=== PATIENT | female | born 1945 | race Caucasian/White ===

== ENCOUNTER 2017-03-25 08:23 | Inpatient (IN) | payer MEDICARE, MEDICAID ==
[2017-03-25] MEDS ORDERED: Sodium Chloride 0.9% 1,000 ML IV ONE (08:58)
[2017-03-25] MEDS ORDERED: Acetaminophen 500 MG Tab PO ONE (09:00)
[2017-03-25] MEDS ORDERED: Temazepam 7.5 MG Cap PO PRN (09:53)
[2017-03-25] MEDS ORDERED: Ondansetron 4 MG Tab.DIS PO PRN (09:53)
[2017-03-25] MEDS ORDERED: Docusate Sodium 100 MG Cap PO PRN (09:53)
[2017-03-25] MEDS ORDERED: Ondansetron 4 MG/2 ML SDV IV PRN (09:53)
[2017-03-25] MEDS ORDERED: Acetaminophen 325 MG Tab PO PRN (09:53)
[2017-03-25] MEDS ORDERED: Bisacodyl 5 MG Tab PO PRN (09:53)
[2017-03-25] MEDS ORDERED: Piperacillin/Tazobactam 3.375 GM in Sodium Chloride 0.9% 50 ML IV SCH (10:00)
[2017-03-25] MEDS ORDERED: Metolazone 2.5 MG Tab PO SCH (10:15)
[2017-03-25] MEDS ORDERED: cefTRIAXone 1,000 MG in Sodium Chloride 0.9% 50 ML IV SCH (10:45)
[2017-03-25] MEDS ORDERED: Azithromycin 500 MG in Sodium Chloride 0.9% 250 ML IV SCH (11:00)
[2017-03-25] MEDS: cefTRIAXone 1,000 MG VIAL IV SCH (12:14)
[2017-03-25] MEDS ORDERED: Metolazone 2.5 MG Tab ONE (13:27)
[2017-03-25] MEDS ORDERED: Gabapentin 300 MG Cap ONE ×2 (13:27→20:44)
[2017-03-25] MEDS: Albuterol/Ipratropium 3.0-0.5 MG/3 ML Neb Soln NEB SCH ×3 (13:37→21:28)
[2017-03-25] MEDS: Enoxaparin 40 MG/0.4 ML Syringe SUBCUT SCH (13:38)
[2017-03-25] MEDS ORDERED: LORazepam 2 MG/ML MDV IVPUSH PRN (15:00)
[2017-03-25] MEDS: Sodium Chloride 0.9% 1,000 ML IV SCH (15:05)
--- NOTE | 2017-03-25 15:08 | PCM.HP ---
H&P History of Present Illness - General Date of Service: 03/25/17 Admit Problem/Dx: Admission Diagnosis/Problem Admission Diagnosis/Problem Pneumonia Source of Information: Patient, Old Records History Limitations: Reports: Altered Mental Status Generalized Pain Score (Numeric/FACES): 8 Lower Back Pain Score (Numeric/FACES): 7 - Related Data Allergies/Adverse Reactions: Allergies Allergy/AdvReac Type Severity Reaction Status Date / Time erythromycin base Allergy Itching Verified 03/25/17 15:01 strawberry Allergy Hives Verified 03/25/17 15:01 Home Medications: Home Meds ALPRAZolam [Alprazolam] 0.5 mg PO BEDTIME PRN 02/07/16 [History] Acetaminophen with Codeine [Tylenol with Codeine #3 Tablet] 2 each PO Q4HR PRN 02/07/16 [History] DULoxetine [Cymbalta] 60 mg PO DAILY 02/07/16 [History] Ergocalciferol (Vitamin D2) [Vitamin D2] 2,000 unit PO BID 02/07/16 [History] Furosemide [Lasix] 80 mg PO DAILY 02/07/16 [History] Gabapentin [Neurontin] 600 mg PO QID 02/07/16 [History] Mirtazapine 45 mg PO BEDTIME 02/07/16 [History] Montelukast [Singulair] 10 mg PO BEDTIME 02/07/16 [History] PARoxetine [Paxil] 60 mg PO BEDTIME 02/07/16 [History] Potassium Chloride [Klor-Con M20] 20 meq PO BEDTIME 02/07/16 [History] rOPINIRole [Requip] 1 mg PO BEDTIME 02/07/16 [History] Past Medical History HEENT History: Reports: Impaired Vision Cardiovascular History: Reports: Heart Failure, Hypertension, SOB on Exertion Respiratory History: Reports: COPD, Pneumonia, Recurrent, Other (See Below) Other Respiratory History: Wears O2 @ hs. MATERIALS COORDINATOR History: Reports: , Other (See Below) Other OB/BYN History: 3 Musculoskeletal History: Reports: RA, Other (See Below) Other Musculoskeletal History: restless legs Neurological History: Reports: Parkinson's, Other (See Below) Other Neuro History: unable to obtain medication hx for Parkinson's, restlesslegs Psychiatric History: Reports: Anxiety, Depression Endocrine/Metabolic History: Reports: Obesity/BMI 30+ - Past Surgical History GI Surgical History: Reports: Hernia Repair/Other Other GI Surgeries/Procedures: Abdominal surgery Social & Family History - Family History Family Medical History: Noncontributory - Tobacco Use Smoking Status *Q: Current Every Day Smoker Years of Tobacco use: 59 Packs/Tins Daily: 1 Used Tobacco, but Quit: No Second Hand Smoke Exposure: No - Caffeine Use Caffeine Use: Reports: Coffee - Alcohol Use Days Per Week of Alcohol Use: 1 Number of Drinks Per Day: 1 Total Drinks Per Week: 1 - Recreational Drug Use Recreational Drug Use: No - Living Situation & Occupation Living situation: Reports: , Alone (Moved to town to be closer to sister. ) H&P Review of Systems - Review of Systems: Review Of Systems: ROS reveals no pertinent complaints other than HPI. Exam - Exam Exam: See Below - Vital Signs Vital Signs: Vital Signs Temp Pulse Resp BP Pulse Ox 03/25/17 11:00 99.9 F 22 H 141/65 H 93 L 03/25/17 10:42 99.8 F 20 141/65 H 94 L 03/25/17 09:35 101.5 F H 20 152/64 H 98 03/25/17 08:23 102.8 F H 116 H 22 H 146/96 H 98 Weight: 98.974 kg - Patient Data Lab Results Last 24 hrs: Laboratory Results - last 24 hr 03/25/17 Range/Units 12:10 Lactic Acid 0.7 (0.4-2.2) mmol/L Result Diagrams: 03/25/17 08:30 03/25/17 08:30 *Q Meaningful Use (ADM) - VTE *Q VTE Criteria *Q: - Stroke *Q Stroke Criteria *Q: - AMI *Q AMI Criteria *Q: - Problem List (1) CAP (community acquired pneumonia) SNOMED Code(s): 385185192 ICD Code: J18.9 - PNEUMONIA, UNSPECIFIED ORGANISM Status: Acute Current Visit: Yes Qualifiers: Laterality: right (2) Bronchospasm with bronchitis, acute SNOMED Code(s): 50542875 ICD Code: J20.9 - ACUTE BRONCHITIS, UNSPECIFIED Status: Acute Priority: High Current Visit: Yes (3) Fever due to infection SNOMED Code(s): 869422383 ICD Code: R50.81 - FEVER PRESENTING WITH CONDITIONS CLASSIFIED ELSEWHERE; B99.9 - UNSPECIFIED INFECTIOUS DISEASE Status: Acute Priority: High Current Visit: Yes (4) Lethargy SNOMED Code(s): 703477337 ICD Code: R53.83 - OTHER FATIGUE Status: Acute Current Visit: Yes (5) Medication reaction SNOMED Code(s): 05062438 ICD Code: T88.7XXA - UNSP ADVERSE EFFECT OF DRUG OR MEDICAMENT, INIT ENCNTR Status: Acute Priority: Medium Current Visit: Yes Qualifiers: Encounter type: initial encounter Qualified Code(s): T88.7XXA - Unspecified adverse effect of drug or medicament, initial encounter (6) Mental status change SNOMED Code(s): 411078967 ICD Code: R41.82 - ALTERED MENTAL STATUS, UNSPECIFIED Status: Acute Current Visit: Yes Qualifiers: Altered mental status type: transient alteration of awareness Qualified Code(s): R40.4 - Transient alteration of awareness (7) Palliative care status SNOMED Code(s): 072558569 ICD Code: Z51.5 - ENCOUNTER FOR PALLIATIVE CARE Status: Acute Current Visit: Yes (8) CHF NYHA class II (symptoms with moderately strenuous activities) SNOMED Code(s): 627621353 ICD Code: I50.9 - HEART FAILURE, UNSPECIFIED Status: Chronic Current Visit: Yes Qualifiers: Congestive heart failure type: systolic (9) Chronic back pain SNOMED Code(s): 255469086 ICD Code: M54.9 - DORSALGIA, UNSPECIFIED; G89.29 - OTHER CHRONIC PAIN Status: Chronic Current Visit: Yes Qualifiers: Back pain location: low back pain Back pain laterality: midline Sciatica presence: without sciatica Qualified Code(s): M54.5 - Low back pain; G89.29 - Other chronic pain; G89.29 - Other chronic pain (10) Depression SNOMED Code(s): 35317485 ICD Code: F32.9 - MAJOR DEPRESSIVE DISORDER, SINGLE EPISODE, UNSPECIFIED Status: Chronic Priority: High Current Visit: Yes Qualifiers: Depression Type: major depressive disorder Active/Remission status: currently active Major depression episode severity: mild (11) Insomnia disorder SNOMED Code(s): 689439615 ICD Code: G47.00 - INSOMNIA, UNSPECIFIED Status: Chronic Current Visit: Yes Qualifiers: Insomnia type: unspecified Qualified Code(s): G47.00 - Insomnia, unspecified (12) Morbid obesity with BMI of 40.0-44.9, adult SNOMED Code(s): 259096984 ICD Code: E66.01 - MORBID (SEVERE) OBESITY DUE TO EXCESS CALORIES; Z68.41 - BODY MASS INDEX (BMI) 40.0-44.9, ADULT Status: Chronic Current Visit: Yes (13) Polypharmacy SNOMED Code(s): 433014370 ICD Code: Z79.899 - OTHER FDC (CURRENT) DRUG THERAPY Status: Chronic Priority: High Current Visit: Yes (14) Restless legs syndrome (RLS) SNOMED Code(s): 90379227 ICD Code: G25.81 - RESTLESS LEGS SYNDROME Status: Chronic Current Visit: Yes (15) Seasonal allergies SNOMED Code(s): 978550489 ICD Code: J30.2 - OTHER SEASONAL ALLERGIC RHINITIS Status: Chronic Current Visit: Yes Qualifiers: Allergic rhinitis trigger: pollen Qualified Code(s): J30.1 - Allergic rhinitis due to pollen (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 SNOMED Code(s): 635393285 ICD Code: K05.6 - PERIODONTAL DISEASE, UNSPECIFIED; K06.9 - DISORDER OF GINGIVA AND EDENTULOUS ALVEOLAR RIDGE, UNSP Status: Acute Current Visit: Yes Problem List Initiated/Reviewed/Updated: Yes Orders Last 24hrs: Active Orders 24 hr Category Date Time Status Cooling Measures [Cooling Warming Measures] [RC] Care 03/25/17 15:00 Ordered ASDIRECTED Pneumonia Education [RC] DAILY Care 03/25/17 14:45 Ordered RT Incentive Spirometry [RC] Q2HWA Care 03/25/17 14:45 Ordered Consult to Fnps [CONS] Routine Cons 03/25/17 14:45 Ordered OT Evaluation and Treatment [CONS] Routine Cons 03/25/17 14:45 Ordered Respiratory Care Assess and Treatment [CONS] Routine Cons 03/25/17 14:45 Ordered 2 Gram Sodium Diet [DIET] Diet 03/25/17 Dinner Ordered CBC WITH AUTO DIFF [HEME] AM Lab 03/26/17 05:11 Ordered CULTURE SPUTUM + SMEAR [RM] Routine Lab 03/25/17 09:50 Received UA W/MICROSCOPIC [URIN] Routine Lab 03/25/17 14:45 Ordered Acetaminophen [Tylenol Extra Strength] Med 03/25/17 16:00 Ordered 1,000 mg PO Q6H DULoxetine [Cymbalta] Med 03/26/17 09:00 Active 60 mg PO DAILY Ergocalciferol (Vitamin D2) [Vitamin D2] Med 03/25/17 21:00 Active 2,000 unit PO BID Furosemide [Lasix] Med 03/26/17 09:00 Active 80 mg PO DAILY Gabapentin [Neurontin] Med 03/25/17 14:00 Active 600 mg PO TID LORazepam [Ativan] Med 03/25/17 15:00 Ordered 1 mg IVPUSH Q8H PRN Levofloxacin/Dextrose 5%-Water [Levaquin in D5W 750 MG/ Med 03/25/17 14:45 Ordered 150 ML] 750 mg Premix Bag 1 bag IV Q24H Metolazone [Zaroxolyn] Med 03/25/17 10:15 Active 5 mg PO Q2D Mirtazapine [Mirtazapine] Med 03/25/17 21:00 Active 45 mg PO BEDTIME Montelukast [Singulair] Med 03/25/17 21:00 Active 10 mg PO BEDTIME PARoxetine [Paxil] Med 03/26/17 09:00 Active 60 mg PO DAILY Potassium Chloride [Klor-Con M20] Med 03/26/17 09:00 Active 20 meq PO DAILY cefTRIAXone [Rocephin] Med 03/25/17 12:00 Active 1,000 mg IV Q24H rOPINIRole [Requip] Med 03/25/17 21:00 Active 1 mg PO BEDTIME Give supplemental Oxygen PRN [COMM] Routine Oth 03/25/17 14:46 Ordered Medication Orders Acetaminophen (Tylenol Extra Strength) 1,000 mg PO Q6H [facility] Stop: 03/27/17 16:01 Albuterol/Ipratropium (Duoneb 3.0-0.5 Mg/3 Ml) 3 ml NEB QIDRT [facility] Last Admin: 03/25/17 13:37 Dose: 3 ml Ceftriaxone Sodium (Rocephin) 1,000 mg IV Q24H [facility] Last Admin: 03/25/17 12:14 Dose: 1,000 mg Docusate Sodium (Colace) 100 mg PO BID PRN PRN Reason: Constipation Duloxetine HCl (Cymbalta) 60 mg PO DAILY [facility] Enoxaparin Sodium (Lovenox) 40 mg SUBCUT Q24H [facility] Last Admin: 03/25/17 13:38 Dose: 40 mg Furosemide (Lasix) 80 mg PO DAILY [facility] Gabapentin (Neurontin) 600 mg PO TID [facility] Levofloxacin/Dextrose 750 mg/ (Premix) 150 mls @ 100 mls/hr IV Q24H [facility] Ibuprofen (Motrin) 600 mg PO Q6H PRN PRN Reason: Pain (mild 1-3) Lorazepam (Ativan) 1 mg IVPUSH Q8H PRN PRN Reason: anxiety;agitation;restlessness Montelukast Sodium (Singulair) 10 mg PO BEDTIME [facility] Non-Formulary Medication (Ergocalciferol (Vitamin D2) [Vitamin D2]) 2,000 unit PO BID [facility] Non-Formulary Medication (Mirtazapine [Mirtazapine]) 45 mg PO BEDTIME [facility] Paroxetine HCl (Paxil) 60 mg PO BEDTIME [facility] Potassium Chloride (Klor-Con M20) 20 meq PO DAILY [facility] Ropinirole HCl (Requip) 1 mg PO BEDTIME [facility]
[2017-03-25] MEDS ORDERED: Nicotine 21 MG/24 Hr Patch TRDERM PRN (15:37)
--- NOTE | 2017-03-25 15:45 | PCM.HP ---
H&P History of Present Illness - General Date of Service: 03/25/17 Admit Problem/Dx: Admission Diagnosis/Problem Admission Diagnosis/Problem Pneumonia - History of Present Illness Initial Comments - Free Text/Narative: Presents to the ER having increasing cough and shortness of breath. Increased sputum production. Long-standing active COPD with bronchospastic component. Ongoing symptoms the last couple of days. Not improving. Noting high fevers sweats chills. Unaware of any ill contacts. Sees a physician in outlying facility. Otherwise she denies near syncope, falls, hemoptysis, chest pain or pressure, neck or jaw pain, shoulder arm pain. She does get anterior chest wall pain with coughing. Bringing up mucopurulent sputum. She does smoke about a pack a day. She is on O2 at night. Not on CPAP. She has chronic low and mid back pain for which she is on numerous medications for anti-inflammatory, analgesic and neurogenic palliation. Also concomitant depression anxiety with RLS and insomnia. Allergy list includes erythromycin base but she is unsure exactly when or where this happened. Thinks it causes itching, but denies any respiratory distress, swelling of the lips and tongue associated. She has a component of asthma as well. She has not traveled outside the [place] in the last 90 days. She is having her records sent to establish care with Dr. Shelley MD over at [facility] in [place], [place]. She has not seen him as of yet. Generalized Pain Score (Numeric/FACES): 8 Lower Back Pain Score (Numeric/FACES): 7 Left Neck Pain Score (Numeric/FACES): 5 - Related Data Allergies/Adverse Reactions: Allergies Allergy/AdvReac Type Severity Reaction Status Date / Time erythromycin base Allergy Itching Verified 03/25/17 15:01 strawberry Allergy Hives Verified 03/25/17 15:01 Home Medications: Home Meds ALPRAZolam [Alprazolam] 0.5 mg PO BEDTIME PRN 02/07/16 [History] Acetaminophen with Codeine [Tylenol with Codeine #3 Tablet] 2 each PO Q4HR PRN 02/07/16 [History] DULoxetine [Cymbalta] 60 mg PO DAILY 02/07/16 [History] Ergocalciferol (Vitamin D2) [Vitamin D2] 2,000 unit PO BID 02/07/16 [History] Furosemide [Lasix] 80 mg PO DAILY 02/07/16 [History] Gabapentin [Neurontin] 600 mg PO TID 02/07/16 [History] Mirtazapine 45 mg PO BEDTIME 02/07/16 [History] Montelukast [Singulair] 10 mg PO BEDTIME 02/07/16 [History] PARoxetine [Paxil] 60 mg PO BEDTIME 02/07/16 [History] Potassium Chloride [Klor-Con M20] 20 meq PO BEDTIME 02/07/16 [History] rOPINIRole [Requip] 2 mg PO BEDTIME 02/07/16 [History] Past Medical History HEENT History: Reports: Impaired Vision Cardiovascular History: Reports: Heart Failure, Hypertension, SOB on Exertion Respiratory History: Reports: COPD, Pneumonia, Recurrent, Other (See Below) Other Respiratory History: Wears O2 @ hs. [employer] History: Reports: , Other (See Below) Other OB/BYN History: 3 Musculoskeletal History: Reports: RA, Other (See Below) Other Musculoskeletal History: restless legs Neurological History: Reports: Parkinson's, Other (See Below) Other Neuro History: unable to obtain medication hx for Parkinson's, restlesslegs Psychiatric History: Reports: Anxiety, Depression Endocrine/Metabolic History: Reports: Obesity/BMI 30+ - Past Surgical History GI Surgical History: Reports: Hernia Repair/Other Other GI Surgeries/Procedures: Abdominal surgery Neurological Surgical History: Reports: C-Spine Musculoskeletal Surgical History: Reports: Knee Replacement Social & Family History - Family History Family Medical History: Noncontributory - Tobacco Use Smoking Status *Q: Current Every Day Smoker Years of Tobacco use: 59 Packs/Tins Daily: 1 Used Tobacco, but Quit: No Second Hand Smoke Exposure: No - Caffeine Use Caffeine Use: Reports: Coffee - Alcohol Use Days Per Week of Alcohol Use: 1 Number of Drinks Per Day: 1 Total Drinks Per Week: 1 - Recreational Drug Use Recreational Drug Use: No - Living Situation & Occupation Living situation: Reports: Occupation: Unemployed H&P Review of Systems - Review of Systems: Review Of Systems: ROS reveals no pertinent complaints other than HPI. Exam - Exam Exam: See Below - Vital Signs Vital Signs: Last Vital Signs Temp 99.9 F 03/25/17 11:00 Pulse 116 H 03/25/17 08:23 Resp 22 H 03/25/17 11:00 BP 141/65 H 03/25/17 11:00 Pulse Ox 93 L 03/25/17 11:00 Weight: 98.974 kg - Exam Quality Assessment: Supplemental Oxygen General: Alert, Oriented, Cooperative, Mild Distress HEENT: No: Mucosa Moist & [place] Neck: Trachea Midline. No: Lymphadenopathy Lungs: Decreased Breath Sounds, Crackles (Coarse crackles noted mid lung bailey left greater than right with diminished aeration on the left at the lower lobes. ), Wheezing (Anterior chest wall bilateral upper lobes) Cardiovascular: Regular Rate, Regular Rhythm GI/Abdominal Exam: Normal Bowel Sounds, Other (Patient has numerous surgical scars from prior hernia repair. She has firm distention however states this is normal for her. I cannot palpate any active abdominal herniation. She is nontender to palpation has normal bowel sounds throughout.) (Female) Exam: Normal External Exam Back Exam: Other (Severe kyphoscoliosis which is contributing to likely restrictive/obstructive COPD) Extremities: No: Pedal Edema, Vandana's Sign, Leg Pain Neurological: Strength Equal Bilateral Psychiatric: Alert, Anxious, Agitated. No: Hallucinations, Withdrawal Symptoms - Patient Data Lab Results Last 24 hrs: Laboratory Tests 03/25/17 03/25/17 03/25/17 Range/Units 08:30 08:30 08:30 WBC 17.2 H (4.5-12.0) X10-3/uL RBC 4.41 (3.23-5.20) x10(6)uL Hgb 13.5 (11.5-15.5) g/dL Hct 40.6 (30.0-51.3) % MCV 91.9 (80-96) fL MCH 30.6 (27.7-33.6) pg MCHC 33.2 (32.2-35.4) g/dL RDW 14.6 (11.5-15.5) % Plt Count 305 (125-369) X10(3)uL MPV 8.2 (7.4-10.4) fL Neut % (Auto) (46-82) % Lymph % (Auto) (13-37) % [place] % (Auto) (4-12) % Eos % (Auto) (1.0-5.0) % Baso % (Auto) (0-2) % Neut # (Auto) (1.6-8.3) # Lymph # (Auto) (0.6-5.0) # [place] # (Auto) (0.0-1.3) # Eos # (Auto) (0.0-0.8) # Baso # (Auto) (0.0-0.2) # Add Manual Diff Yes Neutrophils % (Manual) 77 (46-82) % Band Neutrophils % 4 (0-6) % Lymphocytes % (Manual) 12 L (13-37) % Monocytes % (Manual) 4 (4-12) % Eosinophils % (Manual) 3 (0-5) % Sodium 141 (135-145) mmol/L Potassium 4.5 (3.5-5.3) mmol/L Chloride 100 (100-110) mmol/L Carbon Dioxide 31 (21-32) mmol/L BUN 16 (7-18) mg/dL Creatinine 1.1 H (0.55-1.02) mg/dL Est Cr Clr Drug Dosing 35.40 mL/min Estimated GFR (MDRD) 49 L (>60) BUN/Creatinine Ratio 14.5 (9-20) Glucose 96 (80-116) mg/dL Lactic Acid (0.4-2.2) mmol/L Calcium 9.4 (8.6-10.2) mg/dL Total Bilirubin 0.4 (0.1-1.3) mg/dL AST 26 H (5-25) IU/L ALT 31 (12-36) U/L Alkaline Phosphatase 204 H (56-112) IU/L Total Protein 7.1 (6.0-8.0) g/dL Albumin 3.5 (3.2-4.6) g/dL Globulin 3.6 g/dL Albumin/Globulin Ratio 1.0 TSH, Ultra Sensitive 0.43 (0.36-3.74) IU/mL Urine Color (YELLOW) Urine Appearance (CLEAR) Urine pH (5.0-6.5) Ur Specific [place] (1.010-1.025) Urine Protein (NEGATIVE) mg/dL Urine Glucose (UA) (NEGATIVE) mg/dL Urine Ketones (NEGATIVE) mg/dL Urine Occult Blood (NEGATIVE) Urine Nitrite (NEGATIVE) Urine Bilirubin (NEGATIVE) Urine Urobilinogen (NEGATIVE) mg/dL Ur Leukocyte Esterase (NEGATIVE) Urine RBC (0) Urine WBC (0) Ur Squamous Epith Cells (NS,R,O) Urine Bacteria (NS) Urine Opiates Screen (NEGATIVE) Ur Oxycodone Screen (NEGATIVE) Ur Propoxyphene Screen (NEGATIVE) Ur Barbituates Screen (NEGATIVE) Ur Tricyclics Screen (NEGATIVE) Ur Phencyclidine Scrn (NEGATIVE) Ur Amphetamine Screen (NEGATIVE) Urine MDMA Screen (NEGATIVE) U Benzodiazepines Scrn (NEGATIVE) U Cocaine Metab Screen (NEGATIVE) U Marijuana (THC) Screen (NEGATIVE) 03/25/17 03/25/17 03/25/17 Range/Units 08:30 09:35 09:35 WBC (4.5-12.0) X10-3/uL RBC (3.23-5.20) x10(6)uL Hgb (11.5-15.5) g/dL Hct (30.0-51.3) % MCV (80-96) fL MCH (27.7-33.6) pg MCHC (32.2-35.4) g/dL RDW (11.5-15.5) % Plt Count (125-369) X10(3)uL MPV (7.4-10.4) fL Neut % (Auto) (46-82) % Lymph % (Auto) (13-37) % [place] % (Auto) (4-12) % Eos % (Auto) (1.0-5.0) % Baso % (Auto) (0-2) % Neut # (Auto) (1.6-8.3) # Lymph # (Auto) (0.6-5.0) # [place] # (Auto) (0.0-1.3) # Eos # (Auto) (0.0-0.8) # Baso # (Auto) (0.0-0.2) # Add Manual Diff Neutrophils % (Manual) (46-82) % Band Neutrophils % (0-6) % Lymphocytes % (Manual) (13-37) % Monocytes % (Manual) (4-12) % Eosinophils % (Manual) (0-5) % Sodium (135-145) mmol/L Potassium (3.5-5.3) mmol/L Chloride (100-110) mmol/L Carbon Dioxide (21-32) mmol/L BUN (7-18) mg/dL Creatinine (0.55-1.02) mg/dL Est Cr Clr Drug Dosing mL/min Estimated GFR (MDRD) (>60) BUN/Creatinine Ratio (9-20) Glucose (80-116) mg/dL Lactic Acid 1.7 (0.4-2.2) mmol/L Calcium (8.6-10.2) mg/dL Total Bilirubin (0.1-1.3) mg/dL AST (5-25) IU/L ALT (12-36) U/L Alkaline Phosphatase (56-112) IU/L Total Protein (6.0-8.0) g/dL Albumin (3.2-4.6) g/dL Globulin g/dL Albumin/Globulin Ratio TSH, Ultra Sensitive (0.36-3.74) IU/mL Urine Color Yellow (YELLOW) Urine Appearance Slightly cloudy (CLEAR) Urine pH 5.0 (5.0-6.5) Ur Specific [place] 1.020 (1.010-1.025) Urine Protein Negative (NEGATIVE) mg/dL Urine Glucose (UA) Normal (NEGATIVE) mg/dL Urine Ketones Negative (NEGATIVE) mg/dL Urine Occult Blood Negative (NEGATIVE) Urine Nitrite Negative (NEGATIVE) Urine Bilirubin Negative (NEGATIVE) Urine Urobilinogen Normal (NEGATIVE) mg/dL Ur Leukocyte Esterase Negative (NEGATIVE) Urine RBC 0-5 (0) Urine WBC 0-5 (0) Ur Squamous Epith Cells Many H (NS,R,O) Urine Bacteria Few H (NS) Urine Opiates Screen Positive H (NEGATIVE) Ur Oxycodone Screen Negative (NEGATIVE) Ur Propoxyphene Screen Negative (NEGATIVE) Ur Barbituates Screen Negative (NEGATIVE) Ur Tricyclics Screen Positive H (NEGATIVE) Ur Phencyclidine Scrn Negative (NEGATIVE) Ur Amphetamine Screen Negative (NEGATIVE) Urine MDMA Screen Negative (NEGATIVE) U Benzodiazepines Scrn Positive H (NEGATIVE) U Cocaine Metab Screen Negative (NEGATIVE) U Marijuana (THC) Screen Negative (NEGATIVE) 03/25/17 Range/Units 12:10 WBC (4.5-12.0) X10-3/uL RBC (3.23-5.20) x10(6)uL Hgb (11.5-15.5) g/dL Hct (30.0-51.3) % MCV (80-96) fL MCH (27.7-33.6) pg MCHC (32.2-35.4) g/dL RDW (11.5-15.5) % Plt Count (125-369) X10(3)uL MPV (7.4-10.4) fL Neut % (Auto) (46-82) % Lymph % (Auto) (13-37) % [place] % (Auto) (4-12) % Eos % (Auto) (1.0-5.0) % Baso % (Auto) (0-2) % Neut # (Auto) (1.6-8.3) # Lymph # (Auto) (0.6-5.0) # [place] # (Auto) (0.0-1.3) # Eos # (Auto) (0.0-0.8) # Baso # (Auto) (0.0-0.2) # Add Manual Diff Neutrophils % (Manual) (46-82) % Band Neutrophils % (0-6) % Lymphocytes % (Manual) (13-37) % Monocytes % (Manual) (4-12) % Eosinophils % (Manual) (0-5) % Sodium (135-145) mmol/L Potassium (3.5-5.3) mmol/L Chloride (100-110) mmol/L Carbon Dioxide (21-32) mmol/L BUN (7-18) mg/dL Creatinine (0.55-1.02) mg/dL Est Cr Clr Drug Dosing mL/min Estimated GFR (MDRD) (>60) BUN/Creatinine Ratio (9-20) Glucose (80-116) mg/dL Lactic Acid 0.7 (0.4-2.2) mmol/L Calcium (8.6-10.2) mg/dL Total Bilirubin (0.1-1.3) mg/dL AST (5-25) IU/L ALT (12-36) U/L Alkaline Phosphatase (56-112) IU/L Total Protein (6.0-8.0) g/dL Albumin (3.2-4.6) g/dL Globulin g/dL Albumin/Globulin Ratio TSH, Ultra Sensitive (0.36-3.74) IU/mL Urine Color (YELLOW) Urine Appearance (CLEAR) Urine pH (5.0-6.5) Ur Specific [place] (1.010-1.025) Urine Protein (NEGATIVE) mg/dL Urine Glucose (UA) (NEGATIVE) mg/dL Urine Ketones (NEGATIVE) mg/dL Urine Occult Blood (NEGATIVE) Urine Nitrite (NEGATIVE) Urine Bilirubin (NEGATIVE) Urine Urobilinogen (NEGATIVE) mg/dL Ur Leukocyte Esterase (NEGATIVE) Urine RBC (0) Urine WBC (0) Ur Squamous Epith Cells (NS,R,O) Urine Bacteria (NS) Urine Opiates Screen (NEGATIVE) Ur Oxycodone Screen (NEGATIVE) Ur Propoxyphene Screen (NEGATIVE) Ur Barbituates Screen (NEGATIVE) Ur Tricyclics Screen (NEGATIVE) Ur Phencyclidine Scrn (NEGATIVE) Ur Amphetamine Screen (NEGATIVE) Urine MDMA Screen (NEGATIVE) U Benzodiazepines Scrn (NEGATIVE) U Cocaine Metab Screen (NEGATIVE) U Marijuana (THC) Screen (NEGATIVE) Result Diagrams: 03/26/17 06:05 03/26/17 12:25 Zachary Results Last 24 hrs: Urine and sputum cultures have been obtained awaiting results Imaging Impressions Last 24 hrs: Chest x-ray PA view poor quality with poor penetration and rotation. However looks to have possible right middle and left lower lobe pneumonia. No definite cardiomegaly. Will repeat in the morning. Radiology review pending as well. *Q Meaningful Use (ADM) - VTE *Q VTE Criteria *Q: - Stroke *Q Stroke Criteria *Q: - AMI *Q AMI Criteria *Q: - Problem List (1) CAP (community acquired pneumonia) SNOMED Code(s): 580884579 ICD Code: J18.9 - PNEUMONIA, UNSPECIFIED ORGANISM Status: Acute Current Visit: Yes Qualifiers: Laterality: right (2) Bronchospasm with bronchitis, acute SNOMED Code(s): 90611428 ICD Code: J20.9 - ACUTE BRONCHITIS, UNSPECIFIED Status: Acute Priority: High Current Visit: Yes (3) Fever due to infection SNOMED Code(s): 971630447 ICD Code: R50.81 - FEVER PRESENTING WITH CONDITIONS CLASSIFIED ELSEWHERE; B99.9 - UNSPECIFIED INFECTIOUS DISEASE Status: Acute Priority: High Current Visit: Yes (4) Lethargy SNOMED Code(s): 204799523 ICD Code: R53.83 - OTHER FATIGUE Status: Acute Current Visit: Yes (5) Medication reaction SNOMED Code(s): 57941984 ICD Code: T88.7XXA - UNSP ADVERSE EFFECT OF DRUG OR MEDICAMENT, INIT ENCNTR Status: Acute Priority: Medium Current Visit: Yes Qualifiers: Encounter type: initial encounter Qualified Code(s): T88.7XXA - Unspecified adverse effect of drug or medicament, initial encounter (6) Mental status change SNOMED Code(s): 466571348 ICD Code: R41.82 - ALTERED MENTAL STATUS, UNSPECIFIED Status: Acute Current Visit: Yes Qualifiers: Altered mental status type: transient alteration of awareness Qualified Code(s): R40.4 - Transient alteration of awareness (7) Palliative care status SNOMED Code(s): 419299884 ICD Code: Z51.5 - ENCOUNTER FOR PALLIATIVE CARE Status: Acute Current Visit: Yes (8) CHF NYHA class II (symptoms with moderately strenuous activities) SNOMED Code(s): 436736095 ICD Code: I50.9 - HEART FAILURE, UNSPECIFIED Status: Chronic Current Visit: Yes Qualifiers: Congestive heart failure type: systolic (9) Nocturnal oxygen desaturation SNOMED Code(s): 880483027 ICD Code: G47.34 - IDIO SLEEP RELATED NONOBSTRUCTIVE ALVEOLAR HYPOVENTILATION Status: Chronic Current Visit: Yes (10) Chronic back pain SNOMED Code(s): 897371874 ICD Code: M54.9 - DORSALGIA, UNSPECIFIED; G89.29 - OTHER CHRONIC PAIN Status: Chronic Current Visit: Yes Qualifiers: Back pain location: low back pain Back pain laterality: midline Sciatica presence: without sciatica Qualified Code(s): M54.5 - Low back pain; G89.29 - Other chronic pain; G89.29 - Other chronic pain (11) Depression SNOMED Code(s): 25592732 ICD Code: F32.9 - MAJOR DEPRESSIVE DISORDER, SINGLE EPISODE, UNSPECIFIED Status: Chronic Priority: High Current Visit: Yes Qualifiers: Depression Type: major depressive disorder Active/Remission status: currently active Major depression episode severity: mild (12) Insomnia disorder SNOMED Code(s): 980092284 ICD Code: G47.00 - INSOMNIA, UNSPECIFIED Status: Chronic Current Visit: Yes Qualifiers: Insomnia type: unspecified Qualified Code(s): G47.00 - Insomnia, unspecified (13) Morbid obesity with BMI of 40.0-44.9, adult SNOMED Code(s): 828063926 ICD Code: E66.01 - MORBID (SEVERE) OBESITY DUE TO EXCESS CALORIES; Z68.41 - BODY MASS INDEX (BMI) 40.0-44.9, ADULT Status: Chronic Current Visit: Yes (14) Polypharmacy SNOMED Code(s): 681377137 ICD Code: Z79.899 - OTHER [employer] LEADPERSON (CURRENT) DRUG THERAPY Status: Chronic Priority: High Current Visit: Yes (15) Restless legs syndrome (RLS) SNOMED Code(s): 04283847 ICD Code: G25.81 - RESTLESS LEGS SYNDROME Status: Chronic Current Visit: Yes (16) Seasonal allergies SNOMED Code(s): 980867309 ICD Code: J30.2 - OTHER SEASONAL ALLERGIC RHINITIS Status: Chronic Current Visit: Yes Qualifiers: Allergic rhinitis trigger: pollen Qualified Code(s): J30.1 - Allergic rhinitis due to pollen (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 SNOMED Code(s): 538982521 ICD Code: K05.6 - PERIODONTAL DISEASE, UNSPECIFIED; K06.9 - DISORDER OF GINGIVA AND EDENTULOUS ALVEOLAR RIDGE, UNSP Status: Chronic Current Visit: Yes (18) Kyphoscoliosis deformity of spine SNOMED Code(s): 159820743 ICD Code: M41.9 - SCOLIOSIS, UNSPECIFIED Status: Chronic Current Visit: Yes (19) Tobacco dependence due to cigarettes SNOMED Code(s): 74635379753040195 ICD Code: F17.210 - NICOTINE DEPENDENCE, CIGARETTES, UNCOMPLICATED Status: Chronic Current Visit: Yes Problem List Initiated/Reviewed/Updated: Yes Orders Last 24hrs: Active Orders 24 hr Category Date Time Status Cooling Measures [Cooling Warming Measures] [RC] Care 03/25/17 15:00 Active ASDIRECTED Pneumonia Education [RC] DAILY Care 03/25/17 14:45 Active RT Incentive Spirometry [RC] Q2HWA Care 03/25/17 14:45 Active Consult to Shipping And Receiving Coordinator [CONS] Routine Cons 03/25/17 14:45 Active OT Evaluation and Treatment [CONS] Routine Cons 03/25/17 14:45 Active Respiratory Care Assess and Treatment [CONS] Routine Cons 03/25/17 14:45 Active 2 Gram Sodium Diet [DIET] Diet 03/25/17 Dinner Active CXR [Chest 2V] [CR] AM Exams 03/26/17 05:11 Ordered CBC WITH AUTO DIFF [HEME] AM Lab 03/26/17 05:11 Ordered CULTURE SPUTUM + SMEAR [RM] Routine Lab 03/25/17 09:50 Received UA W/MICROSCOPIC [URIN] Routine Lab 03/25/17 14:45 Ordered Acetaminophen [Tylenol Extra Strength] Med 03/25/17 16:00 Active 1,000 mg PO Q6H DULoxetine [Cymbalta] Med 03/26/17 09:00 Active 60 mg PO DAILY Ergocalciferol (Vitamin D2) [Vitamin D2] Med 03/25/17 21:00 Active 2,000 unit PO BID Furosemide [Lasix] Med 03/26/17 09:00 Active 80 mg PO DAILY Gabapentin [Neurontin] Med 03/25/17 14:00 Active 600 mg PO TID LORazepam [Ativan] Med 03/25/17 15:00 Active 1 mg IVPUSH Q8H PRN Levofloxacin/Dextrose 5%-Water [Levaquin in D5W 750 MG/ Med 03/25/17 15:00 Active 150 ML] 750 mg Premix Bag 1 bag IV Q24H Metolazone [Zaroxolyn] Med 03/25/17 10:15 Active 5 mg PO Q2D Mirtazapine [Mirtazapine] Med 03/25/17 21:00 Hold 45 mg PO BEDTIME Montelukast [Singulair] Med 03/25/17 21:00 Active 10 mg PO BEDTIME Nicotine [Habitrol] Med 03/25/17 15:37 Ordered 21 mg TRDERM DAILY PRN PARoxetine [Paxil] Med 03/26/17 09:00 Active 60 mg PO DAILY Potassium Chloride [Klor-Con M20] Med 03/26/17 09:00 Active 20 meq PO DAILY cefTRIAXone [Rocephin] Med 03/25/17 12:00 Active 1,000 mg IV Q24H rOPINIRole [Requip] Med 03/25/17 21:00 Active 1 mg PO BEDTIME Give supplemental Oxygen PRN [COMM] Routine Oth 03/25/17 14:46 Ordered Medication Orders Acetaminophen (Tylenol Extra Strength) 1,000 mg PO Q6H [facility] Stop: 03/27/17 16:01 Albuterol/Ipratropium (Duoneb 3.0-0.5 Mg/3 Ml) 3 ml NEB QIDRT [facility] Last Admin: 03/25/17 13:37 Dose: 3 ml Ceftriaxone Sodium (Rocephin) 1,000 mg IV Q24H [facility] Last Admin: 03/25/17 12:14 Dose: 1,000 mg Docusate Sodium (Colace) 100 mg PO BID PRN PRN Reason: Constipation Duloxetine HCl (Cymbalta) 60 mg PO DAILY [facility] Enoxaparin Sodium (Lovenox) 40 mg SUBCUT Q24H [facility] Last Admin: 03/25/17 13:38 Dose: 40 mg Furosemide (Lasix) 80 mg PO DAILY [facility] Gabapentin (Neurontin) 600 mg PO TID [facility] Levofloxacin/Dextrose 750 mg/ (Premix) 150 mls @ 100 mls/hr IV Q24H [facility] Ibuprofen (Motrin) 600 mg PO Q6H PRN PRN Reason: Pain (mild 1-3) Lorazepam (Ativan) 1 mg IVPUSH Q8H PRN PRN Reason: anxiety;agitation;restlessness Last Admin: 03/25/17 15:23 Dose: 1 mg Metolazone (Zaroxolyn) 5 mg PO Q2D [facility] Montelukast Sodium (Singulair) 10 mg PO BEDTIME [facility] Nicotine (Habitrol) 21 mg TRDERM DAILY PRN PRN Reason: NICOTINE WITHDRAWL Non-Formulary Medication (Ergocalciferol (Vitamin D2) [Vitamin D2]) 2,000 unit PO BID [facility] Non-Formulary Medication (Mirtazapine [Mirtazapine]) 45 mg PO BEDTIME [facility] Paroxetine HCl (Paxil) 60 mg PO DAILY [facility] Potassium Chloride (Klor-Con M20) 20 meq PO DAILY [facility] Ropinirole HCl (Requip) 1 mg PO BEDTIME [facility] Assessment/Plan Comment:: We did attempt to treat with azithromycin IV however she did develop some pain with infusion also some redness along the area so he discontinued that she had received the full dose. We opted for Rocephin with respiratory quinolone coverage. Pulmonary support with SVNs, oxygen via nasal cannula to keep sats greater than 92% and respiratory rate less than 22, Tylenol scheduled for the next 24 hours for fever as well as cooling measures. IV hydration however watch for fluid overload. I'll medications to be reviewed and resumed as necessary. For her acute agitation and restlessness I will go ahead and have milligram of Ativan IV given so that she may rest. This will also be a when necessary basis every 8 hours as needed. As she is a smoker or had and offer nicotine patch 21 g should she develop any withdrawal symptoms. All questions answered and discussed the patient and she agrees the above plan of care. I anticipate a minimum of 48-72 hour inpatient stay with discharge to home should she progress and do well with the above interventions.
[2017-03-25] MEDS: Levofloxacin/Dextrose 5%-Water 750 MG in Premix Bag 1 BAG IV SCH (16:33)
[2017-03-25] MEDS: Acetaminophen 500 MG Tab PO SCH ×2 (17:44→21:01)
[2017-03-25] MEDS: Gabapentin 600 MG Tab PO SCH ×2 (17:50→20:57)
[2017-03-25] MEDS ORDERED: Diclofenac Sodium 75 MG Tab.EC PO SCH (18:00)
[2017-03-25] MEDS ORDERED: Albuterol/Ipratropium 3.0-0.5 MG/3 ML Neb Soln ONE (20:49)
[2017-03-25] MEDS: Montelukast 10 MG Tab PO SCH (20:58)
[2017-03-25] MEDS ORDERED: tiZANidine 4 MG Tab PO SCH (21:00)
[2017-03-25] MEDS ORDERED: rOPINIRole 1 MG Tab PO SCH (21:00)
[2017-03-25] MEDS ORDERED: Non-Formulary Medication 1 Each (Mirtazapine [Mirtazapine] 45 MG) PO SCH (21:00)
[2017-03-25] MEDS ORDERED: Non-Formulary Medication 1 Each (Ergocalciferol (Vitamin D2) [Vitamin D2] 2,000 UNIT) PO SCH (21:00)
[2017-03-25] MEDS ORDERED: SUVOREXANT 10 MG PO SCH (21:00)
[2017-03-25] MEDS ORDERED: Cholecalciferol (Vitamin D3) 1,000 Unit Tab ONE (22:51)
[2017-03-25] MEDS: Cholecalciferol (Vitamin D3) 1,000 Unit Tab PO SCH (22:53)
[2017-03-26] MEDS: Sodium Chloride 0.9% 1,000 ML IV SCH (01:00)
[2017-03-26] MEDS: Acetaminophen 500 MG Tab PO SCH ×4 (04:07→21:50)
[2017-03-26] MEDS: Ibuprofen 600 MG Tab PO PRN ×2 (05:37→10:03)
[2017-03-26] MEDS: Albuterol/Ipratropium 3.0-0.5 MG/3 ML Neb Soln NEB SCH ×4 (07:08→20:19)
[2017-03-26] MEDS ORDERED: Mirtazapine 15 MG Tab PO SCH (07:44)
--- NOTE | 2017-03-26 07:49 | PCM.PN ---
- General Info Date of Service: 03/26/17 Subjective Update: Patient states she's feeling better today. She is using her incentive spirometry , also her SVNs, IV antibiotics on board which she is tolerating well. She is tolerating her diet and no increased lower extremity edema. She continues to get IV fluids. Fevers have resolved however she is getting scheduled Tylenol which could be masking. Dose of Ativan yesterday made her quite groggy and sleep for several hours therefore this will be cut in half on a when necessary basis. Coughing continues but improving. Minimal wheezing noted. She has been up into the bathroom. She denies any lightheadedness or dizziness upon standing. She denies any headache vision change focal neurologic changes pain on deep inspiration, orthopnea, worsening dyspnea with exertion, chest palpitations, abdominal pain, constipation, change in back pain, change in skin , and denies any peripheral edema. Notes her IV site on the right from the azithromycin burning has resolved. - Review of Systems Systems Review Comment:: Pertinent positives and negatives relevant to today's visit please see subjective above - Patient Data Vitals - Most Recent: Last Vital Signs Temp 98.1 F 03/26/17 04:00 Pulse 87 03/26/17 04:00 Resp 20 03/26/17 04:00 BP 141/75 H 03/26/17 04:00 Pulse Ox 99 03/26/17 04:30 Vital Signs Temp Pulse Resp BP Pulse Ox Pulse Ox 03/26/17 04:30 99 03/26/17 04:00 98.1 F 87 20 141/75 H 93 L 03/26/17 00:00 20 138/60 92 L 03/25/17 23:00 94 L 03/25/17 21:40 95 03/25/17 20:00 98.8 F 89 20 144/66 H 95 Weight - Most Recent: 99.155 kg I&O - Last 24 Hours: Intake & Output 03/25/17 03/26/17 22:59 06:59 Intake Total 2331 933 Output Total 700 1100 Balance 1631 -167 Lab Results Last 24 Hours: Laboratory Results - last 24 hr 03/25/17 03/26/17 Range/Units 12:10 06:05 WBC 14.3 H (4.5-12.0) X10-3/uL RBC 3.69 (3.23-5.20) x10(6)uL Hgb 11.4 L (11.5-15.5) g/dL Hct 34.2 (30.0-51.3) % MCV 92.7 (80-96) fL MCH 31.0 (27.7-33.6) pg MCHC 33.4 (32.2-35.4) g/dL RDW 14.8 (11.5-15.5) % Plt Count 285 (125-369) X10(3)uL MPV 8.2 (7.4-10.4) fL Neut % (Auto) 80.1 (46-82) % Lymph % (Auto) 14.7 (13-37) % [place] % (Auto) 4.9 (4-12) % Eos % (Auto) 0 L (1.0-5.0) % Baso % (Auto) 0 (0-2) % Neut # (Auto) 11.5 H (1.6-8.3) # Lymph # (Auto) 2.1 (0.6-5.0) # [place] # (Auto) 0.7 (0.0-1.3) # Eos # (Auto) 0.0 (0.0-0.8) # Baso # (Auto) 0.0 (0.0-0.2) # Lactic Acid 0.7 (0.4-2.2) mmol/L Zachary Results Last 24 Hours: Microbiology 03/25/17 08:50 Nasal Aspirate, Unspecified Influenza Type A Antigen Screen - Final NEGATIVE INFLUENZA A VIRUS AG 03/25/17 08:50 Nasal Aspirate, Unspecified Influenza Type B Antigen Screen - Final NEGATIVE INFLUENZA B VIRUS AG 03/25/17 08:50 Throat Group A Streptococcus Rapid Screen - Final NEGATIVE STREP A SCREEN sputum pending Med Orders - Current: Current Medications Acetaminophen (Tylenol Extra Strength) 1,000 mg PO Q6H [facility] Stop: 03/27/17 16:01 Last Admin: 03/26/17 04:07 Dose: 1,000 mg Albuterol/Ipratropium (Duoneb 3.0-0.5 Mg/3 Ml) 3 ml NEB QIDRT [facility] Last Admin: 03/26/17 07:08 Dose: 3 ml Ceftriaxone Sodium (Rocephin) 1,000 mg IV Q24H [facility] Last Admin: 03/25/17 12:14 Dose: 1,000 mg Cholecalciferol (Vitamin D3) 2,000 units PO BID [facility] Last Admin: 03/25/17 22:53 Dose: 2,000 units Docusate Sodium (Colace) 100 mg PO BID PRN PRN Reason: Constipation Duloxetine HCl (Cymbalta) 60 mg PO DAILY [facility] Enoxaparin Sodium (Lovenox) 40 mg SUBCUT Q24H [facility] Last Admin: 03/25/17 13:38 Dose: 40 mg Furosemide (Lasix) 80 mg PO DAILY [facility] Gabapentin (Neurontin) 600 mg PO TID [facility] Last Admin: 03/25/17 20:57 Dose: 600 mg Levofloxacin/Dextrose 750 mg/ (Premix) 150 mls @ 100 mls/hr IV Q24H [facility] Last Admin: 03/25/17 16:33 Dose: 100 mls/hr Sodium Chloride (Normal Saline) 1,000 mls @ 125 mls/hr IV ASDIRECTED [facility] Last Admin: 03/26/17 01:00 Dose: 125 mls/hr Ibuprofen (Motrin) 600 mg PO Q6H PRN PRN Reason: Pain (mild 1-3) Last Admin: 03/26/17 05:37 Dose: 600 mg Lorazepam (Ativan) 0.5 mg IVPUSH Q8H PRN PRN Reason: restlessness;aggitation;insomn Mirtazapine (Remeron) 45 mg PO BEDTIME [facility] Montelukast Sodium (Singulair) 10 mg PO BEDTIME [facility] Last Admin: 03/25/17 20:58 Dose: 10 mg Nicotine (Habitrol) 21 mg TRDERM DAILY PRN PRN Reason: NICOTINE WITHDRAWL Paroxetine HCl (Paxil) 60 mg PO DAILY [facility] Potassium Chloride (Klor-Con M20) 20 meq PO DAILY [facility] Ropinirole HCl (Requip) 1 mg PO BEDTIME [facility] Last Admin: 03/25/17 20:58 Dose: 1 mg Discontinued Medications Acetaminophen (Tylenol Extra Strength) 1,000 mg PO ONETIME ONE Stop: 03/25/17 09:01 Last Admin: 03/25/17 08:35 Dose: 1,000 mg Acetaminophen (Tylenol) 650 mg PO Q4H PRN PRN Reason: Pain (Mild 1-3)/fever Albuterol/Ipratropium (Duoneb 3.0-0.5 Mg/3 Ml) Confirm Administered Dose 3 ml .ROUTE .STK-MED ONE Stop: 03/25/17 20:50 Last Admin: 03/25/17 20:55 Dose: Not Given Bisacodyl (Dulcolax) 5 mg PO DAILY PRN PRN Reason: Constipation Cholecalciferol (Vitamin D3) Confirm Administered Dose 1,000 units .ROUTE .STK- MED ONE Stop: 03/25/17 22:52 Last Admin: 03/25/17 23:45 Dose: Not Given Diclofenac Sodium (Voltaren) 75 mg PO BIDMEALS [facility] Gabapentin (Neurontin) Confirm Administered Dose 600 mg .ROUTE .STK-MED ONE Stop: 03/25/17 13:28 Last Admin: 03/25/17 13:37 Dose: 600 mg Gabapentin (Neurontin) Confirm Administered Dose 300 mg .ROUTE .STK-MED ONE Stop: 03/25/17 20:45 Last Admin: 03/25/17 20:55 Dose: Not Given Sodium Chloride (Normal Saline) 1,000 mls @ 999 mls/hr IV .BOLUS ONE Stop: 03/25/17 09:58 Last Admin: 03/25/17 09:00 Dose: 999 mls/hr Piperacillin Sod/Tazobactam (Sod 3.375 gm/ Sodium Chloride) 50 mls @ 100 mls/ hr IV Q6H [facility] Last Admin: 03/25/17 10:28 Dose: 100 mls/hr Vancomycin HCl 1,000 mg/ (Sodium Chloride) 250 mls @ 167 mls/hr IV Q24H [facility] Azithromycin 500 mg/ Sodium (Chloride) 250 mls @ 250 mls/hr IV Q24H [facility] Last Admin: 03/25/17 12:18 Dose: 250 mls/hr Lorazepam (Ativan) 1 mg IVPUSH Q8H PRN PRN Reason: anxiety;agitation;restlessness Last Admin: 03/25/17 15:23 Dose: 1 mg Metolazone (Zaroxolyn) Confirm Administered Dose 5 mg .ROUTE .STK-MED ONE Stop: 03/25/17 13:28 Last Admin: 03/25/17 18:02 Dose: Not Given Non-Formulary Medication (Ergocalciferol (Vitamin D2) [Vitamin D2]) 2,000 unit PO BID [facility] Last Admin: 03/25/17 21:30 Dose: Not Given Non-Formulary Medication (Mirtazapine [Mirtazapine]) 45 mg PO BEDTIME [facility] Non-Formulary Medication (Suvorexant [Belsomra]) 10 mg PO BEDTIME [facility] Ondansetron HCl (Zofran Odt) 4 mg PO Q4H PRN PRN Reason: nausea, able to take PO Ondansetron HCl (Zofran) 4 mg IV Q6H PRN PRN Reason: Nausea/Vomiting Piperacillin Sod/Tazobactam Sod (Zosyn) Confirm Administered Dose 3.375 gm .ROUTE .[place]-MED ONE Stop: 03/25/17 10:05 Last Admin: 03/25/17 17:49 Dose: 3.375 gm Temazepam (Restoril) 7.5 mg PO BEDTIME PRN PRN Reason: Sleep Tizanidine HCl (Zanaflex) 4 mg PO BID [facility] Venlafaxine HCl (Effexor Xr) 37.5 mg PO DAILY [facility] - Exam Physical Findings Comments:: Quality Assessment: Supplemental Oxygen General: Alert, Oriented, Cooperative, No Distress HEENT: No: Mucosa Moist & [place] Neck: No: Lymphadenopathy Lungs: Decreased Breath Sounds, Crackles (Coarse crackles noted mid lung bailey left greater than right with diminished aeration on the left at the lower lobes. ), Wheezing minimal (Anterior chest wall bilateral upper lobes) Cardiovascular: Regular Rate, Regular Rhythm GI/Abdominal Exam: Normal Bowel Sounds, Other (Patient has numerous surgical scars from prior hernia repair. She has firm distention however states this is normal for her. I cannot palpate any active abdominal herniation. 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 Psychiatric: Alert, slightly anxious. No: Hallucinations, Withdrawal Symptoms. says she's "bored and would like to get her Ipad so she has something to do:-)" - Problem List & Annotations (1) CAP (community acquired pneumonia) SNOMED Code(s): 626016932 Code(s): J18.9 - PNEUMONIA, UNSPECIFIED ORGANISM Status: Acute Current Visit: Yes Qualifiers: Laterality: right (2) Bronchospasm with bronchitis, acute SNOMED Code(s): 00149160 Code(s): J20.9 - ACUTE BRONCHITIS, UNSPECIFIED Status: Acute Priority: High Current Visit: Yes (3) Fever due to infection SNOMED Code(s): 529814726 Code(s): R50.81 - FEVER PRESENTING WITH CONDITIONS CLASSIFIED ELSEWHERE; B99.9 - UNSPECIFIED INFECTIOUS DISEASE Status: Acute Priority: High Current Visit: Yes (4) Lethargy SNOMED Code(s): 862961950 Code(s): R53.83 - OTHER FATIGUE Status: Acute Current Visit: Yes (5) Medication reaction SNOMED Code(s): 60688842 Code(s): T88.7XXA - UNSP ADVERSE EFFECT OF DRUG OR MEDICAMENT, INIT ENCNTR Status: Acute Priority: Medium Current Visit: Yes Qualifiers: Encounter type: initial encounter Qualified Code(s): T88.7XXA - Unspecified adverse effect of drug or medicament, initial encounter (6) Mental status change SNOMED Code(s): 348131808 Code(s): R41.82 - ALTERED MENTAL STATUS, UNSPECIFIED Status: Acute Current Visit: Yes Qualifiers: Altered mental status type: transient alteration of awareness Qualified Code(s): R40.4 - Transient alteration of awareness (7) Palliative care status SNOMED Code(s): 072306798 Code(s): Z51.5 - ENCOUNTER FOR PALLIATIVE CARE Status: Acute Current Visit: Yes (8) CHF NYHA class II (symptoms with moderately strenuous activities) SNOMED Code(s): 096018877 Code(s): I50.9 - HEART FAILURE, UNSPECIFIED Status: Chronic Current Visit : Yes Qualifiers: Congestive heart failure type: systolic (9) Nocturnal oxygen desaturation SNOMED Code(s): 950781233 Code(s): G47.34 - IDIO SLEEP RELATED NONOBSTRUCTIVE ALVEOLAR HYPOVENTILATION Status: Chronic Current Visit: Yes (10) Chronic back pain SNOMED Code(s): 966787875 Code(s): M54.9 - DORSALGIA, UNSPECIFIED; G89.29 - OTHER CHRONIC PAIN Status : Chronic Current Visit: Yes Qualifiers: Back pain location: low back pain Back pain laterality: midline Sciatica presence: without sciatica Qualified Code(s): M54.5 - Low back pain; G89.29 - Other chronic pain; G89.29 - Other chronic pain (11) Depression SNOMED Code(s): 46418403 Code(s): F32.9 - MAJOR DEPRESSIVE DISORDER, SINGLE EPISODE, UNSPECIFIED Status: Chronic Priority: High Current Visit: Yes Qualifiers: Depression Type: major depressive disorder Active/Remission status: currently active Major depression episode severity: mild (12) Insomnia disorder SNOMED Code(s): 421777672 Code(s): G47.00 - INSOMNIA, UNSPECIFIED Status: Chronic Current Visit: Yes Qualifiers: Insomnia type: unspecified Qualified Code(s): G47.00 - Insomnia, unspecified (13) Morbid obesity with BMI of 40.0-44.9, adult SNOMED Code(s): 038753156 Code(s): E66.01 - MORBID (SEVERE) OBESITY DUE TO EXCESS CALORIES; Z68.41 - BODY MASS INDEX (BMI) 40.0-44.9, ADULT Status: Chronic Current Visit: Yes (14) Polypharmacy SNOMED Code(s): 605012318 Code(s): Z79.899 - OTHER EXTRUSION LINE OPERATOR (CURRENT) DRUG THERAPY Status: Chronic Priority: High Current Visit: Yes (15) Restless legs syndrome (RLS) SNOMED Code(s): 25678126 Code(s): G25.81 - RESTLESS LEGS SYNDROME Status: Chronic Current Visit: Yes (16) Seasonal allergies SNOMED Code(s): 173237600 Code(s): J30.2 - OTHER SEASONAL ALLERGIC RHINITIS Status: Chronic Current Visit: Yes Qualifiers: Allergic rhinitis trigger: pollen Qualified Code(s): J30.1 - Allergic rhinitis due to pollen (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 SNOMED Code(s): 790430701 Code(s): K05.6 - PERIODONTAL DISEASE, UNSPECIFIED; K06.9 - DISORDER OF GINGIVA AND EDENTULOUS ALVEOLAR RIDGE, UNSP Status: Chronic Current Visit: Yes (18) Kyphoscoliosis deformity of spine SNOMED Code(s): 651124048 Code(s): M41.9 - SCOLIOSIS, UNSPECIFIED Status: Chronic Current Visit: Yes (19) Tobacco dependence due to cigarettes SNOMED Code(s): 00743877011889040 Code(s): F17.210 - NICOTINE DEPENDENCE, CIGARETTES, UNCOMPLICATED Status: Chronic Current Visit: Yes - Problem List Review Problem List Initiated/Reviewed/Updated: Yes - My Orders Last 24 Hours: My Active Orders 03/25/17 14:45 Pneumonia Education [RC] DAILY RT Incentive Spirometry [RC] Q2HWA Consult to Equipment Engineer [CONS] Routine OT Evaluation and Treatment [CONS] Routine Respiratory Care Assess and Treatment [CONS] Routine 03/25/17 14:46 Give supplemental Oxygen PRN [COMM] Routine 03/25/17 15:00 Cooling Measures [Cooling Warming Measures] [RC] ASDIRECTED Levofloxacin/Dextrose 5%-Water [Levaquin in D5W 750 MG/150 ML] 750 mg Premix Bag 1 bag IV Q24H 03/25/17 15:37 Nicotine [Habitrol] 21 mg TRDERM DAILY PRN 03/25/17 16:00 Acetaminophen [Tylenol Extra Strength] 1,000 mg PO Q6H 03/25/17 17:00 Sodium Chloride 0.9% [Normal Saline] 1,000 ml IV ASDIRECTED 03/25/17 18:44 LORazepam [Ativan] 0.5 mg IVPUSH Q8H PRN 03/25/17 Dinner 2 Gram Sodium Diet [DIET] 03/26/17 05:11 CXR [Chest 2V] [CR] AM - Assessment Assessment:: see above - Plan Plan:: Continue current cares.
[2017-03-26] MEDS: Gabapentin 600 MG Tab PO SCH ×3 (08:30→20:23)
[2017-03-26] MEDS: Potassium Chloride 20 MEQ Tab.ER PO SCH (08:30)
[2017-03-26] MEDS: Furosemide 80 MG Tab PO SCH (08:30)
[2017-03-26] MEDS: LORazepam 2 MG/ML MDV IVPUSH PRN ×2 (08:31→16:04)
[2017-03-26] MEDS ORDERED: Venlafaxine 37.5 MG Cap.ER PO SCH (09:00)
[2017-03-26] MEDS: Cholecalciferol (Vitamin D3) 1,000 Unit Tab PO SCH ×2 (09:13→20:23)
[2017-03-26] MEDS: DULoxetine 60 MG Cap PO SCH (09:14)
[2017-03-26] MEDS: Enoxaparin 40 MG/0.4 ML Syringe SUBCUT SCH (09:14)
--- NOTE | 2017-03-26 10:35 | CR ---
INDICATION: Pneumonia. CHEST: PA and lateral views of the chest were obtained revealing what appears to be a right middle lobe pneumonia, moderately consolidating - no definite pleuritis. The possibility of atelectasis would also be a consideration. Otherwise, an acute process is not strongly suspected in the chest. The heart is enlarged in general. Somewhat diminished bone density is suggested, compatible with osteoporosis, but should be correlated clinically. Moderate degenerative changes are noted in the spine. Fusion is noted at the lower cervical spine. IMPRESSION: 1. Findings compatible with pneumonia in the middle lobe. 2. ASHD with cardiomegaly. 3. 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 MTDD
--- NOTE | 2017-03-26 10:36 | CR ---
INDICATION: Follow-up pneumonia. CHEST: PA and lateral views of the chest 03/26/2017, compared with 03/25/2017, again revealed an appearance of infiltration in the middle lobe and/or atelectasis in that area. There also appears to be increased density at the left lung base at this time, suggesting lingular pneumonia and/or atelectasis also. No other change or new acute process was seen. IMPRESSION: Bibasilar pneumonia and/or atelectasis. MTDD
[2017-03-26] MEDS: cefTRIAXone 1,000 MG VIAL IV SCH (12:54)
[2017-03-26] MEDS: Levofloxacin/Dextrose 5%-Water 750 MG in Premix Bag 1 BAG IV SCH (14:23)
[2017-03-26] MEDS: Montelukast 10 MG Tab PO SCH (20:23)
[2017-03-26] MEDS: rOPINIRole 1 MG Tab PO SCH (20:23)
[2017-03-27] MEDS ORDERED: Sodium Chloride 0.9% 10 ML Syringe FLUSH PRN (00:28)
[2017-03-27] MEDS: LORazepam 2 MG/ML MDV IVPUSH PRN (00:29)
[2017-03-27] MEDS: Acetaminophen 500 MG Tab PO SCH (03:13)
[2017-03-27] MEDS: Albuterol/Ipratropium 3.0-0.5 MG/3 ML Neb Soln NEB SCH ×4 (07:06→19:59)
[2017-03-27] MEDS: DULoxetine 60 MG Cap PO SCH (09:11)
[2017-03-27] MEDS: Gabapentin 600 MG Tab PO SCH ×3 (09:12→20:00)
[2017-03-27] MEDS: Potassium Chloride 20 MEQ Tab.ER PO SCH (09:12)
[2017-03-27] MEDS: Furosemide 80 MG Tab PO SCH (09:12)
[2017-03-27] MEDS: Cholecalciferol (Vitamin D3) 1,000 Unit Tab PO SCH ×2 (09:13→20:01)
[2017-03-27] MEDS: Enoxaparin 40 MG/0.4 ML Syringe SUBCUT SCH (09:13)
[2017-03-27] MEDS: Ibuprofen 600 MG Tab PO PRN ×2 (09:21→16:51)
[2017-03-27] MEDS: Levofloxacin 750 MG Tab PO SCH (12:22)
--- NOTE | 2017-03-27 13:18 | PCM.PN ---
- General Info Date of Service: 03/27/17 Functional Status: Reports: Tolerating Diet, Ambulating, Urinating, Incentive Spirometry - Review of Systems General: Denies: Fever HEENT: Denies: Dysphasia, Headaches Pulmonary: Reports: Shortness of Breath, Pleuritic Chest Pain, Cough Cardiovascular: Reports: Edema Gastrointestinal: Reports: No Symptoms Genitourinary: Reports: No Symptoms Musculoskeletal: Reports: Back Pain (chronic, unchanged.) Skin: Reports: No Symptoms, Other (IV site nontender no redness or rash. No longer bothers her.). Denies: Pruritis, Rash Neurological: Reports: No Symptoms Psychiatric: Reports: No Symptoms - Patient Data Vitals - Most Recent: Last Vital Signs Temp 97.7 F 03/27/17 12:00 Pulse 108 H 03/27/17 12:00 Resp 20 03/27/17 12:00 BP 137/74 03/27/17 12:00 Pulse Ox 97 03/27/17 12:00 Weight - Most Recent: 99.836 kg I&O - Last 24 Hours: Intake & Output 03/26/17 03/27/17 03/27/17 22:59 06:59 14:59 Intake Total 1300 200 800 Output Total 700 900 250 Balance 600 -700 550 Lab Results Last 24 Hours: Laboratory Results - last 24 hr 03/27/17 03/27/17 Range/Units 06:10 06:10 WBC 11.2 (4.5-12.0) X10-3/uL RBC 3.79 (3.23-5.20) x10(6)uL Hgb 11.8 (11.5-15.5) g/dL Hct 34.8 (30.0-51.3) % MCV 91.8 (80-96) fL MCH 31.2 (27.7-33.6) pg MCHC 34.0 (32.2-35.4) g/dL RDW 15.1 (11.5-15.5) % Plt Count 288 (125-369) X10(3)uL MPV 7.9 (7.4-10.4) fL Neut % (Auto) 74.0 (46-82) % Lymph % (Auto) 19.4 (13-37) % [place] % (Auto) 4.8 (4-12) % Eos % (Auto) 1 (1.0-5.0) % Baso % (Auto) 1 (0-2) % Neut # (Auto) 8.3 (1.6-8.3) # Lymph # (Auto) 2.2 (0.6-5.0) # [place] # (Auto) 0.5 (0.0-1.3) # Eos # (Auto) 0.1 (0.0-0.8) # Baso # (Auto) 0.1 (0.0-0.2) # Sodium 142 (135-145) mmol/L Potassium 4.0 (3.5-5.3) mmol/L Chloride 106 (100-110) mmol/L Carbon Dioxide 28 (21-32) mmol/L BUN 10 (7-18) mg/dL Creatinine 1.0 (0.55-1.02) mg/dL Est Cr Clr Drug Dosing 38.94 mL/min Estimated GFR (MDRD) 55 L (>60) BUN/Creatinine Ratio 10.0 (9-20) Glucose 99 (80-116) mg/dL Calcium 9.3 (8.6-10.2) mg/dL Zachary Results Last 24 Hours: Microbiology 03/25/17 08:40 Blood - Venous - Lab Draw Aerobic Blood Culture - Preliminary NO GROWTH AFTER 1 DAYS 03/25/17 08:40 Blood - Venous - Lab Draw Anaerobic Blood Culture - Preliminary NO GROWTH AFTER 1 DAYS 03/25/17 08:30 Blood - Venous Aerobic Blood Culture - Preliminary NO GROWTH AFTER 1 DAYS 03/25/17 08:30 Blood - Venous Anaerobic Blood Culture - Preliminary NO GROWTH AFTER 1 DAYS 03/25/17 09:50 Sputum - Expectorated Gram Stain - Final 03/25/17 09:50 Sputum - Expectorated Sputum Culture - Final 03/25/17 08:50 Throat Quick Strep Confirmation Culture - Final NO GROUP A STREP ISOLATED 03/25/17 08:50 Throat Group A Streptococcus Rapid Screen - Final NEGATIVE STREP A SCREEN 03/25/17 08:50 Nasal Aspirate, Unspecified Influenza Type A Antigen Screen - Final NEGATIVE INFLUENZA A VIRUS AG 03/25/17 08:50 Nasal Aspirate, Unspecified Influenza Type B Antigen Screen - Final NEGATIVE INFLUENZA B VIRUS AG Med Orders - Current: Current Medications Albuterol/Ipratropium (Duoneb 3.0-0.5 Mg/3 Ml) 3 ml NEB QIDRT [facility] Last Admin: 03/27/17 11:12 Dose: 3 ml Cholecalciferol (Vitamin D3) 2,000 units PO BID [facility] Last Admin: 03/27/17 09:13 Dose: 2,000 units Docusate Sodium (Colace) 100 mg PO BID PRN PRN Reason: Constipation Duloxetine HCl (Cymbalta) 60 mg PO DAILY [facility] Last Admin: 03/27/17 09:11 Dose: 60 mg Enoxaparin Sodium (Lovenox) 40 mg SUBCUT Q24H [facility] Last Admin: 03/27/17 09:13 Dose: 40 mg Furosemide (Lasix) 80 mg PO DAILY [facility] Last Admin: 03/27/17 09:12 Dose: 80 mg Gabapentin (Neurontin) 600 mg PO TID [facility] Last Admin: 03/27/17 09:12 Dose: 600 mg Ibuprofen (Motrin) 600 mg PO Q6H PRN PRN Reason: Pain (mild 1-3) Last Admin: 03/27/17 09:21 Dose: 600 mg Levofloxacin (Levaquin) 750 mg PO Q24H [facility] Last Admin: 03/27/17 12:22 Dose: 750 mg Lorazepam (Ativan) 0.5 mg IVPUSH Q8H PRN PRN Reason: restlessness;aggitation;insomn Last Admin: 03/27/17 00:29 Dose: 0.5 mg Mirtazapine (Remeron) 45 mg PO BEDTIME [facility] Montelukast Sodium (Singulair) 10 mg PO BEDTIME [facility] Last Admin: 03/26/17 20:23 Dose: 10 mg Nicotine (Habitrol) 21 mg TRDERM DAILY PRN PRN Reason: NICOTINE WITHDRAWL Paroxetine HCl (Paxil) 60 mg PO BEDTIME [facility] Last Admin: 03/26/17 20:23 Dose: 60 mg Potassium Chloride (Klor-Con M20) 20 meq PO DAILY [facility] Last Admin: 03/27/17 09:12 Dose: 20 meq Ropinirole HCl (Requip) 2 mg PO BEDTIME [facility] Last Admin: 03/26/17 20:23 Dose: 2 mg Sodium Chloride (Saline Flush) 10 ml FLUSH ASDIRECTED PRN PRN Reason: Keep Vein Open Last Admin: 03/27/17 00:44 Dose: 10 ml Discontinued Medications Acetaminophen (Tylenol Extra Strength) 1,000 mg PO ONETIME ONE Stop: 03/25/17 09:01 Last Admin: 03/25/17 08:35 Dose: 1,000 mg Acetaminophen (Tylenol) 650 mg PO Q4H PRN PRN Reason: Pain (Mild 1-3)/fever Acetaminophen (Tylenol Extra Strength) 1,000 mg PO Q6H [facility] Stop: 03/27/17 16:01 Last Admin: 03/27/17 03:13 Dose: 1,000 mg Albuterol/Ipratropium (Duoneb 3.0-0.5 Mg/3 Ml) Confirm Administered Dose 3 ml .ROUTE .STK-MED ONE Stop: 03/25/17 20:50 Last Admin: 03/25/17 20:55 Dose: Not Given Bisacodyl (Dulcolax) 5 mg PO DAILY PRN PRN Reason: Constipation Ceftriaxone Sodium (Rocephin) 1,000 mg IV Q24H [facility] Last Admin: 03/26/17 12:54 Dose: 1,000 mg Cholecalciferol (Vitamin D3) Confirm Administered Dose 1,000 units .ROUTE .STK- MED ONE Stop: 03/25/17 22:52 Last Admin: 03/25/17 23:45 Dose: Not Given Diclofenac Sodium (Voltaren) 75 mg PO BIDMEALS [facility] Gabapentin (Neurontin) Confirm Administered Dose 600 mg .ROUTE .STK-MED ONE Stop: 03/25/17 13:28 Last Admin: 03/25/17 13:37 Dose: 600 mg Gabapentin (Neurontin) Confirm Administered Dose 300 mg .ROUTE .STK-MED ONE Stop: 03/25/17 20:45 Last Admin: 03/25/17 20:55 Dose: Not Given Sodium Chloride (Normal Saline) 1,000 mls @ 999 mls/hr IV .BOLUS ONE Stop: 03/25/17 09:58 Last Admin: 03/25/17 09:00 Dose: 999 mls/hr Piperacillin Sod/Tazobactam (Sod 3.375 gm/ Sodium Chloride) 50 mls @ 100 mls/ hr IV Q6H [facility] Last Admin: 03/25/17 10:28 Dose: 100 mls/hr Vancomycin HCl 1,000 mg/ (Sodium Chloride) 250 mls @ 167 mls/hr IV Q24H [facility] Azithromycin 500 mg/ Sodium (Chloride) 250 mls @ 250 mls/hr IV Q24H [facility] Last Admin: 03/25/17 12:18 Dose: 250 mls/hr Ceftriaxone Sodium 1,000 mg/ (Sodium Chloride) 50 mls @ 100 mls/hr IV Q24H [facility] Last Admin: 03/25/17 18:02 Dose: Not Given Levofloxacin/Dextrose 750 mg/ (Premix) 150 mls @ 100 mls/hr IV Q24H [facility] Last Admin: 03/26/17 14:23 Dose: 100 mls/hr Sodium Chloride (Normal Saline) 1,000 mls @ 125 mls/hr IV ASDIRECTED [facility] Last Admin: 03/26/17 01:00 Dose: 125 mls/hr Lorazepam (Ativan) 1 mg IVPUSH Q8H PRN PRN Reason: anxiety;agitation;restlessness Last Admin: 03/25/17 15:23 Dose: 1 mg Metolazone (Zaroxolyn) Confirm Administered Dose 5 mg .ROUTE .[employer]-MED ONE Stop: 03/25/17 13:28 Last Admin: 03/25/17 18:02 Dose: Not Given Non-Formulary Medication (Ergocalciferol (Vitamin D2) [Vitamin D2]) 2,000 unit PO BID [facility] Last Admin: 03/25/17 21:30 Dose: Not Given Non-Formulary Medication (Mirtazapine [Mirtazapine]) 45 mg PO BEDTIME [facility] Non-Formulary Medication (Suvorexant [Belsomra]) 10 mg PO BEDTIME [facility] Ondansetron HCl (Zofran Odt) 4 mg PO Q4H PRN PRN Reason: nausea, able to take PO Ondansetron HCl (Zofran) 4 mg IV Q6H PRN PRN Reason: Nausea/Vomiting Paroxetine HCl (Paxil) 60 mg PO DAILY [facility] Piperacillin Sod/Tazobactam Sod (Zosyn) Confirm Administered Dose 3.375 gm .ROUTE .STK-MED ONE Stop: 03/25/17 10:05 Last Admin: 03/25/17 17:49 Dose: 3.375 gm Ropinirole HCl (Requip) 1 mg PO BEDTIME [facility] Last Admin: 03/25/17 20:58 Dose: 1 mg Temazepam (Restoril) 7.5 mg PO BEDTIME PRN PRN Reason: Sleep Tizanidine HCl (Zanaflex) 4 mg PO BID [facility] Venlafaxine HCl (Effexor Xr) 37.5 mg PO DAILY [facility] - Exam General: Alert, Oriented, Cooperative, No Acute Distress, Other (Recently sitting up in bed playing on her Ipad. She slept well overnight. Tolerating her diet. Still has significant cough resulting in chest discomfort and shortness of breath but improving.) Physical Findings Comments:: Quality Assessment: Supplemental Oxygen General: Alert, Oriented, Cooperative, No Distress HEENT: No: Mucosa Moist & [place] Neck: No: Lymphadenopathy Lungs: Decreased Breath Sounds, Crackles (Coarse crackles noted mid lung bailey left greater than right with diminished aeration on the left at the lower lobes. ), Wheezing minimal (Anterior chest wall bilateral upper lobes) Cardiovascular: Regular Rate, Regular Rhythm GI/Abdominal Exam: Normal Bowel Sounds, Other (Patient has numerous surgical scars from prior hernia repair.) She is nontender to palpation and continues to have normal bowel sounds throughout. 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 Psychiatric: Alert, pleasant speaking in full complete sentences no longer anxious. Wondering when she will get to go home. - Problem List & Annotations (1) CAP (community acquired pneumonia) SNOMED Code(s): 904374378 Code(s): J18.9 - PNEUMONIA, UNSPECIFIED ORGANISM Status: Acute Current Visit: Yes Qualifiers: Laterality: right (2) Bronchospasm with bronchitis, acute SNOMED Code(s): 85023460 Code(s): J20.9 - ACUTE BRONCHITIS, UNSPECIFIED Status: Acute Priority: High Current Visit: Yes (3) Fever due to infection SNOMED Code(s): 205729122 Code(s): R50.81 - FEVER PRESENTING WITH CONDITIONS CLASSIFIED ELSEWHERE; B99.9 - UNSPECIFIED INFECTIOUS DISEASE Status: Resolved Priority: High Current Visit: Yes (4) Lethargy SNOMED Code(s): 811138335 Code(s): R53.83 - OTHER FATIGUE Status: Acute Current Visit: Yes (5) Medication reaction SNOMED Code(s): 18439759 Code(s): T88.7XXA - UNSP ADVERSE EFFECT OF DRUG OR MEDICAMENT, INIT ENCNTR Status: Resolved Priority: Medium Current Visit: Yes Qualifiers: Encounter type: initial encounter Qualified Code(s): T88.7XXA - Unspecified adverse effect of drug or medicament, initial encounter (6) Mental status change SNOMED Code(s): 281866398 Code(s): R41.82 - ALTERED MENTAL STATUS, UNSPECIFIED Status: Resolved Current Visit: Yes Qualifiers: Altered mental status type: transient alteration of awareness Qualified Code(s): R40.4 - Transient alteration of awareness (7) Palliative care status SNOMED Code(s): 745271838 Code(s): Z51.5 - ENCOUNTER FOR PALLIATIVE CARE Status: Chronic Current Visit: Yes (8) CHF NYHA class II (symptoms with moderately strenuous activities) SNOMED Code(s): 512154292 Code(s): I50.9 - HEART FAILURE, UNSPECIFIED Status: Chronic Current Visit : Yes Qualifiers: Congestive heart failure type: systolic (9) Nocturnal oxygen desaturation SNOMED Code(s): 113189167 Code(s): G47.34 - IDIO SLEEP RELATED NONOBSTRUCTIVE ALVEOLAR HYPOVENTILATION Status: Chronic Current Visit: Yes (10) Chronic back pain SNOMED Code(s): 415823367 Code(s): M54.9 - DORSALGIA, UNSPECIFIED; G89.29 - OTHER CHRONIC PAIN Status : Chronic Current Visit: Yes Qualifiers: Back pain location: low back pain Back pain laterality: midline Sciatica presence: without sciatica Qualified Code(s): M54.5 - Low back pain; G89.29 - Other chronic pain; G89.29 - Other chronic pain (11) Depression SNOMED Code(s): 41532985 Code(s): F32.9 - MAJOR DEPRESSIVE DISORDER, SINGLE EPISODE, UNSPECIFIED Status: Chronic Priority: High Current Visit: Yes Qualifiers: Depression Type: major depressive disorder Active/Remission status: currently active Major depression episode severity: mild (12) Insomnia disorder SNOMED Code(s): 246329627 Code(s): G47.00 - INSOMNIA, UNSPECIFIED Status: Chronic Current Visit: Yes Qualifiers: Insomnia type: unspecified Qualified Code(s): G47.00 - Insomnia, unspecified (13) Morbid obesity with BMI of 40.0-44.9, adult SNOMED Code(s): 866402717 Code(s): E66.01 - MORBID (SEVERE) OBESITY DUE TO EXCESS CALORIES; Z68.41 - BODY MASS INDEX (BMI) 40.0-44.9, ADULT Status: Chronic Current Visit: Yes (14) Polypharmacy SNOMED Code(s): 509588449 Code(s): Z79.899 - OTHER SAUSAGE CUTTER (CURRENT) DRUG THERAPY Status: Chronic Priority: High Current Visit: Yes (15) Restless legs syndrome (RLS) SNOMED Code(s): 04876112 Code(s): G25.81 - RESTLESS LEGS SYNDROME Status: Chronic Current Visit: Yes (16) Seasonal allergies SNOMED Code(s): 245325069 Code(s): J30.2 - OTHER SEASONAL ALLERGIC RHINITIS Status: Chronic Current Visit: Yes Qualifiers: Allergic rhinitis trigger: pollen Qualified Code(s): J30.1 - Allergic rhinitis due to pollen (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 SNOMED Code(s): 732394375 Code(s): K05.6 - PERIODONTAL DISEASE, UNSPECIFIED; K06.9 - DISORDER OF GINGIVA AND EDENTULOUS ALVEOLAR RIDGE, UNSP Status: Chronic Current Visit: Yes (18) Kyphoscoliosis deformity of spine SNOMED Code(s): 591320460 Code(s): M41.9 - SCOLIOSIS, UNSPECIFIED Status: Chronic Current Visit: Yes (19) Tobacco dependence due to cigarettes SNOMED Code(s): 85620462593440791 Code(s): F17.210 - NICOTINE DEPENDENCE, CIGARETTES, UNCOMPLICATED Status: Chronic Current Visit: Yes - Problem List Review Problem List Initiated/Reviewed/Updated: Yes - My Orders Last 24 Hours: My Active Orders 03/26/17 21:00 rOPINIRole [Requip] 2 mg PO BEDTIME 03/27/17 00:28 Sodium Chloride 0.9% [Saline Flush] 10 ml FLUSH ASDIRECTED PRN 03/27/17 12:00 Levofloxacin [Levaquin] 750 mg PO Q24H 03/28/17 05:11 CBC WITH AUTO DIFF [HEME] AM 03/28/17 09:15 BASIC METABOLIC PANEL,BMP [CHEM] AM - Assessment Assessment:: see above - Plan Plan:: Afebrile 24 hours. Waiting sputum culture results. Stop IV antibiotics today. Discontinue continuous pulse ox. Start oral Levaquin. Continue respiratory therapy. Anticipate discharge tomorrow. Patient is comfortable with this plan of care.
--- NOTE | 2017-03-27 14:52 | ER ---
DATE SEEN: 03/25/2017 TIME SEEN: The patient was seen on arrival at 0835 hours. HISTORY OF PRESENT ILLNESS: This 71-year-old resident of an apartment building notes at 0330 hours she awoke and had a fever of 102.8. Yesterday, she felt sick and started coughing at 1630 hours afternoon. She has chronic low back pain, headaches, restless legs, depression, chronic pain, and hypertension. Status post gastric bypass, "her left knee is out," she has obesity and with the gastric bypass went from 235 pounds down to 130 pounds, now is 210 pounds. She feels weak. Does use oxygen at home. Has chronic obstructive lung disease. CURRENT MEDICATIONS: 1. Acetaminophen. 2. DuoNeb. 3. Tizanidine. 4. Requip. 5. Venlafaxine. 6. Belsomra. 7. Potassium chloride 20 mEq daily. 8. Paxil. 9. Montelukast. 10.Mirtazapine. 11.Zaroxolyn. 12.Gabapentin. 13.Lasix. 14.Vitamin D. 15.Cymbalta. 16.Tylenol No. 3. 17.Alprazolam. REVIEW OF SYSTEMS: HEENT: Denies headache. Has decreased hearing and wears glasses. CARDIORESPIRATORY: Denies chest pain, irregular heartbeat, syncope, near syncope, or falls, back pain, arm pain, jaw pain, neck pain. GI: Denies constipation, blood in the stool, black tarry stool, change in her bowels, diarrhea. : Occasional incontinence. MUSCULOSKELETAL: Weak. Her left knee goes out. Arthritis in her knees. Decreased ambulation because of chronic low back pain, is sedentary. NEURO: Denies strokes or seizures or headaches. PHYSICAL EXAMINATION: VITAL SIGNS: Blood pressure 146/96, heart rate 116, respirations 22, oxygen saturation 98% on 2 L O2, 39.3 degrees centigrade temperature. CONSTITUTIONAL: Overweight, well dressed, appropriate, she is hard of hearing, in mild distress, sitting in a wheelchair. HEENT: PERRLA intact. TMs negative. Hearing decreased. Pharynx without abnormality. Mild dry mucosa. NECK: No bruits, no masses, no thyromegaly. LUNGS: Right greater than left rales posterior bases. Few rales anteriorly. No wheezes. No rhonchi. No stridor. HEART: S1, S2. No irregular rate and rhythm. ABDOMEN: Soft. No guarding. No abdominal discomfort. Increased abdominal girth. Significant midline scar noted (gastric bypass). EXTREMITIES: No pedal edema. Deep tendon reflexes hypoactive in upper and lower extremities. NEURO: Cranial nerves 2 through 12 intact. Oriented x3. Gait is hesitating because of weakness. LABORATORY DATA: Chest x-ray reveals right middle and hilar lobe infiltrates. Moderate ectatic aorta. Innominate vein seems to be somewhat enlarged. White count 17,200, PMNs 77, lymphs 12, bandemia 4%, monocytes 4. Complete metabolic panel normal with a GFR of 49, chronic kidney disease, stage 4. AST 26, alkaline phosphatase 204. Positive urine tox for opiates, tricyclics, benzos, she does take benzos. Blood cultures: Obtained. Sputum cultures: Obtained. Influenza test: Negative. Strep negative. ASSESSMENT: 1. The patient has pneumonia, right middle lobe and right hilar region. 2. Chronic obstructive lung disease with exacerbation of pneumonia. 3. Hypertension. 4. Restless legs. 5. Depression. 6. Obesity. 7. Status post gastric bypass. Weight 235, down to 130, backed up to 210. 8. Left knee arthritis with decreased strength and mobility. 9. Obesity. 10.Lives alone, social risk. 11.Bandemia without any signs of sepsis. PLAN: Admit. Zosyn, vancomycin. If necessary, can stop vancomycin in 24 hours. She is allergic to erythromycin base (that may raise an issue of azithromycin, consequently I did not use azithromycin). Nebulizations. Continue O2. Hydration 600 flush, 200 mL an hour. DVT prophylaxis, enoxaparin 40 mg (GFR greater than 30). Positive urine tox secondary to the medications she is using. /[id number] KAYCEE/DAYANARA
[2017-03-27] MEDS: rOPINIRole 1 MG Tab PO SCH (19:59)
[2017-03-27] MEDS: Montelukast 10 MG Tab PO SCH (20:01)
[2017-03-27] MEDS ORDERED: LORazepam 0.5 MG Tab PO PRN (20:03)
[2017-03-27] MEDS ORDERED: LORazepam 2 MG/ML MDV IVPUSH PRN (20:09)
[2017-03-28] MEDS: Ibuprofen 600 MG Tab PO PRN ×2 (00:10→09:06)
[2017-03-28 07:21] VITALS: BP 141/79
[2017-03-28] MEDS: Albuterol/Ipratropium 3.0-0.5 MG/3 ML Neb Soln NEB SCH ×2 (07:23→10:44)
[2017-03-28] MEDS: Gabapentin 600 MG Tab PO SCH (09:03)
[2017-03-28] MEDS: DULoxetine 60 MG Cap PO SCH (09:03)
[2017-03-28] MEDS: Potassium Chloride 20 MEQ Tab.ER PO SCH (09:03)
[2017-03-28] MEDS: Cholecalciferol (Vitamin D3) 1,000 Unit Tab PO SCH (09:03)
[2017-03-28] MEDS: Enoxaparin 40 MG/0.4 ML Syringe SUBCUT SCH (09:06)
[2017-03-28] MEDS: Furosemide 80 MG Tab PO SCH ×2 (09:29→10:09)
--- NOTE | 2017-03-28 10:00 | PCM.DCSUM1 ---
Discharge Summary - Hospital Course Free Text/Narrative:: Brief history: Patient pleasant 71-year-old female who resented to the ER having increasing cough and shortness of breath. Increased sputum production. Long-standing active COPD with bronchospastic component. symptoms couple of days. Not improving. Noting high fevers sweats chills. Unaware of any ill contacts. Sees a physician in outlying facility. Otherwise she denied near syncope, falls, hemoptysis, chest pain or pressure, neck or jaw pain, shoulder arm pain. She did get anterior chest wall pain with coughing. Was bringing up mucopurulent sputum. She does smoke about a pack a day. She is on O2 at night. Not on CPAP. She has chronic low and mid back pain for which she is on numerous medications for anti-inflammatory, analgesic and neurogenic palliation. Also concomitant depression anxiety with RLS and insomnia. Allergies Allergy/AdvReac Type Severity Reaction Status Date / Time erythromycin base Allergy Itching Verified 03/25/17 15:01 strawberry Allergy Hives Verified 03/25/17 15:01 Prior to admission Home Medications: ALPRAZolam [Alprazolam] 0.5 mg PO BEDTIME PRN 02/07/16 [History] Acetaminophen with Codeine [Tylenol with Codeine #3 Tablet] 2 each PO Q4HR PRN 02/07/16 [History] DULoxetine [Cymbalta] 60 mg PO DAILY 02/07/16 [History] Ergocalciferol (Vitamin D2) [Vitamin D2] 2,000 unit PO BID 02/07/16 [History] Furosemide [Lasix] 80 mg PO DAILY 02/07/16 [History] Gabapentin [Neurontin] 600 mg PO TID 02/07/16 [History] Mirtazapine 45 mg PO BEDTIME 02/07/16 [History] Montelukast [Singulair] 10 mg PO BEDTIME 02/07/16 [History] PARoxetine [Paxil] 60 mg PO BEDTIME 02/07/16 [History] Potassium Chloride [Klor-Con M20] 20 meq PO BEDTIME 02/07/16 [History] rOPINIRole [Requip] 2 mg PO BEDTIME 02/07/16 [History] - Discharge Data Discharge Date: 03/28/17 Discharge Disposition: Home, Self-Care 01 Condition: Good - Discharge Diagnosis/Problem(s) (1) CAP (community acquired pneumonia) SNOMED Code(s): 406504792 ICD Code: J18.9 - PNEUMONIA, UNSPECIFIED ORGANISM Status: Acute Current Visit: Yes Qualifiers: Laterality: right (2) Bronchospasm with bronchitis, acute SNOMED Code(s): 74568248 ICD Code: J20.9 - ACUTE BRONCHITIS, UNSPECIFIED Status: Acute Priority: High Current Visit: Yes (3) Fever due to infection SNOMED Code(s): 932962919 ICD Code: R50.81 - FEVER PRESENTING WITH CONDITIONS CLASSIFIED ELSEWHERE; B99.9 - UNSPECIFIED INFECTIOUS DISEASE Status: Resolved Priority: High Current Visit: Yes (4) Lethargy SNOMED Code(s): 028119223 ICD Code: R53.83 - OTHER FATIGUE Status: Acute Current Visit: Yes (5) Medication reaction SNOMED Code(s): 20141607 ICD Code: T88.7XXA - UNSP ADVERSE EFFECT OF DRUG OR MEDICAMENT, INIT ENCNTR Status: Resolved Priority: Medium Current Visit: Yes Qualifiers: Encounter type: initial encounter Qualified Code(s): T88.7XXA - Unspecified adverse effect of drug or medicament, initial encounter (6) Mental status change SNOMED Code(s): 969547351 ICD Code: R41.82 - ALTERED MENTAL STATUS, UNSPECIFIED Status: Resolved Current Visit: Yes Qualifiers: Altered mental status type: transient alteration of awareness Qualified Code(s): R40.4 - Transient alteration of awareness (7) Palliative care status SNOMED Code(s): 862717454 ICD Code: Z51.5 - ENCOUNTER FOR PALLIATIVE CARE Status: Chronic Current Visit: Yes (8) CHF NYHA class II (symptoms with moderately strenuous activities) SNOMED Code(s): 330735370 ICD Code: I50.9 - HEART FAILURE, UNSPECIFIED Status: Chronic Current Visit: Yes Qualifiers: Congestive heart failure type: systolic (9) Nocturnal oxygen desaturation SNOMED Code(s): 420862040 ICD Code: G47.34 - IDIO SLEEP RELATED NONOBSTRUCTIVE ALVEOLAR HYPOVENTILATION Status: Chronic Current Visit: Yes (10) Chronic back pain SNOMED Code(s): 062522721 ICD Code: M54.9 - DORSALGIA, UNSPECIFIED; G89.29 - OTHER CHRONIC PAIN Status: Chronic Current Visit: Yes Qualifiers: Back pain location: low back pain Back pain laterality: midline Sciatica presence: without sciatica Qualified Code(s): M54.5 - Low back pain; G89.29 - Other chronic pain; G89.29 - Other chronic pain (11) Depression SNOMED Code(s): 48518656 ICD Code: F32.9 - MAJOR DEPRESSIVE DISORDER, SINGLE EPISODE, UNSPECIFIED Status: Chronic Priority: High Current Visit: Yes Qualifiers: Depression Type: major depressive disorder Active/Remission status: currently active Major depression episode severity: mild (12) Insomnia disorder SNOMED Code(s): 278659400 ICD Code: G47.00 - INSOMNIA, UNSPECIFIED Status: Chronic Current Visit: Yes Qualifiers: Insomnia type: unspecified Qualified Code(s): G47.00 - Insomnia, unspecified (13) Morbid obesity with BMI of 40.0-44.9, adult SNOMED Code(s): 464888698 ICD Code: E66.01 - MORBID (SEVERE) OBESITY DUE TO EXCESS CALORIES; Z68.41 - BODY MASS INDEX (BMI) 40.0-44.9, ADULT Status: Chronic Current Visit: Yes (14) Polypharmacy SNOMED Code(s): 933902668 ICD Code: Z79.899 - OTHER RETIREMENT (CURRENT) DRUG THERAPY Status: Chronic Priority: High Current Visit: Yes (15) Restless legs syndrome (RLS) SNOMED Code(s): 81635424 ICD Code: G25.81 - RESTLESS LEGS SYNDROME Status: Chronic Current Visit: Yes (16) Seasonal allergies SNOMED Code(s): 774017175 ICD Code: J30.2 - OTHER SEASONAL ALLERGIC RHINITIS Status: Chronic Current Visit: Yes Qualifiers: Allergic rhinitis trigger: pollen Qualified Code(s): J30.1 - Allergic rhinitis due to pollen (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 SNOMED Code(s): 908304007 ICD Code: K05.6 - PERIODONTAL DISEASE, UNSPECIFIED; K06.9 - DISORDER OF GINGIVA AND EDENTULOUS ALVEOLAR RIDGE, UNSP Status: Chronic Current Visit: Yes (18) Kyphoscoliosis deformity of spine SNOMED Code(s): 403077009 ICD Code: M41.9 - SCOLIOSIS, UNSPECIFIED Status: Chronic Current Visit: Yes (19) Tobacco dependence due to cigarettes SNOMED Code(s): 13294932572550666 ICD Code: F17.210 - NICOTINE DEPENDENCE, CIGARETTES, UNCOMPLICATED Status: Chronic Current Visit: Yes - Patient Summary/Data Consults: Consultations 03/25/17 14:45 Consult to Laundry Machine Operator [CONS] Routine Comment: Physician Instructions: OT Evaluation and Treatment [CONS] Routine Please Evaluate and Treat. OT Reason for Consult: ADL's This query below is only for informational purposes and is not editable. Admission Diagnosis/Problem: Pneumonia Respiratory Care Assess and Treatment [CONS] Routine Comment: Physician Instructions: Hospital Course: We did attempt to treat with azithromycin IV however she did develop some pain with infusion also some redness along the area so we discontinued that added to her allergy list she had received the full dose. We opted for Rocephin with respiratory quinolone coverage. Pulmonary support with SVNs, oxygen via nasal cannula to keep sats greater than 92% and respiratory rate less than 22, Tylenol scheduled for the next 24 hours for fever as well as cooling measures. IV hydration . All medications reconciled and reviewed and resumed as necessary. She did quite well over the course of her stay. I did have scheduled Tylenol for 2 days, then discontinue this and placed her on oral antibiotics and continue to observe for any change in status other than improvement. Continued to improve and labs look good. She will continue her home oxygen with activity and at rest. She knows to continue her incentive spirometry. She will continue her antibiotics to completion. Scheduled follow-up as a new patient 7- 10 days sooner if needed. Med reconciliation reviewed all questions answered. Pleasant patient her sister is coming to pick her up. - Patient Instructions Diet: Heart Healthy Diet Activity: Cough & Deep Breathe, No Strenuous Activities Driving: Do Not Drive Showering/Bathing: May Shower Notify Provider of: Fever, Increased Pain, Nausea and/or Vomiting - Discharge Plan Prescriptions/Med Rec: Docusate Sodium [Colace] 100 mg PO BID PRN #90 cap PRN Reason: Constipation Levofloxacin [Levaquin] 750 mg PO Q24H #4 tablet Home Medications: Home Meds ALPRAZolam [Alprazolam] 0.5 mg PO BEDTIME PRN 02/07/16 [History] Acetaminophen with Codeine [Tylenol with Codeine #3 Tablet] 2 each PO Q4HR PRN 02/07/16 [History] DULoxetine [Cymbalta] 60 mg PO DAILY 02/07/16 [History] Ergocalciferol (Vitamin D2) [Vitamin D2] 2,000 unit PO BID 02/07/16 [History] Furosemide [Lasix] 80 mg PO DAILY 02/07/16 [History] Gabapentin [Neurontin] 600 mg PO TID 02/07/16 [History] Mirtazapine 45 mg PO BEDTIME 02/07/16 [History] Montelukast [Singulair] 10 mg PO BEDTIME 02/07/16 [History] PARoxetine [Paxil] 60 mg PO BEDTIME 02/07/16 [History] Potassium Chloride [Klor-Con M20] 20 meq PO BEDTIME 02/07/16 [History] rOPINIRole [Requip] 2 mg PO BEDTIME 02/07/16 [History] Docusate Sodium [Colace] 100 mg PO BID PRN #90 cap 03/28/17 [Rx] Levofloxacin [Levaquin] 750 mg PO Q24H #4 tablet 03/28/17 [Rx] Patient Handouts: Fall Prevention in Hospitals, Adult, Venous Thromboembolism Prevention, Community-Acquired Pneumonia, Adult, [id number] Referrals: Rajesh Rosa MD [Primary Care Provider] - - Discharge Summary/Plan Comment DC Time >30 min.: Yes Discharge Summary/Plan Comment: Please see hospital course for discharge summary. - General Info Date of Service: 03/28/17 Subjective Update: 71-year-old female sitting up in bed smiling. Feeling better. Has appointment with Dr. Rosa today but does not want to go since she is being discharged today. Would like to go next week instead. Her sisters communicator. Tolerated her breakfast. Tolerating oral antibiotics and incentive spirometry. States she is getting up around still a little weak and short of breath but better. Ready to go home to be with her. She no she should stop smoking and is willing to work on this declines my need for any intervention. She wishes to restart her Tylenol with Codeine on discharge for her chronic back pain. Functional Status: Reports: Pain Controlled, Tolerating Diet, Ambulating, Urinating, Incentive Spirometry - Review of Systems General: Denies: Fever HEENT: Denies: Headaches Pulmonary: Reports: Cough. Denies: Wheezing Cardiovascular: Reports: Dyspnea on Exertion (chronic) Gastrointestinal: Reports: No Symptoms Genitourinary: Reports: No Symptoms Musculoskeletal: Reports: Back Pain (chronic). Denies: Joint Swelling Skin: Reports: No Symptoms Neurological: Reports: No Symptoms Psychiatric: Reports: No Symptoms - Patient Data Vitals - Most Recent: Vital Signs (72 hours) 03/25/17 03/25/17 03/25/17 10:42 11:00 13:15 Temperature [ Axillary] Temperature [ 99.8 F 99.9 F 98.9 F Oral] Pulse, Peripheral [ Left Brachial] Pulse, 100 Peripheral [ Left Pulse Oximetry] Respiratory 20 22 H Rate Blood Pressure 141/65 H 141/65 H [Left Upper Arm ] O2 Sat by Pulse 94 L 93 L 94 L Oximetry O2 Sat by Pulse Oximetry [ Nasal Cannula] 03/25/17 03/25/17 03/25/17 16:05 19:30 20:00 Temperature [ Axillary] Temperature [ 99.2 F 98.8 F Oral] Pulse, Peripheral [ Left Brachial] Pulse, 99 89 Peripheral [ Left Pulse Oximetry] Respiratory 20 20 Rate Blood Pressure 121/57 L 144/66 H [Left Upper Arm ] O2 Sat by Pulse 92 L 95 Oximetry O2 Sat by Pulse 92 L Oximetry [ Nasal Cannula] 03/25/17 03/25/17 03/26/17 21:40 23:00 00:00 Temperature [ Axillary] Temperature [ Oral] Pulse, Peripheral [ Left Brachial] Pulse, Peripheral [ Left Pulse Oximetry] Respiratory 20 Rate Blood Pressure 138/60 [Left Upper Arm ] O2 Sat by Pulse 94 L 92 L Oximetry O2 Sat by Pulse 95 Oximetry [ Nasal Cannula] 03/26/17 03/26/17 03/26/17 04:00 04:30 07:20 Temperature [ Axillary] Temperature [ 98.1 F Oral] Pulse, Peripheral [ Left Brachial] Pulse, 87 88 Peripheral [ Left Pulse Oximetry] Respiratory 20 Rate Blood Pressure 141/75 H [Left Upper Arm ] O2 Sat by Pulse 93 L 99 Oximetry O2 Sat by Pulse 94 L Oximetry [ Nasal Cannula] 03/26/17 03/26/17 03/26/17 08:00 10:56 12:00 Temperature [ Axillary] Temperature [ 98.9 F 98.2 F Oral] Pulse, Peripheral [ Left Brachial] Pulse, 86 88 87 Peripheral [ Left Pulse Oximetry] Respiratory 18 18 Rate Blood Pressure 146/76 H 130/70 [Left Upper Arm ] O2 Sat by Pulse 96 95 Oximetry O2 Sat by Pulse 97 Oximetry [ Nasal Cannula] 03/26/17 03/26/17 03/26/17 15:38 16:00 20:00 Temperature [ Axillary] Temperature [ 98.2 F 98.6 F Oral] Pulse, Peripheral [ Left Brachial] Pulse, 96 104 H 99 Peripheral [ Left Pulse Oximetry] Respiratory 20 18 Rate Blood Pressure 152/69 H 139/77 [Left Upper Arm ] O2 Sat by Pulse 95 96 Oximetry O2 Sat by Pulse 96 Oximetry [ Nasal Cannula] 03/26/17 03/26/17 03/27/17 20:19 21:17 00:00 Temperature [ Axillary] Temperature [ 98.7 F Oral] Pulse, Peripheral [ Left Brachial] Pulse, 93 Peripheral [ Left Pulse Oximetry] Respiratory 18 Rate Blood Pressure 123/65 [Left Upper Arm ] O2 Sat by Pulse 95 Oximetry O2 Sat by Pulse 95 96 Oximetry [ Nasal Cannula] 03/27/17 03/27/17 03/27/17 01:32 04:00 07:20 Temperature [ Axillary] Temperature [ 97.4 F Oral] Pulse, Peripheral [ Left Brachial] Pulse, 95 98 Peripheral [ Left Pulse Oximetry] Respiratory 18 Rate Blood Pressure 156/83 H [Left Upper Arm ] O2 Sat by Pulse 95 Oximetry O2 Sat by Pulse 95 94 L Oximetry [ Nasal Cannula] 03/27/17 03/27/17 03/27/17 07:27 11:25 12:00 Temperature [ Axillary] Temperature [ 98.0 F 97.7 F Oral] Pulse, Peripheral [ Left Brachial] Pulse, 96 88 108 H Peripheral [ Left Pulse Oximetry] Respiratory 12 20 Rate Blood Pressure 124/73 137/74 [Left Upper Arm ] O2 Sat by Pulse 94 L 97 Oximetry O2 Sat by Pulse 96 Oximetry [ Nasal Cannula] 03/27/17 03/27/17 03/27/17 15:23 16:34 20:00 Temperature [ Axillary] Temperature [ 98.9 F Oral] Pulse, Peripheral [ Left Brachial] Pulse, 92 Peripheral [ Left Pulse Oximetry] Respiratory Rate Blood Pressure 135/80 [Left Upper Arm ] O2 Sat by Pulse 97 Oximetry O2 Sat by Pulse 96 95 Oximetry [ Nasal Cannula] 03/27/17 03/28/17 03/28/17 20:06 00:00 02:00 Temperature [ 98.2 F Axillary] Temperature [ 98.9 F Oral] Pulse, 95 88 Peripheral [ Left Brachial] Pulse, 91 Peripheral [ Left Pulse Oximetry] Respiratory 20 20 Rate Blood Pressure 115/51 L 144/85 H [Left Upper Arm ] O2 Sat by Pulse 95 95 Oximetry O2 Sat by Pulse Oximetry [ Nasal Cannula] 03/28/17 03/28/17 03/28/17 04:00 05:37 07:13 Temperature [ 97.9 F Axillary] Temperature [ 98.4 F Oral] Pulse, 97 97 Peripheral [ Left Brachial] Pulse, 91 91 89 Peripheral [ Left Pulse Oximetry] Respiratory 20 17 Rate Blood Pressure 144/94 H 141/79 H [Left Upper Arm ] O2 Sat by Pulse 96 92 L Oximetry O2 Sat by Pulse Oximetry [ Nasal Cannula] 03/28/17 07:40 Temperature [ Axillary] Temperature [ Oral] Pulse, Peripheral [ Left Brachial] Pulse, 88 Peripheral [ Left Pulse Oximetry] Respiratory Rate Blood Pressure [Left Upper Arm ] O2 Sat by Pulse Oximetry O2 Sat by Pulse 95 Oximetry [ Nasal Cannula] Admission Weight: 98.974 kg Discharge weight 99.836 kg Weight - Most Recent: 99.836 kg I&O - Last 24 hours: Intake & Output 03/27/17 03/28/17 03/28/17 22:59 06:59 14:59 Intake Total 350 2360 Output Total 900 700 650 Balance -900 -350 1710 Lab Results - Last 24 hrs: Laboratory Tests 03/25/17 03/25/17 03/25/17 Range/Units 08:30 08:30 08:30 WBC 17.2 H (4.5-12.0) X10-3/uL RBC 4.41 (3.23-5.20) x10(6)uL Hgb 13.5 (11.5-15.5) g/dL Hct 40.6 (30.0-51.3) % MCV 91.9 (80-96) fL MCH 30.6 (27.7-33.6) pg MCHC 33.2 (32.2-35.4) g/dL RDW 14.6 (11.5-15.5) % Plt Count 305 (125-369) X10(3)uL MPV 8.2 (7.4-10.4) fL Neut % (Auto) (46-82) % Lymph % (Auto) (13-37) % Wells % (Auto) (4-12) % Eos % (Auto) (1.0-5.0) % Baso % (Auto) (0-2) % Neut # (Auto) (1.6-8.3) # Lymph # (Auto) (0.6-5.0) # Wells # (Auto) (0.0-1.3) # Eos # (Auto) (0.0-0.8) # Baso # (Auto) (0.0-0.2) # Add Manual Diff Yes Neutrophils % (Manual) 77 (46-82) % Band Neutrophils % 4 (0-6) % Lymphocytes % (Manual) 12 L (13-37) % Monocytes % (Manual) 4 (4-12) % Eosinophils % (Manual) 3 (0-5) % Basophils % (Manual) (0-2) % Sodium 141 (135-145) mmol/L Potassium 4.5 (3.5-5.3) mmol/L Chloride 100 (100-110) mmol/L Carbon Dioxide 31 (21-32) mmol/L BUN 16 (7-18) mg/dL Creatinine 1.1 H (0.55-1.02) mg/dL Est Cr Clr Drug Dosing 35.40 mL/min Estimated GFR (MDRD) 49 L (>60) BUN/Creatinine Ratio 14.5 (9-20) Glucose 96 (80-116) mg/dL Lactic Acid (0.4-2.2) mmol/L Calcium 9.4 (8.6-10.2) mg/dL Total Bilirubin 0.4 (0.1-1.3) mg/dL AST 26 H (5-25) IU/L ALT 31 (12-36) U/L Alkaline Phosphatase 204 H (56-112) IU/L Total Protein 7.1 (6.0-8.0) g/dL Albumin 3.5 (3.2-4.6) g/dL Globulin 3.6 g/dL Albumin/Globulin Ratio 1.0 TSH, Ultra Sensitive 0.43 (0.36-3.74) IU/mL Urine Color (YELLOW) Urine Appearance (CLEAR) Urine pH (5.0-6.5) Ur Specific [place] (1.010-1.025) Urine Protein (NEGATIVE) mg/dL Urine Glucose (UA) (NEGATIVE) mg/dL Urine Ketones (NEGATIVE) mg/dL Urine Occult Blood (NEGATIVE) Urine Nitrite (NEGATIVE) Urine Bilirubin (NEGATIVE) Urine Urobilinogen (NEGATIVE) mg/dL Ur Leukocyte Esterase (NEGATIVE) Urine RBC (0) Urine WBC (0) Ur Squamous Epith Cells (NS,R,O) Urine Bacteria (NS) Urine Opiates Screen (NEGATIVE) Ur Oxycodone Screen (NEGATIVE) Ur Propoxyphene Screen (NEGATIVE) Ur Barbituates Screen (NEGATIVE) Ur Tricyclics Screen (NEGATIVE) Ur Phencyclidine Scrn (NEGATIVE) Ur Amphetamine Screen (NEGATIVE) Urine MDMA Screen (NEGATIVE) U Benzodiazepines Scrn (NEGATIVE) U Cocaine Metab Screen (NEGATIVE) U Marijuana (THC) Screen (NEGATIVE) 03/25/17 03/25/17 03/25/17 Range/Units 08:30 09:35 09:35 WBC (4.5-12.0) X10-3/uL RBC (3.23-5.20) x10(6)uL Hgb (11.5-15.5) g/dL Hct (30.0-51.3) % MCV (80-96) fL MCH (27.7-33.6) pg MCHC (32.2-35.4) g/dL RDW (11.5-15.5) % Plt Count (125-369) X10(3)uL MPV (7.4-10.4) fL Neut % (Auto) (46-82) % Lymph % (Auto) (13-37) % Wells % (Auto) (4-12) % Eos % (Auto) (1.0-5.0) % Baso % (Auto) (0-2) % Neut # (Auto) (1.6-8.3) # Lymph # (Auto) (0.6-5.0) # Wells # (Auto) (0.0-1.3) # Eos # (Auto) (0.0-0.8) # Baso # (Auto) (0.0-0.2) # Add Manual Diff Neutrophils % (Manual) (46-82) % Band Neutrophils % (0-6) % Lymphocytes % (Manual) (13-37) % Monocytes % (Manual) (4-12) % Eosinophils % (Manual) (0-5) % Basophils % (Manual) (0-2) % Sodium (135-145) mmol/L Potassium (3.5-5.3) mmol/L Chloride (100-110) mmol/L Carbon Dioxide (21-32) mmol/L BUN (7-18) mg/dL Creatinine (0.55-1.02) mg/dL Est Cr Clr Drug Dosing mL/min Estimated GFR (MDRD) (>60) BUN/Creatinine Ratio (9-20) Glucose (80-116) mg/dL Lactic Acid 1.7 (0.4-2.2) mmol/L Calcium (8.6-10.2) mg/dL Total Bilirubin (0.1-1.3) mg/dL AST (5-25) IU/L ALT (12-36) U/L Alkaline Phosphatase (56-112) IU/L Total Protein (6.0-8.0) g/dL Albumin (3.2-4.6) g/dL Globulin g/dL Albumin/Globulin Ratio TSH, Ultra Sensitive (0.36-3.74) IU/mL Urine Color Yellow (YELLOW) Urine Appearance Slightly cloudy (CLEAR) Urine pH 5.0 (5.0-6.5) Ur Specific [place] 1.020 (1.010-1.025) Urine Protein Negative (NEGATIVE) mg/dL Urine Glucose (UA) Normal (NEGATIVE) mg/dL Urine Ketones Negative (NEGATIVE) mg/dL Urine Occult Blood Negative (NEGATIVE) Urine Nitrite Negative (NEGATIVE) Urine Bilirubin Negative (NEGATIVE) Urine Urobilinogen Normal (NEGATIVE) mg/dL Ur Leukocyte Esterase Negative (NEGATIVE) Urine RBC 0-5 (0) Urine WBC 0-5 (0) Ur Squamous Epith Cells Many H (NS,R,O) Urine Bacteria Few H (NS) Urine Opiates Screen Positive H (NEGATIVE) Ur Oxycodone Screen Negative (NEGATIVE) Ur Propoxyphene Screen Negative (NEGATIVE) Ur Barbituates Screen Negative (NEGATIVE) Ur Tricyclics Screen Positive H (NEGATIVE) Ur Phencyclidine Scrn Negative (NEGATIVE) Ur Amphetamine Screen Negative (NEGATIVE) Urine MDMA Screen Negative (NEGATIVE) U Benzodiazepines Scrn Positive H (NEGATIVE) U Cocaine Metab Screen Negative (NEGATIVE) U Marijuana (THC) Screen Negative (NEGATIVE) 03/25/17 03/26/17 03/26/17 Range/Units 12:10 06:05 12:25 WBC 14.3 H (4.5-12.0) X10-3/uL RBC 3.69 (3.23-5.20) x10(6)uL Hgb 11.4 L (11.5-15.5) g/dL Hct 34.2 (30.0-51.3) % MCV 92.7 (80-96) fL MCH 31.0 (27.7-33.6) pg MCHC 33.4 (32.2-35.4) g/dL RDW 14.8 (11.5-15.5) % Plt Count 285 (125-369) X10(3)uL MPV 8.2 (7.4-10.4) fL Neut % (Auto) 80.1 (46-82) % Lymph % (Auto) 14.7 (13-37) % Wells % (Auto) 4.9 (4-12) % Eos % (Auto) 0 L (1.0-5.0) % Baso % (Auto) 0 (0-2) % Neut # (Auto) 11.5 H (1.6-8.3) # Lymph # (Auto) 2.1 (0.6-5.0) # Wells # (Auto) 0.7 (0.0-1.3) # Eos # (Auto) 0.0 (0.0-0.8) # Baso # (Auto) 0.0 (0.0-0.2) # Add Manual Diff Neutrophils % (Manual) (46-82) % Band Neutrophils % (0-6) % Lymphocytes % (Manual) (13-37) % Monocytes % (Manual) (4-12) % Eosinophils % (Manual) (0-5) % Basophils % (Manual) (0-2) % Sodium 143 (135-145) mmol/L Potassium 4.0 (3.5-5.3) mmol/L Chloride 105 D (100-110) mmol/L Carbon Dioxide 29 (21-32) mmol/L BUN 10 (7-18) mg/dL Creatinine 1.1 H (0.55-1.02) mg/dL Est Cr Clr Drug Dosing 35.40 mL/min Estimated GFR (MDRD) 49 L (>60) BUN/Creatinine Ratio 9.1 (9-20) Glucose 140 H (80-116) mg/dL Lactic Acid 0.7 (0.4-2.2) mmol/L Calcium 9.4 (8.6-10.2) mg/dL Total Bilirubin 0.2 (0.1-1.3) mg/dL AST 18 D (5-25) IU/L ALT 25 D (12-36) U/L Alkaline Phosphatase 151 H (56-112) IU/L Total Protein 6.6 (6.0-8.0) g/dL Albumin 3.0 L (3.2-4.6) g/dL Globulin 3.6 g/dL Albumin/Globulin Ratio 0.8 TSH, Ultra Sensitive (0.36-3.74) IU/mL Urine Color (YELLOW) Urine Appearance (CLEAR) Urine pH (5.0-6.5) Ur Specific [place] (1.010-1.025) Urine Protein (NEGATIVE) mg/dL Urine Glucose (UA) (NEGATIVE) mg/dL Urine Ketones (NEGATIVE) mg/dL Urine Occult Blood (NEGATIVE) Urine Nitrite (NEGATIVE) Urine Bilirubin (NEGATIVE) Urine Urobilinogen (NEGATIVE) mg/dL Ur Leukocyte Esterase (NEGATIVE) Urine RBC (0) Urine WBC (0) Ur Squamous Epith Cells (NS,R,O) Urine Bacteria (NS) Urine Opiates Screen (NEGATIVE) Ur Oxycodone Screen (NEGATIVE) Ur Propoxyphene Screen (NEGATIVE) Ur Barbituates Screen (NEGATIVE) Ur Tricyclics Screen (NEGATIVE) Ur Phencyclidine Scrn (NEGATIVE) Ur Amphetamine Screen (NEGATIVE) Urine MDMA Screen (NEGATIVE) U Benzodiazepines Scrn (NEGATIVE) U Cocaine Metab Screen (NEGATIVE) U Marijuana (THC) Screen (NEGATIVE) 03/27/17 03/27/17 03/28/17 Range/Units 06:10 06:10 06:15 WBC 11.2 9.3 (4.5-12.0) X10-3/uL RBC 3.79 3.81 (3.23-5.20) x10(6)uL Hgb 11.8 11.6 (11.5-15.5) g/dL Hct 34.8 34.9 (30.0-51.3) % MCV 91.8 91.5 (80-96) fL MCH 31.2 30.4 (27.7-33.6) pg MCHC 34.0 33.2 (32.2-35.4) g/dL RDW 15.1 14.6 (11.5-15.5) % Plt Count 288 298 (125-369) X10(3)uL MPV 7.9 7.3 L (7.4-10.4) fL Neut % (Auto) 74.0 (46-82) % Lymph % (Auto) 19.4 (13-37) % Wells % (Auto) 4.8 (4-12) % Eos % (Auto) 1 (1.0-5.0) % Baso % (Auto) 1 (0-2) % Neut # (Auto) 8.3 (1.6-8.3) # Lymph # (Auto) 2.2 (0.6-5.0) # Wells # (Auto) 0.5 (0.0-1.3) # Eos # (Auto) 0.1 (0.0-0.8) # Baso # (Auto) 0.1 (0.0-0.2) # Add Manual Diff Yes Neutrophils % (Manual) 64 (46-82) % Band Neutrophils % 1 (0-6) % Lymphocytes % (Manual) 29 (13-37) % Monocytes % (Manual) 5 (4-12) % Eosinophils % (Manual) (0-5) % Basophils % (Manual) 1 (0-2) % Sodium 142 (135-145) mmol/L Potassium 4.0 (3.5-5.3) mmol/L Chloride 106 (100-110) mmol/L Carbon Dioxide 28 (21-32) mmol/L BUN 10 (7-18) mg/dL Creatinine 1.0 (0.55-1.02) mg/dL Est Cr Clr Drug Dosing 38.94 mL/min Estimated GFR (MDRD) 55 L (>60) BUN/Creatinine Ratio 10.0 (9-20) Glucose 99 (80-116) mg/dL Lactic Acid (0.4-2.2) mmol/L Calcium 9.3 (8.6-10.2) mg/dL Total Bilirubin (0.1-1.3) mg/dL AST (5-25) IU/L ALT (12-36) U/L Alkaline Phosphatase (56-112) IU/L Total Protein (6.0-8.0) g/dL Albumin (3.2-4.6) g/dL Globulin g/dL Albumin/Globulin Ratio TSH, Ultra Sensitive (0.36-3.74) IU/mL Urine Color (YELLOW) Urine Appearance (CLEAR) Urine pH (5.0-6.5) Ur Specific [place] (1.010-1.025) Urine Protein (NEGATIVE) mg/dL Urine Glucose (UA) (NEGATIVE) mg/dL Urine Ketones (NEGATIVE) mg/dL Urine Occult Blood (NEGATIVE) Urine Nitrite (NEGATIVE) Urine Bilirubin (NEGATIVE) Urine Urobilinogen (NEGATIVE) mg/dL Ur Leukocyte Esterase (NEGATIVE) Urine RBC (0) Urine WBC (0) Ur Squamous Epith Cells (NS,R,O) Urine Bacteria (NS) Urine Opiates Screen (NEGATIVE) Ur Oxycodone Screen (NEGATIVE) Ur Propoxyphene Screen (NEGATIVE) Ur Barbituates Screen (NEGATIVE) Ur Tricyclics Screen (NEGATIVE) Ur Phencyclidine Scrn (NEGATIVE) Ur Amphetamine Screen (NEGATIVE) Urine MDMA Screen (NEGATIVE) U Benzodiazepines Scrn (NEGATIVE) U Cocaine Metab Screen (NEGATIVE) U Marijuana (THC) Screen (NEGATIVE) 03/28/17 Range/Units 06:15 WBC (4.5-12.0) X10-3/uL RBC (3.23-5.20) x10(6)uL Hgb (11.5-15.5) g/dL Hct (30.0-51.3) % MCV (80-96) fL MCH (27.7-33.6) pg MCHC (32.2-35.4) g/dL RDW (11.5-15.5) % Plt Count (125-369) X10(3)uL MPV (7.4-10.4) fL Neut % (Auto) (46-82) % Lymph % (Auto) (13-37) % Wells % (Auto) (4-12) % Eos % (Auto) (1.0-5.0) % Baso % (Auto) (0-2) % Neut # (Auto) (1.6-8.3) # Lymph # (Auto) (0.6-5.0) # Wells # (Auto) (0.0-1.3) # Eos # (Auto) (0.0-0.8) # Baso # (Auto) (0.0-0.2) # Add Manual Diff Neutrophils % (Manual) (46-82) % Band Neutrophils % (0-6) % Lymphocytes % (Manual) (13-37) % Monocytes % (Manual) (4-12) % Eosinophils % (Manual) (0-5) % Basophils % (Manual) (0-2) % Sodium 137 (135-145) mmol/L Potassium 4.4 (3.5-5.3) mmol/L Chloride 100 D (100-110) mmol/L Carbon Dioxide 30 (21-32) mmol/L BUN 10 (7-18) mg/dL Creatinine 1.1 H (0.55-1.02) mg/dL Est Cr Clr Drug Dosing 35.40 mL/min Estimated GFR (MDRD) 49 L (>60) BUN/Creatinine Ratio 9.1 (9-20) Glucose 98 (80-116) mg/dL Lactic Acid (0.4-2.2) mmol/L Calcium 9.9 (8.6-10.2) mg/dL Total Bilirubin (0.1-1.3) mg/dL AST (5-25) IU/L ALT (12-36) U/L Alkaline Phosphatase (56-112) IU/L Total Protein (6.0-8.0) g/dL Albumin (3.2-4.6) g/dL Globulin g/dL Albumin/Globulin Ratio TSH, Ultra Sensitive (0.36-3.74) IU/mL Urine Color (YELLOW) Urine Appearance (CLEAR) Urine pH (5.0-6.5) Ur Specific [place] (1.010-1.025) Urine Protein (NEGATIVE) mg/dL Urine Glucose (UA) (NEGATIVE) mg/dL Urine Ketones (NEGATIVE) mg/dL Urine Occult Blood (NEGATIVE) Urine Nitrite (NEGATIVE) Urine Bilirubin (NEGATIVE) Urine Urobilinogen (NEGATIVE) mg/dL Ur Leukocyte Esterase (NEGATIVE) Urine RBC (0) Urine WBC (0) Ur Squamous Epith Cells (NS,R,O) Urine Bacteria (NS) Urine Opiates Screen (NEGATIVE) Ur Oxycodone Screen (NEGATIVE) Ur Propoxyphene Screen (NEGATIVE) Ur Barbituates Screen (NEGATIVE) Ur Tricyclics Screen (NEGATIVE) Ur Phencyclidine Scrn (NEGATIVE) Ur Amphetamine Screen (NEGATIVE) Urine MDMA Screen (NEGATIVE) U Benzodiazepines Scrn (NEGATIVE) U Cocaine Metab Screen (NEGATIVE) U Marijuana (THC) Screen (NEGATIVE) RAFAEL Results - Last 24 hrs: Microbiology 03/25/17 08:40 Blood - Venous - Lab Draw Aerobic Blood Culture - Preliminary NO GROWTH AFTER 3 DAYS 03/25/17 08:40 Blood - Venous - Lab Draw Anaerobic Blood Culture - Preliminary NO GROWTH AFTER 3 DAYS 03/25/17 08:30 Blood - Venous Aerobic Blood Culture - Preliminary NO GROWTH AFTER 3 DAYS 03/25/17 08:30 Blood - Venous Anaerobic Blood Culture - Preliminary NO GROWTH AFTER 3 DAYS 03/25/17 09:50 Sputum - Expectorated Gram Stain - Final 03/25/17 09:50 Sputum - Expectorated Sputum Culture - Final 03/25/17 08:50 Throat Quick Strep Confirmation Culture - Final NO GROUP A STREP ISOLATED 03/25/17 08:50 Throat Group A Streptococcus Rapid Screen - Final NEGATIVE STREP A SCREEN 03/25/17 08:50 Nasal Aspirate, Unspecified Influenza Type A Antigen Screen - Final NEGATIVE INFLUENZA A VIRUS AG 03/25/17 08:50 Nasal Aspirate, Unspecified Influenza Type B Antigen Screen - Final NEGATIVE INFLUENZA B VIRUS AG Med Orders - Current: Current Medications Albuterol/Ipratropium (Duoneb 3.0-0.5 Mg/3 Ml) 3 ml NEB QIDRT [facility] Last Admin: 03/28/17 07:23 Dose: 3 ml Cholecalciferol (Vitamin D3) 2,000 units PO BID [facility] Last Admin: 03/28/17 09:03 Dose: 2,000 units Docusate Sodium (Colace) 100 mg PO BID PRN PRN Reason: Constipation Duloxetine HCl (Cymbalta) 60 mg PO DAILY [facility] Last Admin: 03/28/17 09:03 Dose: 60 mg Enoxaparin Sodium (Lovenox) 40 mg SUBCUT Q24H [facility] Last Admin: 03/28/17 09:06 Dose: 40 mg Furosemide (Lasix) 80 mg PO DAILY [facility] Last Admin: 03/28/17 09:29 Dose: Not Given Gabapentin (Neurontin) 600 mg PO TID [facility] Last Admin: 03/28/17 09:03 Dose: 600 mg Ibuprofen (Motrin) 600 mg PO Q6H PRN PRN Reason: Pain (mild 1-3) Last Admin: 03/28/17 09:06 Dose: 600 mg Levofloxacin (Levaquin) 750 mg PO Q24H [facility] Last Admin: 03/27/17 12:22 Dose: 750 mg Lorazepam (Ativan) 0.5 mg PO Q8H PRN PRN Reason: Agitation Last Admin: 03/27/17 20:42 Dose: 0.5 mg Mirtazapine (Remeron) 45 mg PO BEDTIME [facility] Montelukast Sodium (Singulair) 10 mg PO BEDTIME [facility] Last Admin: 03/27/17 20:01 Dose: 10 mg Nicotine (Habitrol) 21 mg TRDERM DAILY PRN PRN Reason: NICOTINE WITHDRAWL Paroxetine HCl (Paxil) 60 mg PO BEDTIME [facility] Last Admin: 03/27/17 20:01 Dose: 60 mg Potassium Chloride (Klor-Con M20) 20 meq PO DAILY [facility] Last Admin: 03/28/17 09:03 Dose: 20 meq Ropinirole HCl (Requip) 2 mg PO BEDTIME [facility] Last Admin: 03/27/17 19:59 Dose: 2 mg Sodium Chloride (Saline Flush) 10 ml FLUSH ASDIRECTED PRN PRN Reason: Keep Vein Open Last Admin: 03/27/17 00:44 Dose: 10 ml Discontinued Medications Acetaminophen (Tylenol Extra Strength) 1,000 mg PO ONETIME ONE Stop: 03/25/17 09:01 Last Admin: 03/25/17 08:35 Dose: 1,000 mg Acetaminophen (Tylenol) 650 mg PO Q4H PRN PRN Reason: Pain (Mild 1-3)/fever Acetaminophen (Tylenol Extra Strength) 1,000 mg PO Q6H [facility] Stop: 03/27/17 16:01 Last Admin: 03/27/17 03:13 Dose: 1,000 mg Albuterol/Ipratropium (Duoneb 3.0-0.5 Mg/3 Ml) Confirm Administered Dose 3 ml .ROUTE .STK-MED ONE Stop: 03/25/17 20:50 Last Admin: 03/25/17 20:55 Dose: Not Given Bisacodyl (Dulcolax) 5 mg PO DAILY PRN PRN Reason: Constipation Ceftriaxone Sodium (Rocephin) 1,000 mg IV Q24H [facility] Last Admin: 03/26/17 12:54 Dose: 1,000 mg Cholecalciferol (Vitamin D3) Confirm Administered Dose 1,000 units .ROUTE .STK- MED ONE Stop: 03/25/17 22:52 Last Admin: 03/25/17 23:45 Dose: Not Given Diclofenac Sodium (Voltaren) 75 mg PO BIDMEALS [facility] Gabapentin (Neurontin) Confirm Administered Dose 600 mg .ROUTE .STK-MED ONE Stop: 03/25/17 13:28 Last Admin: 03/25/17 13:37 Dose: 600 mg Gabapentin (Neurontin) Confirm Administered Dose 300 mg .ROUTE .STK-MED ONE Stop: 03/25/17 20:45 Last Admin: 03/25/17 20:55 Dose: Not Given Sodium Chloride (Normal Saline) 1,000 mls @ 999 mls/hr IV .BOLUS ONE Stop: 03/25/17 09:58 Last Admin: 03/25/17 09:00 Dose: 999 mls/hr Piperacillin Sod/Tazobactam (Sod 3.375 gm/ Sodium Chloride) 50 mls @ 100 mls/ hr IV Q6H [facility] Last Admin: 03/25/17 10:28 Dose: 100 mls/hr Vancomycin HCl 1,000 mg/ (Sodium Chloride) 250 mls @ 167 mls/hr IV Q24H [facility] Azithromycin 500 mg/ Sodium (Chloride) 250 mls @ 250 mls/hr IV Q24H [facility] Last Admin: 03/25/17 12:18 Dose: 250 mls/hr Ceftriaxone Sodium 1,000 mg/ (Sodium Chloride) 50 mls @ 100 mls/hr IV Q24H [facility] Last Admin: 03/25/17 18:02 Dose: Not Given Levofloxacin/Dextrose 750 mg/ (Premix) 150 mls @ 100 mls/hr IV Q24H [facility] Last Admin: 03/26/17 14:23 Dose: 100 mls/hr Sodium Chloride (Normal Saline) 1,000 mls @ 125 mls/hr IV ASDIRECTED [facility] Last Admin: 03/26/17 01:00 Dose: 125 mls/hr Lorazepam (Ativan) 1 mg IVPUSH Q8H PRN PRN Reason: anxiety;agitation;restlessness Last Admin: 03/25/17 15:23 Dose: 1 mg Lorazepam (Ativan) 0.5 mg IVPUSH Q8H PRN PRN Reason: restlessness;aggitation;insomn Last Admin: 03/27/17 00:29 Dose: 0.5 mg Lorazepam (Ativan) 0.5 mg IVPUSH Q8H PRN PRN Reason: restlessness;aggitation;insomn Metolazone (Zaroxolyn) Confirm Administered Dose 5 mg .ROUTE .STK-MED ONE Stop: 03/25/17 13:28 Last Admin: 03/25/17 18:02 Dose: Not Given Non-Formulary Medication (Ergocalciferol (Vitamin D2) [Vitamin D2]) 2,000 unit PO BID [facility] Last Admin: 03/25/17 21:30 Dose: Not Given Non-Formulary Medication (Mirtazapine [Mirtazapine]) 45 mg PO BEDTIME [facility] Non-Formulary Medication (Suvorexant [Belsomra]) 10 mg PO BEDTIME [facility] Ondansetron HCl (Zofran Odt) 4 mg PO Q4H PRN PRN Reason: nausea, able to take PO Ondansetron HCl (Zofran) 4 mg IV Q6H PRN PRN Reason: Nausea/Vomiting Paroxetine HCl (Paxil) 60 mg PO DAILY [facility] Piperacillin Sod/Tazobactam Sod (Zosyn) Confirm Administered Dose 3.375 gm .ROUTE .STK-MED ONE Stop: 03/25/17 10:05 Last Admin: 03/25/17 17:49 Dose: 3.375 gm Ropinirole HCl (Requip) 1 mg PO BEDTIME [facility] Last Admin: 03/25/17 20:58 Dose: 1 mg Temazepam (Restoril) 7.5 mg PO BEDTIME PRN PRN Reason: Sleep Tizanidine HCl (Zanaflex) 4 mg PO BID [facility] Venlafaxine HCl (Effexor Xr) 37.5 mg PO DAILY [facility] - Exam Physical Findings Comments:: General: Again sitting up in bed playing on her Ipad. She slept well overnight. Tolerating her diet. cough improved. chest discomfort and shortness of breath improving. Quality Assessment: Supplemental Oxygen, uses as needed at home and continuous at night. this is her baseline. General: Alert, Oriented, Cooperative, No Distress HEENT: No: Mucosa Moist & [place] Neck: No: Lymphadenopathy Lungs: Decreased Breath Sounds, clear today without wheezes. Cardiovascular: Regular Rate, Regular Rhythm GI/Abdominal Exam: Normal Bowel Sounds, Other (Patient has numerous surgical scars from prior hernia repair.) She is nontender to palpation and continues to have normal bowel sounds throughout. 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 Psychiatric: Alert, pleasant speaking in full complete sentences no longer anxious. Glad to be going home. Sister is coming to get her. *Q Meaningful Use (DIS) - VTE *Q VTE Criteria *Q: - Stroke *Q Stroke Criteria *Q: - AMI *Q AMI Criteria *Q:
[2017-03-28] MEDS: Levofloxacin 750 MG Tab PO SCH (12:25)
== END 2017-03-28 11:35 | disposition home or self-care (01) | DRG 190 ==
LOC: FB.ED 08:23 → FB.MS 09:53
PROVIDERS: ADMIT Emergency Medicine; ATTEND Family Medicine
DX: J44.0 Chronic obstructive pulmonary disease with (acute) lower respiratory infection (principal); J18.9 Pneumonia, unspecified organism; Z68.41 Body mass index [BMI] 40.0-44.9, adult; I10 Essential (primary) hypertension; I50.20 Unspecified systolic (congestive) heart failure; F17.210 Nicotine dependence, cigarettes, uncomplicated; J20.9 Acute bronchitis, unspecified; M54.5 Low back pain; G89.29 Other chronic pain; G25.81 Restless legs syndrome; F32.9 Major depressive disorder, single episode, unspecified; Z99.81 Dependence on supplemental oxygen; R06.02 Shortness of breath; R05 Cough; F50.9 Eating disorder, unspecified; E66.01 Morbid (severe) obesity due to excess calories; R53.83 Other fatigue; G47.34 Idiopathic sleep related nonobstructive alveolar hypoventilation; R40.4 Transient alteration of awareness; G47.00 Insomnia, unspecified; Z79.899 Other long term (current) drug therapy; I11.0 Hypertensive heart disease with heart failure; Z51.5 Encounter for palliative care; T36.3X5A Adverse effect of macrolides, initial encounter; Y92.230 Patient room in hospital as the place of occurrence of the external cause; K05.6 Periodontal disease, unspecified; K06.9 Disorder of gingiva and edentulous alveolar ridge, unspecified; M41.9 Scoliosis, unspecified; G20 Parkinson's disease; Z87.01 Personal history of pneumonia (recurrent); H54.7 Unspecified visual loss; H91.90 Unspecified hearing loss, unspecified ear; Z98.84 Bariatric surgery status; Z96.659 Presence of unspecified artificial knee joint; Z88.1 Allergy status to other antibiotic agents; Z91.018 Allergy to other foods
CPT/HCPCS: 36415; 71046; 80053; 80305; 81001; 83605; 84443; 85025; 87040 ×2; 87070; 87081; 87205; 87430; 87804 ×2; 93005; 96360; 99285; A9270; J7040; 80048; 94150; 94640; 97165-GO; J0456; J0696; J1650; J1956; J2060; J2543; J7050; J7620

== ENCOUNTER 2018-07-30 10:32 | Day surgery (SDC) | payer MEDICARE, MEDICAID ==
[~2018-07-30 10:32] MED LIST: Sodium Chloride 0.9% 10 ML Syringe FLUSH PRN
[2018-07-30] MEDS ORDERED: Midazolam 1 MG/ML 2 ML SDV IV ONE (10:33)
[2018-07-30] MEDS: Lactated Ringers 1,000 ML IV PRN (11:06)
[2018-07-30 12:29] VITALS: BP 137/85
--- NOTE | 2018-07-31 08:38 | OR ---
DATE OF OPERATION: 07/30/2018 SURGEON: Flores Spencer MD PREOPERATIVE DIAGNOSIS: Visually significant cataract, right eye. POSTOPERATIVE DIAGNOSIS: Visually significant cataract, right eye. PROCEDURES PERFORMED: Phacoemulsification with intraocular lens placement, right eye. ASSISTANTS: None. ANESTHESIA: Local with sedation. COMPLICATIONS: None. BLOOD LOSS: None. IMPLANTS: A 17.5 diopter lens implanted. CDE: 2.85. DESCRIPTION OF PROCEDURE: After risks and benefits were reviewed with the patient, consent was obtained in the preoperative area, and the operative eye was marked with a surgical pen. In the preoperative area, a pledget was used to dilate the pupil consisting of a mixture of phenylephrine 10%, cyclopentolate 2%, moxifloxacin 0.5%, and bupivacaine 0.75%. The patient was taken to the operating room, where a time-out was performed, and the patient was placed under monitored anesthesia care. Topical tetracaine was used for anesthesia. The operative eye was prepped and draped for ophthalmic surgery, and the microscope was brought into position and focussed. A paracentesis incision was made, followed by injection of preservative-free 1% lidocaine into the anterior chamber, followed by injection of Viscoat into the anterior chamber. A microkeratome blade was used to make a corneal limbal incision temporarily. A cystotome was used to make the beginning of the capsulorrhexis, which was carried around 360 degrees in a curvilinear fashion using Utrata forceps. A Castañeda cannula with BSS was used to hydrodissect and hydrodelineate the nucleus. The nucleus was removed in a divide and conquer manner using phacoemulsification. Irrigation and aspiration were used to remove the remaining cortical material. Provisc was used to inflate the capsular bag, and a pre-loaded 17.5-diopter lens, serial number [id number] was injected into the capsular bag. A Sinskey hook was used to position and center the lens. Next, irrigation and aspiration was used to remove any remaining viscoelastic and cortical material from the anterior chamber. BSS on a cannula was used to inflate the anterior chamber and hydrate the wound. The wound was checked and found to be watertight. 1 mg of Moxifloxacin was injected into the anterior chamber. Drapes were removed and the eye was cleaned. A drop of brimonidine 0.15% and a drop of TobraDex was placed. The eye was shielded, and the patient was taken to the recovery room in stable condition. /[id number] W[address]ES[address]/DAYANARA CC: BLANCHE ISIDRO CNP MTDD
== END 2018-07-30 12:25 | disposition home or self-care (01) ==
LOC: FB.SDS 10:32
PROVIDERS: ATTEND Ophthalmology
DX: H25.13 Age-related nuclear cataract, bilateral (principal); H40.053 Ocular hypertension, bilateral; H53.2 Diplopia; H05.20 Unspecified exophthalmos; H52.10 Myopia, unspecified eye; H43.811 Vitreous degeneration, right eye; I50.9 Heart failure, unspecified; J44.9 Chronic obstructive pulmonary disease, unspecified; F17.210 Nicotine dependence, cigarettes, uncomplicated; F41.9 Anxiety disorder, unspecified; F33.41 Major depressive disorder, recurrent, in partial remission; G25.81 Restless legs syndrome; G89.29 Other chronic pain; M54.40 Lumbago with sciatica, unspecified side; M79.18 Myalgia, other site; R73.03 Prediabetes; Z88.1 Allergy status to other antibiotic agents; Z88.8 Allergy status to other drugs, medicaments and biological substances; Z91.048 Other nonmedicinal substance allergy status; Z99.81 Dependence on supplemental oxygen; Z83.518 Family history of other specified eye disorder; Z79.899 Other long term (current) drug therapy
CPT/HCPCS: 00142-QZ; J2250; J7120

== ENCOUNTER 2018-08-27 08:07 | Day surgery (SDC) | payer MEDICARE, MEDICAID ==
[~2018-08-27 08:07] MED LIST changes: +Lactated Ringers 1,000 ML IV PRN
[2018-08-27] MEDS ORDERED: Midazolam 1 MG/ML 2 ML SDV IV ONE (08:08)
[2018-08-27] MEDS ORDERED: Lidocaine 2% 100 MG/5 ML Syringe IVPUSH ONE (08:08)
--- NOTE | 2018-08-27 14:36 | OR ---
DATE OF OPERATION: 08/27/2018 SURGEON: Flores Spencer MD PREOPERATIVE DIAGNOSIS: Visually significant cataract, left eye. POSTOPERATIVE DIAGNOSIS: Visually significant cataract, left eye. PROCEDURES PERFORMED: Phacoemulsification with intraocular lens placement, left eye. ASSISTANTS: None. ANESTHESIA: Local with sedation. COMPLICATIONS: None. BLOOD LOSS: None. IMPLANTS: Elvin [id number], 17.5 diopter lens implanted. CDE: 2.35 DESCRIPTION OF PROCEDURE: After risks and benefits were reviewed with the patient, consent was obtained in the preoperative area, and the operative eye was marked with a surgical pen. In the preoperative area, a pledget was used to dilate the pupil consisting of a mixture of phenylephrine 10%, cyclopentolate 2%, moxifloxacin 0.5%, and bupivacaine 0.75%. The patient was taken to the operating room, where a time-out was performed, and the patient was placed under monitored anesthesia care. Topical tetracaine was used for anesthesia. The operative eye was prepped and draped for ophthalmic surgery, and the microscope was brought into position and focussed. A paracentesis incision was made, followed by injection of preservative-free 1% lidocaine into the anterior chamber, followed by injection of Viscoat into the anterior chamber. A microkeratome blade was used to make a corneal limbal incision temporarily. A cystotome was used to make the beginning of the capsulorrhexis, which was carried around 360 degrees in a curvilinear fashion using Utrata forceps. A Castañeda cannula with BSS was used to hydrodissect and hydrodelineate the nucleus. The nucleus was removed in a divide and conquer manner using phacoemulsification. Irrigation and aspiration were used to remove the remaining cortical material. Provisc was used to inflate the capsular bag, and a pre-loaded Elvin [id number], 17.5 diopter lens, serial number [id number] was injected into the capsular bag. A Sinskey hook was used to position and center the lens. Next, irrigation and aspiration was used to remove any remaining viscoelastic and cortical material from the anterior chamber. BSS on a cannula was used to inflate the anterior chamber and hydrate the wound. The wound was checked and found to be watertight. 1 mg of Moxifloxacin was injected into the anterior chamber. Drapes were removed and the eye was cleaned. A drop of brimonidine 0.15% and a drop of TobraDex was placed. The eye was shielded, and the patient was taken to the recovery room in stable condition. /[id number] WENCES[address]O/DAYANARA cc: Gurjit Clark, [facility]
[2018-08-27 15:57] VITALS: BP 143/69; PULSE 93
== END 2018-08-27 10:35 | disposition home or self-care (01) ==
LOC: FB.SDS 08:07
PROVIDERS: ATTEND Ophthalmology
DX: H25.812 Combined forms of age-related cataract, left eye (principal); H40.053 Ocular hypertension, bilateral; H53.2 Diplopia; H05.20 Unspecified exophthalmos; H52.10 Myopia, unspecified eye; H43.811 Vitreous degeneration, right eye; I50.9 Heart failure, unspecified; E03.9 Hypothyroidism, unspecified; J44.9 Chronic obstructive pulmonary disease, unspecified; F41.9 Anxiety disorder, unspecified; F33.41 Major depressive disorder, recurrent, in partial remission; F17.210 Nicotine dependence, cigarettes, uncomplicated; G25.81 Restless legs syndrome; R73.03 Prediabetes; G89.29 Other chronic pain; M54.42 Lumbago with sciatica, left side; M54.41 Lumbago with sciatica, right side; M10.9 Gout, unspecified; Z88.1 Allergy status to other antibiotic agents; Z91.018 Allergy to other foods; Z88.8 Allergy status to other drugs, medicaments and biological substances; Z91.048 Other nonmedicinal substance allergy status; Z99.81 Dependence on supplemental oxygen; Z98.41 Cataract extraction status, right eye; Z96.1 Presence of intraocular lens; Z83.511 Family history of glaucoma; Z79.899 Other long term (current) drug therapy
CPT/HCPCS: 00142; 66984; J2001; J2250; V2632

== ENCOUNTER 2018-09-16 14:28 | Inpatient (IN) | payer MEDICARE, MEDICAID ==
--- NOTE | 2018-09-16 15:21 | EDM.PDOC ---
ED HPI GENERAL MEDICAL PROBLEM - General Stated Complaint: SYNCOPY Time Seen by Provider: 09/16/18 15:21 Source of Information: Reports: Patient, Family History Limitations: Reports: No Limitations, Other (? cognitive impairment ) - History of Present Illness INITIAL COMMENTS - FREE TEXT/NARRATIVE: 72yo female who presents today after a fall at home. Complains of left leg pain , discharge coming from eyes, increasing cough and wondering if her pneumonia has come back. Also some increased urinary frequency. No family is present upon my initial interview, and it is difficult to make out a clear history from the patient. She states she is fine and would like to go home. PMHx significant for cataract surgery earlier this summer, oxygen dependent COPD , gout, restless leg. I suspect some cardiac pathology also. She denies fever, chills, sweats, headache, neck pain, chest pain. Chronic shortness of breath. Some blurred vision which is sounds like has been going on a while. Reddened eye and discharge from eye that started over weekend. Urinary symptoms as noted above. No nausea, vomiting or abdominal pain. head, left hip, left knee Pain Score (Numeric/FACES): 6 - Related Data Allergies Allergy/AdvReac Type Severity Reaction Status Date / Time adhesive tape Allergy Other Verified 08/27/18 08:20 baclofen Allergy Other Verified 08/27/18 08:20 eletriptan [From Relpax] Allergy Other Verified 08/27/18 08:20 erythromycin base Allergy Itching Verified 08/27/18 08:20 strawberry Allergy Hives Verified 08/27/18 08:20 Home Meds: Home Meds Gabapentin [Neurontin] 1,200 mg PO DAILY 02/07/16 [History] Montelukast [Singulair] 10 mg PO DAILY 02/07/16 [History] rOPINIRole [Requip] 2 mg PO BEDTIME 02/07/16 [History] Albuterol Sulfate [Proair Hfa] 2 puff INH Q4H PRN 07/29/18 [History] Furosemide 40 mg PO BID@08,12 07/29/18 [History] ALPRAZolam [Alprazolam] 0.5 mg PO BEDTIME 09/17/18 [History] Allopurinol [Zyloprim] 200 mg PO DAILY 09/17/18 [History] Cholecalciferol (Vitamin D3) [Vitamin D3] 1,000 unit PO DAILY 09/17/18 [History] Cyanocobalamin (Vitamin B-12) [Vitamin B-12] 5,000 mcg PO DAILY 09/17/18 [ History] Gabapentin [Neurontin] 600 mg PO BID@,09/17/18 [History] Latanoprost 1 drop EYEBOTH BEDTIME 09/17/18 [History] Mirtazapine 45 mg PO BEDTIME 09/17/18 [History] PARoxetine [Paxil] 60 mg PO BEDTIME 09/17/18 [History] Phenylephrine HCl/Acetaminophn [Sudafed PE Pressure+Pain Cplt] 1 tab PO BID@, 09/17/18 [History] Salmeterol Xinafoate [Serevent Diskus] 1 puff IH BID PRN 09/17/18 [History] diphenhydrAMINE [Benadryl] 50 mg PO DAILY PRN 09/17/18 [History] rOPINIRole [Requip] 0.5 mg PO BEDTIME 09/17/18 [History] Past Medical History HEENT History: Reports: Allergic Rhinitis, Cataract, Impaired Vision Other HEENT History: MYOFASCIAL PAIN DYSFUNCTION SYNDROME Cardiovascular History: Reports: Heart Failure, Hypertension, SOB on Exertion Respiratory History: Reports: COPD, Pneumonia, Recurrent, Other (See Below) Other Respiratory History: Wears O2 @ hs. Gastrointestinal History: Reports: Cholelithiasis, GERD [employer] History: Reports: , Other (See Below) Other [employer] History: 3 Musculoskeletal History: Reports: Back Pain, Chronic, Gout, RA, Other (See Below ) Other Musculoskeletal History: restless legs Neurological History: Reports: Parkinson's, Other (See Below) Other Neuro History: restlesslegs, NECK PAIN Psychiatric History: Reports: Anxiety, Depression Endocrine/Metabolic History: Reports: Obesity/BMI 30+ - Past Surgical History HEENT Surgical History: Reports: Cataract Surgery GI Surgical History: Reports: Hernia Repair/Other Other GI Surgeries/Procedures: Abdominal surgery Neurological Surgical History: Reports: C-Spine Musculoskeletal Surgical History: Reports: Knee Replacement Other Musculoskeletal Surgeries/Procedures:: L knee Social & Family History - Family History Family Medical History: Noncontributory - Caffeine Use Caffeine Use: Reports: Coffee, Soda - Living Situation & Occupation Living situation: Reports: Occupation: Unemployed ED ROS GENERAL - Review of Systems Review Of Systems: See Below Constitutional: Reports: Weakness, Fatigue. Denies: Fever, Chills, Malaise, Diaphoresis HEENT: Reports: Eye Discharge, Rhinitis, Sinus Problem. Denies: Eye Pain, Throat Pain, Vertigo Respiratory: Reports: Shortness of Breath, Wheezing, Cough, Sputum. Denies: Pleuritic Chest Pain Cardiovascular: Reports: Dyspnea on Exertion. Denies: Chest Pain, Lightheadedness, Palpitations Endocrine: Reports: No Symptoms GI/Abdominal: Denies: Abdominal Pain, Constipation, Diarrhea, Nausea, Vomiting : Reports: Frequency, Urgency Musculoskeletal: Reports: Leg Pain. Denies: Neck Pain Skin: Reports: Bruising. Denies: Rash Neurological: Reports: Confusion (uncertain baseline ). Denies: Headache, Numbness, Tingling, Trouble Speaking, Weakness, Change in Speech Hematologic/Lymphatic: Reports: No Symptoms Immunologic: Reports: Environmental Allergy, Seasonal Allergy ED EXAM, GENERAL - Physical Exam Exam: See Below Free Text/Narrative:: General: alert, talkative, oriented to person, place, relative timeframe Head: bruising noted on cheek. No lacerations, no tenderness across face. Neck: supple, nontender, freely movable Eyes: erythema of skin around right eye. Conjunctiva is red. No pain with eye movement. Pupils - uncertain reactivity, but recent cataract surgery. No obvious discharge noted. Ears: no obvious bruising Heart: regular Lungs: decreased breath sounds, no obvious wheezing or crackles, prolonged expiratory phase Abdomen: soft, nontender, normal bowel sounds, no rebound or guarding Skin: bruising over left knee, facial as noted above Extremities: equal strength bilaterally, trace edema Course - Vital Signs Text/Narrative:: initial evaluation - difficult to make out story, but later sister tells me they found out she had fallen again this morning, and are concerned because this has been happening more and more. Also increased cough, wondering about pneumonia. On my evaluation, patient seems to have superficial bruising of face which is not fresh, and possible krishan-orbital cellulitis. Her eye is also quite red head CT ordered labs ordered suspect will need admitted. Wonder about role of polypharmacy given her multiple medications. Last Recorded V/S: Last Vital Signs Temp 36.7 C 09/17/18 16:00 Pulse 65 09/17/18 16:00 Resp 18 09/17/18 16:00 BP 135/68 09/17/18 16:00 Pulse Ox 92 L 09/17/18 16:00 - Orders/Labs/Meds Orders: Medication Orders Acetaminophen (Tylenol) 650 mg PO Q4H PRN PRN Reason: Pain (Mild 1-3)/fever Last Admin: 09/17/18 06:55 Dose: 650 mg Admin: 09/16/18 19:06 Dose: 650 mg Albuterol (Ventolin Hfa) 0 gm INH Q4H PRN PRN Reason: Shortness of Breath Last Admin: 09/17/18 03:47 Dose: 2 puff Ciprofloxacin (Ciloxan 0.3% Ophth Soln) 0 ml EYEBOTH Q4H [facility]CK Last Admin: 09/17/18 17:03 Dose: 2 drop Admin: 09/17/18 11:23 Dose: 2 drop Enoxaparin Sodium (Lovenox) 40 mg SUBCUT Q24H [facility] Last Admin: 09/17/18 17:03 Dose: 40 mg Admin: 09/16/18 20:23 Dose: 40 mg Furosemide (Lasix) 40 mg PO BIDDIURETIC MARCK Last Admin: 09/17/18 14:38 Dose: 40 mg Admin: 09/17/18 08:38 Dose: 40 mg Gabapentin (Neurontin) 600 mg PO BID MARCK Stop: 09/19/18 21:01 Last Admin: 09/17/18 10:22 Dose: 600 mg Gabapentin (Neurontin) 300 mg PO BID MARCK Sodium Chloride (Normal Saline) 250 mls @ 20 mls/hr IV ASDIRECTED PRN PRN Reason: flush bag Last Admin: 09/17/18 02:50 Dose: 20 mls/hr Admin: 09/17/18 02:07 Dose: 20 mls/hr Admin: 09/16/18 21:10 Dose: 20 mls/hr Piperacillin Sod/Tazobactam (Sod 3.375 gm/ Sodium Chloride) 50 mls @ 100 mls/ hr IV Q6H MARCK Last Admin: 09/17/18 13:52 Dose: 100 mls/hr Admin: 09/17/18 08:09 Dose: 100 mls/hr Ketorolac Tromethamine (Toradol) 15 mg IVPUSH Q6H PRN PRN Reason: MODERATE PAIN (4-6/10) Mirtazapine (Remeron) 45 mg PO BEDTIME [facility] Montelukast Sodium (Singulair) 10 mg PO BEDTIME [facility] Last Admin: 09/16/18 21:32 Dose: 10 mg Ondansetron HCl (Zofran) 4 mg IV Q4H PRN PRN Reason: Nausea/Vomiting Paroxetine HCl (Paxil) 60 mg PO BEDTIME [facility] Paroxetine HCl (Paxil) 30 mg PO BID [facility] Stop: 09/17/18 21:01 Last Admin: 09/17/18 11:23 Dose: 30 mg Ropinirole HCl (Requip) 2 mg PO BEDTIME [facility] Saccharomyces Boulardii (Florastor) 250 mg PO BID [facility] Last Admin: 09/17/18 08:38 Dose: 250 mg Admin: 09/16/18 20:40 Dose: 250 mg Sodium Chloride (Saline Flush) 10 ml FLUSH ASDIRECTED PRN PRN Reason: IV Use Last Admin: 09/17/18 08:10 Dose: 10 ml Umeclidinium/Vilanterol (Anoro Ellipta 62.5-25 Mcg) 0 mcg IH DAILY [facility] Labs: Laboratory Tests 09/16/18 09/16/18 09/16/18 Range/Units 15:14 15:30 15:30 WBC 12.1 H (4.5-12.0) X10-3/uL RBC 3.75 (3.23-5.20) x10(6)uL Hgb 11.1 L (11.5-15.5) g/dL Hct 33.8 (30.0-51.3) % MCV 90.1 (80-96) fL MCH 29.7 (27.7-33.6) pg MCHC 33.0 (32.2-35.4) g/dL RDW 17.7 H (11.5-15.5) % Plt Count 330 (125-369) X10(3)uL MPV 7.6 (7.4-10.4) fL Neut % (Auto) 65.5 (46-82) % Lymph % (Auto) 26.0 (13-37) % [place] % (Auto) 5.4 (4-12) % Eos % (Auto) 3 (1.0-5.0) % Baso % (Auto) 0 (0-2) % Neut # (Auto) 7.9 (1.6-8.3) # Lymph # (Auto) 3.1 (0.6-5.0) # [place] # (Auto) 0.7 (0.0-1.3) # Eos # (Auto) 0.4 (0.0-0.8) # Baso # (Auto) 0.0 (0.0-0.2) # Sodium 136 (135-145) mmol/L Potassium 3.5 D (3.5-5.3) mmol/L Chloride 96 L (100-110) mmol/L Carbon Dioxide 36 H (21-32) mmol/L BUN 14 (7-18) mg/dL Creatinine 1.1 H (0.55-1.02) mg/dL Est Cr Clr Drug Dosing TNP Estimated GFR (MDRD) 49 L (>60) BUN/Creatinine Ratio 12.7 (9-20) Glucose 108 (80-116) mg/dL Calcium 8.9 (8.6-10.2) mg/dL Troponin I (<0.017-0.056) ng/mL Urine Color Yellow (YELLOW) Urine Appearance Clear (CLEAR) Urine pH 5.0 (5.0-6.5) Ur Specific [place] 1.015 (1.010-1.025) Urine Protein Negative (NEGATIVE) mg/dL Urine Glucose (UA) Normal (NORMAL) mg/dL Urine Ketones Negative (NEGATIVE) mg/dL Urine Occult Blood Negative (NEGATIVE) Urine Nitrite Negative (NEGATIVE) Urine Bilirubin Negative (NEGATIVE) Urine Urobilinogen 0.2 (NEGATIVE) mg/dL Ur Leukocyte Esterase Negative (NEGATIVE) Urine RBC Not seen (0-5) Urine WBC 0-5 (0-5) Ur Squamous Epith Cells Few H (NS,R,O) Urine Bacteria Rare H (NS) 09/16/18 Range/Units 15:30 WBC (4.5-12.0) X10-3/uL RBC (3.23-5.20) x10(6)uL Hgb (11.5-15.5) g/dL Hct (30.0-51.3) % MCV (80-96) fL MCH (27.7-33.6) pg MCHC (32.2-35.4) g/dL RDW (11.5-15.5) % Plt Count (125-369) X10(3)uL MPV (7.4-10.4) fL Neut % (Auto) (46-82) % Lymph % (Auto) (13-37) % [place] % (Auto) (4-12) % Eos % (Auto) (1.0-5.0) % Baso % (Auto) (0-2) % Neut # (Auto) (1.6-8.3) # Lymph # (Auto) (0.6-5.0) # [place] # (Auto) (0.0-1.3) # Eos # (Auto) (0.0-0.8) # Baso # (Auto) (0.0-0.2) # Sodium (135-145) mmol/L Potassium (3.5-5.3) mmol/L Chloride (100-110) mmol/L Carbon Dioxide (21-32) mmol/L BUN (7-18) mg/dL Creatinine (0.55-1.02) mg/dL Est Cr Clr Drug Dosing Estimated GFR (MDRD) (>60) BUN/Creatinine Ratio (9-20) Glucose (80-116) mg/dL Calcium (8.6-10.2) mg/dL Troponin I < 0.017 L (<0.017-0.056) ng/mL Urine Color (YELLOW) Urine Appearance (CLEAR) Urine pH (5.0-6.5) Ur Specific [place] (1.010-1.025) Urine Protein (NEGATIVE) mg/dL Urine Glucose (UA) (NORMAL) mg/dL Urine Ketones (NEGATIVE) mg/dL Urine Occult Blood (NEGATIVE) Urine Nitrite (NEGATIVE) Urine Bilirubin (NEGATIVE) Urine Urobilinogen (NEGATIVE) mg/dL Ur Leukocyte Esterase (NEGATIVE) Urine RBC (0-5) Urine WBC (0-5) Ur Squamous Epith Cells (NS,R,O) Urine Bacteria (NS) Meds: Medications Generic Name Dose Route Start Last Admin Trade Name Freq PRN Reason Stop Dose Admin Acetaminophen 650 mg 09/16/18 17:58 09/17/18 06:55 Tylenol PO 650 mg Q4H PRN Administration Pain (Mild 1-3)/fever Albuterol 0 gm 09/16/18 18:52 09/17/18 03:47 Ventolin Hfa INH 2 puff Q4H PRN Administration Shortness of Breath Ciprofloxacin 0 ml 09/17/18 12:00 09/17/18 17:03 Ciloxan 0.3% Ophth Soln EYEBOTH 2 drop Q4H MARCK Administration Enoxaparin Sodium 40 mg 09/16/18 18:00 09/17/18 17:03 Lovenox SUBCUT 40 mg Q24H MARCK Administration Furosemide 40 mg 09/17/18 08:00 09/17/18 14:38 Lasix PO 40 mg BIDDIURETIC MARCK Administration Gabapentin 600 mg 09/17/18 09:00 09/17/18 10:22 Neurontin PO 09/19/18 21:01 600 mg BID MARCK Administration Gabapentin 300 mg 09/20/18 09:00 Neurontin PO BID MARCK Sodium Chloride 250 mls @ 20 mls/hr 09/16/18 22:38 09/17/18 02:50 Normal Saline IV 20 mls/hr ASDIRECTED PRN Administration flush bag Piperacillin Sod/Tazobactam 50 mls @ 100 mls/hr 09/17/18 08:00 09/17/18 13:52 Sod 3.375 gm/ Sodium Chloride IV 100 mls/hr Q6H MARCK Administration Ketorolac Tromethamine 15 mg 09/17/18 07:36 Toradol IVPUSH Q6H PRN MODERATE PAIN (4-6/10) Mirtazapine 45 mg 09/17/18 21:00 Remeron PO BEDTIME MARCK Montelukast Sodium 10 mg 09/16/18 21:00 09/16/18 21:32 Singulair PO 10 mg BEDTIME MARCK Administration Ondansetron HCl 4 mg 09/16/18 17:58 Zofran IV Q4H PRN Nausea/Vomiting Paroxetine HCl 60 mg 09/18/18 21:00 Paxil PO BEDTIME MARCK Paroxetine HCl 30 mg 09/17/18 11:00 09/17/18 11:23 Paxil PO 09/17/18 21:01 30 mg BID MARCK Administration Ropinirole HCl 2 mg 09/17/18 21:00 Requip PO BEDTIME MARCK Saccharomyces Boulardii 250 mg 09/16/18 21:00 09/17/18 08:38 Florastor PO 250 mg BID MARCK Administration Sodium Chloride 10 ml 09/17/18 07:46 09/17/18 08:10 Saline Flush FLUSH 10 ml ASDIRECTED PRN Administration IV Use Umeclidinium/Vilanterol 0 mcg 09/18/18 09:00 Anoro Ellipta 62.5-25 Mcg IH DAILY MARCK Discontinued Medications Generic Name Dose Route Start Last Admin Trade Name Freq PRN Reason Stop Dose Admin Alprazolam 0.25 mg 09/16/18 18:52 Xanax PO BEDTIME PRN Anxiety Ciprofloxacin 0 ml 09/17/18 12:00 Ciloxan 0.3% Ophth Soln EYEBOTH Q4H MARCK Gabapentin 600 mg 09/17/18 12:00 Neurontin PO BID@1200,2100 MARCK Gabapentin 600 mg 09/16/18 22:15 09/16/18 22:20 Neurontin PO 09/16/18 22:16 600 mg ONETIME ONE Administration Gabapentin 1,200 mg 09/17/18 08:00 Neurontin PO DAILY@0800 MARCK Piperacillin Sod/Tazobactam 100 mls @ 200 mls/hr 09/16/18 18:00 09/16/18 20: 28 Sod 4.5 gm/ Sodium Chloride IV Not Given Q6H MARCK Piperacillin Sod/Tazobactam 100 mls @ 200 mls/hr 09/16/18 20:00 09/16/18 20: 31 Sod 4.5 gm/ Sodium Chloride IV 200 mls/hr Q6H [facility]CK Administration Piperacillin Sod/Tazobactam 50 mls @ 100 mls/hr 09/17/18 02:00 09/17/18 02:06 Sod 3.375 gm/ Sodium Chloride IV 100 mls/hr Q6H MARCK Administration Ketorolac Tromethamine 30 mg 09/16/18 17:58 Toradol IVPUSH Q6H PRN Pain (moderate 4-6) Piperacillin Sod/Tazobactam Sod Confirm 09/16/18 19:55 09/16/18 20:39 Zosyn Administered 09/16/18 19:56 Not Given Dose 4.5 gm .ROUTE .STK-MED ONE Piperacillin Sod/Tazobactam Sod Confirm 09/17/18 01:46 09/17/18 02:05 Zosyn Administered 09/17/18 01:47 Not Given Dose 3.375 gm .ROUTE .STK-MED ONE Pneumococcal Polyvalent Vaccine 0.5 ml 09/16/18 18:44 Pneumovax 23 IM 09/16/18 18:45 .ONCE ONE Ropinirole HCl 2 mg 09/16/18 21:00 09/16/18 22:12 Requip PO Not Given BEDTIME MARCK Ropinirole HCl Confirm 09/16/18 21:58 09/16/18 22:20 Requip Administered 09/16/18 21:59 2 mg Dose Administration 2 mg .ROUTE .STK-MED ONE Sodium Chloride 10 ml 09/16/18 17:58 Saline Flush FLUSH ASDIRECTED PRN Keep Vein Open - Re-Assessments/Exams Free Text/Narrative Re-Assessment/Exam: labs reviewed, elevated WBCs, negative troponin, slight bump in creatinine. Discussed with hospitalist regarding admission, who is in agreement. Head CT - received call from radiologist - significant microvascular changes, R fat stranding noted in cheek, orbit ok and no edema seen as best can tell Free Text/Narrative Re-Assessment/Exam: 09/16/18 admission notes: suspect cellulitis of periorbital area, doesn't seem to have globe involvement on exam. possible lower pneumonia R lung base acute kidney injury vs renal failure - last creatinine 1.1 but several months ago discussed with Dr. Mckeon, who graciously accepts. overnight note from pharmacy - recommend decreasing zosyn dose because of elevated creatinine Departure - Departure Time of Disposition: 17:50 Disposition: Admitted As Inpatient 66 Preliminary Cause of *Q: Cardiac Arrest Condition: Fair Clinical Impression: COPD (chronic obstructive pulmonary disease), Periorbital cellulitis of right eye, Fall, Acute kidney injury - Discharge Information *PRESCRIPTION DRUG MONITORING PROGRAM REVIEWED*: Not Applicable *COPY OF PRESCRIPTION DRUG MONITORING REPORT IN PATIENT THUY: Not Applicable
[2018-09-16] MEDS ORDERED: Ondansetron 4 MG/2 ML SDV IV PRN (17:58)
[2018-09-16] MEDS ORDERED: Ketorolac 30 MG/ML SDV IVPUSH PRN (17:58)
[2018-09-16] MEDS ORDERED: Sodium Chloride 0.9% 10 ML Syringe FLUSH PRN ×2 (17:58→20:54)
[2018-09-16] MEDS ORDERED: Piperacillin/Tazobactam 4.5 GM in Sodium Chloride 0.9% 100 ML IV SCH ×2 (18:00→20:00)
--- NOTE | 2018-09-16 18:30 | PCM.HP ---
H&P History of Present Illness - General Date of Service: 09/16/18 Admit Problem/Dx: Admission Diagnosis/Problem Admission Diagnosis/Problem Periorbital cellulitis of right eye Source of Information: Patient, EMS - History of Present Illness Initial Comments - Free Text/Narative: Patient is a 72 yr old female who fell this morning and was found by her sister when she hadn't heard from her. She had hit her head, belly and left knee. She was treated with antibiotic a few weeks ago by her PCP, Tisha Workman but doesn' t know what kind or if she was treated for pneumonia or not. She has been having increased redness of right eye, denies pain with movement or with touching it. She has had double and blurred vision. She had cataract surgery on her right eye in July and her left eye in August by Dr Spencer. Denies fevers, chills, but has been having cough. No chest pain. No abdominal pain, nausea, vomiting or diarrhea. No dysuria, but having frequency and urgency. head, left hip, left knee Pain Score (Numeric/FACES): 6 - Related Data Allergies/Adverse Reactions: Allergies Allergy/AdvReac Type Severity Reaction Status Date / Time adhesive tape Allergy Other Verified 08/27/18 08:20 baclofen Allergy Other Verified 08/27/18 08:20 eletriptan [From Relpax] Allergy Other Verified 08/27/18 08:20 erythromycin base Allergy Itching Verified 08/27/18 08:20 strawberry Allergy Hives Verified 08/27/18 08:20 Home Medications: Home Meds ALPRAZolam [Alprazolam] 1 - 2 tab PO BEDTIME PRN 02/07/16 [History] Ergocalciferol (Vitamin D2) [Vitamin D2] 1,000 unit PO BID 02/07/16 [History] Gabapentin [Neurontin] 600 mg PO TID 02/07/16 [History] Montelukast [Singulair] 10 mg PO BEDTIME 02/07/16 [History] PARoxetine [Paxil] 60 mg PO DAILY 02/07/16 [History] rOPINIRole [Requip] 2 mg PO BEDTIME 02/07/16 [History] Albuterol Sulfate [Proair Hfa] 2 puff INH Q4HR PRN 07/29/18 [History] Cyanocobalamin (Vitamin B-12) [Vitamin B-12] 1 cap PO DAILY 07/29/18 [History] Furosemide 1 tab PO BID 07/29/18 [History] Mirtazapine 1 tab PO BEDTIME 07/29/18 [History] Past Medical History HEENT History: Reports: Allergic Rhinitis, Cataract, Impaired Vision Other HEENT History: MYOFASCIAL PAIN DYSFUNCTION SYNDROME Cardiovascular History: Reports: Heart Failure, Hypertension, SOB on Exertion Respiratory History: Reports: COPD, Pneumonia, Recurrent, Other (See Below) Other Respiratory History: Wears O2 @ hs. Gastrointestinal History: Reports: Cholelithiasis, GERD ROLL D[employer]ER History: Reports: , Other (See Below) Other OB/BYN History: 3 Musculoskeletal History: Reports: Back Pain, Chronic, Gout, RA, Other (See Below ) Other Musculoskeletal History: restless legs Neurological History: Reports: Parkinson's, Other (See Below) Other Neuro History: restlesslegs, NECK PAIN Psychiatric History: Reports: Anxiety, Depression Endocrine/Metabolic History: Reports: Obesity/BMI 30+ - Past Surgical History HEENT Surgical History: Reports: Cataract Surgery GI Surgical History: Reports: Hernia Repair/Other Other GI Surgeries/Procedures: Abdominal surgery Female Surgical History: Reports: Hysterectomy Neurological Surgical History: Reports: C-Spine Musculoskeletal Surgical History: Reports: Knee Replacement Other Musculoskeletal Surgeries/Procedures:: L knee Social & Family History - Family History Family Medical History: Noncontributory - Tobacco Use Smoking Status *Q: Current Every Day Smoker Tobacco Use Within Last Twelve Months: Cigarettes Years of Tobacco use: 60 Packs/Tins Daily: 1 - Caffeine Use Caffeine Use: Reports: Coffee, Soda - Alcohol Use Alcohol Use History: Yes Days Per Week of Alcohol Use: 1 Total Drinks Per Week Comment: 1 Alcohol Use in Last Twelve Months: Yes Alcohol Use Frequency: Socially, Weekly - Living Situation & Occupation Living situation: Reports: Occupation: Unemployed H&P Review of Systems - Review of Systems: Review Of Systems: See Below General: Denies: Fever, Chills HEENT: Reports: Visual Changes. Denies: Eye Pain, Headaches, Hearing Changes, Sinus Congestion, Sore Throat Pulmonary: Reports: Shortness of Breath, Cough. Denies: Wheezing, Sputum Cardiovascular: Reports: Dyspnea on Exertion. Denies: Chest Pain, Palpitations Gastrointestinal: Denies: Abdominal Pain, Constipation, Diarrhea, Decreased Appetite, Nausea, Vomiting Genitourinary: Reports: Frequency, Urgency, Incontinence. Denies: Dysuria Musculoskeletal: Denies: Joint Pain Skin: Reports: Bruising (left eye, right cheek, abdomen, left knee) Neurological: Denies: Confusion Exam - Exam Exam: See Below - Vital Signs Vital Signs: Last Vital Signs Temp 36.6 C 09/16/18 14:28 Pulse 90 09/16/18 14:28 Resp 20 09/16/18 14:28 BP 161/77 H 09/16/18 14:28 Pulse Ox 88 L 09/16/18 14:28 Weight: 63.957 kg - Exam Quality Assessment: Supplemental Oxygen General: Alert, Oriented, Cooperative HEENT: PERRLA, EOMI (no pain with movement), Hearing Intact, Nares Patent, Normal Nasal Septum, Posterior Pharynx Clear, Pupils Equal, Pupils Reactive, TMs Clear, Other (conjunctiva erythematous, globe non-tender) Neck: Supple, Trachea Midline Lungs: Decreased Breath Sounds, Other (pursed lip breathing). No: Wheezing Cardiovascular: Regular Rate, Regular Rhythm GI/Abdominal Exam: Normal Bowel Sounds, Soft, Non-Tender, No Distention Extremities: Non-Tender, No Pedal Edema Skin: Warm, Dry, Ecchymosis (left eyelid, right cheek, RLQ abdomen, left medial posterior knee) Neurological: Cranial Nerves Intact, Normal Speech Neuro Extensive - Mental Status: Alert, Oriented x3, Normal Mood/Affect - Patient Data Lab Results Last 24 hrs: Laboratory Results - last 24 hr 09/16/18 09/16/18 09/16/18 Range/Units 15:14 15:30 15:30 WBC 12.1 H (4.5-12.0) X10-3/uL RBC 3.75 (3.23-5.20) x10(6)uL Hgb 11.1 L (11.5-15.5) g/dL Hct 33.8 (30.0-51.3) % MCV 90.1 (80-96) fL MCH 29.7 (27.7-33.6) pg MCHC 33.0 (32.2-35.4) g/dL RDW 17.7 H (11.5-15.5) % Plt Count 330 (125-369) X10(3)uL MPV 7.6 (7.4-10.4) fL Neut % (Auto) 65.5 (46-82) % Lymph % (Auto) 26.0 (13-37) % [place] % (Auto) 5.4 (4-12) % Eos % (Auto) 3 (1.0-5.0) % Baso % (Auto) 0 (0-2) % Neut # (Auto) 7.9 (1.6-8.3) # Lymph # (Auto) 3.1 (0.6-5.0) # [place] # (Auto) 0.7 (0.0-1.3) # Eos # (Auto) 0.4 (0.0-0.8) # Baso # (Auto) 0.0 (0.0-0.2) # Sodium 136 (135-145) mmol/L Potassium 3.5 D (3.5-5.3) mmol/L Chloride 96 L (100-110) mmol/L Carbon Dioxide 36 H (21-32) mmol/L BUN 14 (7-18) mg/dL Creatinine 1.1 H (0.55-1.02) mg/dL Est Cr Clr Drug Dosing TNP Estimated GFR (MDRD) 49 L (>60) BUN/Creatinine Ratio 12.7 (9-20) Glucose 108 (80-116) mg/dL Calcium 8.9 (8.6-10.2) mg/dL Troponin I (<0.017-0.056) ng/mL Urine Color Yellow (YELLOW) Urine Appearance Clear (CLEAR) Urine pH 5.0 (5.0-6.5) Ur Specific [place] 1.015 (1.010-1.025) Urine Protein Negative (NEGATIVE) mg/dL Urine Glucose (UA) Normal (NORMAL) mg/dL Urine Ketones Negative (NEGATIVE) mg/dL Urine Occult Blood Negative (NEGATIVE) Urine Nitrite Negative (NEGATIVE) Urine Bilirubin Negative (NEGATIVE) Urine Urobilinogen 0.2 (NEGATIVE) mg/dL Ur Leukocyte Esterase Negative (NEGATIVE) Urine RBC Not seen (0-5) Urine WBC 0-5 (0-5) Ur Squamous Epith Cells Few H (NS,R,O) Urine Bacteria Rare H (NS) 09/16/18 Range/Units 15:30 WBC (4.5-12.0) X10-3/uL RBC (3.23-5.20) x10(6)uL Hgb (11.5-15.5) g/dL Hct (30.0-51.3) % MCV (80-96) fL MCH (27.7-33.6) pg MCHC (32.2-35.4) g/dL RDW (11.5-15.5) % Plt Count (125-369) X10(3)uL MPV (7.4-10.4) fL Neut % (Auto) (46-82) % Lymph % (Auto) (13-37) % [place] % (Auto) (4-12) % Eos % (Auto) (1.0-5.0) % Baso % (Auto) (0-2) % Neut # (Auto) (1.6-8.3) # Lymph # (Auto) (0.6-5.0) # [place] # (Auto) (0.0-1.3) # Eos # (Auto) (0.0-0.8) # Baso # (Auto) (0.0-0.2) # Sodium (135-145) mmol/L Potassium (3.5-5.3) mmol/L Chloride (100-110) mmol/L Carbon Dioxide (21-32) mmol/L BUN (7-18) mg/dL Creatinine (0.55-1.02) mg/dL Est Cr Clr Drug Dosing Estimated GFR (MDRD) (>60) BUN/Creatinine Ratio (9-20) Glucose (80-116) mg/dL Calcium (8.6-10.2) mg/dL Troponin I < 0.017 L (<0.017-0.056) ng/mL Urine Color (YELLOW) Urine Appearance (CLEAR) Urine pH (5.0-6.5) Ur Specific [place] (1.010-1.025) Urine Protein (NEGATIVE) mg/dL Urine Glucose (UA) (NORMAL) mg/dL Urine Ketones (NEGATIVE) mg/dL Urine Occult Blood (NEGATIVE) Urine Nitrite (NEGATIVE) Urine Bilirubin (NEGATIVE) Urine Urobilinogen (NEGATIVE) mg/dL Ur Leukocyte Esterase (NEGATIVE) Urine RBC (0-5) Urine WBC (0-5) Ur Squamous Epith Cells (NS,R,O) Urine Bacteria (NS) Result Diagrams: 09/16/18 15:30 09/16/18 15:30 Imaging Impressions Last 24 hrs: CT head and Chest x-ray pending - Problem List (1) Periorbital cellulitis of right eye SNOMED Code(s): 239804242 ICD Code: L03.213 - PERIORBITAL CELLULITIS Status: Acute Current Visit: Yes (2) Vision changes SNOMED Code(s): 385259361 ICD Code: H53.9 - UNSPECIFIED VISUAL DISTURBANCE Status: Acute Current Visit: Yes (3) Syncope SNOMED Code(s): 570298494 ICD Code: R55 - SYNCOPE AND COLLAPSE Status: Acute Current Visit: Yes (4) Fall SNOMED Code(s): 6396970, 600862368 ICD Code: W19.XXXA - UNSPECIFIED FALL, INITIAL ENCOUNTER Status: Acute Current Visit: Yes (5) Hematoma SNOMED Code(s): 735826052 ICD Code: T14.8XXA - OTHER INJURY OF UNSPECIFIED BODY REGION, INITIAL ENCOUNTER Status: Acute Current Visit: Yes (6) COPD (chronic obstructive pulmonary disease) SNOMED Code(s): 42588643 ICD Code: J44.9 - CHRONIC OBSTRUCTIVE PULMONARY DISEASE, UNSPECIFIED Status : Acute Current Visit: Yes (7) CHF NYHA class II (symptoms with moderately strenuous activities) SNOMED Code(s): 755147321, 975636439 ICD Code: I50.9 - HEART FAILURE, UNSPECIFIED Status: Chronic Current Visit: No Qualifiers: Congestive heart failure type: systolic (8) Morbid obesity with BMI of 40.0-44.9, adult SNOMED Code(s): 498928743, 58592144010490 ICD Code: E66.01 - MORBID (SEVERE) OBESITY DUE TO EXCESS CALORIES; Z68.41 - BODY MASS INDEX (BMI) 40.0-44.9, ADULT Status: Chronic Current Visit: No (9) Nocturnal oxygen desaturation SNOMED Code(s): 512431495 ICD Code: G47.34 - IDIO SLEEP RELATED NONOBSTRUCTIVE ALVEOLAR HYPOVENTILATION Status: Chronic Current Visit: No (10) Palliative care status SNOMED Code(s): 988401476 ICD Code: Z51.5 - ENCOUNTER FOR PALLIATIVE CARE Status: Chronic Current Visit: No (11) Tobacco dependence due to cigarettes SNOMED Code(s): 89797101376228934 ICD Code: F17.210 - NICOTINE DEPENDENCE, CIGARETTES, UNCOMPLICATED Status: Chronic Current Visit: No Problem List Initiated/Reviewed/Updated: Yes Orders Last 24hrs: Active Orders 24 hr Category Date Time Status Patient Status [ADT] Routine ADT 09/16/18 17:58 Active Oxygen Therapy [RC] PRN Care 09/16/18 17:58 Active Telemetry Monitoring [Cardiac Monitoring] [RC] .As Care 09/16/18 18:22 Active Directed Up With Assistance [RC] ASDIRECTED Care 09/16/18 17:58 Active VTE/DVT Education [RC] Per Unit Routine Care 09/16/18 17:58 Active Vital Signs [RC] Q4H Care 09/16/18 17:58 Active Consult to Case Management/Online Communications Specialist [CONS] Cons 09/17/18 06:00 Active Routine Regular Diet [DIET] Diet 09/16/18 Dinner Active CXR [Chest 2V] [CR] Stat Exams 09/16/18 16:36 Taken Head wo Cont [CT] Stat Exams 09/16/18 16:27 Taken BASIC METABOLIC PANEL,BMP [CHEM] Routine Lab 09/17/18 06:00 Ordered CBC WITH AUTO DIFF [HEME] Routine Lab 09/17/18 06:00 Ordered Acetaminophen [Tylenol] Med 09/16/18 17:58 Ordered 650 mg PO Q4H PRN Enoxaparin [Lovenox] Med 09/16/18 18:00 Ordered 30 mg SUBCUT Q24H Ketorolac [Toradol] Med 09/16/18 17:58 Ordered 30 mg IVPUSH Q6H PRN Ondansetron [Zofran] Med 09/16/18 17:58 Ordered 4 mg IV Q4H PRN Piperacillin/Tazobactam [Zosyn] 4.5 gm Med 09/16/18 18:15 Ordered Sodium Chloride 0.9% [Normal Saline] 100 ml IV Q6H Saccharomyces Boulardii [Florastor] Med 09/16/18 21:00 Ordered 250 mg PO BID Sodium Chloride 0.9% [Saline Flush] Med 09/16/18 17:58 Ordered 10 ml FLUSH ASDIRECTED PRN Antiembolic Hose [OM.PC] Per Unit Routine Oth 09/16/18 18:01 Ordered Peripheral IV Insertion Adult [OM.PC] Routine Oth 09/16/18 17:58 Ordered Saline Lock Insert [OM.PC] Routine Oth 09/16/18 17:58 Ordered Resuscitation Status Routine Resus Stat 09/16/18 17:58 Ordered Medication Orders Acetaminophen (Tylenol) 650 mg PO Q4H PRN PRN Reason: Pain (Mild 1-3)/fever Enoxaparin Sodium (Lovenox) 30 mg SUBCUT Q24H MARCK Piperacillin Sod/Tazobactam (Sod 4.5 gm/ Sodium Chloride) 100 mls @ 200 mls/hr IV Q6H MARCK Ketorolac Tromethamine (Toradol) 30 mg IVPUSH Q6H PRN PRN Reason: Pain (moderate 4-6) Ondansetron HCl (Zofran) 4 mg IV Q4H PRN PRN Reason: Nausea/Vomiting Saccharomyces Boulardii (Florastor) 250 mg PO BID MARCK Sodium Chloride (Saline Flush) 10 ml FLUSH ASDIRECTED PRN PRN Reason: Keep Vein Open Assessment/Plan Comment:: 1. Admit for inpatient care for IV antibiotics, cardiac monitoring. 2. Zosyn 4 gram IV q6h for periorbital cellulitis, WBC 12, CT head & chest x- ray awaiting report. 3. Cardiac monitoring for syncopal episode, likely secondary to vision changes from cellulitis. 4. Regular diet. 5. DVT prophylaxis: Lovenox 30 mg SQ daily. 6. Consult social work for possible home health referral. 7. Heat/ice packs to hematomas. 8. Adjust treatments as necessary. 9. DNR/DNI
[2018-09-16] MEDS ORDERED: Pneumococcal Polyvalent-23 Vaccine 0.5 ML SDV IM ONE (18:44)
[2018-09-16] MEDS ORDERED: Albuterol 8 GM Inhaler INH PRN (18:52)
[2018-09-16] MEDS ORDERED: ALPRAZolam 0.25 MG Tab PO PRN (18:52)
[2018-09-16] MEDS: Acetaminophen 325 MG Tab PO PRN (19:06)
[2018-09-16] MEDS: Enoxaparin 40 MG/0.4 ML Syringe SUBCUT SCH (20:23)
[2018-09-16] MEDS: Saccharomyces Boulardii (Probiotic) 250 MG Cap PO SCH (20:40)
[2018-09-16] MEDS ORDERED: rOPINIRole 2 MG Tab PO SCH (21:00)
[2018-09-16] MEDS: Sodium Chloride 0.9% 250 ML IV PRN (21:10)
[2018-09-16] MEDS: Montelukast 10 MG Tab PO SCH (21:32)
[2018-09-16] MEDS ORDERED: rOPINIRole 1 MG Tab ONE (21:58)
[2018-09-16] MEDS ORDERED: Gabapentin 600 MG Tab PO ONE (22:15)
[2018-09-17] MEDS ORDERED: Piperacillin/Tazobactam 3.375 GM in Sodium Chloride 0.9% 50 ML IV SCH (02:00)
[2018-09-17] MEDS: Sodium Chloride 0.9% 250 ML IV PRN ×2 (02:07→02:50)
[2018-09-17] MEDS: Acetaminophen 325 MG Tab PO PRN ×2 (06:55→22:45)
[2018-09-17] MEDS ORDERED: Ketorolac 15 MG/ML SDV IVPUSH PRN (07:36)
[2018-09-17] MEDS ORDERED: Gabapentin 600 MG Tab PO SCH ×2 (08:00→12:00)
[2018-09-17] MEDS: Piperacillin/Tazobactam 3.375 GM in Sodium Chloride 0.9% 50 ML IV SCH ×3 (08:09→19:38)
[2018-09-17] MEDS: Sodium Chloride 0.9% 10 ML Syringe FLUSH PRN ×2 (08:10→20:07)
[2018-09-17] MEDS: Furosemide 40 MG Tab PO SCH ×2 (08:38→14:38)
[2018-09-17] MEDS: Saccharomyces Boulardii (Probiotic) 250 MG Cap PO SCH ×2 (08:38→20:56)
[2018-09-17] MEDS: Gabapentin 600 MG Tab PO SCH ×2 (10:22→20:56)
--- NOTE | 2018-09-17 11:06 | CT ---
INDICATION: Fall, bruising on head near right cheek. CT HEAD WITHOUT CONTRAST: Spiral examination of the brain was obtained - no comparisons. Total exam DLP = 1,348.07 mGy-cm. No shift of midline structures or ventricular abnormalities were identified. The orbits appear to be intact. Inferior to the right orbit, there is some fat stranding in the anterior subcutaneous fat of the cheek, which may be on the basis of injury or possibly cellulitis and should be correlated clinically. Thickening of the lining of the left maxillary antrum is noted, which could be on the basis of sinusitis. Thickening of the linings of multiple ethmoidal air cells and the sphenoidal air cells, as well as the left frontal air cell is noted, raising question of sinusitis. This should be correlated clinically. It may be an allergic process. Mastoid air cells appear to be fairly well- aerated. No cranial fracture site was identified. Low density abnormalities are noted in the basal ganglia, compatible with lacunar infarcts. Low density abnormalities are seen in the periventricular white matter and throughout the white matter, compatible with mild to moderate microvascular disease type changes. Calcifications are noted in the internal carotid arteries , compatible with cerebrovascular disease. No bleeding site or hematoma was seen. IMPRESSION: 1. No definite acute intracranial abnormality. 2. 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 Cerebrovascular disease is present. 3. Fat stranding in soft tissues of the right cheek, which may be on the basis of posttraumatic change and/or cellulitis and should be correlated clinically. 4. Sinusitis, most likely allergic type. Report was called to Dr. Montez at 1844 hours on 09/16/18. [facility]
--- NOTE | 2018-09-17 11:13 | CR ---
INDICATION: Shortness of breath. CHEST: PA and lateral views of the chest were obtained 09/16/18 and compared with 10/11/17, and again revealed the heart to be enlarged. Mild prominence of the upper lung field pulmonary vasculature is noted, mostly on the left, and could represent mild or early CHF. The aorta is tortuous with calcification in the arch. Somewhat flattened diaphragm leaves and prominent AP diameter with hyperaeration suggests COPD. Parenchymal changes at the right lung base accentuated by poor inspiration may represent fibrosis and some linear atelectasis, although patchy pneumonia cannot be excluded in that area. Mild hypertrophic degenerative changes are noted off the vertebral bodies in the mid to lower thoracic spine. IMPRESSION: 1. No definite acute process but difficult to exclude minimal patchy bronchopneumonia at the right lung base. 2. Probable COPD. 3. Mild prominence of upper lung field pulmonary vasculature and enlarged heart raise question of mild CHF. Report was called to Dr. Montez on 09/16/18 at 1844 hours. [facility]
[2018-09-17] MEDS: Ciprofloxacin 0.3% Ophth Soln 5 ML Bottle EYEBOTH SCH ×4 (11:23→23:07)
[2018-09-17] MEDS ORDERED: Ciprofloxacin 0.3% Ophth Soln 2.5 ML Bottle EYEBOTH SCH (12:00)
--- NOTE | 2018-09-17 15:03 | PCM.PN ---
- General Info Date of Service: 09/17/18 Admission Dx/Problem (Free Text): Patient is very sleepy this morning, she states she normally gets up at 730 but sister reports she's usually not up when she comes over until around 11am. She reports she wears oxygen only at night or when she feels more short of breath. Denies pain. Discharge from both eyes this morning. - Patient Data Vitals - Most Recent: Last Vital Signs Temp 36.1 C 09/17/18 12:24 Pulse 65 09/17/18 12:24 Resp 20 09/17/18 12:24 BP 137/78 09/17/18 12:24 Pulse Ox 92 L 09/17/18 12:24 Weight - Most Recent: 109.27 kg I&O - Last 24 Hours: Intake & Output 09/16/18 09/17/18 09/17/18 22:59 06:59 14:59 Intake Total 405 55 160 Balance 405 55 160 Lab Results Last 24 Hours: Laboratory Results - last 24 hr 09/16/18 09/16/18 09/16/18 Range/Units 15:14 15:30 15:30 WBC 12.1 H (4.5-12.0) X10-3/uL RBC 3.75 (3.23-5.20) x10(6)uL Hgb 11.1 L (11.5-15.5) g/dL Hct 33.8 (30.0-51.3) % MCV 90.1 (80-96) fL MCH 29.7 (27.7-33.6) pg MCHC 33.0 (32.2-35.4) g/dL RDW 17.7 H (11.5-15.5) % Plt Count 330 (125-369) X10(3)uL MPV 7.6 (7.4-10.4) fL Neut % (Auto) 65.5 (46-82) % Lymph % (Auto) 26.0 (13-37) % [place] % (Auto) 5.4 (4-12) % Eos % (Auto) 3 (1.0-5.0) % Baso % (Auto) 0 (0-2) % Neut # (Auto) 7.9 (1.6-8.3) # Lymph # (Auto) 3.1 (0.6-5.0) # [place] # (Auto) 0.7 (0.0-1.3) # Eos # (Auto) 0.4 (0.0-0.8) # Baso # (Auto) 0.0 (0.0-0.2) # Add Manual Diff Neutrophils % (Manual) (46-82) % Lymphocytes % (Manual) (13-37) % Monocytes % (Manual) (4-12) % Eosinophils % (Manual) (0-5) % Anisocytosis ABG pH (7.35-7.45) ABG pCO2 (35-45) mmHg ABG pO2 (83-108) mmHg ABG HCO3 (22-26) mmol/L ABG O2 Saturation (96-97) % ABG Base Excess (-2-2) Con Test O2 Delivery Device Sodium 136 (135-145) mmol/L Potassium 3.5 D (3.5-5.3) mmol/L Chloride 96 L (100-110) mmol/L Carbon Dioxide 36 H (21-32) mmol/L BUN 14 (7-18) mg/dL Creatinine 1.1 H (0.55-1.02) mg/dL Est Cr Clr Drug Dosing TNP Estimated GFR (MDRD) 49 L (>60) BUN/Creatinine Ratio 12.7 (9-20) Glucose 108 (80-116) mg/dL Calcium 8.9 (8.6-10.2) mg/dL Troponin I (<0.017-0.056) ng/mL Urine Color Yellow (YELLOW) Urine Appearance Clear (CLEAR) Urine pH 5.0 (5.0-6.5) Ur Specific [place] 1.015 (1.010-1.025) Urine Protein Negative (NEGATIVE) mg/dL Urine Glucose (UA) Normal (NORMAL) mg/dL Urine Ketones Negative (NEGATIVE) mg/dL Urine Occult Blood Negative (NEGATIVE) Urine Nitrite Negative (NEGATIVE) Urine Bilirubin Negative (NEGATIVE) Urine Urobilinogen 0.2 (NEGATIVE) mg/dL Ur Leukocyte Esterase Negative (NEGATIVE) Urine RBC Not seen (0-5) Urine WBC 0-5 (0-5) Ur Squamous Epith Cells Few H (NS,R,O) Urine Bacteria Rare H (NS) 09/16/18 09/17/18 09/17/18 Range/Units 15:30 06:30 06:30 WBC 10.4 (4.5-12.0) X10-3/uL RBC 3.91 (3.23-5.20) x10(6)uL Hgb 11.5 (11.5-15.5) g/dL Hct 34.8 (30.0-51.3) % MCV 89.1 (80-96) fL MCH 29.5 (27.7-33.6) pg MCHC 33.1 (32.2-35.4) g/dL RDW 17.7 H (11.5-15.5) % Plt Count 291 (125-369) X10(3)uL MPV 8.4 (7.4-10.4) fL Neut % (Auto) (46-82) % Lymph % (Auto) (13-37) % [place] % (Auto) (4-12) % Eos % (Auto) (1.0-5.0) % Baso % (Auto) (0-2) % Neut # (Auto) (1.6-8.3) # Lymph # (Auto) (0.6-5.0) # [place] # (Auto) (0.0-1.3) # Eos # (Auto) (0.0-0.8) # Baso # (Auto) (0.0-0.2) # Add Manual Diff Yes Neutrophils % (Manual) 61 (46-82) % Lymphocytes % (Manual) 28 (13-37) % Monocytes % (Manual) 10 (4-12) % Eosinophils % (Manual) 1 (0-5) % Anisocytosis Few ABG pH (7.35-7.45) ABG pCO2 (35-45) mmHg ABG pO2 (83-108) mmHg ABG HCO3 (22-26) mmol/L ABG O2 Saturation (96-97) % ABG Base Excess (-2-2) Con Test O2 Delivery Device Sodium 140 (135-145) mmol/L Potassium 4.1 (3.5-5.3) mmol/L Chloride 100 (100-110) mmol/L Carbon Dioxide 35 H (21-32) mmol/L BUN 12 (7-18) mg/dL Creatinine 1.0 (0.55-1.02) mg/dL Est Cr Clr Drug Dosing 36.53 Estimated GFR (MDRD) 55 L (>60) BUN/Creatinine Ratio 12.0 (9-20) Glucose 95 (80-116) mg/dL Calcium 9.2 (8.6-10.2) mg/dL Troponin I < 0.017 L (<0.017-0.056) ng/mL Urine Color (YELLOW) Urine Appearance (CLEAR) Urine pH (5.0-6.5) Ur Specific [place] (1.010-1.025) Urine Protein (NEGATIVE) mg/dL Urine Glucose (UA) (NORMAL) mg/dL Urine Ketones (NEGATIVE) mg/dL Urine Occult Blood (NEGATIVE) Urine Nitrite (NEGATIVE) Urine Bilirubin (NEGATIVE) Urine Urobilinogen (NEGATIVE) mg/dL Ur Leukocyte Esterase (NEGATIVE) Urine RBC (0-5) Urine WBC (0-5) Ur Squamous Epith Cells (NS,R,O) Urine Bacteria (NS) 09/17/18 Range/Units 13:48 WBC (4.5-12.0) X10-3/uL RBC (3.23-5.20) x10(6)uL Hgb (11.5-15.5) g/dL Hct (30.0-51.3) % MCV (80-96) fL MCH (27.7-33.6) pg MCHC (32.2-35.4) g/dL RDW (11.5-15.5) % Plt Count (125-369) X10(3)uL MPV (7.4-10.4) fL Neut % (Auto) (46-82) % Lymph % (Auto) (13-37) % [place] % (Auto) (4-12) % Eos % (Auto) (1.0-5.0) % Baso % (Auto) (0-2) % Neut # (Auto) (1.6-8.3) # Lymph # (Auto) (0.6-5.0) # [place] # (Auto) (0.0-1.3) # Eos # (Auto) (0.0-0.8) # Baso # (Auto) (0.0-0.2) # Add Manual Diff Neutrophils % (Manual) (46-82) % Lymphocytes % (Manual) (13-37) % Monocytes % (Manual) (4-12) % Eosinophils % (Manual) (0-5) % Anisocytosis ABG pH 7.39 (7.35-7.45) ABG pCO2 57 H (35-45) mmHg ABG pO2 67 L (83-108) mmHg ABG HCO3 33 H (22-26) mmol/L ABG O2 Saturation 92 L (96-97) % ABG Base Excess 7.1 H (-2-2) Con Test Passed O2 Delivery Device Nasal cannula Sodium (135-145) mmol/L Potassium (3.5-5.3) mmol/L Chloride (100-110) mmol/L Carbon Dioxide (21-32) mmol/L BUN (7-18) mg/dL Creatinine (0.55-1.02) mg/dL Est Cr Clr Drug Dosing Estimated GFR (MDRD) (>60) BUN/Creatinine Ratio (9-20) Glucose (80-116) mg/dL Calcium (8.6-10.2) mg/dL Troponin I (<0.017-0.056) ng/mL Urine Color (YELLOW) Urine Appearance (CLEAR) Urine pH (5.0-6.5) Ur Specific [place] (1.010-1.025) Urine Protein (NEGATIVE) mg/dL Urine Glucose (UA) (NORMAL) mg/dL Urine Ketones (NEGATIVE) mg/dL Urine Occult Blood (NEGATIVE) Urine Nitrite (NEGATIVE) Urine Bilirubin (NEGATIVE) Urine Urobilinogen (NEGATIVE) mg/dL Ur Leukocyte Esterase (NEGATIVE) Urine RBC (0-5) Urine WBC (0-5) Ur Squamous Epith Cells (NS,R,O) Urine Bacteria (NS) Med Orders - Current: Current Medications Acetaminophen (Tylenol) 650 mg PO Q4H PRN PRN Reason: Pain (Mild 1-3)/fever Last Admin: 09/17/18 06:55 Dose: 650 mg Albuterol (Ventolin Hfa) 0 gm INH Q4H PRN PRN Reason: Shortness of Breath Last Admin: 09/17/18 03:47 Dose: 2 puff Ciprofloxacin (Ciloxan 0.3% Ophth Soln) 0 ml EYEBOTH Q4H [facility] Last Admin: 09/17/18 11:23 Dose: 2 drop Enoxaparin Sodium (Lovenox) 40 mg SUBCUT Q24H [facility] Last Admin: 09/16/18 20:23 Dose: 40 mg Furosemide (Lasix) 40 mg PO BIDDIURETIC [facility] Last Admin: 09/17/18 14:38 Dose: 40 mg Gabapentin (Neurontin) 600 mg PO BID [facility] Stop: 09/19/18 21:01 Last Admin: 09/17/18 10:22 Dose: 600 mg Gabapentin (Neurontin) 300 mg PO BID [facility] Sodium Chloride (Normal Saline) 250 mls @ 20 mls/hr IV ASDIRECTED PRN PRN Reason: flush bag Last Admin: 09/17/18 02:50 Dose: 20 mls/hr Piperacillin Sod/Tazobactam (Sod 3.375 gm/ Sodium Chloride) 50 mls @ 100 mls/ hr IV Q6H [facility] Last Admin: 09/17/18 13:52 Dose: 100 mls/hr Ketorolac Tromethamine (Toradol) 15 mg IVPUSH Q6H PRN PRN Reason: MODERATE PAIN (4-6/10) Mirtazapine (Remeron) 45 mg PO BEDTIME [facility] Montelukast Sodium (Singulair) 10 mg PO BEDTIME [facility] Last Admin: 09/16/18 21:32 Dose: 10 mg Ondansetron HCl (Zofran) 4 mg IV Q4H PRN PRN Reason: Nausea/Vomiting Paroxetine HCl (Paxil) 60 mg PO BEDTIME [facility] Paroxetine HCl (Paxil) 30 mg PO BID [facility] Stop: 09/17/18 21:01 Last Admin: 09/17/18 11:23 Dose: 30 mg Ropinirole HCl (Requip) 2 mg PO BEDTIME [facility] Saccharomyces Boulardii (Florastor) 250 mg PO BID [facility] Last Admin: 09/17/18 08:38 Dose: 250 mg Sodium Chloride (Saline Flush) 10 ml FLUSH ASDIRECTED PRN PRN Reason: IV Use Last Admin: 09/17/18 08:10 Dose: 10 ml Discontinued Medications Alprazolam (Xanax) 0.25 mg PO BEDTIME PRN PRN Reason: Anxiety Ciprofloxacin (Ciloxan 0.3% Ophth Soln) 0 ml EYEBOTH Q4H [facility] Gabapentin (Neurontin) 600 mg PO BID@1200,2100 [facility] Gabapentin (Neurontin) 600 mg PO ONETIME ONE Stop: 09/16/18 22:16 Last Admin: 09/16/18 22:20 Dose: 600 mg Gabapentin (Neurontin) 1,200 mg PO DAILY@0800 [facility] Piperacillin Sod/Tazobactam (Sod 4.5 gm/ Sodium Chloride) 100 mls @ 200 mls/hr IV Q6H [facility] Last Admin: 09/16/18 20:28 Dose: Not Given Piperacillin Sod/Tazobactam (Sod 4.5 gm/ Sodium Chloride) 100 mls @ 200 mls/hr IV Q6H [facility] Last Admin: 09/16/18 20:31 Dose: 200 mls/hr Piperacillin Sod/Tazobactam (Sod 3.375 gm/ Sodium Chloride) 50 mls @ 100 mls/ hr IV Q6H [facility] Last Admin: 09/17/18 02:06 Dose: 100 mls/hr Ketorolac Tromethamine (Toradol) 30 mg IVPUSH Q6H PRN PRN Reason: Pain (moderate 4-6) Piperacillin Sod/Tazobactam Sod (Zosyn) Confirm Administered Dose 4.5 gm .ROUTE .STK-MED ONE Stop: 09/16/18 19:56 Last Admin: 09/16/18 20:39 Dose: Not Given Piperacillin Sod/Tazobactam Sod (Zosyn) Confirm Administered Dose 3.375 gm .ROUTE .STK-MED ONE Stop: 09/17/18 01:47 Last Admin: 09/17/18 02:05 Dose: Not Given Pneumococcal Polyvalent Vaccine (Pneumovax 23) 0.5 ml IM .ONCE ONE Stop: 09/16/18 18:45 Ropinirole HCl (Requip) 2 mg PO BEDTIME [facility] Last Admin: 09/16/18 22:12 Dose: Not Given Ropinirole HCl (Requip) Confirm Administered Dose 2 mg .ROUTE .STK-MED ONE Stop: 09/16/18 21:59 Last Admin: 09/16/18 22:20 Dose: 2 mg Sodium Chloride (Saline Flush) 10 ml FLUSH ASDIRECTED PRN PRN Reason: Keep Vein Open - Exam Quality Assessment: Supplemental Oxygen General: Alert, Cooperative, No Acute Distress, Other (sleepy, snoring) HEENT: Other (eye discharge, erythema of right eye) Neck: Supple Lungs: Clear to Auscultation, Normal Respiratory Effort. No: Wheezing Cardiovascular: Regular Rate, Regular Rhythm GI/Abdominal Exam: Normal Bowel Sounds, Soft, Non-Tender, No Distention Extremities: No Pedal Edema - Problem List & Annotations (1) Periorbital cellulitis of right eye SNOMED Code(s): 401751355 Code(s): L03.213 - PERIORBITAL CELLULITIS Status: Acute Current Visit: Yes (2) Vision changes SNOMED Code(s): 551634875 Code(s): H53.9 - UNSPECIFIED VISUAL DISTURBANCE Status: Acute Current Visit: Yes (3) Syncope SNOMED Code(s): 961927229 Code(s): R55 - SYNCOPE AND COLLAPSE Status: Acute Current Visit: Yes (4) Fall SNOMED Code(s): 8223880, 100619676 Code(s): W19.XXXA - UNSPECIFIED FALL, INITIAL ENCOUNTER Status: Acute Current Visit: Yes (5) Hematoma SNOMED Code(s): 604382299 Code(s): T14.8XXA - OTHER INJURY OF UNSPECIFIED BODY REGION, INITIAL ENCOUNTER Status: Acute Current Visit: Yes (6) COPD (chronic obstructive pulmonary disease) SNOMED Code(s): 74459487 Code(s): J44.9 - CHRONIC OBSTRUCTIVE PULMONARY DISEASE, UNSPECIFIED Status : Acute Current Visit: Yes (7) CHF NYHA class II (symptoms with moderately strenuous activities) SNOMED Code(s): 035472260, 645404657 Code(s): I50.9 - HEART FAILURE, UNSPECIFIED Status: Chronic Current Visit : No Qualifiers: Congestive heart failure type: systolic (8) Morbid obesity with BMI of 40.0-44.9, adult SNOMED Code(s): 435811174, 73373597820095 Code(s): E66.01 - MORBID (SEVERE) OBESITY DUE TO EXCESS CALORIES; Z68.41 - BODY MASS INDEX (BMI) 40.0-44.9, ADULT Status: Chronic Current Visit: No (9) Nocturnal oxygen desaturation SNOMED Code(s): 464822382 Code(s): G47.34 - IDIO SLEEP RELATED NONOBSTRUCTIVE ALVEOLAR HYPOVENTILATION Status: Chronic Current Visit: No (10) Palliative care status SNOMED Code(s): 123107961 Code(s): Z51.5 - ENCOUNTER FOR PALLIATIVE CARE Status: Chronic Current Visit: No (11) Tobacco dependence due to cigarettes SNOMED Code(s): 08527933869879955 Code(s): F17.210 - NICOTINE DEPENDENCE, CIGARETTES, UNCOMPLICATED Status: Chronic Current Visit: No - Problem List Review Problem List Initiated/Reviewed/Updated: Yes - My Orders Last 24 Hours: My Active Orders 09/16/18 14:58 EKG 12 Lead [EK] Routine 09/16/18 17:58 Patient Status [ADT] Routine Oxygen Therapy [RC] PRN Up With Assistance [RC] ASDIRECTED VTE/DVT Education [RC] Per Unit Routine Vital Signs [RC] 00,04,08,12,16,20 Acetaminophen [Tylenol] 650 mg PO Q4H PRN Ondansetron [Zofran] 4 mg IV Q4H PRN Peripheral IV Insertion Adult [OM.PC] Routine Saline Lock Insert [OM.PC] Routine Resuscitation Status Routine 09/16/18 18:00 Enoxaparin [Lovenox] 40 mg SUBCUT Q24H 09/16/18 18:01 Antiembolic Hose [OM.PC] Per Unit Routine 09/16/18 18:22 Telemetry Monitoring [Cardiac Monitoring] [RC] .As Directed 09/16/18 18:52 Albuterol [Ventolin HFA] 0 gm INH Q4H PRN 09/16/18 21:00 Montelukast [Singulair] 10 mg PO BEDTIME Saccharomyces Boulardii [Florastor] 250 mg PO BID 09/16/18 22:38 Sodium Chloride 0.9% [Normal Saline] 250 ml IV ASDIRECTED 09/16/18 Dinner Regular Diet [DIET] 09/17/18 06:00 Consult to Case Management/Er Medical Technician [CONS] Routine 09/17/18 07:36 Ketorolac [Toradol] 15 mg IVPUSH Q6H PRN 09/17/18 07:46 Sodium Chloride 0.9% [Saline Flush] 10 ml FLUSH ASDIRECTED PRN 09/17/18 08:00 Furosemide [Lasix] 40 mg PO BIDDIURETIC Piperacillin/Tazobactam [Zosyn] 3.375 gm Sodium Chloride 0.9% [Normal Saline] 50 ml IV Q6H 09/17/18 09:00 Gabapentin [Neurontin] 600 mg PO BID 09/17/18 11:00 PARoxetine [Paxil] 30 mg PO BID 09/17/18 12:00 Ciprofloxacin [Ciloxan 0.3% Ophth Soln] 0 ml EYEBOTH Q4H 09/17/18 21:00 Mirtazapine [Remeron] 45 mg PO BEDTIME rOPINIRole [Requip] 2 mg PO BEDTIME 09/18/18 21:00 PARoxetine [Paxil] 60 mg PO BEDTIME 09/20/18 09:00 Gabapentin [Neurontin] 300 mg PO BID - Plan Plan:: 1. Zosyn 4 gram IV q6h for periorbital cellulitis, WBC normal this morning, add Ciprofloxacin eye drops 2 drops both eyes every 4 hours. 2. COPD: ABG shows CO2 retention, keep O2 88-92%. 3. Cardiac monitoring for syncopal episode: discontinue, NSR for 24 hours. 4. Renal insufficiency: adjust dose of Gabapentin for her renal function, pharmacy to aid in tapering current dose which is 1000 mg higher/day than it should be. 5. DVT prophylaxis: Lovenox 30 mg SQ daily. 7. Heat/ice packs to hematomas. 8. Adjust treatments as necessary. 9. DNR/DNI
[2018-09-17] MEDS: Enoxaparin 40 MG/0.4 ML Syringe SUBCUT SCH (17:03)
[2018-09-17] MEDS: rOPINIRole 1 MG Tab PO SCH (20:56)
[2018-09-17] MEDS: Mirtazapine 15 MG Tab PO SCH (20:57)
[2018-09-17] MEDS: Montelukast 10 MG Tab PO SCH (20:58)
[2018-09-18] MEDS: Piperacillin/Tazobactam 3.375 GM in Sodium Chloride 0.9% 50 ML IV SCH (02:05)
[2018-09-18] MEDS: Sodium Chloride 0.9% 10 ML Syringe FLUSH PRN ×4 (02:42→20:28)
[2018-09-18] MEDS: Ciprofloxacin 0.3% Ophth Soln 5 ML Bottle EYEBOTH SCH ×5 (03:46→20:11)
[2018-09-18] MEDS: Furosemide 40 MG Tab PO SCH ×2 (09:17→14:53)
[2018-09-18] MEDS: Piperacillin/Tazobactam 4.5 GM in Sodium Chloride 0.9% 100 ML IV SCH ×3 (09:17→20:17)
[2018-09-18] MEDS: Umeclidinium Brm/Vilanterol Tr 62.5-25 MCG 7 Puff Inhaler IH SCH (09:17)
[2018-09-18] MEDS: Saccharomyces Boulardii (Probiotic) 250 MG Cap PO SCH ×2 (09:18→20:11)
[2018-09-18] MEDS: Gabapentin 600 MG Tab PO SCH ×2 (09:24→20:08)
[2018-09-18] MEDS ORDERED: prednisoLONE Acetate 1% Ophth Susp 5 ML Bottle EYERT SCH (11:00)
--- NOTE | 2018-09-18 11:49 | PCM.PN ---
- General Info Date of Service: 09/18/18 Subjective Update: Patient is more alert this morning. States she is not as short of breath. No chest pain, nausea, vomiting. No diarrhea. Feels her eyes are better. [place]man her left foot was more swollen today. Does have large hematoma/ecchymosis posterior left knee. Left eye is blurry. States pain is controlled. - Patient Data Vitals - Most Recent: Last Vital Signs Temp 36.8 C 09/18/18 08:00 Pulse 65 09/18/18 08:00 Resp 16 09/18/18 08:00 BP 133/72 09/18/18 08:00 Pulse Ox 90 L 09/18/18 08:00 Weight - Most Recent: 109.27 kg Lab Results Last 24 Hours: Laboratory Results - last 24 hr 09/17/18 Range/Units 14:48 ABG pH 7.39 (7.35-7.45) ABG pCO2 57 H (35-45) mmHg ABG pO2 67 L (83-108) mmHg ABG HCO3 33 H (22-26) mmol/L ABG O2 Saturation 92 L (96-97) % ABG Base Excess 7.1 H (-2-2) Con Test Passed O2 Delivery Device Nasal cannula Med Orders - Current: Current Medications Acetaminophen (Tylenol) 650 mg PO Q4H PRN PRN Reason: Pain (Mild 1-3)/fever Last Admin: 09/17/18 22:45 Dose: 650 mg Albuterol (Ventolin Hfa) 0 gm INH Q4H PRN PRN Reason: Shortness of Breath Last Admin: 09/17/18 03:47 Dose: 2 puff Ciprofloxacin (Ciloxan 0.3% Ophth Soln) 0 ml EYEBOTH Q4H [facility] Last Admin: 09/18/18 09:16 Dose: 2 drop Enoxaparin Sodium (Lovenox) 40 mg SUBCUT Q24H [facility] Last Admin: 09/17/18 17:03 Dose: 40 mg Furosemide (Lasix) 40 mg PO BIDDIURETIC [facility] Last Admin: 09/18/18 09:17 Dose: 40 mg Gabapentin (Neurontin) 600 mg PO BID [facility] Stop: 09/19/18 21:01 Last Admin: 09/18/18 09:24 Dose: 600 mg Gabapentin (Neurontin) 300 mg PO BID [facility] Sodium Chloride (Normal Saline) 250 mls @ 20 mls/hr IV ASDIRECTED PRN PRN Reason: flush bag Last Admin: 09/17/18 02:50 Dose: 20 mls/hr Piperacillin Sod/Tazobactam (Sod 4.5 gm/ Sodium Chloride) 100 mls @ 100 mls/hr IV Q6H [facility] Last Admin: 09/18/18 09:17 Dose: 100 mls/hr Ketorolac Tromethamine (Toradol) 15 mg IVPUSH Q6H PRN PRN Reason: MODERATE PAIN (4-6/10) Ketorolac Tromethamine (Acular 0.5% Ophth Soln) 0 ml EYERT DAILY [facility] Latanoprost (Xalatan 0.005% Ophth Soln) 0 ml EYEBOTH BEDTIME [facility] Mirtazapine (Remeron) 45 mg PO BEDTIME [facility] Last Admin: 09/17/18 20:57 Dose: 45 mg Montelukast Sodium (Singulair) 10 mg PO BEDTIME [facility] Last Admin: 09/17/18 20:58 Dose: 10 mg Ondansetron HCl (Zofran) 4 mg IV Q4H PRN PRN Reason: Nausea/Vomiting Paroxetine HCl (Paxil) 60 mg PO BEDTIME [facility] Ropinirole HCl (Requip) 2 mg PO BEDTIME [facility] Last Admin: 09/17/18 20:56 Dose: 2 mg Saccharomyces Boulardii (Florastor) 250 mg PO BID [facility] Last Admin: 09/18/18 09:18 Dose: 250 mg Sodium Chloride (Saline Flush) 10 ml FLUSH ASDIRECTED PRN PRN Reason: IV Use Last Admin: 09/18/18 09:20 Dose: 10 ml Umeclidinium/Vilanterol (Anoro Ellipta 62.5-25 Mcg) 0 mcg IH DAILY [facility] Last Admin: 09/18/18 09:17 Dose: 1 puff Discontinued Medications Alprazolam (Xanax) 0.25 mg PO BEDTIME PRN PRN Reason: Anxiety Ciprofloxacin (Ciloxan 0.3% Ophth Soln) 0 ml EYEBOTH Q4H [facility] Gabapentin (Neurontin) 600 mg PO BID@1200,2100 [facility] Gabapentin (Neurontin) 600 mg PO ONETIME ONE Stop: 09/16/18 22:16 Last Admin: 09/16/18 22:20 Dose: 600 mg Gabapentin (Neurontin) 1,200 mg PO DAILY@0800 [facility] Piperacillin Sod/Tazobactam (Sod 4.5 gm/ Sodium Chloride) 100 mls @ 200 mls/hr IV Q6H [facility] Last Admin: 09/16/18 20:28 Dose: Not Given Piperacillin Sod/Tazobactam (Sod 4.5 gm/ Sodium Chloride) 100 mls @ 200 mls/hr IV Q6H [facility] Last Admin: 09/16/18 20:31 Dose: 200 mls/hr Piperacillin Sod/Tazobactam (Sod 3.375 gm/ Sodium Chloride) 50 mls @ 100 mls/ hr IV Q6H [facility] Last Admin: 09/17/18 02:06 Dose: 100 mls/hr Piperacillin Sod/Tazobactam (Sod 3.375 gm/ Sodium Chloride) 50 mls @ 100 mls/ hr IV Q6H [facility] Last Admin: 09/18/18 02:05 Dose: 100 mls/hr Ketorolac Tromethamine (Toradol) 30 mg IVPUSH Q6H PRN PRN Reason: Pain (moderate 4-6) Paroxetine HCl (Paxil) 30 mg PO BID [facility] Stop: 09/17/18 21:01 Last Admin: 09/17/18 20:57 Dose: 30 mg Piperacillin Sod/Tazobactam Sod (Zosyn) Confirm Administered Dose 4.5 gm .ROUTE .STK-MED ONE Stop: 09/16/18 19:56 Last Admin: 09/16/18 20:39 Dose: Not Given Piperacillin Sod/Tazobactam Sod (Zosyn) Confirm Administered Dose 3.375 gm .ROUTE .STK-MED ONE Stop: 09/17/18 01:47 Last Admin: 09/17/18 02:05 Dose: Not Given Pneumococcal Polyvalent Vaccine (Pneumovax 23) 0.5 ml IM .ONCE ONE Stop: 09/16/18 18:45 Ropinirole HCl (Requip) 2 mg PO BEDTIME [facility] Last Admin: 09/16/18 22:12 Dose: Not Given Ropinirole HCl (Requip) Confirm Administered Dose 2 mg .ROUTE .STK-MED ONE Stop: 09/16/18 21:59 Last Admin: 09/16/18 22:20 Dose: 2 mg Sodium Chloride (Saline Flush) 10 ml FLUSH ASDIRECTED PRN PRN Reason: Keep Vein Open - Exam Quality Assessment: Supplemental Oxygen General: Alert, Oriented, Cooperative, No Acute Distress Lungs: Clear to Auscultation, Normal Respiratory Effort Cardiovascular: Regular Rate, Regular Rhythm GI/Abdominal Exam: Normal Bowel Sounds, Soft, Non-Tender, No Distention Extremities: No Pedal Edema, Other (ecchymosis/hematoma left posterior knee.) - Problem List & Annotations (1) Periorbital cellulitis of right eye SNOMED Code(s): 235138377 Code(s): L03.213 - PERIORBITAL CELLULITIS Status: Acute Current Visit: Yes (2) Vision changes SNOMED Code(s): 191220236 Code(s): H53.9 - UNSPECIFIED VISUAL DISTURBANCE Status: Acute Current Visit: Yes Annotation/Comment:: Spoke to Dr Clark, staff nuclear medicine technologist, he states she had astigmatism in left eye that she will be fitted for glasses but was to be seen today. Would like her to follow up in 1-2 days. Will have patient see him tomorrow afternoon. (3) Syncope SNOMED Code(s): 798074297 Code(s): R55 - SYNCOPE AND COLLAPSE Status: Resolved Current Visit: Yes (4) Fall SNOMED Code(s): 1445645, 963112847 Code(s): W19.XXXA - UNSPECIFIED FALL, INITIAL ENCOUNTER Status: Acute Current Visit: Yes (5) Hematoma SNOMED Code(s): 894228915 Code(s): T14.8XXA - OTHER INJURY OF UNSPECIFIED BODY REGION, INITIAL ENCOUNTER Status: Acute Current Visit: Yes (6) COPD (chronic obstructive pulmonary disease) SNOMED Code(s): 99911171 Code(s): J44.9 - CHRONIC OBSTRUCTIVE PULMONARY DISEASE, UNSPECIFIED Status : Acute Current Visit: Yes Annotation/Comment:: 3-4 L of oxygen caused carbon dioxide retention, somnolence, will do ambulating oxygen with activity. Keep oxygen saturations between 88-92%, advised to get home pulse oxymetry so she can make sure she is not getting too much. (7) CHF NYHA class II (symptoms with moderately strenuous activities) SNOMED Code(s): 673432893, 674489432 Code(s): I50.9 - HEART FAILURE, UNSPECIFIED Status: Chronic Current Visit : No Qualifiers: Congestive heart failure type: systolic (8) Morbid obesity with BMI of 40.0-44.9, adult SNOMED Code(s): 987094831, 63048670616129 Code(s): E66.01 - MORBID (SEVERE) OBESITY DUE TO EXCESS CALORIES; Z68.41 - BODY MASS INDEX (BMI) 40.0-44.9, ADULT Status: Chronic Current Visit: No (9) Nocturnal oxygen desaturation SNOMED Code(s): 480183557 Code(s): G47.34 - IDIO SLEEP RELATED NONOBSTRUCTIVE ALVEOLAR HYPOVENTILATION Status: Chronic Current Visit: No (10) Palliative care status SNOMED Code(s): 563208508 Code(s): Z51.5 - ENCOUNTER FOR PALLIATIVE CARE Status: Chronic Current Visit: No (11) Tobacco dependence due to cigarettes SNOMED Code(s): 77480420259188652 Code(s): F17.210 - NICOTINE DEPENDENCE, CIGARETTES, UNCOMPLICATED Status: Chronic Current Visit: No - Problem List Review Problem List Initiated/Reviewed/Updated: Yes - My Orders Last 24 Hours: My Active Orders 09/17/18 12:00 Ciprofloxacin [Ciloxan 0.3% Ophth Soln] 0 ml EYEBOTH Q4H 09/17/18 21:00 Mirtazapine [Remeron] 45 mg PO BEDTIME rOPINIRole [Requip] 2 mg PO BEDTIME 09/18/18 08:00 Piperacillin/Tazobactam [Zosyn] 4.5 gm Sodium Chloride 0.9% [Normal Saline] 100 ml IV Q6H 09/18/18 09:00 Umeclidinium Brm/Vilanterol Tr [Anoro Ellipta 62.5-25 MCG] 0 mcg IH DAILY 09/18/18 11:00 Ketorolac [Acular 0.5% Ophth Soln] See Dose Instructions EYERT DAILY 09/18/18 11:25 OT Evaluation and Treatment [CONS] Routine PT Evaluation and Treatment [CONS] Routine 09/18/18 21:00 Latanoprost [Xalatan 0.005% Ophth Soln] 0 ml EYEBOTH BEDTIME PARoxetine [Paxil] 60 mg PO BEDTIME 09/20/18 09:00 Gabapentin [Neurontin] 300 mg PO BID - Plan Plan:: 1. Zosyn 4 gram IV q6h for periorbital cellulitis, Ciprofloxacin eye drops 2 drops both eyes every 4 hours, restarted Ketorolac eye drop 1 drop in left eye daily, set up appointment with Dr Clark for Tomorrow afternoon. 2. COPD: started Anora 1 puff daily, keep O2 88-92%, ambulatory O2. 3. PT/OT evaluation: decondition/strengthen/balance. 4. Renal insufficiency: adjust dose of Gabapentin for her renal function, will discharge on 600 mg bid. 5. DVT prophylaxis: Lovenox 30 mg SQ daily. 7. Heat/ice packs to hematomas. 8. Adjust treatments as necessary. 9. DNR/DNI
[2018-09-18] MEDS: KETOROLAC 0.5% EYERT SCH (12:40)
[2018-09-18] MEDS: Acetaminophen 325 MG Tab PO PRN (15:23)
[2018-09-18] MEDS: Enoxaparin 40 MG/0.4 ML Syringe SUBCUT SCH (18:37)
[2018-09-18] MEDS: Mirtazapine 15 MG Tab PO SCH (20:12)
[2018-09-18] MEDS: Montelukast 10 MG Tab PO SCH (20:14)
[2018-09-18] MEDS: rOPINIRole 1 MG Tab PO SCH (20:14)
[2018-09-18] MEDS ORDERED: Latanoprost 0.005% Ophth Soln 2.5 ML Bottle EYEBOTH SCH (21:00)
[2018-09-19] MEDS: Ciprofloxacin 0.3% Ophth Soln 5 ML Bottle EYEBOTH SCH ×3 (00:37→09:31)
[2018-09-19] MEDS: Piperacillin/Tazobactam 4.5 GM in Sodium Chloride 0.9% 100 ML IV SCH ×2 (02:41→09:37)
[2018-09-19] MEDS: Sodium Chloride 0.9% 10 ML Syringe FLUSH PRN (02:42)
[2018-09-19] MEDS: Acetaminophen 325 MG Tab PO PRN ×2 (02:48→09:21)
--- NOTE | 2018-09-19 09:14 | PCM.DCSUM1 ---
Discharge Summary - Hospital Course HPI Initial Comments: Patient is a 72 yr old female who fell morning of addmission and was found by her sister when she hadn't heard from her. She had hit her head, belly and left knee. She was treated with antibiotic a few weeks ago by her PCP, Tisha Workman but doesn't know what kind or if she was treated for pneumonia or not. She has been having increased redness of right eye, denies pain with movement or with touching it. She has had double and blurred vision. She had cataract surgery on her right eye in July and her left eye in August by Dr Spencer. 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 Denies fevers, chills, but has been having cough. No chest pain. No abdominal pain, nausea, vomiting or diarrhea. No dysuria, but having frequency and urgency. Diagnosis: Stroke: No - Discharge Data Discharge Date: 09/19/18 Discharge Disposition: Home, Home Health Agency 06 Preliminary Cause of *Q: Cardiac Arrest Condition: Good - Discharge Diagnosis/Problem(s) (1) Periorbital cellulitis of right eye SNOMED Code(s): 958512104 ICD Code: L03.213 - PERIORBITAL CELLULITIS Status: Acute Current Visit: Yes Problem Details: improving (2) Vision changes SNOMED Code(s): 138219833 ICD Code: H53.9 - UNSPECIFIED VISUAL DISTURBANCE Status: Acute Current Visit: Yes Problem Details: Spoke to Dr Clark, automatic print developer, he states she had astigmatism in left eye that she will be fitted for glasses but was to be seen today. She will follow up with Dr Clark today at 1115am (3) Syncope SNOMED Code(s): 824735338 ICD Code: R55 - SYNCOPE AND COLLAPSE Status: Resolved Current Visit: Yes (4) Fall SNOMED Code(s): 7259461, 745056101 ICD Code: W19.XXXA - UNSPECIFIED FALL, INITIAL ENCOUNTER Status: Acute Current Visit: Yes (5) Hematoma SNOMED Code(s): 698064665 ICD Code: T14.8XXA - OTHER INJURY OF UNSPECIFIED BODY REGION, INITIAL ENCOUNTER Status: Acute Current Visit: Yes (6) COPD (chronic obstructive pulmonary disease) SNOMED Code(s): 47644457 ICD Code: J44.9 - CHRONIC OBSTRUCTIVE PULMONARY DISEASE, UNSPECIFIED Status : Acute Current Visit: Yes Problem Details: 3-4 L of oxygen caused carbon dioxide retention, somnolence, Ambulated well, required 1L with activity. Keep oxygen saturations between 88-92%, home health will assist with pulse oximetry. Maintain well on 1L. (7) CHF NYHA class II (symptoms with moderately strenuous activities) SNOMED Code(s): 404898432, 173924596 ICD Code: I50.9 - HEART FAILURE, UNSPECIFIED Status: Chronic Current Visit: No Qualifiers: Congestive heart failure type: systolic (8) Morbid obesity with BMI of 40.0-44.9, adult SNOMED Code(s): 630010056, 34610870664165 ICD Code: E66.01 - MORBID (SEVERE) OBESITY DUE TO EXCESS CALORIES; Z68.41 - BODY MASS INDEX (BMI) 40.0-44.9, ADULT Status: Chronic Current Visit: No (9) Nocturnal oxygen desaturation SNOMED Code(s): 263792748 ICD Code: G47.34 - IDIO SLEEP RELATED NONOBSTRUCTIVE ALVEOLAR HYPOVENTILATION Status: Chronic Current Visit: No (10) Palliative care status SNOMED Code(s): 522442987 ICD Code: Z51.5 - ENCOUNTER FOR PALLIATIVE CARE Status: Chronic Current Visit: No (11) Tobacco dependence due to cigarettes SNOMED Code(s): 43695151797073051 ICD Code: F17.210 - NICOTINE DEPENDENCE, CIGARETTES, UNCOMPLICATED Status: Chronic Current Visit: No - Patient Summary/Data Consults: Consultations 09/17/18 06:00 Consult to Case Management/Shot Man [CONS] Routine Comment: Physician Instructions: lives alone, home health services Service(s) to be Consulted: Shot Man Reason for Consult: lives alone, home health services Case Management Specialty/Shot Man: Automotive Service Technician 09/18/18 11:25 OT Evaluation and Treatment [CONS] Routine Please Evaluate and Treat. OT Reason for Consult: ADL's Pending Discharge: 09/19 This query below is only for informational purposes and is not editable. Admission Diagnosis/Problem: Periorbital cellulitis of right eye PT Evaluation and Treatment [CONS] Routine Please Evaluate and Treat. PT Reason for Consult: Ambulation Pending Discharge: 09/19 Discharge Disposition: Home This query below is only for informational purposes and is not editable. Admission Diagnosis/Problem: Periorbital cellulitis of right eye Hospital Course: Patient was admitted for periorbital cellulitis found on CT head, started on Zosyn 4.5 gram, was adjusted by telepharmacy for kidney function to 3.375 gram every 6 hours, creatinine improved, pharmacy adjust back to 4.5 grams every 6 hours, has received 10 doses during hospital course, will complete 14 days for periorbital cellulitis. Started having discharge out of both eye day after admission so was started on Ciprofloxacin eye drops 2 drops every 4 hours has had 2.5 days worth, will complete 7 day course. Restart Ketorolac eye drops daily, held prednisolone drops. Spoke with Dr Clark, who reported that she has astigmatism in left eye and her vision would be blurry until she gets her glasses. She was due to see him WedSep 18 but will see him today Sep 19 after discharge. Hospital day 2 patient was more somnolent; she had stated on admission she only used 4L oxygen at night. That morning when nursing went to remove oxygen patient stated she was short of breath and wanted to keep on, patient continued to be somnolent so checked ABG which showed she was retaining CO2, her oxygen was decreased to 2L then 1L, and was more alert. Kept her oxygen level between 88-92% and had no further episodes of shortness of breath. Started her on Anoro as she was not on any anticholinergic for her COPD and to help with shortness of breath feeling, tolerating well, will discharge with new prescription. PT/OT evaluation for balance/fall, did well with both. No shortness of breath with activity, saturations maintained with 1 L with activity. Gabapentin was also decreased to 600 mg bid adjusted for her creatinine clearance of 56(weight adjusted), advised patient of change and that 1400 mg/ day is maximum dose of Gabapentin for her kidney function. Advised to follow up with her PCP and her pain management physician if her pain is not controlled at new dose. Patient did not note any increase of her pain with change in dose and was more alert and not slurry her speech as she was when she was admitted. - Patient Instructions Diet: Regular Diet as Tolerated Activity: As Tolerated Driving: May Drive Today Showering/Bathing: May Shower Notify Provider of: Fever, Increased Pain Other/Special Instructions: Follow up with Tisha Workman in 2 weeks. Follow up with Dr Clark today at 1115 am in [place]. - Discharge Plan *PRESCRIPTION DRUG MONITORING PROGRAM REVIEWED*: Not Applicable *COPY OF PRESCRIPTION DRUG MONITORING REPORT IN PATIENT THUY: Not Applicable Prescriptions/Med Rec: Amoxicillin/Potassium Clav [Amox Tr-K Clv 875-125 mg Tab] 1 each PO BID 11 Days #23 tablet Umeclidinium Brm/Vilanterol Tr [Anoro Ellipta 62.5-25 MCG] 1 puff IH DAILY 30 Days #1 inhaler Home Medications: Home Meds Montelukast [Singulair] 10 mg PO DAILY 02/07/16 [History] rOPINIRole [Requip] 2 mg PO BEDTIME 02/07/16 [History] Albuterol Sulfate [Proair Hfa] 2 puff INH Q4H PRN 07/29/18 [History] Furosemide 40 mg PO BID@,07/29/18 [History] ALPRAZolam [Alprazolam] 0.5 mg PO BEDTIME 09/17/18 [History] Allopurinol [Zyloprim] 200 mg PO DAILY 09/17/18 [History] Cholecalciferol (Vitamin D3) [Vitamin D3] 1,000 unit PO DAILY 09/17/18 [History] Cyanocobalamin (Vitamin B-12) [Vitamin B-12] 5,000 mcg PO DAILY 09/17/18 [ History] Gabapentin [Neurontin] 600 mg PO BID@12,09/17/18 [History] Latanoprost 1 drop EYEBOTH BEDTIME 09/17/18 [History] Mirtazapine 45 mg PO BEDTIME 09/17/18 [History] PARoxetine [Paxil] 60 mg PO BEDTIME 09/17/18 [History] Phenylephrine HCl/Acetaminophn [Sudafed PE Pressure+Pain Cplt] 1 tab PO BID@, 09/17/18 [History] diphenhydrAMINE [Benadryl] 50 mg PO DAILY PRN 09/17/18 [History] Amoxicillin/Potassium Clav [Amox Tr-K Clv 875-125 mg Tab] 1 each PO BID 11 Days #23 tablet 09/19/18 [Rx] Ciprofloxacin [Ciloxan 0.3% Ophth Soln] 0 ml EYEBOTH Q4H #1 bottle 09/19/18 [Rx] Saccharomyces Boulardii [Florastor] 250 mg PO BID 14 Days #28 cap 09/19/18 [Rx] Umeclidinium Brm/Vilanterol Tr [Anoro Ellipta 62.5-25 MCG] 1 puff IH DAILY 30 Days #1 inhaler 09/19/18 [Rx] Oxygen Therapy Mode: Nasal Cannula Oxygen Flow Rate (L/min): 1 Maintain SPO2% less than: 92 Maintain SpO2% greater than: 88 Patient Handouts: Chronic Obstructive Pulmonary Disease Exacerbation, Easy-to- Read, Amoxicillin; Clavulanic Acid tablets, Umeclidinium; Vilanterol inhalation powder, Ciprofloxacin eye solution, Antibiotic Medicine, Adult, Fall Prevention in Hospitals, Adult, You've Been Prescribed an Antibiotic in the Hospital for an Infection - [facility] (05/2017), Venous Thromboembolism Prevention Forms: ED Department Discharge Referrals: Tisha Workman, [employer] [Primary Care Provider] - - Discharge Summary/Plan Comment DC Time >30 min.: Yes - Patient Data Vitals - Most Recent: Last Vital Signs Temp 37.0 C 09/19/18 05:00 Pulse 82 09/19/18 05:00 Resp 20 09/19/18 05:00 BP 126/83 09/19/18 05:00 Pulse Ox 94 L 09/19/18 05:00 Weight - Most Recent: 109.27 kg Lab Results - Last 24 hrs: Laboratory Results - last 24 hr 09/19/18 09/19/18 Range/Units 06:15 06:15 WBC 10.6 (4.5-12.0) X10-3/uL RBC 3.98 (3.23-5.20) x10(6)uL Hgb 11.6 (11.5-15.5) g/dL Hct 35.8 (30.0-51.3) % MCV 89.9 (80-96) fL MCH 29.1 (27.7-33.6) pg MCHC 32.3 (32.2-35.4) g/dL RDW 17.9 H (11.5-15.5) % Plt Count 299 (125-369) X10(3)uL MPV 8.1 (7.4-10.4) fL Neut % (Auto) 66.1 (46-82) % Lymph % (Auto) 24.9 (13-37) % Hill % (Auto) 6.2 (4-12) % Eos % (Auto) 2 (1.0-5.0) % Baso % (Auto) 0 (0-2) % Neut # (Auto) 7.0 (1.6-8.3) # Lymph # (Auto) 2.6 (0.6-5.0) # Hill # (Auto) 0.7 (0.0-1.3) # Eos # (Auto) 0.3 (0.0-0.8) # Baso # (Auto) 0.0 (0.0-0.2) # Sodium 145 (135-145) mmol/L Potassium 3.9 (3.5-5.3) mmol/L Chloride 102 (100-110) mmol/L Carbon Dioxide 37 H (21-32) mmol/L BUN 14 (7-18) mg/dL Creatinine 1.1 H (0.55-1.02) mg/dL Est Cr Clr Drug Dosing 33.21 mL/min Estimated GFR (MDRD) 49 L (>60) BUN/Creatinine Ratio 12.7 (9-20) Glucose 92 (80-116) mg/dL Calcium 9.4 (8.6-10.2) mg/dL Med Orders - Current: Current Medications Acetaminophen (Tylenol) 650 mg PO Q4H PRN PRN Reason: Pain (Mild 1-3)/fever Last Admin: 09/19/18 02:48 Dose: 650 mg Albuterol (Ventolin Hfa) 0 gm INH Q4H PRN PRN Reason: Shortness of Breath Last Admin: 09/17/18 03:47 Dose: 2 puff Ciprofloxacin (Ciloxan 0.3% Ophth Soln) 0 ml EYEBOTH Q4H MARCK Last Admin: 09/19/18 03:05 Dose: 2 drop Enoxaparin Sodium (Lovenox) 40 mg SUBCUT Q24H MARCK Last Admin: 09/18/18 18:37 Dose: 40 mg Furosemide (Lasix) 40 mg PO BIDDIURETIC MARCK Last Admin: 09/18/18 14:53 Dose: 40 mg Gabapentin (Neurontin) 600 mg PO BID MARCK Stop: 09/19/18 21:01 Last Admin: 09/18/18 20:08 Dose: 600 mg Gabapentin (Neurontin) 300 mg PO BID [facility] Sodium Chloride (Normal Saline) 250 mls @ 20 mls/hr IV ASDIRECTED PRN PRN Reason: flush bag Last Admin: 09/17/18 02:50 Dose: 20 mls/hr Piperacillin Sod/Tazobactam (Sod 4.5 gm/ Sodium Chloride) 100 mls @ 100 mls/hr IV Q6H MARCK Last Admin: 09/19/18 02:41 Dose: 100 mls/hr Ketorolac Tromethamine (Toradol) 15 mg IVPUSH Q6H PRN PRN Reason: MODERATE PAIN (4-6/10) Ketorolac Tromethamine (Acular 0.5% Ophth Soln) 0 ml EYERT DAILY MARCK Last Admin: 09/18/18 12:40 Dose: 1 drop Latanoprost (Xalatan 0.005% Ophth Soln) 0 ml EYEBOTH BEDTIME MARCK Last Admin: 09/18/18 20:09 Dose: 1 drop Mirtazapine (Remeron) 45 mg PO BEDTIME [facility] Last Admin: 09/18/18 20:12 Dose: 45 mg Montelukast Sodium (Singulair) 10 mg PO BEDTIME [facility] Last Admin: 09/18/18 20:14 Dose: 10 mg Ondansetron HCl (Zofran) 4 mg IV Q4H PRN PRN Reason: Nausea/Vomiting Paroxetine HCl (Paxil) 60 mg PO BEDTIME [facility] Last Admin: 09/18/18 20:13 Dose: 60 mg Ropinirole HCl (Requip) 2 mg PO BEDTIME [facility] Last Admin: 09/18/18 20:14 Dose: 2 mg Saccharomyces Boulardii (Florastor) 250 mg PO BID MARCK Last Admin: 09/18/18 20:11 Dose: 250 mg Sodium Chloride (Saline Flush) 10 ml FLUSH ASDIRECTED PRN PRN Reason: IV Use Last Admin: 09/19/18 02:42 Dose: 10 ml Umeclidinium/Vilanterol (Anoro Ellipta 62.5-25 Mcg) 0 mcg IH DAILY [facility] Last Admin: 09/18/18 09:17 Dose: 1 puff Discontinued Medications Alprazolam (Xanax) 0.25 mg PO BEDTIME PRN PRN Reason: Anxiety Ciprofloxacin (Ciloxan 0.3% Ophth Soln) 0 ml EYEBOTH Q4H MARCK Gabapentin (Neurontin) 600 mg PO BID@1200,2100 MARCK Gabapentin (Neurontin) 600 mg PO ONETIME ONE Stop: 09/16/18 22:16 Last Admin: 09/16/18 22:20 Dose: 600 mg Gabapentin (Neurontin) 1,200 mg PO DAILY@0800 MARCK Piperacillin Sod/Tazobactam (Sod 4.5 gm/ Sodium Chloride) 100 mls @ 200 mls/hr IV Q6H [facility] Last Admin: 09/16/18 20:28 Dose: Not Given Piperacillin Sod/Tazobactam (Sod 4.5 gm/ Sodium Chloride) 100 mls @ 200 mls/hr IV Q6H [facility] Last Admin: 09/16/18 20:31 Dose: 200 mls/hr Piperacillin Sod/Tazobactam (Sod 3.375 gm/ Sodium Chloride) 50 mls @ 100 mls/ hr IV Q6H [facility] Last Admin: 09/17/18 02:06 Dose: 100 mls/hr Piperacillin Sod/Tazobactam (Sod 3.375 gm/ Sodium Chloride) 50 mls @ 100 mls/ hr IV Q6H [facility] Last Admin: 09/18/18 02:05 Dose: 100 mls/hr Ketorolac Tromethamine (Toradol) 30 mg IVPUSH Q6H PRN PRN Reason: Pain (moderate 4-6) Paroxetine HCl (Paxil) 30 mg PO BID [facility] Stop: 09/17/18 21:01 Last Admin: 09/17/18 20:57 Dose: 30 mg Piperacillin Sod/Tazobactam Sod (Zosyn) Confirm Administered Dose 4.5 gm .ROUTE .STK-MED ONE Stop: 09/16/18 19:56 Last Admin: 09/16/18 20:39 Dose: Not Given Piperacillin Sod/Tazobactam Sod (Zosyn) Confirm Administered Dose 3.375 gm .ROUTE .STK-MED ONE Stop: 09/17/18 01:47 Last Admin: 09/17/18 02:05 Dose: Not Given Pneumococcal Polyvalent Vaccine (Pneumovax 23) 0.5 ml IM .ONCE ONE Stop: 09/16/18 18:45 Ropinirole HCl (Requip) 2 mg PO BEDTIME [facility] Last Admin: 09/16/18 22:12 Dose: Not Given Ropinirole HCl (Requip) Confirm Administered Dose 2 mg .ROUTE .STK-MED ONE Stop: 09/16/18 21:59 Last Admin: 09/16/18 22:20 Dose: 2 mg Sodium Chloride (Saline Flush) 10 ml FLUSH ASDIRECTED PRN PRN Reason: Keep Vein Open - Exam General: Reports: Alert, Oriented, Cooperative HEENT: Reports: Pupils Equal, Pupils Reactive, EOMI, Other (ecchymosis of left eye, both eyes non-tender, cellulitis improving, jocelin pink on right eye) Lungs: Reports: Normal Respiratory Effort, Decreased Breath Sounds. Denies: Crackles, Rales, Rhonchi, Wheezing Cardiovascular: Reports: Regular Rate, Regular Rhythm GI/Abdominal Exam: Normal Bowel Sounds, Soft, Non-Tender, No Distention Extremities: No Pedal Edema Skin: Reports: Warm, Dry, Intact, Ecchymosis (left eye, right cheek, left knee) Psy/Mental Status: Reports: Alert, Normal Affect, Normal Mood
[2018-09-19] MEDS: KETOROLAC 0.5% EYERT SCH (09:32)
[2018-09-19] MEDS: Furosemide 40 MG Tab PO SCH (09:32)
[2018-09-19] MEDS: Saccharomyces Boulardii (Probiotic) 250 MG Cap PO SCH (09:34)
[2018-09-19] MEDS: Umeclidinium Brm/Vilanterol Tr 62.5-25 MCG 7 Puff Inhaler IH SCH (09:34)
[2018-09-19] MEDS: Gabapentin 600 MG Tab PO SCH (09:37)
[2018-09-19 10:30] VITALS: BP 147/83; PULSE 73
[2018-09-20] MEDS ORDERED: Gabapentin 300 MG Cap PO SCH (09:00)
== END 2018-09-19 10:55 | disposition home health service (06) | DRG 603 ==
LOC: FB.ED 14:28 → FB.MS 17:33
PROVIDERS: ADMIT Family Medicine; ATTEND Family Medicine
DX: L03.213 Periorbital cellulitis (principal); Z68.41 Body mass index [BMI] 40.0-44.9, adult; N17.9 Acute kidney failure, unspecified; H54.7 Unspecified visual loss; K21.9 Gastro-esophageal reflux disease without esophagitis; G89.29 Other chronic pain; M54.9 Dorsalgia, unspecified; M06.9 Rheumatoid arthritis, unspecified; M10.9 Gout, unspecified; G25.81 Restless legs syndrome; G20 Parkinson's disease; F32.9 Major depressive disorder, single episode, unspecified; F41.9 Anxiety disorder, unspecified; E66.9 Obesity, unspecified; Z96.652 Presence of left artificial knee joint; R55 Syncope and collapse; W19.XXXA Unspecified fall, initial encounter; J44.9 Chronic obstructive pulmonary disease, unspecified; E66.01 Morbid (severe) obesity due to excess calories; G47.34 Idiopathic sleep related nonobstructive alveolar hypoventilation; Z66 Do not resuscitate; Z51.5 Encounter for palliative care; F17.210 Nicotine dependence, cigarettes, uncomplicated; H52.202 Unspecified astigmatism, left eye; S80.02XA Contusion of left knee, initial encounter; S30.1XXA Contusion of abdominal wall, initial encounter; S00.83XA Contusion of other part of head, initial encounter; I50.9 Heart failure, unspecified; N28.9 Disorder of kidney and ureter, unspecified; Z88.8 Allergy status to other drugs, medicaments and biological substances; Z91.018 Allergy to other foods; Z91.048 Other nonmedicinal substance allergy status; Z99.81 Dependence on supplemental oxygen; Z79.899 Other long term (current) drug therapy
CPT/HCPCS: 36415; 36600; 70450; 71046; 80048; 81001; 82803; 84484; 85025; 93005; 99283; 99284-25; A9270-GY; J1650; J2543; J7030; J7050

== ENCOUNTER 2018-11-19 15:46 | Inpatient (IN) | payer MEDICARE, MEDICAID ==
[2018-11-19] MEDS ORDERED: Sodium Chloride 0.9% 10 ML Syringe FLUSH PRN (17:15)
[2018-11-19] MEDS: Furosemide 40 MG/4 ML VIAL IVPUSH SCH (18:06)
[2018-11-19] MEDS ORDERED: Albuterol/Ipratropium 3.0-0.5 MG/3 ML Neb Soln NEB PRN (18:08)
[2018-11-19] MEDS ORDERED: FLU Vacc QS2019-20(6MOS+)/PF 60 MCG/0.5 ML SYRINGE IM ONE (18:08)
[2018-11-19] MEDS ORDERED: ALPRAZolam 0.25 MG Tab PO PRN (18:11)
--- NOTE | 2018-11-19 18:40 | PCM.HP.2 ---
H&P History of Present Illness - General Date of Service: 11/19/18 Admit Problem/Dx: Admission Diagnosis/Problem Admission Diagnosis/Problem CHF, Congestive heart failure Source of Information: Patient, Provider ([facility]) History Limitations: Reports: No Limitations - History of Present Illness Initial Comments - Free Text/Narative: Patient came into [facility] today for worsening shortness of breath, weight gain of 6 lbs. Noted swelling of her neck, legs, hands. She is on Lasix bid and Metolazone twice a week. She is at her baseline 90% in regards to her COPD per her PCP. She had Chest x-ray which showed pulmonary vascular congestion , interstitial edema and/or atelectasis. CBC and CMP unremarkable. Had echo last month with EF in 80%, diastolic dysfunction. She is also complaining of persistent incontinence, she has the sensation/urge to go but as soon as she stands up she leaks, has to wear a Depends. She has noticed some improvement with Kegel exercises but not complete resolution. UA was negative in clinic today. She has not been on Lisinopril or Losartan in the past, no record of contraindication or allergy to either medication. She is being switched from inhalers to nebulizers as she has trouble using the inhalers correctly per Tisha Workman, her PCP. headache Pain Score (Numeric/FACES): 8 - Related Data Allergies/Adverse Reactions: Allergies Allergy/AdvReac Type Severity Reaction Status Date / Time adhesive tape Allergy Other Verified 08/27/18 08:20 baclofen Allergy Other Verified 08/27/18 08:20 eletriptan [From Relpax] Allergy Other Verified 08/27/18 08:20 erythromycin base Allergy Itching Verified 08/27/18 08:20 strawberry Allergy Hives Verified 08/27/18 08:20 Home Medications: Home Meds Montelukast [Singulair] 10 mg PO BEDTIME 02/07/16 [History] Albuterol Sulfate [Proair Hfa] 2 puff INH Q4H PRN 07/29/18 [History] Furosemide 40 mg PO BID@08,12 07/29/18 [History] ALPRAZolam [Alprazolam] 0.25 - 0.5 mg PO BEDTIME PRN 09/17/18 [History] Allopurinol [Zyloprim] 200 mg PO DAILY 09/17/18 [History] Cyanocobalamin (Vitamin B-12) [Vitamin B-12] 5,000 mcg PO DAILY 09/17/18 [ History] Gabapentin [Neurontin] 600 mg PO BID 09/17/18 [History] Mirtazapine 45 mg PO BEDTIME 09/17/18 [History] PARoxetine [Paxil] 60 mg PO BEDTIME 09/17/18 [History] Umeclidinium Brm/Vilanterol Tr [Anoro Ellipta 62.5-25 MCG] 1 puff IH DAILY 30 Days #1 inhaler 09/19/18 [Rx] Albuterol/Ipratropium [DuoNeb 3.0-0.5 MG/3 ML] 3 ml IH TID 11/19/18 [History] Cholecalciferol (Vitamin D3) [Vitamin D3] 2,000 unit PO DAILY 11/19/18 [History] Gabapentin [Neurontin] 300 mg PO 1200 11/19/18 [History] metOLazone [Metolazone] 2.5 mg PO Q72H 11/19/18 [History] rOPINIRole [Requip] 0.5 mg PO 1900 11/19/18 [History] rOPINIRole [Requip] 2 mg PO 1900 11/19/18 [History] Past Medical History HEENT History: Reports: Allergic Rhinitis, Cataract, Impaired Vision Other HEENT History: MYOFASCIAL PAIN DYSFUNCTION SYNDROME Cardiovascular History: Reports: Heart Failure, Hypertension, SOB on Exertion Respiratory History: Reports: COPD, Pneumonia, Recurrent, Other (See Below) Other Respiratory History: Wears O2 @ hs. 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: Reports: , Other (See Below) Other OB/BYN History: 3 Musculoskeletal History: Reports: Back Pain, Chronic, Gout, RA, Other (See Below ) Other Musculoskeletal History: restless legs Neurological History: Reports: Parkinson's, Other (See Below) Other Neuro History: restlesslegs, NECK PAIN Psychiatric History: Reports: Anxiety, Depression Endocrine/Metabolic History: Reports: Obesity/BMI 30+ - Past Surgical History HEENT Surgical History: Reports: Cataract Surgery GI Surgical History: Reports: Hernia Repair/Other Other GI Surgeries/Procedures: Abdominal surgery Female Surgical History: Reports: Hysterectomy Neurological Surgical History: Reports: C-Spine Musculoskeletal Surgical History: Reports: Knee Replacement Other Musculoskeletal Surgeries/Procedures:: L knee Social & Family History - Family History Family Medical History: Noncontributory - Tobacco Use Smoking Status *Q: Current Every Day Smoker Years of Tobacco use: 60 Packs/Tins Daily: 1 - Caffeine Use Caffeine Use: Reports: Coffee, Energy Drinks, Soda Caffeine Use Comment: two cups of coffee a day, and energy drink a day, and diet coke - Recreational Drug Use Recreational Drug Use: No - Living Situation & Occupation Living situation: Reports: Occupation: Unemployed H&P Review of Systems - Review of Systems: Review Of Systems: See Below General: Reports: No Symptoms HEENT: Reports: Headaches Pulmonary: Reports: Shortness of Breath, Cough. Denies: Sputum Cardiovascular: Reports: Dyspnea on Exertion, Edema. Denies: Chest Pain, Palpitations, Lightheadedness Gastrointestinal: Reports: No Symptoms Genitourinary: Reports: Urgency, Incontinence. Denies: Dysuria, Frequency, Burning, Pain Musculoskeletal: Reports: Back Pain Skin: Reports: No Symptoms Psychiatric: Reports: No Symptoms Neurological: Reports: No Symptoms Exam - Exam Exam: See Below - Vital Signs Vital Signs: Last Vital Signs Temp 36.6 C 11/19/18 16:07 Pulse 107 H 11/19/18 16:07 Resp 14 11/19/18 16:07 BP 125/92 H 11/19/18 16:07 Pulse Ox Weight: 109.225 kg - Exam Quality Assessment: Supplemental Oxygen General: Alert, Oriented, Cooperative, Mild Distress HEENT: PERRLA, Hearing Intact, Mucosa Moist & [place], Nares Patent, Normal Nasal Septum, Posterior Pharynx Clear, Conjunctiva Clear, EOMI, EACs Clear, TMs Clear Neck: Supple, Trachea Midline, JVD. No: Lymphadenopathy Lungs: Decreased Breath Sounds, Crackles, Wheezing Cardiovascular: Regular Rate, Regular Rhythm GI/Abdominal Exam: Normal Bowel Sounds, Soft, Non-Tender, No Distention (Female) Exam: Deferred Rectal (Female) Exam: Deferred Extremities: Pedal Edema (2+ BLE, upper chest, distal neck & hands) Peripheral Pulses: 2+: Radial (L), Radial (R) Skin: Warm, Dry, Intact Neurological: Cranial Nerves Intact, Normal Speech Neuro Extensive - Mental Status: Normal Mood/Affect, Normal Cognition, Memory Intact - Patient Data Lab Results Last 24 hrs: Laboratory Results - last 24 hr 11/19/18 Range/Units 17:40 Urine Color Yellow (YELLOW) Urine Appearance Clear (CLEAR) Urine pH 5.0 (5.0-6.5) Ur Specific [place] 1.015 (1.010-1.025) Urine Protein Negative (NEGATIVE) mg/dL Urine Glucose (UA) Normal (NORMAL) mg/dL Urine Ketones Negative (NEGATIVE) mg/dL Urine Occult Blood Negative (NEGATIVE) Urine Nitrite Negative (NEGATIVE) Urine Bilirubin Negative (NEGATIVE) Urine Urobilinogen Normal (NEGATIVE) mg/dL Ur Leukocyte Esterase Negative (NEGATIVE) Urine RBC 0-5 (0-5) Urine WBC 0-5 (0-5) Ur Squamous Epith Cells Moderate H (NS,R,O) Urine Bacteria Few H (NS) see physical chart for labs from [facility] Imaging Impressions Last 24 hrs: [facility] 11/19/18: Cardiac enlargement with mild pulmonary vascular congestion. Lower lobe interstitial opacities likely represent interstitial edema &/ atelectasis. - Problem List (1) Acute exacerbation of CHF (congestive heart failure) SNOMED Code(s): 090499738, 80958456663507 ICD Code: I50.9 - HEART FAILURE, UNSPECIFIED Status: Acute Current Visit : Yes (2) COPD (chronic obstructive pulmonary disease) SNOMED Code(s): 59098930 ICD Code: J44.9 - CHRONIC OBSTRUCTIVE PULMONARY DISEASE, UNSPECIFIED Status : Acute Current Visit: No (3) CHF NYHA class II (symptoms with moderately strenuous activities) SNOMED Code(s): 419164109, 047244236 ICD Code: I50.9 - HEART FAILURE, UNSPECIFIED Status: Chronic Current Visit: No Qualifiers: Congestive heart failure type: systolic (4) Chronic back pain SNOMED Code(s): 536409746 ICD Code: M54.9 - DORSALGIA, UNSPECIFIED; G89.29 - OTHER CHRONIC PAIN Status: Chronic Current Visit: No Qualifiers: Back pain location: low back pain Back pain laterality: midline Sciatica presence: without sciatica Qualified Code(s): M54.5 - Low back pain; G89.29 - Other chronic pain; G89.29 - Other chronic pain (5) Morbid obesity with BMI of 40.0-44.9, adult SNOMED Code(s): 746890325, 15247384128422 ICD Code: E66.01 - MORBID (SEVERE) OBESITY DUE TO EXCESS CALORIES; Z68.41 - BODY MASS INDEX (BMI) 40.0-44.9, ADULT Status: Chronic Current Visit: No (6) Polypharmacy SNOMED Code(s): 238286667 ICD Code: Z79.899 - OTHER APARTMENT GROUNDSKEEPER (CURRENT) DRUG THERAPY Status: Chronic Priority: High Current Visit: No (7) Restless legs syndrome (RLS) SNOMED Code(s): 96717298 ICD Code: G25.81 - RESTLESS LEGS SYNDROME Status: Chronic Current Visit: No (8) Tobacco dependence due to cigarettes SNOMED Code(s): 36948224210757793 ICD Code: F17.210 - NICOTINE DEPENDENCE, CIGARETTES, UNCOMPLICATED Status: Chronic Current Visit: No (9) Palliative care status SNOMED Code(s): 107385279 ICD Code: Z51.5 - ENCOUNTER FOR PALLIATIVE CARE Status: Chronic Current Visit: No Problem List Initiated/Reviewed/Updated: Yes Orders Last 24hrs: Active Orders 24 hr Category Date Time Status Patient Status [ADT] Routine ADT 11/19/18 17:15 Active Antiembolic Devices [RC] .Routine Care 11/19/18 18:08 Active Cardiac Education [RC] Click to Edit Care 11/19/18 17:15 Active Communication, Vaccine [RC] PER UNIT ROUTINE Care 11/19/18 18:10 Active Height and Weight [RC] DAILY Care 11/19/18 18:08 Active Oxygen Therapy [RC] PRN Care 11/19/18 17:15 Active Oxygen Therapy [RC] PRN Care 11/19/18 18:09 Active RT Aerosol Therapy [RC] ASDIRECTED Care 11/19/18 18:10 Active Up With Assistance [RC] ASDIRECTED Care 11/19/18 18:08 Active VTE/DVT Education [RC] Per Unit Routine Care 11/19/18 17:15 Active VTE/DVT Education [RC] Per Unit Routine Care 11/19/18 18:09 Active Vaccines to be Administered [RC] PER UNIT ROUTINE Care 11/19/18 18:10 Active Vital Signs [RC] Q4H Care 11/19/18 17:15 Active Fluid Restriction [DIET] Diet 11/19/18 Dinner Active Heart Healthy Diet [DIET] Diet 11/19/18 Dinner Active Chest 2V [CR] Routine Exams 11/19/18 17:15 Ordered BASIC METABOLIC PANEL,BMP [CHEM] Routine Lab 11/20/18 06:00 Ordered ALPRAZolam [Xanax] Med 11/19/18 18:11 Active 0.25 mg PO BEDTIME PRN Albuterol/Ipratropium [DuoNeb 3.0-0.5 MG/3 ML] Med 11/19/18 18:08 Active 3 ml NEB QIDRT PRN Allopurinol [Zyloprim] Med 11/20/18 09:00 Active 200 mg PO DAILY Cholecalciferol (Vitamin D3) [Vitamin D3] Med 11/20/18 09:00 Active 50 mcg PO DAILY Cyanocobalamin (Vitamin B12) [Vitamin B12] Med 11/20/18 09:00 Active 5,000 mcg PO DAILY Furosemide [Lasix] Med 11/19/18 18:00 Active 40 mg IVPUSH Q8H Gabapentin [Neurontin] Med 11/20/18 12:00 Active 300 mg PO DAILY@1200 Gabapentin [Neurontin] Med 11/19/18 21:00 Active 600 mg PO BID Lisinopril [Prinivil] Med 11/20/18 09:00 Active 2.5 mg PO DAILY Mirtazapine [Remeron] Med 11/19/18 21:00 Active 45 mg PO BEDTIME Montelukast [Singulair] Med 11/19/18 21:00 Active 10 mg PO BEDTIME Nicotine [Habitrol] Med 11/20/18 09:00 Active 14 mg TRDERM DAILY PARoxetine [Paxil] Med 11/19/18 21:00 Active 60 mg PO BEDTIME Sodium Chloride 0.9% [Saline Flush] Med 11/19/18 17:15 Active 10 ml FLUSH ASDIRECTED PRN Sodium Chloride 0.9% [Saline Flush] Med 11/19/18 17:15 Active 10 ml FLUSH ASDIRECTED PRN Umeclidinium Brm/Vilanterol Tr [Anoro Ellipta 62.5-25 Med 11/20/18 09:00 Active MCG] 0 mcg IH DAILY rOPINIRole [Requip] Med 11/19/18 19:00 Active 0.5 mg PO DAILY@1900 rOPINIRole [Requip] Med 11/19/18 19:00 Active 2 mg PO DAILY@1900 Antiembolic Hose [OM.PC] Per Unit Routine Oth 11/19/18 18:09 Ordered CHF Questionnaire [COMM] Routine Oth 11/19/18 17:15 Ordered GM Immunization Reflex [OM.PC] Click To Edit Oth 11/19/18 18:08 Ordered Peripheral IV Insertion Adult [OM.PC] Routine Oth 11/19/18 17:15 Ordered Resuscitation Status Routine Resus Stat 11/19/18 17:15 Ordered Medication Orders Albuterol/Ipratropium (Duoneb 3.0-0.5 Mg/3 Ml) 3 ml NEB QIDRT PRN PRN Reason: short of breath Allopurinol (Zyloprim) 200 mg PO DAILY [facility] Alprazolam (Xanax) 0.25 mg PO BEDTIME PRN PRN Reason: Anxiety Cholecalciferol (Vitamin D3) 50 mcg PO DAILY [facility] Cyanocobalamin (Vitamin B12) 5,000 mcg PO DAILY [facility] Furosemide (Lasix) 40 mg IVPUSH Q8H [facility] Last Admin: 11/19/18 18:06 Dose: 40 mg Gabapentin (Neurontin) 300 mg PO DAILY@1200 [facility] Gabapentin (Neurontin) 600 mg PO BID [facility] Lisinopril (Prinivil) 2.5 mg PO DAILY [facility] Mirtazapine (Remeron) 45 mg PO BEDTIME [facility] Montelukast Sodium (Singulair) 10 mg PO BEDTIME [facility] Nicotine (Habitrol) 14 mg TRDERM DAILY [facility] Paroxetine HCl (Paxil) 60 mg PO BEDTIME [facility] Ropinirole HCl (Requip) 0.5 mg PO DAILY@1900 [facility] Ropinirole HCl (Requip) 2 mg PO DAILY@1900 [facility] Sodium Chloride (Saline Flush) 10 ml FLUSH ASDIRECTED PRN PRN Reason: Keep Vein Open Sodium Chloride (Saline Flush) 10 ml FLUSH ASDIRECTED PRN PRN Reason: Keep Vein Open Umeclidinium/Vilanterol (Anoro Ellipta 62.5-25 Mcg) 0 mcg IH DAILY [facility] Assessment/Plan Comment:: 1. Admit for CHF exacerbation, fluid overload, COPD. 2. Lasix 40 mg IV q8h, repeat labs in AM, daily weights. 3. O2 keep sats between 88-92%, baseline 90%. 4. DuoNeb tid, Anoro(patient will use her home medication) 5. Fluid restriction 1800 ml, heart healthy diet. 6. Lovenox 40 mg daily, DVT prophylaxis. 7. Continue home medications except diuretics. 8. DNR/DNI. 9. Referral to urology for urodynamic studies in [place] or [facility] as she does not like to drive in [place]. - Mortality Measure Prognosis:: Poor
[2018-11-19] MEDS: rOPINIRole 1 MG Tab PO SCH (19:16)
[2018-11-19] MEDS: Acetaminophen 325 MG Tab PO PRN (20:29)
[2018-11-19] MEDS: Montelukast 10 MG Tab PO SCH (20:29)
[2018-11-19] MEDS: Gabapentin 600 MG Tab PO SCH (20:29)
[2018-11-19] MEDS ORDERED: PARoxetine 20 MG Tab ONE (20:51)
[2018-11-19] MEDS ORDERED: rOPINIRole 1 MG Tab ONE (20:54)
[2018-11-19] MEDS: rOPINIRole 0.5 MG Tab PO SCH (21:00)
[2018-11-19] MEDS ORDERED: Mirtazapine 30 MG Tab PO SCH (21:00)
[2018-11-20] MEDS: Furosemide 40 MG/4 ML VIAL IVPUSH SCH ×3 (02:37→17:57)
[2018-11-20] MEDS: Cyanocobalamin (Vitamin B12) 1,000 MCG Tab PO SCH (09:49)
[2018-11-20] MEDS: Gabapentin 600 MG Tab PO SCH ×2 (09:49→20:22)
[2018-11-20] MEDS: Lisinopril 2.5 MG Tab PO SCH (09:49)
[2018-11-20] MEDS: Allopurinol 100 MG Tab PO SCH (09:50)
[2018-11-20] MEDS: Umeclidinium Brm/Vilanterol Tr 62.5-25 MCG 7 Puff Inhaler IH SCH (09:50)
[2018-11-20] MEDS: Sodium Chloride 0.9% 10 ML Syringe FLUSH PRN ×2 (09:56→18:04)
[2018-11-20] MEDS: Nicotine 14 MG/24 Hr Patch TRDERM SCH (10:11)
[2018-11-20] MEDS: Cholecalciferol (Vitamin D3) 25 MCG Tab PO SCH (10:21)
[2018-11-20] MEDS: Acetaminophen 325 MG Tab PO PRN ×2 (10:26→18:00)
[2018-11-20] MEDS ORDERED: Gabapentin 300 MG Cap PO SCH ×2 (12:00→14:00)
--- NOTE | 2018-11-20 18:01 | PCM.PN ---
- General Info Date of Service: 11/20/18 Admission Dx/Problem (Free Text): Patient is breathing better this morning, feels leg are same and around her neck though. No nausea, vomiting or diarrhea. - Patient Data Vitals - Most Recent: Last Vital Signs Temp 97.5 F 11/20/18 13:00 Pulse 90 11/20/18 13:00 Resp 20 11/20/18 13:00 BP 130/71 11/20/18 13:00 Pulse Ox 96 11/20/18 13:00 Weight - Most Recent: 233 lb 14.4 oz I&O - Last 24 Hours: Intake & Output 11/20/18 11/20/18 11/20/18 06:59 14:59 22:59 Output Total 900 300 Balance -900 -300 Lab Results Last 24 Hours: Laboratory Results - last 24 hr 11/19/18 11/20/18 Range/Units 17:40 06:30 Sodium 149 H (135-145) mmol/L Potassium 3.4 L (3.5-5.3) mmol/L Chloride 104 (100-110) mmol/L Carbon Dioxide 39 H (21-32) mmol/L BUN 27 H D (7-18) mg/dL Creatinine 1.3 H (0.55-1.02) mg/dL Est Cr Clr Drug Dosing 29.78 mL/min Estimated GFR (MDRD) 40 L (>60) BUN/Creatinine Ratio 20.8 H (9-20) Glucose 112 (80-116) mg/dL Calcium 8.9 (8.6-10.2) mg/dL Urine Color Yellow (YELLOW) Urine Appearance Clear (CLEAR) Urine pH 5.0 (5.0-6.5) Ur Specific [place] 1.015 (1.010-1.025) Urine Protein Negative (NEGATIVE) mg/dL Urine Glucose (UA) Normal (NORMAL) mg/dL Urine Ketones Negative (NEGATIVE) mg/dL Urine Occult Blood Negative (NEGATIVE) Urine Nitrite Negative (NEGATIVE) Urine Bilirubin Negative (NEGATIVE) Urine Urobilinogen Normal (NEGATIVE) mg/dL Ur Leukocyte Esterase Negative (NEGATIVE) Urine RBC 0-5 (0-5) Urine WBC 0-5 (0-5) Ur Squamous Epith Cells Moderate H (NS,R,O) Urine Bacteria Few H (NS) Med Orders - Current: Current Medications Acetaminophen (Tylenol) 650 mg PO Q4H PRN PRN Reason: Pain Last Admin: 11/20/18 10:26 Dose: 650 mg Albuterol/Ipratropium (Duoneb 3.0-0.5 Mg/3 Ml) 3 ml NEB QIDRT PRN PRN Reason: short of breath Allopurinol (Zyloprim) 200 mg PO DAILY [facility] Last Admin: 11/20/18 09:50 Dose: 200 mg Alprazolam (Xanax) 0.25 mg PO BEDTIME PRN PRN Reason: Anxiety Last Admin: 11/19/18 21:03 Dose: 0.25 mg Cholecalciferol (Vitamin D3) 50 mcg PO DAILY [facility] Last Admin: 11/20/18 10:21 Dose: 50 mcg Cyanocobalamin (Vitamin B12) 5,000 mcg PO DAILY [facility] Last Admin: 11/20/18 09:49 Dose: 5,000 mcg Furosemide (Lasix) 40 mg IVPUSH Q8H [facility] Last Admin: 11/20/18 09:55 Dose: 40 mg Gabapentin (Neurontin) 600 mg PO BID [facility] Last Admin: 11/20/18 09:49 Dose: 600 mg Gabapentin (Neurontin) 300 mg PO DAILY@1400 [facility] Last Admin: 11/20/18 15:51 Dose: 300 mg Lisinopril (Prinivil) 2.5 mg PO DAILY [facility] Last Admin: 11/20/18 09:49 Dose: 2.5 mg Mirtazapine (Remeron) 45 mg PO BEDTIME [facility] Montelukast Sodium (Singulair) 10 mg PO BEDTIME [facility] Last Admin: 11/19/18 20:29 Dose: 10 mg Nicotine (Habitrol) 14 mg TRDERM DAILY [facility] Last Admin: 11/20/18 10:11 Dose: 14 mg Paroxetine HCl (Paxil) 60 mg PO BEDTIME [facility] Last Admin: 11/19/18 21:00 Dose: 60 mg Ropinirole HCl (Requip) 0.5 mg PO DAILY@1900 [facility] Last Admin: 11/19/18 21:00 Dose: 0.5 mg Ropinirole HCl (Requip) 2 mg PO DAILY@1900 [facility] Last Admin: 11/19/18 19:16 Dose: 2 mg Sodium Chloride (Saline Flush) 10 ml FLUSH ASDIRECTED PRN PRN Reason: Keep Vein Open Last Admin: 11/20/18 09:56 Dose: 10 ml Sodium Chloride (Saline Flush) 10 ml FLUSH ASDIRECTED PRN PRN Reason: Keep Vein Open Umeclidinium/Vilanterol (Anoro Ellipta 62.5-25 Mcg) 0 mcg IH DAILY [facility] Last Admin: 11/20/18 09:50 Dose: 1 dose Discontinued Medications Gabapentin (Neurontin) 300 mg PO DAILY@1200 [facility] Influenza Virus Vaccine (Fluzone Quad Syringe) 60 mcg IM .ONCE ONE Stop: 11/19/18 18:09 Mirtazapine (Remeron) 45 mg PO BEDTIME [facility] Last Admin: 11/19/18 20:29 Dose: 45 mg Paroxetine HCl (Paxil) Confirm Administered Dose 60 mg .ROUTE .STK-MED ONE Stop: 11/19/18 20:52 Last Admin: 11/19/18 20:59 Dose: Not Given Ropinirole HCl (Requip) Confirm Administered Dose 1 mg .ROUTE .STK-MED ONE Stop: 11/19/18 20:55 Last Admin: 11/19/18 20:59 Dose: Not Given - Exam Quality Assessment: Supplemental Oxygen General: Alert, Oriented, Cooperative, No Acute Distress Lungs: Normal Respiratory Effort, Decreased Breath Sounds, Crackles. No: Wheezing Cardiovascular: Regular Rate, Regular Rhythm GI/Abdominal Exam: Normal Bowel Sounds, Soft, Non-Tender, No Distention Extremities: Pedal Edema (2+ BLE) - Problem List & Annotations (1) Acute exacerbation of CHF (congestive heart failure) SNOMED Code(s): 652384296, 90012220273195 Code(s): I50.9 - HEART FAILURE, UNSPECIFIED Status: Chronic Current Visit : Yes Qualifiers: Heart failure type: diastolic Qualified Code(s): I50.33 - Acute on chronic diastolic (congestive) heart failure (2) COPD (chronic obstructive pulmonary disease) SNOMED Code(s): 84329324 Code(s): J44.9 - CHRONIC OBSTRUCTIVE PULMONARY DISEASE, UNSPECIFIED Status : Acute Current Visit: No (3) CHF NYHA class II (symptoms with moderately strenuous activities) SNOMED Code(s): 365286458, 197319696 Code(s): I50.9 - HEART FAILURE, UNSPECIFIED Status: Chronic Current Visit : No Qualifiers: Congestive heart failure type: systolic (4) Chronic back pain SNOMED Code(s): 363231020 Code(s): M54.9 - DORSALGIA, UNSPECIFIED; G89.29 - OTHER CHRONIC PAIN Status : Chronic Current Visit: No Qualifiers: Back pain location: low back pain Back pain laterality: midline Sciatica presence: without sciatica Qualified Code(s): M54.5 - Low back pain; G89.29 - Other chronic pain; G89.29 - Other chronic pain (5) Morbid obesity with BMI of 40.0-44.9, adult SNOMED Code(s): 245448449, 51955815861834 Code(s): E66.01 - MORBID (SEVERE) OBESITY DUE TO EXCESS CALORIES; Z68.41 - BODY MASS INDEX (BMI) 40.0-44.9, ADULT Status: Chronic Current Visit: No (6) Polypharmacy SNOMED Code(s): 261303444 Code(s): Z79.899 - OTHER GROUP HOME (CURRENT) DRUG THERAPY Status: Chronic Priority: High Current Visit: No (7) Restless legs syndrome (RLS) SNOMED Code(s): 74193885 Code(s): G25.81 - RESTLESS LEGS SYNDROME Status: Chronic Current Visit: No (8) Tobacco dependence due to cigarettes SNOMED Code(s): 78953133347104734 Code(s): F17.210 - NICOTINE DEPENDENCE, CIGARETTES, UNCOMPLICATED Status: Chronic Current Visit: No (9) Palliative care status SNOMED Code(s): 521919844 Code(s): Z51.5 - ENCOUNTER FOR PALLIATIVE CARE Status: Chronic Current Visit: No - Problem List Review Problem List Initiated/Reviewed/Updated: Yes - My Orders Last 24 Hours: My Active Orders 11/19/18 17:15 Patient Status [ADT] Routine Cardiac Education [RC] Click to Edit Oxygen Therapy [RC] PRN VTE/DVT Education [RC] Per Unit Routine Vital Signs [RC] Q4H Sodium Chloride 0.9% [Saline Flush] 10 ml FLUSH ASDIRECTED PRN Sodium Chloride 0.9% [Saline Flush] 10 ml FLUSH ASDIRECTED PRN CHF Questionnaire [COMM] Routine Peripheral IV Insertion Adult [OM.PC] Routine Resuscitation Status Routine 11/19/18 18:00 Furosemide [Lasix] 40 mg IVPUSH Q8H 11/19/18 18:08 Antiembolic Devices [RC] .Routine Height and Weight [RC] DAILY Up With Assistance [RC] ASDIRECTED Albuterol/Ipratropium [DuoNeb 3.0-0.5 MG/3 ML] 3 ml NEB QIDRT PRN GM Immunization Reflex [OM.PC] Click to Edit 11/19/18 18:09 Antiembolic Hose [OM.PC] Per Unit Routine 11/19/18 18:10 Communication, Vaccine [RC] PER UNIT ROUTINE RT Aerosol Therapy [RC] ASDIRECTED Vaccines to be Administered [RC] PER UNIT ROUTINE 11/19/18 18:11 ALPRAZolam [Xanax] 0.25 mg PO BEDTIME PRN 11/19/18 19:00 rOPINIRole [Requip] 0.5 mg PO DAILY@1900 rOPINIRole [Requip] 2 mg PO DAILY@1900 11/19/18 19:46 Communication Order [RC] 08,,00 11/19/18 19:54 Acetaminophen [Tylenol] 650 mg PO Q4H PRN 11/19/18 21:00 Gabapentin [Neurontin] 600 mg PO BID Montelukast [Singulair] 10 mg PO BEDTIME PARoxetine [Paxil] 60 mg PO BEDTIME 11/20/18 09:00 Allopurinol [Zyloprim] 200 mg PO DAILY Cholecalciferol (Vitamin D3) [Vitamin D3] 50 mcg PO DAILY Cyanocobalamin (Vitamin B12) [Vitamin B12] 5,000 mcg PO DAILY Lisinopril [Prinivil] 2.5 mg PO DAILY Nicotine [Habitrol] 14 mg TRDERM DAILY Umeclidinium Brm/Vilanterol Tr [Anoro Ellipta 62.5-25 MCG] 0 mcg IH DAILY 11/20/18 14:00 Gabapentin [Neurontin] 300 mg PO DAILY@1400 11/20/18 21:00 Mirtazapine [Remeron] 45 mg PO BEDTIME 11/21/18 06:00 BASIC METABOLIC PANEL,BMP [CHEM] Routine - Plan Plan:: Increased fluid restriction to 2000 ml per patient request. Change Lasix to bid. Recheck labs in am. If continues to improve, may discharge in the morning.
[2018-11-20] MEDS: rOPINIRole 0.5 MG Tab PO SCH (19:53)
[2018-11-20] MEDS: Mirtazapine 15 MG Tab PO SCH ×2 (19:54→21:35)
[2018-11-20] MEDS: rOPINIRole 1 MG Tab PO SCH (19:54)
[2018-11-20] MEDS: Montelukast 10 MG Tab PO SCH ×2 (19:55→21:35)
[2018-11-21] MEDS: Acetaminophen 325 MG Tab PO PRN (01:19)
[2018-11-21] MEDS ORDERED: Furosemide 40 MG/4 ML VIAL IVPUSH SCH (08:00)
[2018-11-21] MEDS: Cholecalciferol (Vitamin D3) 25 MCG Tab PO SCH (08:27)
[2018-11-21] MEDS: Gabapentin 600 MG Tab PO SCH (08:27)
[2018-11-21] MEDS: Umeclidinium Brm/Vilanterol Tr 62.5-25 MCG 7 Puff Inhaler IH SCH (08:27)
[2018-11-21] MEDS: Lisinopril 2.5 MG Tab PO SCH (08:27)
[2018-11-21] MEDS: Allopurinol 100 MG Tab PO SCH (08:28)
[2018-11-21] MEDS: Cyanocobalamin (Vitamin B12) 1,000 MCG Tab PO SCH (08:28)
[2018-11-21] MEDS: Nicotine 14 MG/24 Hr Patch TRDERM SCH (08:29)
[2018-11-21 08:32] VITALS: BP 127/71
[2018-11-21 11:05] VITALS: PULSE 85
[2018-11-21] MEDS ORDERED: Furosemide 40 MG Tab PO SCH (12:00)
--- NOTE | 2018-11-21 18:22 | PCM.DCSUM1 ---
Discharge Summary - Hospital Course HPI Initial Comments: Patient came into [facility] today for worsening shortness of breath, weight gain of 6 lbs. Noted swelling of her neck, legs, hands. She is on Lasix bid and Metolazone twice a week. She is at her baseline 90% in regards to her COPD per her PCP. She had Chest x-ray which showed pulmonary vascular congestion , interstitial edema and/or atelectasis. CBC and CMP unremarkable. Had echo last month with EF in 80%, diastolic dysfunction. She is also complaining of persistent incontinence, she has the sensation/urge to go but as soon as she stands up she leaks, has to wear a Depends. She has noticed some improvement with Kegel exercises but not complete resolution. UA was negative in clinic today. She has not been on Lisinopril or Losartan in the past, no record of contraindication or allergy to either medication. She is being switched from inhalers to nebulizers as she has trouble using the inhalers correctly per Tisha Workman, her PCP. Diagnosis: Stroke: No - Discharge Data Discharge Date: 11/21/18 Discharge Disposition: Home, Self-Care 01 Condition: Good - Referral to Home Health Primary Care Physician: Tisha Workman, IT SECURITY CONSULTING DIRECTOR - Discharge Diagnosis/Problem(s) (1) Acute exacerbation of CHF (congestive heart failure) SNOMED Code(s): 975144716, 91336230847227 ICD Code: I50.9 - HEART FAILURE, UNSPECIFIED Status: Resolved Qualifiers: Heart failure type: diastolic Qualified Code(s): I50.33 - Acute on chronic diastolic (congestive) heart failure (2) COPD (chronic obstructive pulmonary disease) SNOMED Code(s): 19111989 ICD Code: J44.9 - CHRONIC OBSTRUCTIVE PULMONARY DISEASE, UNSPECIFIED Status : Chronic (3) CHF NYHA class II (symptoms with moderately strenuous activities) SNOMED Code(s): 663546592, 753855709 ICD Code: I50.9 - HEART FAILURE, UNSPECIFIED Status: Chronic Qualifiers: Congestive heart failure type: systolic (4) Chronic back pain SNOMED Code(s): 772781901 ICD Code: M54.9 - DORSALGIA, UNSPECIFIED; G89.29 - OTHER CHRONIC PAIN Status: Chronic Qualifiers: Back pain location: low back pain Back pain laterality: midline Sciatica presence: without sciatica Qualified Code(s): M54.5 - Low back pain; G89.29 - Other chronic pain; G89.29 - Other chronic pain (5) Morbid obesity with BMI of 40.0-44.9, adult SNOMED Code(s): 847705725, 52722835157377 ICD Code: E66.01 - MORBID (SEVERE) OBESITY DUE TO EXCESS CALORIES; Z68.41 - BODY MASS INDEX (BMI) 40.0-44.9, ADULT Status: Chronic (6) Polypharmacy SNOMED Code(s): 736913599 ICD Code: Z79.899 - OTHER HAND MOLD MAKER (CURRENT) DRUG THERAPY Status: Chronic Priority: High (7) Restless legs syndrome (RLS) SNOMED Code(s): 13880419 ICD Code: G25.81 - RESTLESS LEGS SYNDROME Status: Chronic (8) Tobacco dependence due to cigarettes SNOMED Code(s): 33485323265693245 ICD Code: F17.210 - NICOTINE DEPENDENCE, CIGARETTES, UNCOMPLICATED Status: Chronic (9) Palliative care status SNOMED Code(s): 030740055 ICD Code: Z51.5 - ENCOUNTER FOR PALLIATIVE CARE Status: Chronic (10) Incontinence of urine in female SNOMED Code(s): 253092600, 821458247 ICD Code: R32 - UNSPECIFIED URINARY INCONTINENCE Status: Chronic Problem Details: Improved with kegel exercises, has sensation to go but as soon as she stands she leaks and fills a diapers/pad sometimes. Needs referral to Urology for urodynamic studies, prefers [facility] over [facility] as she would be driving herself. - Patient Summary/Data Hospital Course: Patient was admitted to floor for CHF exacerbation, CXR and labs done at [facility]. Patient was initially on Lasix 40 mg IV q8h, next day down 4 lbs, breathing better. Switched to bid dosing on HOD#2. Continued to improve, was off oxygen today which she is at home. Feels back to her baseline. Weight down last night 6 lbs but then up today by 3 lbs. Patient was also complaining of headache, pinpointed to her right frontal scalp which pain was reproducible on palpation, neck muscles were tight. Patient has Biofreeze and heating pad at home that she would like to use and received Tylenol after exam which relieved the headache. She was also having issues with stress incontinence that as soon as she stands when she has the urge to go that she can't hold it, states it improved with Kegel's at home but she has had times when she was at grocery store that she filled her Depends and her shoes. Has not had urodynamic studies. - Patient Instructions Diet: Heart Healthy Diet Activity: As Tolerated, Cough & Deep Breathe Driving: May Drive Today Showering/Bathing: May Shower Notify Provider of: Fever Other/Special Instructions: Follow up with Moy Camp PA-C in 1 week for post hospital follow up and second opinion on urinary incontinence. - Discharge Plan *PRESCRIPTION DRUG MONITORING PROGRAM REVIEWED*: Not Applicable *COPY OF PRESCRIPTION DRUG MONITORING REPORT IN PATIENT THUY: No Prescriptions/Med Rec: Lisinopril [Zestril] 2.5 mg PO DAILY 30 Days #30 tablet Home Medications: Home Meds Montelukast [Singulair] 10 mg PO BEDTIME 02/07/16 [History] Albuterol Sulfate [Proair Hfa] 2 puff INH Q4H PRN 07/29/18 [History] Furosemide 40 mg PO BID@08,12 07/29/18 [History] ALPRAZolam [Alprazolam] 0.25 - 0.5 mg PO BEDTIME PRN 09/17/18 [History] Allopurinol [Zyloprim] 200 mg PO DAILY 09/17/18 [History] Cyanocobalamin (Vitamin B-12) [Vitamin B-12] 5,000 mcg PO DAILY 09/17/18 [ History] Gabapentin [Neurontin] 600 mg PO BID 09/17/18 [History] Mirtazapine 45 mg PO BEDTIME 09/17/18 [History] PARoxetine [Paxil] 60 mg PO BEDTIME 09/17/18 [History] Umeclidinium Brm/Vilanterol Tr [Anoro Ellipta 62.5-25 MCG] 1 puff IH DAILY 30 Days #1 inhaler 09/19/18 [Rx] Albuterol/Ipratropium [DuoNeb 3.0-0.5 MG/3 ML] 3 ml IH TID 11/19/18 [History] Cholecalciferol (Vitamin D3) [Vitamin D3] 2,000 unit PO DAILY 11/19/18 [History] Gabapentin [Neurontin] 300 mg PO 1200 11/19/18 [History] metOLazone [Metolazone] 2.5 mg PO Q72H 11/19/18 [History] rOPINIRole [Requip] 0.5 mg PO 1900 11/19/18 [History] rOPINIRole [Requip] 2 mg PO 1900 11/19/18 [History] Lisinopril [Zestril] 2.5 mg PO DAILY 30 Days #30 tablet 11/21/18 [Rx] Oxygen Flow Rate (L/min): 2 (at night) Maintain SPO2% less than: 92 Maintain SpO2% greater than: 88 Patient Handouts: Lisinopril tablets, Fall Prevention in Hospitals, Adult, Venous Thromboembolism Prevention Referrals: Moy Camp PA [Physician [employer]] - - Discharge Summary/Plan Comment DC Time >30 min.: No - Patient Data Vitals - Most Recent: Last Vital Signs Temp 97.0 F 11/21/18 07:38 Pulse 85 11/21/18 07:38 Resp 16 11/21/18 07:38 BP 127/71 11/21/18 08:27 Pulse Ox 92 L 11/21/18 07:38 Weight - Most Recent: 237 lb 12.8 oz I&O - Last 24 hours: Intake & Output 11/21/18 11/21/18 11/21/18 06:59 14:59 22:59 Output Total 300 Balance -300 Lab Results - Last 24 hrs: Laboratory Results - last 24 hr 11/21/18 Range/Units 06:40 Sodium 147 H (135-145) mmol/L Potassium 3.7 (3.5-5.3) mmol/L Chloride 103 (100-110) mmol/L Carbon Dioxide 39 H (21-32) mmol/L BUN 25 H (7-18) mg/dL Creatinine 1.4 H (0.55-1.02) mg/dL Est Cr Clr Drug Dosing 27.66 mL/min Estimated GFR (MDRD) 37 L (>60) BUN/Creatinine Ratio 17.9 (9-20) Glucose 108 (80-116) mg/dL Calcium 9.0 (8.6-10.2) mg/dL Med Orders - Current: Current Medications Discontinued Medications Acetaminophen (Tylenol) 650 mg PO Q4H PRN PRN Reason: Pain Last Admin: 11/21/18 01:19 Dose: 650 mg Albuterol/Ipratropium (Duoneb 3.0-0.5 Mg/3 Ml) 3 ml NEB QIDRT PRN PRN Reason: short of breath Allopurinol (Zyloprim) 200 mg PO DAILY [facility] Last Admin: 11/21/18 08:28 Dose: 200 mg Alprazolam (Xanax) 0.25 mg PO BEDTIME PRN PRN Reason: Anxiety Last Admin: 11/19/18 21:03 Dose: 0.25 mg Cholecalciferol (Vitamin D3) 50 mcg PO DAILY [facility] Last Admin: 11/21/18 08:27 Dose: 50 mcg Cyanocobalamin (Vitamin B12) 5,000 mcg PO DAILY [facility] Last Admin: 11/21/18 08:28 Dose: 5,000 mcg Furosemide (Lasix) 40 mg IVPUSH Q8H [facility] Last Admin: 11/20/18 17:57 Dose: 40 mg Furosemide (Lasix) 40 mg IVPUSH 08,14 [facility] Last Admin: 11/21/18 09:06 Dose: Not Given Furosemide (Lasix) 40 mg PO BID@08,12 [facility] Last Admin: 11/21/18 12:31 Dose: Not Given Gabapentin (Neurontin) 300 mg PO DAILY@1200 [facility] Gabapentin (Neurontin) 600 mg PO BID [facility] Last Admin: 11/21/18 08:27 Dose: 600 mg Gabapentin (Neurontin) 300 mg PO DAILY@1400 [facility] Last Admin: 11/20/18 15:51 Dose: 300 mg Influenza Virus Vaccine (Fluzone Quad [id number] Syringe) 60 mcg IM .ONCE ONE Stop: 11/19/18 18:09 Last Admin: 11/20/18 20:23 Dose: Not Given Lisinopril (Prinivil) 2.5 mg PO DAILY [facility] Last Admin: 11/21/18 08:27 Dose: 2.5 mg Mirtazapine (Remeron) 45 mg PO BEDTIME [facility] Last Admin: 11/19/18 20:29 Dose: 45 mg Mirtazapine (Remeron) 45 mg PO BEDTIME [facility] Last Admin: 11/20/18 21:35 Dose: Not Given Montelukast Sodium (Singulair) 10 mg PO BEDTIME [facility] Last Admin: 11/20/18 21:35 Dose: Not Given Nicotine (Habitrol) 14 mg TRDERM DAILY [facility] Last Admin: 11/21/18 08:29 Dose: 14 mg Paroxetine HCl (Paxil) 60 mg PO BEDTIME [facility] Last Admin: 11/20/18 21:34 Dose: Not Given Paroxetine HCl (Paxil) Confirm Administered Dose 60 mg .ROUTE .STK-MED ONE Stop: 11/19/18 20:52 Last Admin: 11/19/18 20:59 Dose: Not Given Ropinirole HCl (Requip) 0.5 mg PO DAILY@1900 [facility] Last Admin: 11/20/18 19:53 Dose: 0.5 mg Ropinirole HCl (Requip) 2 mg PO DAILY@1900 [facility] Last Admin: 11/20/18 19:54 Dose: 2 mg Ropinirole HCl (Requip) Confirm Administered Dose 1 mg .ROUTE .STBalaya-MED ONE Stop: 11/19/18 20:55 Last Admin: 11/19/18 20:59 Dose: Not Given Sodium Chloride (Saline Flush) 10 ml FLUSH ASDIRECTED PRN PRN Reason: Keep Vein Open Last Admin: 11/20/18 18:04 Dose: 10 ml Sodium Chloride (Saline Flush) 10 ml FLUSH ASDIRECTED PRN PRN Reason: Keep Vein Open Umeclidinium/Vilanterol (Anoro Ellipta 62.5-25 Mcg) 0 mcg IH DAILY [facility] Last Admin: 11/21/18 08:27 Dose: 1 dose - Exam Quality Assessment: Denies: Supplemental Oxygen General: Reports: Alert, Oriented, Cooperative, No Acute Distress Neck: Reports: Supple (but tender, tight. Also scalp tenderness at site of her headache.) Lungs: Reports: Clear to Auscultation, Normal Respiratory Effort, Decreased Breath Sounds (bases) Cardiovascular: Reports: Regular Rate, Regular Rhythm GI/Abdominal Exam: Normal Bowel Sounds, Soft, Non-Tender, No Distention Extremities: Pedal Edema (trace)
== END 2018-11-21 12:55 | disposition home or self-care (01) | DRG 292 ==
LOC: FB.MS 15:46
PROVIDERS: ADMIT Family Medicine; ATTEND Family Medicine
DX: I11.0 Hypertensive heart disease with heart failure (principal); Z68.41 Body mass index [BMI] 40.0-44.9, adult; J44.9 Chronic obstructive pulmonary disease, unspecified; K21.9 Gastro-esophageal reflux disease without esophagitis; G89.29 Other chronic pain; M54.9 Dorsalgia, unspecified; F41.9 Anxiety disorder, unspecified; F32.9 Major depressive disorder, single episode, unspecified; G20 Parkinson's disease; Z96.652 Presence of left artificial knee joint; F17.210 Nicotine dependence, cigarettes, uncomplicated; E66.01 Morbid (severe) obesity due to excess calories; G25.81 Restless legs syndrome; Z51.5 Encounter for palliative care; Z66 Do not resuscitate; I50.33 Acute on chronic diastolic (congestive) heart failure; R32 Unspecified urinary incontinence; Z88.8 Allergy status to other drugs, medicaments and biological substances; Z79.899 Other long term (current) drug therapy; Z98.49 Cataract extraction status, unspecified eye
CPT/HCPCS: 36415; 80048; 81001; 94760; A9270-GY; J1940

== ENCOUNTER 2019-03-06 13:56 | Emergency (ER) | payer MEDICARE, MEDICAID ==
[2019-03-06] MEDS ORDERED: Sodium Chloride 0.9% 1,000 ML IV SCH (14:30)
--- NOTE | 2019-03-06 14:54 | EDM.PDOC ---
ED HPI GENERAL MEDICAL PROBLEM - General Stated Complaint: FALL,HEADACHE Time Seen by Provider: 03/06/19 14:20 Source of Information: Reports: Patient, EMS History Limitations: Reports: Altered Mental Status - History of Present Illness INITIAL COMMENTS - FREE TEXT/NARRATIVE: States she has not been feeling well for one week so about 2-3 days developed pain on the right side of her head , developed symptom of noise in her head on t he right temporal area with radiation to the right ear area .Would last about 10- 15 mins had about 2 episodes yesterday . this am got out to go for appt at [facility] and had to turn around and go back home as the headache started again made her feel dizzy and lightheaded when she got home and as she got in and holding onto a chair she passed out . No seizure type episode noted No LOC, did not hit head Admits to loss of appetite and not eating for 3 days . Onset: Gradual Onset Date: 03/01/19 Duration: Day(s):, Getting Worse, Intermittent Location: Denies: Lower Extremity, Right RT ARM Pain Score (Numeric/FACES): 7 - Related Data Allergies Allergy/AdvReac Type Severity Reaction Status Date / Time adhesive tape Allergy Other Verified 03/06/19 14:27 baclofen Allergy Other Verified 03/06/19 14:27 eletriptan [From Relpax] Allergy Other Verified 03/06/19 14:27 erythromycin base Allergy Itching Verified 03/06/19 14:27 strawberry Allergy Hives Verified 03/06/19 14:27 Home Meds: Home Meds Montelukast [Singulair] 10 mg PO BEDTIME 02/07/16 [History] Albuterol Sulfate [Proair Hfa] 2 puff INH Q4H PRN 07/29/18 [History] Furosemide 40 mg PO BID@08,12 07/29/18 [History] ALPRAZolam [Alprazolam] 0.25 - 0.5 mg PO BEDTIME PRN 09/17/18 [History] Cyanocobalamin (Vitamin B-12) [Vitamin B-12] 5,000 mcg PO DAILY 09/17/18 [ History] Gabapentin [Neurontin] 600 mg PO BID 09/17/18 [History] Mirtazapine 45 mg PO BEDTIME 09/17/18 [History] PARoxetine [Paxil] 60 mg PO BEDTIME 09/17/18 [History] allopurinoL [Zyloprim] 200 mg PO DAILY 09/17/18 [History] Umeclidinium Brm/Vilanterol Tr [Anoro Ellipta 62.5-25 MCG] 1 puff IH DAILY 30 Days #1 inhaler 09/19/18 [Rx] Albuterol/Ipratropium [DuoNeb 3.0-0.5 MG/3 ML] 3 ml IH TID 11/19/18 [History] Cholecalciferol (Vitamin D3) [Vitamin D3] 2,000 unit PO DAILY 11/19/18 [History] Gabapentin [Neurontin] 300 mg PO 1200 11/19/18 [History] metOLazone [Metolazone] 2.5 mg PO Q72H 11/19/18 [History] rOPINIRole [Requip] 0.5 mg PO 1900 11/19/18 [History] rOPINIRole [Requip] 2 mg PO 1900 11/19/18 [History] Lisinopril [Zestril] 2.5 mg PO DAILY 30 Days #30 tablet 11/21/18 [Rx] Past Medical History HEENT History: Reports: Allergic Rhinitis, Cataract, Impaired Vision Other HEENT History: MYOFASCIAL PAIN DYSFUNCTION SYNDROME Cardiovascular History: Reports: Heart Failure, Hypertension, SOB on Exertion Respiratory History: Reports: COPD, Pneumonia, Recurrent, Other (See Below) Other Respiratory History: Wears O2 @ hs. Gastrointestinal History: Reports: Cholelithiasis, GERD ALLOCATIONS CLERK History: Reports: , Other (See Below) Other ALLOCATIONS CLERK History: 3 Musculoskeletal History: Reports: Back Pain, Chronic, Gout, RA, Other (See Below ) Other Musculoskeletal History: restless legs Neurological History: Reports: Parkinson's, Other (See Below) Other Neuro History: restlesslegs, NECK PAIN Psychiatric History: Reports: Anxiety, Depression Endocrine/Metabolic History: Reports: Obesity/BMI 30+ - Past Surgical History HEENT Surgical History: Reports: Cataract Surgery GI Surgical History: Reports: Hernia Repair/Other Other GI Surgeries/Procedures: Abdominal surgery Female Surgical History: Reports: Hysterectomy Neurological Surgical History: Reports: C-Spine Musculoskeletal Surgical History: Reports: Knee Replacement Other Musculoskeletal Surgeries/Procedures:: L knee Social & Family History - Family History Family Medical History: Noncontributory - Caffeine Use Caffeine Use: Reports: Coffee, Energy Drinks, Soda Caffeine Use Comment: two cups of coffee a day, and energy drink a day, and diet coke - Living Situation & Occupation Living situation: Reports: Occupation: Unemployed ED ROS GENERAL - Review of Systems Review Of Systems: See Below Constitutional: Reports: Malaise, Weakness, Fatigue HEENT: Reports: No Symptoms Respiratory: Reports: Shortness of Breath, Cough, Sputum. Denies: Wheezing, Pleuritic Chest Pain, Hemoptysis Cardiovascular: Reports: Dyspnea on Exertion, Orthopnea. Denies: Chest Pain Endocrine: Reports: No Symptoms GI/Abdominal: Reports: No Symptoms : Reports: No Symptoms Musculoskeletal: Reports: Back Pain Skin: Reports: No Symptoms Neurological: Reports: Headache, Tingling, Weakness. Denies: Tremors, Trouble Speaking, Change in Speech, Gait Disturbance Psychiatric: Reports: No Symptoms Hematologic/Lymphatic: Reports: No Symptoms Immunologic: Reports: No Symptoms - Physical Exam Exam: See Below Exam Limited By: No Limitations General Appearance: Alert, WD/WN, Anxious Eye Exam: Bilateral Eye: EOMI Ears: Normal External Exam Nose: Normal Inspection Throat/Mouth: Normal Oropharynx Head Exam: Atraumatic, Normocephalic, Sinus Tenderness Neck: Supple, Full Range of Motion Respiratory/Chest: Decreased Breath Sounds, Rales, Prolonged Expiration. No: Retractions Cardiovascular: Regular Rate, Rhythm, No Edema GI/Abdominal: Soft, Non-Tender Back Exam: No: CVA Tenderness (R), CVA Tenderness (L) Extremities: Normal Range of Motion Psychiatric: Normal Affect Course - Vital Signs Last Recorded V/S: Last Vital Signs Temp 36.7 C 03/06/19 14:00 Pulse 87 03/06/19 14:00 Resp 18 03/06/19 14:00 BP 136/81 03/06/19 14:00 Pulse Ox 92 L 03/06/19 14:00 - Orders/Labs/Meds Orders: Active Orders 24 hr Category Date Time Status Sodium Chloride 0.9% [Normal Saline] 1,000 ml Med 03/06/19 14:30 Active IV ASDIRECTED Medication Orders Sodium Chloride (Normal Saline) 1,000 mls @ 500 mls/hr IV ASDIRECTED MARCK Last Admin: 03/06/19 14:34 Dose: 500 mls/hr Labs: Laboratory Tests 03/06/19 03/06/19 03/06/19 Range/Units 14:08 14:08 14:08 WBC (4.5-12.0) X10-3/uL RBC (3.23-5.20) x10(6)uL Hgb (11.5-15.5) g/dL Hct (30.0-51.3) % MCV (80-96) fL MCH (27.7-33.6) pg MCHC (32.2-35.4) g/dL RDW (11.5-15.5) % Plt Count (125-369) X10(3)uL MPV (7.4-10.4) fL Neut % (Auto) (46-82) % Lymph % (Auto) (13-37) % [place] % (Auto) (4-12) % Eos % (Auto) (1.0-5.0) % Baso % (Auto) (0-2) % Neut # (Auto) (1.6-8.3) # Lymph # (Auto) (0.6-5.0) # [place] # (Auto) (0.0-1.3) # Eos # (Auto) (0.0-0.8) # Baso # (Auto) (0.0-0.2) # Sodium 144 (135-145) mmol/L Potassium 3.5 (3.5-5.3) mmol/L Chloride 101 (100-110) mmol/L Carbon Dioxide 38 H (21-32) mmol/L BUN 22 H (7-18) mg/dL Creatinine 1.1 H (0.55-1.02) mg/dL Est Cr Clr Drug Dosing TNP Estimated GFR (MDRD) 49 L (>60) BUN/Creatinine Ratio 20.0 (9-20) Glucose 105 (80-116) mg/dL Calcium 9.3 (8.6-10.2) mg/dL Total Bilirubin 0.4 (0.1-1.3) mg/dL AST 25 D (5-25) IU/L ALT 30 D (12-36) U/L Alkaline Phosphatase 156 H (56-112) IU/L NT-Pro-B Natriuret Pep (<=125) pg/mL Total Protein 7.4 (6.0-8.0) g/dL Albumin 3.8 (3.2-4.6) g/dL Globulin 3.6 g/dL Albumin/Globulin Ratio 1.1 TSH, Ultra Sensitive 1.76 (0.36-3.74) IU/mL Urine Color (YELLOW) Urine Appearance (CLEAR) Urine pH (5.0-6.5) Ur Specific [place] (1.010-1.025) Urine Protein (NEGATIVE) mg/dL Urine Glucose (UA) (NORMAL) mg/dL Urine Ketones (NEGATIVE) mg/dL Urine Occult Blood (NEGATIVE) Urine Nitrite (NEGATIVE) Urine Bilirubin (NEGATIVE) Urine Urobilinogen (NEGATIVE) mg/dL Ur Leukocyte Esterase (NEGATIVE) Urine RBC (0-5) Urine WBC (0-5) Ur Squamous Epith Cells (NS,R,O) Amorphous Sediment Urine Bacteria (NS) Urine Opiates Screen (NEGATIVE) Ur Oxycodone Screen (NEGATIVE) Ur Propoxyphene Screen (NEGATIVE) Ur Barbituates Screen (NEGATIVE) Ur Tricyclics Screen (NEGATIVE) Ur Phencyclidine Scrn (NEGATIVE) Ur Amphetamine Screen (NEGATIVE) Urine MDMA Screen (NEGATIVE) U Benzodiazepines Scrn (NEGATIVE) U Cocaine Metab Screen (NEGATIVE) U Marijuana (THC) Screen (NEGATIVE) Ethyl Alcohol < 0.03 (<0.03) % 03/06/19 03/06/19 03/06/19 Range/Units 14:08 14:08 14:26 WBC 8.9 (4.5-12.0) X10-3/uL RBC 3.84 (3.23-5.20) x10(6)uL Hgb 10.3 L (11.5-15.5) g/dL Hct 32.3 (30.0-51.3) % MCV 84.2 (80-96) fL MCH 26.9 L (27.7-33.6) pg MCHC 32.0 L (32.2-35.4) g/dL RDW 18.9 H (11.5-15.5) % Plt Count 385 H (125-369) X10(3)uL MPV 7.9 (7.4-10.4) fL Neut % (Auto) 66.2 (46-82) % Lymph % (Auto) 24.2 (13-37) % [place] % (Auto) 6.9 (4-12) % Eos % (Auto) 2 (1.0-5.0) % Baso % (Auto) 0 (0-2) % Neut # (Auto) 5.9 (1.6-8.3) # Lymph # (Auto) 2.2 (0.6-5.0) # [place] # (Auto) 0.6 (0.0-1.3) # Eos # (Auto) 0.2 (0.0-0.8) # Baso # (Auto) 0.0 (0.0-0.2) # Sodium (135-145) mmol/L Potassium (3.5-5.3) mmol/L Chloride (100-110) mmol/L Carbon Dioxide (21-32) mmol/L BUN (7-18) mg/dL Creatinine (0.55-1.02) mg/dL Est Cr Clr Drug Dosing Estimated GFR (MDRD) (>60) BUN/Creatinine Ratio (9-20) Glucose (80-116) mg/dL Calcium (8.6-10.2) mg/dL Total Bilirubin (0.1-1.3) mg/dL AST (5-25) IU/L ALT (12-36) U/L Alkaline Phosphatase (56-112) IU/L NT-Pro-B Natriuret Pep 543 H (<=125) pg/mL Total Protein (6.0-8.0) g/dL Albumin (3.2-4.6) g/dL Globulin g/dL Albumin/Globulin Ratio TSH, Ultra Sensitive (0.36-3.74) IU/mL Urine Color (YELLOW) Urine Appearance (CLEAR) Urine pH (5.0-6.5) Ur Specific [place] (1.010-1.025) Urine Protein (NEGATIVE) mg/dL Urine Glucose (UA) (NORMAL) mg/dL Urine Ketones (NEGATIVE) mg/dL Urine Occult Blood (NEGATIVE) Urine Nitrite (NEGATIVE) Urine Bilirubin (NEGATIVE) Urine Urobilinogen (NEGATIVE) mg/dL Ur Leukocyte Esterase (NEGATIVE) Urine RBC (0-5) Urine WBC (0-5) Ur Squamous Epith Cells (NS,R,O) Amorphous Sediment Urine Bacteria (NS) Urine Opiates Screen Negative (NEGATIVE) Ur Oxycodone Screen Negative (NEGATIVE) Ur Propoxyphene Screen Negative (NEGATIVE) Ur Barbituates Screen Negative (NEGATIVE) Ur Tricyclics Screen Negative (NEGATIVE) Ur Phencyclidine Scrn Negative (NEGATIVE) Ur Amphetamine Screen Negative (NEGATIVE) Urine MDMA Screen Negative (NEGATIVE) U Benzodiazepines Scrn Positive H (NEGATIVE) U Cocaine Metab Screen Negative (NEGATIVE) U Marijuana (THC) Screen Negative (NEGATIVE) Ethyl Alcohol (<0.03) % 03/06/19 Range/Units 15:00 WBC (4.5-12.0) X10-3/uL RBC (3.23-5.20) x10(6)uL Hgb (11.5-15.5) g/dL Hct (30.0-51.3) % MCV (80-96) fL MCH (27.7-33.6) pg MCHC (32.2-35.4) g/dL RDW (11.5-15.5) % Plt Count (125-369) X10(3)uL MPV (7.4-10.4) fL Neut % (Auto) (46-82) % Lymph % (Auto) (13-37) % [place] % (Auto) (4-12) % Eos % (Auto) (1.0-5.0) % Baso % (Auto) (0-2) % Neut # (Auto) (1.6-8.3) # Lymph # (Auto) (0.6-5.0) # [place] # (Auto) (0.0-1.3) # Eos # (Auto) (0.0-0.8) # Baso # (Auto) (0.0-0.2) # Sodium (135-145) mmol/L Potassium (3.5-5.3) mmol/L Chloride (100-110) mmol/L Carbon Dioxide (21-32) mmol/L BUN (7-18) mg/dL Creatinine (0.55-1.02) mg/dL Est Cr Clr Drug Dosing Estimated GFR (MDRD) (>60) BUN/Creatinine Ratio (9-20) Glucose (80-116) mg/dL Calcium (8.6-10.2) mg/dL Total Bilirubin (0.1-1.3) mg/dL AST (5-25) IU/L ALT (12-36) U/L Alkaline Phosphatase (56-112) IU/L NT-Pro-B Natriuret Pep (<=125) pg/mL Total Protein (6.0-8.0) g/dL Albumin (3.2-4.6) g/dL Globulin g/dL Albumin/Globulin Ratio TSH, Ultra Sensitive (0.36-3.74) IU/mL Urine Color Yellow (YELLOW) Urine Appearance Clear (CLEAR) Urine pH 5.0 (5.0-6.5) Ur Specific [place] 1.015 (1.010-1.025) Urine Protein Negative (NEGATIVE) mg/dL Urine Glucose (UA) Normal (NORMAL) mg/dL Urine Ketones Negative (NEGATIVE) mg/dL Urine Occult Blood Negative (NEGATIVE) Urine Nitrite Negative (NEGATIVE) Urine Bilirubin Negative (NEGATIVE) Urine Urobilinogen Normal (NEGATIVE) mg/dL Ur Leukocyte Esterase Negative (NEGATIVE) Urine RBC 0-5 (0-5) Urine WBC 0-5 (0-5) Ur Squamous Epith Cells Occasional (NS,R,O) Amorphous Sediment Few Urine Bacteria Rare H (NS) Urine Opiates Screen (NEGATIVE) Ur Oxycodone Screen (NEGATIVE) Ur Propoxyphene Screen (NEGATIVE) Ur Barbituates Screen (NEGATIVE) Ur Tricyclics Screen (NEGATIVE) Ur Phencyclidine Scrn (NEGATIVE) Ur Amphetamine Screen (NEGATIVE) Urine MDMA Screen (NEGATIVE) U Benzodiazepines Scrn (NEGATIVE) U Cocaine Metab Screen (NEGATIVE) U Marijuana (THC) Screen (NEGATIVE) Ethyl Alcohol (<0.03) % Meds: Medications Generic Name Dose Route Start Last Admin Trade Name Tristanq PRN Reason Stop Dose Admin Sodium Chloride 1,000 mls @ 500 mls/hr 03/06/19 14:30 03/06/19 14:34 Normal Saline IV 500 mls/hr ASDIRECTED [facility] Administration - Re-Assessments/Exams Free Text/Narrative Re-Assessment/Exam: 03/06/19 18:[address] done and labs : normal still has shortness and breath and was tired labs and UA negative pt given IVf , Neb Head CT negative , was able to keep food down Departure - Departure Time of Disposition: 18:55 Disposition: Home, Self-Care 01 Condition: Fair Clinical Impression: Headache, COPD (chronic obstructive pulmonary disease) CHF NYHA class II (symptoms with moderately strenuous activities) Qualifiers: Congestive heart failure type: systolic - Discharge Information *PRESCRIPTION DRUG MONITORING PROGRAM REVIEWED*: Not Applicable *COPY OF PRESCRIPTION DRUG MONITORING REPORT IN PATIENT THUY: Not Applicable Instructions: Analgesic Rebound Headache, General Headache Without Cause, Easy- to-Read, Supporting Someone With Heart Failure, Preventing Heart Failure Sepsis Event Note - Focused Exam Vital Signs: Vital Signs Temp Pulse Resp BP Pulse Ox 03/06/19 14:00 36.7 C 87 18 136/81 92 L Date Exam was Performed: 03/06/19 Time Exam was Performed: 18:17 - My Orders Last 24 Hours: My Active Orders 03/06/19 14:30 Sodium Chloride 0.9% [Normal Saline] 1,000 ml IV ASDIRECTED - Assessment/Plan Last 24 Hours: My Active Orders 03/06/19 14:30 Sodium Chloride 0.9% [Normal Saline] 1,000 ml IV ASDIRECTED
[2019-03-06 15:20] VITALS: PULSE 87
--- NOTE | 2019-03-06 16:36 | CT ---
INDICATION: Fell and hit the front of her head headache, confusion. CT HEAD WITHOUT CONTRAST: Spiral 3.75 mm axial sections were obtained through the brain without contrast with sagittal and coronal reconstructions 02/3019 and compared with 09/16/18. Total exam DLP was 1399.62 mGy-cm. There are calcifications in the internal carotid arteries as previously. Subcortical lacunar infarcts and some generalized patchy focal areas of decreased density are noted in the white matter compatible with cerebrovascular disease. No finding to strongly suggest an acute intracranial abnormality was identified, although a new tiny lacunar infarct is suggested in the basal ganglia on the left. Overall, no gross increase in microvascular type changes was seen. No bleeding site or hematoma was noted. No shift of midline structures or ventricular abnormalities were seen with mild asymmetry of the lateral ventricles likely a normal variant. Previous evidence of sinusitis has resolved with paranasal sinuses well aerated. The mastoid air cells are well aerated. No cranial abnormality was suggested. IMPRESSION: 1. No definite acute intracranial abnormality. 2. Lacunar infarcts and microvascular disease type changes in the white matter with internal carotid artery calcifications. 3. Resolution of previous paranasal sinusitis. 4. Resolution of fat stranding in the soft tissues of the right cheek most likely representing resolution of a posttraumatic change or cellulitis. Report was called to Dr. Red at 1613 hours. [facility]
--- NOTE | 2019-03-06 16:39 | CR ---
INDICATION: Fall striking right shoulder with pain. RIGHT SHOULDER: Three views of the right shoulder revealed minimal degenerative changes at the AC and to a lesser extent glenohumeral joints. A definite acute fracture or dislocation was not identified. IMPRESSION: Relatively minimal osteoarthritis. MTDD
--- NOTE | 2019-03-06 16:46 | CR ---
INDICATION: CHF, COPD. CHEST, ONE VIEW: AP upright view of the chest 03/06/19 was compared with again revealing the heart to be enlarged. Upper lung field pulmonary vasculature is less prominent than on the previous study possibly representing minimal chronic or early or simply minimal CHF. Heavy markings are noted at the right lung base raising question of atelectasis, fibrosis, and/or patchy pneumonia in that area. Heavy markings are also suggest to the lower lobe on the left and make it difficult to exclude minimal patchy bronchopneumonia in that area. IMPRESSION: 1. ASHD cardiomegaly with suggestion of minimal early or minimal chronic CHF. 2. Cannot exclude bibasilar pneumonia. 3. Exogenous obesity. MTDD
[2019-03-06 19:35] VITALS: BP 132/56
== END 2019-03-06 19:25 | disposition home or self-care (01) ==
LOC: FB.ED 13:56
DX: R51 Headache (principal); J44.9 Chronic obstructive pulmonary disease, unspecified; I11.0 Hypertensive heart disease with heart failure; I50.20 Unspecified systolic (congestive) heart failure; I50.9 Heart failure, unspecified; K21.9 Gastro-esophageal reflux disease without esophagitis; F32.9 Major depressive disorder, single episode, unspecified; G20 Parkinson's disease; F41.9 Anxiety disorder, unspecified; M10.9 Gout, unspecified; E66.9 Obesity, unspecified; Z68.44 Body mass index [BMI] 60.0-69.9, adult; Z88.8 Allergy status to other drugs, medicaments and biological substances; Z91.048 Other nonmedicinal substance allergy status; Z88.1 Allergy status to other antibiotic agents; Z91.018 Allergy to other foods; Z79.899 Other long term (current) drug therapy; Z79.51 Long term (current) use of inhaled steroids
CPT/HCPCS: 36415; 70450; 71045; 73030-RT; 80053; 80305-QW; 81001; 82962; 83880; 84443; 85025; 96360; 96361; 99283; 99285-25; G0480; J7030

== ENCOUNTER 2019-07-28 13:17 | Inpatient (IN) | payer MEDICARE, MEDICAID, OTHER ==
[2019-07-28] MEDS ORDERED: Furosemide 40 MG/4 ML VIAL IVPUSH ONE (13:45)
--- NOTE | 2019-07-28 13:52 | EDM.PDOC ---
ED HPI GENERAL MEDICAL PROBLEM - General Chief Complaint: Cardiovascular Problem Stated Complaint: CHF Time Seen by Provider: 07/28/19 13:47 Source of Information: Reports: Patient History Limitations: Reports: No Limitations - History of Present Illness INITIAL COMMENTS - FREE TEXT/NARRATIVE: Presents with SOB and BLE swelling x 3 days. She increased her 02 from 2L to 4L last night due to increased SOB. Patient endorses orthopnea and cough. She has had 20 lb weight gain in 2 weeks. PMHx is significant for 02 dep COPD (2L 02), CHF, and COPD. Patient denies chest pain. Continues to smoke cigarettes. She had a virtual visit today with her PCP who advised her to come to the ED to be admitted to the hospital. Duration: Day(s): (3) Severity: Moderate - Related Data Allergies Allergy/AdvReac Type Severity Reaction Status Date / Time adhesive tape Allergy Other Verified 03/06/19 14:27 baclofen Allergy Other Verified 03/06/19 14:27 eletriptan [From Relpax] Allergy Other Verified 03/06/19 14:27 erythromycin base Allergy Itching Verified 03/06/19 14:27 strawberry Allergy Hives Verified 03/06/19 14:27 Home Meds: Home Meds Montelukast [Singulair] 10 mg PO BEDTIME 02/07/16 [History] Albuterol Sulfate [Proair Hfa] 2 puff INH Q4H PRN 07/29/18 [History] Furosemide 40 mg PO BID@08,12 07/29/18 [History] ALPRAZolam [Alprazolam] 0.25 - 0.5 mg PO BEDTIME PRN 09/17/18 [History] Cyanocobalamin (Vitamin B-12) [Vitamin B-12] 5,000 mcg PO DAILY 09/17/18 [History] Gabapentin [Neurontin] 600 mg PO TID 09/17/18 [History] Mirtazapine 22.5 mg PO BEDTIME 09/17/18 [History] PARoxetine [Paxil] 60 mg PO BEDTIME 09/17/18 [History] allopurinoL [Zyloprim] 200 mg PO DAILY 09/17/18 [History] Cholecalciferol (Vitamin D3) [Vitamin D3] 2,000 unit PO BID 11/19/18 [History] metOLazone [Metolazone] 2.5 mg PO Q72H PRN 11/19/18 [History] Fluconazole 150 mg PO ONETIME PRN 07/28/19 [History] Magnesium Oxide [Magnesium] 500 mg PO DAILY 07/28/19 [History] Pantoprazole [ProTONIX] 40 mg PO BID 07/28/19 [History] Tiotropium [place] [Spiriva Respimat] 2 puff INH DAILY 07/28/19 [History] rOPINIRole [Requip] 3 mg PO DAILY@1930 07/28/19 [History] Past Medical History HEENT History: Reports: Allergic Rhinitis, Cataract, Impaired Vision Other HEENT History: MYOFASCIAL PAIN DYSFUNCTION SYNDROME Cardiovascular History: Reports: Heart Failure, Hypertension, SOB on Exertion Respiratory History: Reports: COPD, Pneumonia, Recurrent Gastrointestinal History: Reports: Cholelithiasis, GERD W[employer] WE[employer]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: Reports: , Other (See Below) 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 Musculoskeletal History: Reports: Back Pain, Chronic, Gout, RA, Other (See [place]) Other Musculoskeletal History: restless legs Neurological History: Reports: Parkinson's, Other (See Below) Other Neuro History: restlesslegs, NECK PAIN Psychiatric History: Reports: Anxiety, Depression Endocrine/Metabolic History: Reports: Obesity/BMI 30+ - Past Surgical History HEENT Surgical History: Reports: Cataract Surgery GI Surgical History: Reports: Hernia Repair/Other Other GI Surgeries/Procedures: Abdominal surgery Female Surgical History: Reports: Hysterectomy Neurological Surgical History: Reports: C-Spine Musculoskeletal Surgical History: Reports: Knee Replacement Other Musculoskeletal Surgeries/Procedures:: L knee Social & Family History - Family History Family Medical History: Noncontributory - Tobacco Use Smoking Status *Q: Current Every Day Smoker Tobacco Use Within Last Twelve Months: Cigarettes - Caffeine Use Caffeine Use: Reports: Coffee, Energy Drinks, Soda Caffeine Use Comment: two cups of coffee a day, and energy drink a day, and diet coke - Living Situation & Occupation Living situation: Reports: Occupation: Unemployed ED ROS GENERAL - Review of Systems Review Of Systems: Comprehensive ROS is negative, except as noted in HPI. ED EXAM, GENERAL - Physical Exam Exam: See Below Exam Limited By: No Limitations General Appearance: Alert, WD/WN, No Apparent Distress Nose: Normal Inspection Throat/Mouth: No Airway Compromise Head: Atraumatic, Normocephalic Respiratory/Chest: No Respiratory Distress, Lungs Clear, Normal Breath Sounds Cardiovascular: Regular Rate, Rhythm, No Murmur Extremities: Normal Range of Motion, Pedal Edema Neurological: Alert, Normal Cognition Psychiatric: Normal Affect, Normal Mood Skin Exam: Warm, Dry, Intact, Normal Color, No Rash EKG INTERPRETATION EKG Date: 07/28/19 Time: 14:06 Rhythm: NSR Rate (Beats/Min): 64 [place]: Normal P-Wave: Present QRS: Normal ST-T: Normal QT: Normal Comparison: No Change (09/16/18) Course - Vital Signs Last Recorded V/S: Last Vital Signs Temp 36.7 C 07/28/19 13:17 Pulse 74 07/28/19 16:10 Resp 20 07/28/19 16:10 BP 135/61 07/28/19 16:10 Pulse Ox 97 07/28/19 16:10 - Orders/Labs/Meds Orders: Active Orders 24 hr Category Date Time Status Admission Status [Patient Status] [ADT] Routine ADT 07/28/19 15:56 Active EKG Documentation Completion [RC] ASDIRECTED Care 07/28/19 13:43 Active Ang Chest [CT] Stat Exams 07/28/19 14:58 Taken CXR [Chest 2V] [CR] Stat Exams 07/28/19 13:43 Taken BLOOD GAS VENOUS [BG] Stat Lab 07/28/19 13:50 Received CORONAVIRUS COVID-19 YESY [MOLEC] Routine Lab 07/28/19 16:02 Received Sodium Chloride 0.9% [Saline Flush] Med 07/28/19 13:43 Active 10 ml FLUSH ASDIRECTED PRN Saline Lock Insert [OM.PC] Routine Oth 07/28/19 13:43 Ordered EKG 12 Lead [EK] Stat Ther 07/28/19 13:43 Ordered Medication Orders Sodium Chloride (Saline Flush) 10 ml FLUSH ASDIRECTED PRN PRN Reason: Keep Vein Open Last Admin: 07/28/19 14:42 Dose: 10 ml Documented by: MILAGRO Labs: Laboratory Tests 07/28/19 07/28/19 07/28/19 Range/Units 13:25 13:50 13:50 WBC 10.5 (4.5-12.0) X10-3/uL RBC 3.87 (3.23-5.20) x10(6)uL Hgb 9.1 L (11.5-15.5) g/dL Hct 29.2 L (30.0-51.3) % MCV 75.5 L (80-96) fL MCH 23.5 L (27.7-33.6) pg MCHC 31.1 L (32.2-35.4) g/dL RDW 19.5 H (11.5-15.5) % Plt Count 408 H (125-369) X10(3)uL MPV 7.7 (7.4-10.4) fL Neut % (Auto) 64.5 (46-82) % Lymph % (Auto) 26.1 (13-37) % Emery % (Auto) 6.0 (4-12) % Eos % (Auto) 3 (1.0-5.0) % Baso % (Auto) 0 (0-2) % Neut # (Auto) 6.9 (1.6-8.3) # Lymph # (Auto) 2.7 (0.6-5.0) # Emery # (Auto) 0.6 (0.0-1.3) # Eos # (Auto) 0.3 (0.0-0.8) # Baso # (Auto) 0.0 (0.0-0.2) # PT 10.6 (9.0-11.1) sec INR 0.98 L (1.00-1.24) APTT 23.9 L (24.4-33.2) SECONDS D-Dimer, Quantitative 3.65 H (0.0-0.59) mg/LFEU POC VBG pH 7.36 (7.31-7.41) POC VBG pCO2 65.5 H (41-51) mmHG POC VBG HCO3 37.2 H (23-28) mmol/L POC VBG Total CO2 39 H (24-29) mmol/L POC VBG Base Excess 12 H (-2-3) mmol/L Sodium (135-145) mmol/L Potassium (3.5-5.3) mmol/L Chloride (100-110) mmol/L Carbon Dioxide (21-32) mmol/L BUN (7-18) mg/dL Creatinine (0.55-1.02) mg/dL Est Cr Clr Drug Dosing Estimated GFR (MDRD) (>60) BUN/Creatinine Ratio (9-20) Glucose (80-116) mg/dL Calcium (8.6-10.2) mg/dL Magnesium (1.8-2.5) mg/dL Total Bilirubin (0.1-1.3) mg/dL AST (5-25) IU/L ALT (12-36) U/L Alkaline Phosphatase (56-112) IU/L Troponin I (4.0-60.3) pg/mL NT-Pro-B Natriuret Pep (<=125) pg/mL Total Protein (6.0-8.0) g/dL Albumin (3.2-4.6) g/dL Globulin g/dL Albumin/Globulin Ratio Ethyl Alcohol (<0.03) % 07/28/19 07/28/19 07/28/19 Range/Units 13:50 13:50 13:50 WBC (4.5-12.0) X10-3/uL RBC (3.23-5.20) x10(6)uL Hgb (11.5-15.5) g/dL Hct (30.0-51.3) % MCV (80-96) fL MCH (27.7-33.6) pg MCHC (32.2-35.4) g/dL RDW (11.5-15.5) % Plt Count (125-369) X10(3)uL MPV (7.4-10.4) fL Neut % (Auto) (46-82) % Lymph % (Auto) (13-37) % Emery % (Auto) (4-12) % Eos % (Auto) (1.0-5.0) % Baso % (Auto) (0-2) % Neut # (Auto) (1.6-8.3) # Lymph # (Auto) (0.6-5.0) # Emery # (Auto) (0.0-1.3) # Eos # (Auto) (0.0-0.8) # Baso # (Auto) (0.0-0.2) # PT (9.0-11.1) sec INR (1.00-1.24) APTT (24.4-33.2) SECONDS D-Dimer, Quantitative (0.0-0.59) mg/LFEU POC VBG pH (7.31-7.41) POC VBG pCO2 (41-51) mmHG POC VBG HCO3 (23-28) mmol/L POC VBG Total CO2 (24-29) mmol/L POC VBG Base Excess (-2-3) mmol/L Sodium 143 (135-145) mmol/L Potassium 3.9 (3.5-5.3) mmol/L Chloride 102 (100-110) mmol/L Carbon Dioxide 36 H (21-32) mmol/L BUN 25 H (7-18) mg/dL Creatinine 1.0 (0.55-1.02) mg/dL Est Cr Clr Drug Dosing TNP Estimated GFR (MDRD) 54 L (>60) BUN/Creatinine Ratio 25.0 H (9-20) Glucose 110 (80-116) mg/dL Calcium 9.1 (8.6-10.2) mg/dL Magnesium 2.0 (1.8-2.5) mg/dL Total Bilirubin 0.4 (0.1-1.3) mg/dL AST 20 D (5-25) IU/L ALT 24 D (12-36) U/L Alkaline Phosphatase 148 H (56-112) IU/L Troponin I (4.0-60.3) pg/mL NT-Pro-B Natriuret Pep 765 H (<=125) pg/mL Total Protein 6.9 (6.0-8.0) g/dL Albumin 3.5 (3.2-4.6) g/dL Globulin 3.4 g/dL Albumin/Globulin Ratio 1.0 Ethyl Alcohol (<0.03) % 07/28/19 07/28/19 Range/Units 13:50 13:50 WBC (4.5-12.0) X10-3/uL RBC (3.23-5.20) x10(6)uL Hgb (11.5-15.5) g/dL Hct (30.0-51.3) % MCV (80-96) fL MCH (27.7-33.6) pg MCHC (32.2-35.4) g/dL RDW (11.5-15.5) % Plt Count (125-369) X10(3)uL MPV (7.4-10.4) fL Neut % (Auto) (46-82) % Lymph % (Auto) (13-37) % [place]y % (Auto) (4-12) % Eos % (Auto) (1.0-5.0) % Baso % (Auto) (0-2) % Neut # (Auto) (1.6-8.3) # Lymph # (Auto) (0.6-5.0) # Emery # (Auto) (0.0-1.3) # Eos # (Auto) (0.0-0.8) # Baso # (Auto) (0.0-0.2) # PT (9.0-11.1) sec INR (1.00-1.24) APTT (24.4-33.2) SECONDS D-Dimer, Quantitative (0.0-0.59) mg/LFEU POC VBG pH (7.31-7.41) POC VBG pCO2 (41-51) mmHG POC VBG HCO3 (23-28) mmol/L POC VBG Total CO2 (24-29) mmol/L POC VBG Base Excess (-2-3) mmol/L Sodium (135-145) mmol/L Potassium (3.5-5.3) mmol/L Chloride (100-110) mmol/L Carbon Dioxide (21-32) mmol/L BUN (7-18) mg/dL Creatinine (0.55-1.02) mg/dL Est Cr Clr Drug Dosing Estimated GFR (MDRD) (>60) BUN/Creatinine Ratio (9-20) Glucose (80-116) mg/dL Calcium (8.6-10.2) mg/dL Magnesium (1.8-2.5) mg/dL Total Bilirubin (0.1-1.3) mg/dL AST (5-25) IU/L ALT (12-36) U/L Alkaline Phosphatase (56-112) IU/L Troponin I 20.5 (4.0-60.3) pg/mL NT-Pro-B Natriuret Pep (<=125) pg/mL Total Protein (6.0-8.0) g/dL Albumin (3.2-4.6) g/dL Globulin g/dL Albumin/Globulin Ratio Ethyl Alcohol < 0.03 (<0.03) % Meds: Medications Generic Name Dose Route Start Last Admin Trade Name Freq PRN Reason Stop Dose Admin Sodium Chloride 10 ml 07/28/19 13:43 07/28/19 14:42 Saline Flush FLUSH 10 ml ASDIRECTED PRN Administration Keep Vein Open Discontinued Medications Generic Name Dose Route Start Last Admin Trade Name Freq PRN Reason Stop Dose Admin Enoxaparin Sodium 110 mg 07/28/19 15:51 Lovenox SUBCUT 07/28/19 15:52 ONETIME ONE Furosemide 40 mg 07/28/19 13:45 07/28/19 14:42 Lasix IVPUSH 07/28/19 13:46 40 mg NOW ONE Administration Iopamidol 100 ml 07/28/19 15:10 07/28/19 15:30 Isovue-370 (76%) IV 07/28/19 15:11 100 ml . DIRECTED ONE Administration - Radiology Interpretation Free Text/Narrative:: CTA chest: RLL subsegmental pulmonary embolus. Pulmonary vascular congestion. Possible bibasilar pneumonia. (per Dr. Hernandez) - Re-Assessments/Exams Free Text/Narrative Re-Assessment/Exam: 07/28/19 16:30 Dr. Mckeon will admit to [facility]. Departure - Departure Time of Disposition: 15:55 Disposition: Admitted As Inpatient 66 Condition: Fair Clinical Impression: Pulmonary embolus, right CHF exacerbation Qualifiers: Heart failure type: unspecified Qualified Code(s): I50.9 - Heart failure, unspecified Referrals: PCP,None [Ordering Only Provider] - Forms: ED Department Discharge Sepsis Event Note (ED) - Focused Exam Vital Signs: Vital Signs Temp Pulse Resp BP Pulse Ox Pulse Ox 07/28/19 16:10 74 20 135/61 97 07/28/19 13:17 36.7 C 71 20 157/122 H 96 95 - My Orders Last 24 Hours: My Active Orders 07/28/19 13:43 EKG Documentation Completion [RC] ASDIRECTED CXR [Chest 2V] [CR] Stat Sodium Chloride 0.9% [Saline Flush] 10 ml FLUSH ASDIRECTED PRN Saline Lock Insert [OM.PC] Routine EKG 12 Lead [EK] Stat 07/28/19 13:50 BLOOD GAS VENOUS [BG] Stat 07/28/19 14:58 Ang Chest [CT] Stat 07/28/19 15:56 Admission Status [Patient Status] [ADT] Routine 07/28/19 16:02 CORONAVIRUS COVID-19 YESY [MOLEC] Routine - Assessment/Plan Last 24 Hours: My Active Orders 07/28/19 13:43 EKG Documentation Completion [RC] ASDIRECTED CXR [Chest 2V] [CR] Stat Sodium Chloride 0.9% [Saline Flush] 10 ml FLUSH ASDIRECTED PRN Saline Lock Insert [OM.PC] Routine EKG 12 Lead [EK] Stat 07/28/19 13:50 BLOOD GAS VENOUS [BG] Stat 07/28/19 14:58 Ang Chest [CT] Stat 07/28/19 15:56 Admission Status [Patient Status] [ADT] Routine 07/28/19 16:02 CORONAVIRUS COVID-19 YESY [MOLEC] Routine
[2019-07-28] MEDS: Sodium Chloride 0.9% 10 ML Syringe FLUSH PRN (14:42)
[2019-07-28] MEDS ORDERED: Iopamidol 755 Mg/ML 100 ML Bottle IV ONE (15:10)
[2019-07-28] MEDS ORDERED: Enoxaparin 120 MG/0.8 ML Syringe SUBCUT ONE (15:51)
--- NOTE | 2019-07-28 17:31 | CR ---
INDICATION: Short of breath. CHEST, TWO VIEWS: AP and lateral views of the chest 07/28/19 were compared with 03/06/19 and 09/16/18. Evidence of exogenous obesity is again noted. The heart is enlarged. The aorta is somewhat tortuous. Pulmonary vasculature appears slightly congested raising question of a mild or early CHF. Interstitial lung edema is difficult to exclude with a poor inspiration present. It is also difficult to exclude patchy bronchopneumonia at the lung bases. Moderate degenerative changes noted in the mid thoracic spine. Evidence of fusion surgery is noted at the lower cervical spine. IMPRESSION: 1. ASHD, cardiomegaly, probable mild CHF. Minimal interstitial lung edema may be present. 2. Cannot exclude areas of patchy bronchopneumonia at the lung bases. 3. Exogenous obesity. 4. DJD spine. MTDD
--- NOTE | 2019-07-28 18:05 | CT ---
INDICATION: Short of breath. PE protocol. Question PE. CT ANGIOGRAPHY OF THE CHEST WITH CONTRAST: Spiral 1.25 mm axial sections were obtained through the chest with 100 mL Isovue-370 at 3.5 mm/second with sagittal and coronal reconstructions 07/28/19 and compared with 04/30/18. Total exam DLP was 945.71 mGy-cm. Heavy markings are noted at the lung bases with the possibility of minimal patchy pneumonia unable to be excluded. There appears to be some pulmonary vascular congestion and with the enlarged heart which is apparently increased in size, findings suggest the possibility of CHF and interstitial lung edema. However, no gross consolidating pneumonia or significant pleural reaction - pleural effusion was identified. A mild degree of emphysematous change is suggested. Mediastinal lymphadenopathy is noted which is moderate and may be on the basis os previous inflammatory disease but is nonspecific. It may be minimally more prominent than on the previous examination. The upper abdomen included on the study showed evidence of previous gastric surgery, renal cortical scarring, and suggestion of cholelithiasis with the possibility of chronic cholecystitis. The gallbladder was not enlarged, however. In two third order adjacent pulmonary arteries extending into the right lower lobe, there is pulmonary embolus which does not appear to be obstructive. Pulmonary emboli were identified. IMPRESSION: 1. Limited pulmonary embolus in third order pulmonary arteries to the right lower lobe which appear to be in the apical posterior segment. 2. Cannot exclude a mild CHF and interstitial lung edema. 3. Cannot exclude minimal patchy pneumonia at the lung bases. Report was called to Dr. Swift at 1539 hours. [facility]
[2019-07-28] MEDS ORDERED: Albuterol 8 GM Inhaler INH PRN (18:10)
[2019-07-28] MEDS ORDERED: Metolazone 2.5 MG Tab PO PRN (18:10)
[2019-07-28] MEDS ORDERED: Enoxaparin 100 MG/1 ML Syringe SUBCUT SCH (18:30)
--- NOTE | 2019-07-28 18:42 | PCM.HP.2 ---
H&P History of Present Illness - General Date of Service: 07/28/19 Admit Problem/Dx: Admission Diagnosis/Problem Admission Diagnosis/Problem Pulmonary embolism on right Source of Information: Patient, EMS Notes Reviewed - History of Present Illness Initial Comments - Free Text/Narative: Presents with SOB and BLE swelling x 3 days. She increased her oxygen at home from 2L to 4L due to increased SOB. She has orthopnea and cough. She has had 20 lb weight gain in 2 weeks. Left leg swollen. PMHx is significant for 02 dep COPD (2L 02), CHF, and COPD. Patient denies chest pain, palpitations, sore throat. Continues to smoke cigarettes. She had a virtual visit today with her PCP who advised her to come to the ED to be admitted to the hospital. She denies any nausea, vomiting, constipation or diarrhea. No rashes. No dysuria, frequency or hematuria. back Pain Score (Numeric/FACES): 10 - Related Data Allergies/Adverse Reactions: Allergies Allergy/AdvReac Type Severity Reaction Status Date / Time adhesive tape Allergy Other Verified 03/06/19 14:27 baclofen Allergy Other Verified 03/06/19 14:27 eletriptan [From Relpax] Allergy Other Verified 03/06/19 14:27 erythromycin base Allergy Itching Verified 03/06/19 14:27 strawberry Allergy Hives Verified 03/06/19 14:27 Home Medications: Home Meds Montelukast [Singulair] 10 mg PO BEDTIME 02/07/16 [History] Albuterol Sulfate [Proair Hfa] 2 puff INH Q4H PRN 07/29/18 [History] Furosemide 40 mg PO BID@,12 07/29/18 [History] ALPRAZolam [Alprazolam] 0.25 - 0.5 mg PO BEDTIME PRN 09/17/18 [History] Cyanocobalamin (Vitamin B-12) [Vitamin B-12] 5,000 mcg PO DAILY 09/17/18 [History] Gabapentin [Neurontin] 600 mg PO TID 09/17/18 [History] Mirtazapine 22.5 mg PO BEDTIME 09/17/18 [History] PARoxetine [Paxil] 60 mg PO BEDTIME 09/17/18 [History] allopurinoL [Zyloprim] 200 mg PO DAILY 09/17/18 [History] Cholecalciferol (Vitamin D3) [Vitamin D3] 2,000 unit PO BID 11/19/18 [History] metOLazone [Metolazone] 2.5 mg PO Q72H PRN 11/19/18 [History] Fluconazole 150 mg PO ONETIME PRN 07/28/19 [History] Magnesium Oxide [Magnesium] 500 mg PO DAILY 07/28/19 [History] Pantoprazole [ProTONIX] 40 mg PO BID 07/28/19 [History] Tiotropium [place] [Spiriva Respimat] 2 puff INH DAILY 07/28/19 [History] rOPINIRole [Requip] 3 mg PO DAILY@1930 07/28/19 [History] Past Medical History HEENT History: Reports: Allergic Rhinitis, Cataract, Impaired Vision Other HEENT History: MYOFASCIAL PAIN DYSFUNCTION SYNDROME Cardiovascular History: Reports: Heart Failure, Hypertension, SOB on Exertion Respiratory History: Reports: COPD, Pneumonia, Recurrent Other Respiratory History: Wears O2 @ hs. 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: , Other (See Below) Other OB/BYN History: 3 Musculoskeletal History: Reports: Back Pain, Chronic, Gout, RA, Other (See Below) Other Musculoskeletal History: restless legs Neurological History: Reports: Parkinson's, Other (See Below) Other Neuro History: restlesslegs, NECK PAIN Psychiatric History: Reports: Anxiety, Depression Endocrine/Metabolic History: Reports: Obesity/BMI 30+ - Past Surgical History HEENT Surgical History: Reports: Cataract Surgery GI Surgical History: Reports: Hernia Repair/Other Other GI Surgeries/Procedures: Abdominal surgery Female Surgical History: Reports: Hysterectomy Neurological Surgical History: Reports: C-Spine Musculoskeletal Surgical History: Reports: Knee Replacement Other Musculoskeletal Surgeries/Procedures:: L knee Social & Family History - Family History Family Medical History: Noncontributory - Tobacco Use Smoking Status *Q: Current Every Day Smoker Years of Tobacco use: 60 Packs/Tins Daily: 1 - Caffeine Use Caffeine Use: Reports: Coffee, Energy Drinks, Soda Caffeine Use Comment: two cups of coffee a day, and energy drink a day, and diet coke - Living Situation & Occupation Living situation: Reports: Occupation: Unemployed H&P Review of Systems - Review of Systems: Review Of Systems: Comprehensive ROS is negative, except as noted in HPI. Exam - Exam Exam: See Below - Vital Signs Vital Signs: Last Vital Signs Temp 97.6 F 07/28/19 17:38 Pulse 67 07/28/19 17:38 Resp 20 07/28/19 17:38 BP 127/75 07/28/19 17:38 Pulse Ox 93 L 07/28/19 17:38 Weight: 240 lb - Exam Quality Assessment: Supplemental Oxygen General: Alert, Oriented, Cooperative, Mild Distress HEENT: PERRLA, Conjunctiva Clear, EOMI, Hearing Intact, Mucosa Moist & [place], Normal Nasal Septum, Posterior Pharynx Clear, TMs Clear Neck: Supple, Trachea Midline Lungs: Clear to Auscultation (BUL), Normal Respiratory Effort, Decreased Breath Sounds (rare), Crackles (fine crackles bibasilar), Wheezing Cardiovascular: Regular Rate, Regular Rhythm GI/Abdominal Exam: Normal Bowel Sounds, Soft, Non-Tender, No Distention (Female) Exam: Deferred Rectal (Female) Exam: Deferred Extremities: Pedal Edema (LLE), Leg Pain (LLE) Peripheral Pulses: 2+: Radial (L), Radial (R) Skin: Warm, Dry, Intact Neurological: Cranial Nerves Intact, Normal Speech, Sensation Intact - Patient Data Lab Results Last 24 hrs: Laboratory Results - last 24 hr 07/28/19 07/28/19 07/28/19 Range/Units 13:25 13:50 13:50 WBC 10.5 (4.5-12.0) X10-3/uL RBC 3.87 (3.23-5.20) x10(6)uL Hgb 9.1 L (11.5-15.5) g/dL Hct 29.2 L (30.0-51.3) % MCV 75.5 L (80-96) fL MCH 23.5 L (27.7-33.6) pg MCHC 31.1 L (32.2-35.4) g/dL RDW 19.5 H (11.5-15.5) % Plt Count 408 H (125-369) X10(3)uL MPV 7.7 (7.4-10.4) fL Neut % (Auto) 64.5 (46-82) % Lymph % (Auto) 26.1 (13-37) % [place] % (Auto) 6.0 (4-12) % Eos % (Auto) 3 (1.0-5.0) % Baso % (Auto) 0 (0-2) % Neut # (Auto) 6.9 (1.6-8.3) # Lymph # (Auto) 2.7 (0.6-5.0) # [place] # (Auto) 0.6 (0.0-1.3) # Eos # (Auto) 0.3 (0.0-0.8) # Baso # (Auto) 0.0 (0.0-0.2) # PT 10.6 (9.0-11.1) sec INR 0.98 L (1.00-1.24) APTT 23.9 L (24.4-33.2) SECONDS D-Dimer, Quantitative 3.65 H (0.0-0.59) mg/LFEU POC VBG pH 7.36 (7.31-7.41) POC VBG pCO2 65.5 H (41-51) mmHG POC VBG HCO3 37.2 H (23-28) mmol/L POC VBG Total CO2 39 H (24-29) mmol/L POC VBG Base Excess 12 H (-2-3) mmol/L Sodium (135-145) mmol/L Potassium (3.5-5.3) mmol/L Chloride (100-110) mmol/L Carbon Dioxide (21-32) mmol/L BUN (7-18) mg/dL Creatinine (0.55-1.02) mg/dL Est Cr Clr Drug Dosing Estimated GFR (MDRD) (>60) BUN/Creatinine Ratio (9-20) Glucose (80-116) mg/dL Calcium (8.6-10.2) mg/dL Magnesium (1.8-2.5) mg/dL Total Bilirubin (0.1-1.3) mg/dL AST (5-25) IU/L ALT (12-36) U/L Alkaline Phosphatase (56-112) IU/L Troponin I (4.0-60.3) pg/mL NT-Pro-B Natriuret Pep (<=125) pg/mL Total Protein (6.0-8.0) g/dL Albumin (3.2-4.6) g/dL Globulin g/dL Albumin/Globulin Ratio Ethyl Alcohol (<0.03) % SARS Virus RNA (PCR) (NEGATIVE) 07/28/19 07/28/19 07/28/19 Range/Units 13:50 13:50 13:50 WBC (4.5-12.0) X10-3/uL RBC (3.23-5.20) x10(6)uL Hgb (11.5-15.5) g/dL Hct (30.0-51.3) % MCV (80-96) fL MCH (27.7-33.6) pg MCHC (32.2-35.4) g/dL RDW (11.5-15.5) % Plt Count (125-369) X10(3)uL MPV (7.4-10.4) fL Neut % (Auto) (46-82) % Lymph % (Auto) (13-37) % [place] % (Auto) (4-12) % Eos % (Auto) (1.0-5.0) % Baso % (Auto) (0-2) % Neut # (Auto) (1.6-8.3) # Lymph # (Auto) (0.6-5.0) # [place] # (Auto) (0.0-1.3) # Eos # (Auto) (0.0-0.8) # Baso # (Auto) (0.0-0.2) # PT (9.0-11.1) sec INR (1.00-1.24) APTT (24.4-33.2) SECONDS D-Dimer, Quantitative (0.0-0.59) mg/LFEU POC VBG pH (7.31-7.41) POC VBG pCO2 (41-51) mmHG POC VBG HCO3 (23-28) mmol/L POC VBG Total CO2 (24-29) mmol/L POC VBG Base Excess (-2-3) mmol/L Sodium 143 (135-145) mmol/L Potassium 3.9 (3.5-5.3) mmol/L Chloride 102 (100-110) mmol/L Carbon Dioxide 36 H (21-32) mmol/L BUN 25 H (7-18) mg/dL Creatinine 1.0 (0.55-1.02) mg/dL Est Cr Clr Drug Dosing TNP Estimated GFR (MDRD) 54 L (>60) BUN/Creatinine Ratio 25.0 H (9-20) Glucose 110 (80-116) mg/dL Calcium 9.1 (8.6-10.2) mg/dL Magnesium 2.0 (1.8-2.5) mg/dL Total Bilirubin 0.4 (0.1-1.3) mg/dL AST 20 D (5-25) IU/L ALT 24 D (12-36) U/L Alkaline Phosphatase 148 H (56-112) IU/L Troponin I (4.0-60.3) pg/mL NT-Pro-B Natriuret Pep 765 H (<=125) pg/mL Total Protein 6.9 (6.0-8.0) g/dL Albumin 3.5 (3.2-4.6) g/dL Globulin 3.4 g/dL Albumin/Globulin Ratio 1.0 Ethyl Alcohol (<0.03) % SARS Virus RNA (PCR) (NEGATIVE) 07/28/19 07/28/19 07/28/19 Range/Units 13:50 13:50 16:02 WBC (4.5-12.0) X10-3/uL RBC (3.23-5.20) x10(6)uL Hgb (11.5-15.5) g/dL Hct (30.0-51.3) % MCV (80-96) fL MCH (27.7-33.6) pg MCHC (32.2-35.4) g/dL RDW (11.5-15.5) % Plt Count (125-369) X10(3)uL MPV (7.4-10.4) fL Neut % (Auto) (46-82) % Lymph % (Auto) (13-37) % [place] % (Auto) (4-12) % Eos % (Auto) (1.0-5.0) % Baso % (Auto) (0-2) % Neut # (Auto) (1.6-8.3) # Lymph # (Auto) (0.6-5.0) # [place] # (Auto) (0.0-1.3) # Eos # (Auto) (0.0-0.8) # Baso # (Auto) (0.0-0.2) # PT (9.0-11.1) sec INR (1.00-1.24) APTT (24.4-33.2) SECONDS D-Dimer, Quantitative (0.0-0.59) mg/LFEU POC VBG pH (7.31-7.41) POC VBG pCO2 (41-51) mmHG POC VBG HCO3 (23-28) mmol/L POC VBG Total CO2 (24-29) mmol/L POC VBG Base Excess (-2-3) mmol/L Sodium (135-145) mmol/L Potassium (3.5-5.3) mmol/L Chloride (100-110) mmol/L Carbon Dioxide (21-32) mmol/L BUN (7-18) mg/dL Creatinine (0.55-1.02) mg/dL Est Cr Clr Drug Dosing Estimated GFR (MDRD) (>60) BUN/Creatinine Ratio (9-20) Glucose (80-116) mg/dL Calcium (8.6-10.2) mg/dL Magnesium (1.8-2.5) mg/dL Total Bilirubin (0.1-1.3) mg/dL AST (5-25) IU/L ALT (12-36) U/L Alkaline Phosphatase (56-112) IU/L Troponin I 20.5 (4.0-60.3) pg/mL NT-Pro-B Natriuret Pep (<=125) pg/mL Total Protein (6.0-8.0) g/dL Albumin (3.2-4.6) g/dL Globulin g/dL Albumin/Globulin Ratio Ethyl Alcohol < 0.03 (<0.03) % SARS Virus RNA (PCR) Negative (NEGATIVE) Result Diagrams: 07/28/19 13:50 07/28/19 13:50 Zachary Results Last 24 hrs: Microbiology 07/28/19 14:58 Stool Occult Blood (ZACHARY) - Final Stool / Feces CT showed Right PE with some CHF. Sepsis Event Note - Evaluation Sepsis Screening Result: No Definite Risk - Focused Exam Vital Signs: Vital Signs Temp Pulse Resp BP Pulse Ox Pulse Ox 07/28/19 17:38 97.6 F 67 20 127/75 93 L 07/28/19 17:30 97.6 F 67 20 127/75 93 L 07/28/19 16:10 74 20 135/61 97 07/28/19 13:17 98.0 F 71 20 157/122 H 96 95 Date Exam was Performed: 07/28/19 Time Exam was Performed: 18:37 *Q Meaningful Use (ADM) - VTE *Q VTE Mechanical Contraindications *Q: DT, Suspected - Problem List (1) Acute exacerbation of CHF (congestive heart failure) SNOMED Code(s): 601908467, 84138238229560 ICD Code: I50.9 - HEART FAILURE, UNSPECIFIED Status: Acute Current Visit: No Qualifiers: Heart failure type: diastolic Qualified Code(s): I50.33 - Acute on chronic diastolic (congestive) heart failure (2) Pulmonary embolus, right SNOMED Code(s): 33119009 ICD Code: I26.99 - OTHER PULMONARY EMBOLISM WITHOUT ACUTE COR PULMONALE Status: Acute Current Visit: Yes (3) COPD (chronic obstructive pulmonary disease) SNOMED Code(s): 99917653 ICD Code: J44.9 - CHRONIC OBSTRUCTIVE PULMONARY DISEASE, UNSPECIFIED Status: Chronic Current Visit: No (4) CHF NYHA class II (symptoms with moderately strenuous activities) SNOMED Code(s): 482329785, 634399844 ICD Code: I50.9 - HEART FAILURE, UNSPECIFIED Status: Chronic Current Visit: No Qualifiers: Congestive heart failure type: systolic (5) Chronic back pain SNOMED Code(s): 780894384 ICD Code: M54.9 - DORSALGIA, UNSPECIFIED; G89.29 - OTHER CHRONIC PAIN Status: Chronic Current Visit: No Qualifiers: Back pain location: low back pain Back pain laterality: midline Sciatica presence: without sciatica Qualified Code(s): M54.5 - Low back pain; G89.29 - Other chronic pain; G89.29 - Other chronic pain (6) Depression SNOMED Code(s): 63068502 ICD Code: F32.9 - MAJOR DEPRESSIVE DISORDER, SINGLE EPISODE, UNSPECIFIED Status: Chronic Priority: High Current Visit: No Qualifiers: Depression Type: major depressive disorder Active/Remission status: currently active Major depression episode severity: mild (7) Incontinence of urine in female SNOMED Code(s): 993418933, 115428443 ICD Code: R32 - UNSPECIFIED URINARY INCONTINENCE Status: Chronic Current Visit: No (8) Insomnia disorder SNOMED Code(s): 584961443 ICD Code: G47.00 - INSOMNIA, UNSPECIFIED Status: Chronic Current Visit: No Qualifiers: Insomnia type: unspecified Qualified Code(s): G47.00 - Insomnia, unspecified (9) Morbid obesity with BMI of 40.0-44.9, adult SNOMED Code(s): 177585901, 34355480309407 ICD Code: E66.01 - MORBID (SEVERE) OBESITY DUE TO EXCESS CALORIES; Z68.41 - BODY MASS INDEX (BMI) 40.0-44.9, ADULT Status: Chronic Current Visit: No (10) Palliative care status SNOMED Code(s): 183291571 ICD Code: Z51.5 - ENCOUNTER FOR PALLIATIVE CARE Status: Chronic Current Visit: No (11) Polypharmacy SNOMED Code(s): 002071988 ICD Code: Z79.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 - 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 Status: Chronic Priority: High Current Visit: No (12) Restless legs syndrome (RLS) SNOMED Code(s): 14750761 ICD Code: G25.81 - RESTLESS LEGS SYNDROME Status: Chronic Current Visit: No (13) Tobacco dependence due to cigarettes SNOMED Code(s): 98796973078704356 ICD Code: F17.210 - NICOTINE DEPENDENCE, CIGARETTES, UNCOMPLICATED Status: Chronic Current Visit: No Problem List Initiated/Reviewed/Updated: Yes Orders Last 24hrs: Active Orders 24 hr Category Date Time Status Admission Status [Patient Status] [ADT] Routine ADT 07/28/19 15:56 Active EKG Documentation Completion [RC] ASDIRECTED Care 07/28/19 13:43 Active Height and Weight [RC] DAILY Care 07/28/19 18:06 Active Intake and Output [RC] QSHIFT Care 07/28/19 18:07 Active Oxygen Therapy [RC] PRN Care 07/28/19 18:06 Active RT Post Treatment Assessment [RC] Click to Edit Care 07/28/19 18:12 Active Up With Assistance [RC] ASDIRECTED Care 07/28/19 18:06 Active Up to Chair [RC] ASDIRECTED Care 07/28/19 18:06 Active VTE/DVT Education [RC] Per Unit Routine Care 07/28/19 18:06 Active Vital Signs [RC] Q4H Care 07/28/19 18:06 Active Heart Healthy Diet [DIET] Diet 07/28/19 Dinner Active BASIC METABOLIC PANEL,BMP [CHEM] Routine Lab 07/29/19 05:00 Ordered ALPRAZolam [Xanax] Med 07/28/19 18:10 Active 0.25 mg PO BEDTIME PRN Albuterol [Ventolin HFA] Med 07/28/19 18:10 Active 0 gm INH Q4H PRN Enoxaparin [Lovenox] Med 07/28/19 18:30 Active 110 mg SUBCUT Q12H Furosemide [Lasix] Med 07/29/19 08:00 Active 40 mg IVPUSH BIDDIURETIC Gabapentin [Neurontin] Med 07/28/19 21:00 Active 600 mg PO TID Magnesium Oxide Med 07/28/19 21:00 Ordered 400 mg PO BEDTIME Magnesium Oxide [Magnesium] Med 07/29/19 09:00 Pending 500 mg PO DAILY Mirtazapine [Remeron] Med 07/28/19 21:00 Active 22.5 mg PO BEDTIME Montelukast [Singulair] Med 07/28/19 21:00 Active 10 mg PO BEDTIME PARoxetine [Paxil] Med 07/28/19 21:00 Active 60 mg PO BEDTIME Pantoprazole [ProTONIX] Med 07/28/19 21:00 Active 40 mg PO BID Sodium Chloride 0.9% [Saline Flush] Med 07/28/19 13:43 Active 10 ml FLUSH ASDIRECTED PRN Tiotropium [place] [Spiriva Respimat] Med 07/29/19 09:00 Active 0 gm INH DAILY allopurinoL [Zyloprim] Med 07/29/19 09:00 Active 200 mg PO DAILY metOLazone [Zaroxolyn] Med 07/28/19 18:10 Active 2.5 mg PO Q72H PRN rOPINIRole [Requip] Med 07/28/19 19:30 Active 3 mg PO DAILY@1930 Saline Lock Insert [OM.PC] Routine Oth 07/28/19 13:43 Ordered VTE Mechanical Contraindications [AST] Per Unit Routine Oth 07/28/19 18:06 Ordered Resuscitation Status Routine Resus Stat 07/28/19 17:51 Ordered EKG 12 Lead [EK] Stat Ther 07/28/19 13:43 Ordered Medication Orders Albuterol (Ventolin Hfa) 0 gm INH Q4H PRN PRN Reason: Shortness of Breath Allopurinol (Zyloprim) 200 mg PO DAILY MARCK Alprazolam (Xanax) 0.25 mg PO BEDTIME PRN PRN Reason: Anxiety Enoxaparin Sodium (Lovenox) 110 mg SUBCUT Q12H MARCK Furosemide (Lasix) 40 mg IVPUSH BIDDIURETIC MARCK Gabapentin (Neurontin) 600 mg PO TID MARCK Metolazone (Zaroxolyn) 2.5 mg PO Q72H PRN PRN Reason: WEIGHT GAIN > 5LBS Mirtazapine (Remeron) 22.5 mg PO BEDTIME MARCK Montelukast Sodium (Singulair) 10 mg PO BEDTIME MARCK Non-Formulary Medication (Magnesium Oxide [Magnesium]) 500 mg PO DAILY MARCK Pantoprazole Sodium (Protonix) 40 mg PO BID MARCK Paroxetine HCl (Paxil) 60 mg PO BEDTIME MARCK Ropinirole HCl (Requip) 3 mg PO DAILY@1930 MARCK Sodium Chloride (Saline Flush) 10 ml FLUSH ASDIRECTED PRN PRN Reason: Keep Vein Open Last Admin: 07/28/19 14:42 Dose: 10 ml Documented by: MILAGRO Tiotropium [place] (Spiriva Respimat) 0 gm INH DAILY [facility] Assessment/Plan Comment:: 1. Admit for PE on right, CHF exacerbation, COPD. 2. Lovenox 110 mg q12, LLE ultrasound tomorrow. 3. Lasix 40 mg IV bid, I&Os, daily weight. Repeat labs tomorrow. 4. Oxygen to keep sats between 88-92%. 5. Heart Health diet. 6. Resume home medications. 7. Up with assistance, up to chair. 8. DNR/DNI - Mortality Measure Prognosis:: Good
[2019-07-28] MEDS: Enoxaparin 120 MG/0.8 ML Syringe SUBCUT SCH (18:48)
[2019-07-28] MEDS: rOPINIRole 1 MG Tab PO SCH (22:03)
[2019-07-28] MEDS: Magnesium Oxide 400 MG Tab PO SCH (22:04)
[2019-07-28] MEDS: Gabapentin 600 MG Tab PO SCH (22:04)
[2019-07-28] MEDS: Montelukast 10 MG Tab PO SCH (22:06)
[2019-07-28] MEDS: Mirtazapine 15 MG Tab PO SCH (22:06)
[2019-07-28] MEDS: Pantoprazole 40 MG Tab.CR PO SCH (22:06)
[2019-07-28] MEDS: PARoxetine 20 MG Tab PO SCH (22:20)
[2019-07-28] MEDS: ALPRAZolam 0.25 MG Tab PO PRN (22:42)
[2019-07-29] MEDS: Enoxaparin 120 MG/0.8 ML Syringe SUBCUT SCH ×2 (06:10→18:03)
[2019-07-29] MEDS: Acetaminophen 325 MG Tab PO PRN ×2 (06:11→14:54)
[2019-07-29] MEDS: Tiotropium Bromide 4 GM Inhalation Spray (2.5mcg/1 dose; 10 doses) INH SCH (08:39)
[2019-07-29] MEDS: Furosemide 40 MG/4 ML VIAL IVPUSH SCH ×2 (08:40→14:53)
[2019-07-29] MEDS: Pantoprazole 40 MG Tab.CR PO SCH ×2 (08:40→20:00)
[2019-07-29] MEDS: Gabapentin 600 MG Tab PO SCH ×3 (08:40→20:05)
[2019-07-29] MEDS: Allopurinol 100 MG Tab PO SCH (08:41)
[2019-07-29] MEDS: Sodium Chloride 0.9% 10 ML Syringe FLUSH PRN ×2 (08:45→14:57)
[2019-07-29] MEDS ORDERED: Enoxaparin 100 MG/1 ML Syringe SUBCUT SCH (09:00)
[2019-07-29] MEDS ORDERED: Non-Formulary Medication 1 Each (Magnesium Oxide [Magnesium] 500 MG) PO SCH (09:00)
--- NOTE | 2019-07-29 10:59 | US ---
INDICATION: History of PE. Left leg swelling with question of DVT left lower extremity. DUPLEX ULTRASOUND LEFT LOWER EXTREMITY VEINS: Utilizing 2-D real time, duplex Doppler spectral analysis and color flow imaging, examination of the left lower extremity veins, including the common femoral vein, proximal greater saphenous vein, proximal deep femoral vein, proximal femoral vein, mid femoral vein, distal femoral vein, popliteal vein, posterior tibial vein, anterior tibial vein, and peroneal vein, revealed no evidence of deep venous thrombosis or obstruction. Compression views showed no abnormal lack of compression to suggest thrombosis. Difficulty in visualizing the posterior tibial vein was present with this patient. No evidence of incompetence of the valves was identified. IMPRESSION: Duplex ultrasound, left lower extremity veins, shows no evidence of deep venous thrombosis or incompetence. MTDD
--- NOTE | 2019-07-29 17:09 | PCM.PN ---
- General Info Date of Service: 07/29/19 Admission Dx/Problem (Free Text): Belinda feels breathing is a little better. Ultrasound showed no DVT in left leg. Her right shoulder is bothering her this morning, hurts to lift it past 90 degrees. No numbness or tingling. Cracks and pops. Functional Status: Reports: Tolerating Diet, Urinating - Patient Data Vitals - Most Recent: Last Vital Signs Temp 98.1 F 07/29/19 16:00 Pulse 82 07/29/19 16:00 Resp 18 07/29/19 16:00 BP 144/68 H 07/29/19 16:00 Pulse Ox 95 07/29/19 16:00 Weight - Most Recent: 243 lb 8 oz I&O - Last 24 Hours: Intake & Output 07/29/19 07/29/19 07/29/19 06:59 14:59 22:59 Intake Total 100 480 Output Total 500 850 Balance -400 -370 Lab Results Last 24 Hours: Laboratory Results - last 24 hr 07/28/19 07/29/19 Range/Units 16:02 06:30 Sodium 141 (135-145) mmol/L Potassium 3.6 (3.5-5.3) mmol/L Chloride 102 (100-110) mmol/L Carbon Dioxide 34 H (21-32) mmol/L BUN 23 H (7-18) mg/dL Creatinine 1.1 H (0.55-1.02) mg/dL Est Cr Clr Drug Dosing 34.37 mL/min Estimated GFR (MDRD) 49 L (>60) BUN/Creatinine Ratio 20.9 H (9-20) Glucose 107 (80-116) mg/dL Calcium 8.6 (8.6-10.2) mg/dL SARS Virus RNA (PCR) Negative (NEGATIVE) Zachary Results Last 24 Hours: Microbiology 07/28/19 14:58 Stool Occult Blood (ZACHARY) - Final Stool / Feces Med Orders - Current: Current Medications Acetaminophen (Tylenol) 650 mg PO Q4H PRN PRN Reason: Pain Last Admin: 07/29/19 14:54 Dose: 650 mg Documented by: Albuterol (Ventolin Hfa) 0 gm INH Q4H PRN PRN Reason: Shortness of Breath Allopurinol (Zyloprim) 200 mg PO DAILY MARCK Last Admin: 07/29/19 08:41 Dose: 200 mg Documented by: Alprazolam (Xanax) 0.25 mg PO BEDTIME PRN PRN Reason: Anxiety Last Admin: 07/28/19 22:42 Dose: 0.25 mg Documented by: Apixaban (Eliquis) 10 mg PO BID [facility] Enoxaparin Sodium (Lovenox) 110 mg SUBCUT Q12H MARCK Stop: 07/30/19 07:01 Last Admin: 07/29/19 06:10 Dose: 110 mg Documented by: Furosemide (Lasix) 40 mg IVPUSH BIDDIURETIC [facility] Last Admin: 07/29/19 14:53 Dose: 40 mg Documented by: Gabapentin (Neurontin) 600 mg PO TID [facility] Last Admin: 07/29/19 14:53 Dose: 600 mg Documented by: Magnesium Oxide (Magnesium Oxide) 400 mg PO BEDTIME [facility] Last Admin: 07/28/19 22:04 Dose: 400 mg Documented by: Metolazone (Zaroxolyn) 2.5 mg PO Q72H PRN PRN Reason: WEIGHT GAIN > 5LBS Mirtazapine (Remeron) 22.5 mg PO BEDTIME [facility] Last Admin: 07/28/19 22:06 Dose: 22.5 mg Documented by: Montelukast Sodium (Singulair) 10 mg PO BEDTIME [facility] Last Admin: 07/28/19 22:06 Dose: 10 mg Documented by: Pantoprazole Sodium (Protonix) 40 mg PO BID [facility] Last Admin: 07/29/19 08:40 Dose: 40 mg Documented by: Paroxetine HCl (Paxil) 60 mg PO BEDTIME [facility] Last Admin: 07/28/19 22:20 Dose: 60 mg Documented by: Ropinirole HCl (Requip) 3 mg PO DAILY@1930 [facility] Last Admin: 07/28/19 22:03 Dose: 3 mg Documented by: Sodium Chloride (Saline Flush) 10 ml FLUSH ASDIRECTED PRN PRN Reason: Keep Vein Open Last Admin: 07/29/19 14:57 Dose: 10 ml Documented by: Tiotropium [place] (Spiriva Respimat) 0 gm INH DAILY [facility] Last Admin: 07/29/19 08:39 Dose: 2 gm Documented by: Discontinued Medications Enoxaparin Sodium (Lovenox) 110 mg SUBCUT ONETIME ONE Stop: 07/28/19 15:52 Last Admin: 07/29/19 03:47 Dose: Not Given Documented by: Enoxaparin Sodium (Lovenox) 110 mg SUBCUT Q12H [facility] Enoxaparin Sodium (Lovenox) 110 mg SUBCUT Q12H [facility] Last Admin: 07/29/19 03:47 Dose: Not Given Documented by: Furosemide (Lasix) 40 mg IVPUSH NOW ONE Stop: 07/28/19 13:46 Last Admin: 07/28/19 14:42 Dose: 40 mg Documented by: Iopamidol (Isovue-370 (76%)) 100 ml IV . DIRECTED ONE Stop: 07/28/19 15:11 Last Admin: 07/28/19 15:30 Dose: 100 ml Documented by: Non-Formulary Medication (Magnesium Oxide [Magnesium]) 500 mg PO DAILY [facility]CK Paroxetine HCl (Paxil) 60 mg PO BEDTIME [facility] Last Admin: 07/29/19 03:47 Dose: Not Given Documented by: - Exam General: Alert, Oriented, Cooperative, No Acute Distress Lungs: Clear to Auscultation (BUL), Normal Respiratory Effort, Decreased Breath Sounds (BLL), Crackles (Bibasilar). No: Wheezing Cardiovascular: Regular Rate, Regular Rhythm GI/Abdominal Exam: Normal Bowel Sounds, Soft, Non-Tender, No Distention Extremities: Vandana's Sign (positive on left), Leg Pain (Left), Limited Range of Motion (Right shoulder, TTP over glenohumeral joint, crepitus noted). No: Joint Swelling, Increased Warmth, Redness Peripheral Pulses: 2+: Brachial (R), Radial (L) Sepsis Event Note - Evaluation Sepsis Screening Result: No Definite Risk - Focused Exam Vital Signs: Vital Signs Temp Pulse Resp BP Pulse Ox 07/29/19 16:00 98.1 F 82 18 144/68 H 95 07/29/19 12:00 98.2 F 68 16 92 L 07/29/19 08:00 98 F 88 18 112/59 L 92 L 07/29/19 05:45 98.1 F 70 20 130/78 92 L Date Exam was Performed: 07/29/19 Time Exam was Performed: 17:01 - Problem List & Annotations (1) Acute exacerbation of CHF (congestive heart failure) SNOMED Code(s): 592608374, 96747715504799 Code(s): I50.9 - HEART FAILURE, UNSPECIFIED Status: Acute Current Visit: No Qualifiers: Heart failure type: diastolic Qualified Code(s): I50.33 - Acute on chronic diastolic (congestive) heart failure (2) Pulmonary embolus, right SNOMED Code(s): 66815755 Code(s): I26.99 - OTHER PULMONARY EMBOLISM WITHOUT ACUTE COR PULMONALE Status: Acute Current Visit: Yes (3) COPD (chronic obstructive pulmonary disease) SNOMED Code(s): 03476399 Code(s): J44.9 - CHRONIC OBSTRUCTIVE PULMONARY DISEASE, UNSPECIFIED Status: Chronic Current Visit: No (4) CHF NYHA class II (symptoms with moderately strenuous activities) SNOMED Code(s): 948055027, 362161278 Code(s): I50.9 - HEART FAILURE, UNSPECIFIED Status: Chronic Current Visit: No Qualifiers: Congestive heart failure type: systolic (5) Chronic back pain SNOMED Code(s): 371903318 Code(s): M54.9 - DORSALGIA, UNSPECIFIED; G89.29 - OTHER CHRONIC PAIN Status: Chronic Current Visit: No Qualifiers: Back pain location: low back pain Back pain laterality: midline Sciatica presence: without sciatica Qualified Code(s): M54.5 - Low back pain; G89.29 - Other chronic pain; G89.29 - Other chronic pain (6) Depression SNOMED Code(s): 17594994 Code(s): F32.9 - MAJOR DEPRESSIVE DISORDER, SINGLE EPISODE, UNSPECIFIED Status: Chronic Priority: High Current Visit: No Qualifiers: Depression Type: major depressive disorder Active/Remission status: currently active Major depression episode severity: mild (7) Incontinence of urine in female SNOMED Code(s): 779341429, 086133604 Code(s): R32 - UNSPECIFIED URINARY INCONTINENCE Status: Chronic Current Visit: No (8) Insomnia disorder SNOMED Code(s): 656218393 Code(s): G47.00 - INSOMNIA, UNSPECIFIED Status: Chronic Current Visit: No Qualifiers: Insomnia type: unspecified Qualified Code(s): G47.00 - Insomnia, unspecified (9) Morbid obesity with BMI of 40.0-44.9, adult SNOMED Code(s): 658780064, 89852661742164 Code(s): E66.01 - MORBID (SEVERE) OBESITY DUE TO EXCESS CALORIES; Z68.41 - BODY MASS INDEX (BMI) 40.0-44.9, ADULT Status: Chronic Current Visit: No (10) Palliative care status SNOMED Code(s): 814648142 Code(s): Z51.5 - ENCOUNTER FOR PALLIATIVE CARE Status: Chronic Current Visit: No (11) Polypharmacy SNOMED Code(s): 452587329 Code(s): Z79.899 - OTHER SENIOR CARE (CURRENT) DRUG THERAPY Status: Chronic Priority: High Current Visit: No (12) Restless legs syndrome (RLS) SNOMED Code(s): 76257138 Code(s): G25.81 - RESTLESS LEGS SYNDROME Status: Chronic Current Visit: No (13) Tobacco dependence due to cigarettes SNOMED Code(s): 63563465416850942 Code(s): F17.210 - NICOTINE DEPENDENCE, CIGARETTES, UNCOMPLICATED Status: Chronic Current Visit: No (14) Right shoulder pain SNOMED Code(s): 07809638, 21968191 Code(s): M25.511 - PAIN IN RIGHT SHOULDER Status: Acute Current Visit: Yes - Problem List Review Problem List Initiated/Reviewed/Updated: Yes - My Orders Last 24 Hours: My Active Orders 07/28/19 Dinner Heart Healthy Diet [DIET] 07/28/19 17:51 Resuscitation Status Routine 07/28/19 18:06 Height and Weight [RC] 06 Oxygen Therapy [RC] .PRN Up With Assistance [RC] .PRN Up to Chair [RC] .PRN Vital Signs [RC] 00,04,08,12,16,20 VTE Mechanical Contraindications [AST] Per Unit Routine 07/28/19 18:07 Intake and Output [RC] 06,14,22 07/28/19 18:10 ALPRAZolam [Xanax] 0.25 mg PO BEDTIME PRN Albuterol [Ventolin HFA] 0 gm INH Q4H PRN metOLazone [Zaroxolyn] 2.5 mg PO Q72H PRN 07/28/19 19:00 Enoxaparin [Lovenox] 110 mg SUBCUT Q12H 07/28/19 19:30 rOPINIRole [Requip] 3 mg PO DAILY@1930 07/28/19 21:00 Gabapentin [Neurontin] 600 mg PO TID Magnesium Oxide 400 mg PO BEDTIME Mirtazapine [Remeron] 22.5 mg PO BEDTIME Montelukast [Singulair] 10 mg PO BEDTIME Pantoprazole [ProTONIX] 40 mg PO BID 07/29/19 05:52 Acetaminophen [Tylenol] 650 mg PO Q4H PRN 07/29/19 08:00 Furosemide [Lasix] 40 mg IVPUSH BIDDIURETIC 07/29/19 09:00 Tiotropium [place] [Spiriva Respimat] 0 gm INH DAILY allopurinoL [Zyloprim] 200 mg PO DAILY 07/29/19 13:50 Shoulder Comp Rt [CR] Routine 07/29/19 21:00 PARoxetine [Paxil] 60 mg PO BEDTIME 07/30/19 05:00 BASIC METABOLIC PANEL,BMP [CHEM] Routine 07/30/19 19:00 Apixaban [Eliquis] 10 mg PO BID - Plan Plan:: 1. Lovenox 110 mg q12 x 4 doses then start Eliquis 10 mg bid x 7 days then 5 mg bid, LLE ultrasound negative for DVT. 2. Lasix 40 mg IV bid, I&Os, daily weight. Repeat labs tomorrow. 3. Oxygen to keep sats between 88-92%. 4. Heart Health diet. 5. Right shoulder x-ray showed osteoarthritis: ibuprofen 200 mg q6h, tylenol 500 mg q6h.
--- NOTE | 2019-07-29 17:12 | CR ---
INDICATION: Right shoulder pain, no trauma. RIGHT SHOULDER: Three views of the right shoulder were obtained 07/29/19 - no comparison shoulder x-ray. Subluxation of the humerus inferiorly is noted suggesting laxity of the joint capsule. Minimal degenerative changes are noted at the glenohumeral joint with the joint space appearing to be maintained. A definite acute fracture or dislocation was not identified. Moderate degenerative changes noted at the AC joint. There is an appearance suggesting pulmonary vascular congestion in the adjacent lung. Adjacent ribs appear to be fairly intact. IMPRESSION: 1. Relative subluxation of the humerus inferiorly at the glenohumeral joint. 2. Mild osteoarthritis. 3. There may be a degree of pulmonary vascular congestion present - possible CHF. Correlate clinically. MTDD
[2019-07-29] MEDS: rOPINIRole 1 MG Tab PO SCH (18:35)
[2019-07-29] MEDS: Magnesium Oxide 400 MG Tab PO SCH (20:05)
[2019-07-29] MEDS: Montelukast 10 MG Tab PO SCH (20:06)
[2019-07-29] MEDS: PARoxetine 20 MG Tab PO SCH (20:06)
[2019-07-29] MEDS: Mirtazapine 15 MG Tab PO SCH (20:06)
[2019-07-29] MEDS: ALPRAZolam 0.25 MG Tab PO PRN (21:49)
[2019-07-29] MEDS: Ibuprofen 200 MG Tab PO SCH (22:12)
[2019-07-29] MEDS: Acetaminophen 325 MG Tab PO SCH (22:14)
[2019-07-30] MEDS: Acetaminophen 325 MG Tab PO SCH (04:12)
[2019-07-30] MEDS: Ibuprofen 200 MG Tab PO SCH ×4 (04:15→22:14)
[2019-07-30] MEDS: Enoxaparin 120 MG/0.8 ML Syringe SUBCUT SCH (07:03)
[2019-07-30] MEDS: Pantoprazole 40 MG Tab.CR PO SCH ×2 (08:35→21:24)
[2019-07-30] MEDS: Tiotropium Bromide 4 GM Inhalation Spray (2.5mcg/1 dose; 10 doses) INH SCH (08:36)
[2019-07-30] MEDS: Allopurinol 100 MG Tab PO SCH (08:37)
[2019-07-30] MEDS: Gabapentin 600 MG Tab PO SCH ×3 (08:41→21:22)
[2019-07-30] MEDS ORDERED: Torsemide 20 MG Tab PO SCH (09:00)
[2019-07-30] MEDS: Furosemide 40 MG/4 ML VIAL IVPUSH SCH (10:24)
[2019-07-30] MEDS: Acetaminophen 500 MG Tab PO SCH ×3 (11:16→22:14)
[2019-07-30] MEDS: Triamcinolone Acetonide 0.1% Crm 15 GM Tube TOP SCH ×2 (11:22→21:18)
--- NOTE | 2019-07-30 16:55 | PCM.PN ---
- General Info Date of Service: 07/30/19 Admission Dx/Problem (Free Text): Belinda's weight is up from yesterday, had 750 ml out yesterday. Right shoulder x- ray showed osteoarthritis and some laxity of joint capsule. Shortness of breath stable, oxygen requirement back to baseline at 2L. No nausea or vomiting. No DVT on ultrasound yesterday. Functional Status: Reports: Pain Controlled, Tolerating Diet, Ambulating, Urinating - Patient Data Vitals - Most Recent: Last Vital Signs Temp 98.2 F 07/30/19 12:40 Pulse 71 07/30/19 12:40 Resp 22 H 07/30/19 12:40 BP 106/57 L 07/30/19 12:40 Pulse Ox 94 L 07/30/19 12:40 Weight - Most Recent: 248 lb I&O - Last 24 Hours: Intake & Output 07/30/19 07/30/19 07/30/19 06:59 14:59 22:59 Intake Total 100 1260 Output Total 200 600 Balance -100 660 Lab Results Last 24 Hours: Laboratory Results - last 24 hr 07/30/19 Range/Units 07:25 Sodium 142 (135-145) mmol/L Potassium 3.6 (3.5-5.3) mmol/L Chloride 100 (100-110) mmol/L Carbon Dioxide 39 H (21-32) mmol/L BUN 29 H (7-18) mg/dL Creatinine 1.3 H (0.55-1.02) mg/dL Est Cr Clr Drug Dosing 29.08 mL/min Estimated GFR (MDRD) 40 L (>60) BUN/Creatinine Ratio 22.3 H (9-20) Glucose 96 (80-116) mg/dL Calcium 8.9 (8.6-10.2) mg/dL Med Orders - Current: Current Medications Acetaminophen (Tylenol Extra Strength) 500 mg PO Q6H MARCK Last Admin: 07/30/19 16:14 Dose: 500 mg Documented by: Albuterol (Ventolin Hfa) 0 gm INH Q4H PRN PRN Reason: Shortness of Breath Allopurinol (Zyloprim) 200 mg PO DAILY MARCK Last Admin: 07/30/19 08:37 Dose: 200 mg Documented by: Alprazolam (Xanax) 0.25 mg PO BEDTIME PRN PRN Reason: Anxiety Last Admin: 07/29/19 21:49 Dose: 0.25 mg Documented by: Apixaban (Eliquis) 10 mg PO BID [facility] Gabapentin (Neurontin) 600 mg PO TID [facility] Last Admin: 07/30/19 13:41 Dose: 600 mg Documented by: Ibuprofen (Motrin) 200 mg PO Q6H [facility] Last Admin: 07/30/19 16:14 Dose: 200 mg Documented by: Magnesium Oxide (Magnesium Oxide) 400 mg PO BEDTIME [facility] Last Admin: 07/29/19 20:05 Dose: 400 mg Documented by: Metolazone (Zaroxolyn) 2.5 mg PO Q72H PRN PRN Reason: WEIGHT GAIN > 5LBS Mirtazapine (Remeron) 22.5 mg PO BEDTIME [facility] Last Admin: 07/29/19 20:06 Dose: 22.5 mg Documented by: Montelukast Sodium (Singulair) 10 mg PO BEDTIME [facility] Last Admin: 07/29/19 20:06 Dose: 10 mg Documented by: Pantoprazole Sodium (Protonix) 40 mg PO BID [facility] Last Admin: 07/30/19 08:35 Dose: 40 mg Documented by: Paroxetine HCl (Paxil) 60 mg PO BEDTIME [facility] Last Admin: 07/29/19 20:06 Dose: 60 mg Documented by: Ropinirole HCl (Requip) 3 mg PO DAILY@1930 [facility] Last Admin: 07/29/19 18:35 Dose: 3 mg Documented by: Sodium Chloride (Saline Flush) 10 ml FLUSH ASDIRECTED PRN PRN Reason: Keep Vein Open Last Admin: 07/29/19 14:57 Dose: 10 ml Documented by: Tiotropium [place] (Spiriva Respimat) 0 gm INH DAILY [facility] Last Admin: 07/30/19 08:36 Dose: 4 gm Documented by: Torsemide (Demadex) 20 mg PO DAILY [facility] Last Admin: 07/30/19 08:50 Dose: 20 mg Documented by: Triamcinolone Acetonide (Triamcinolone Acetonide 0.1% Crm) 0 gm TOP BID [facility] Stop: 08/06/19 10:46 Last Admin: 07/30/19 11:22 Dose: 1 applicful Documented by: Discontinued Medications Acetaminophen (Tylenol) 650 mg PO Q4H PRN PRN Reason: Pain Last Admin: 07/29/19 14:54 Dose: 650 mg Documented by: Acetaminophen (Tylenol) 500 mg PO Q6H [facility] Last Admin: 07/30/19 04:12 Dose: 500 mg Documented by: Enoxaparin Sodium (Lovenox) 110 mg SUBCUT ONETIME ONE Stop: 07/28/19 15:52 Last Admin: 07/29/19 03:47 Dose: Not Given Documented by: Enoxaparin Sodium (Lovenox) 110 mg SUBCUT Q12H [facility] Enoxaparin Sodium (Lovenox) 110 mg SUBCUT Q12H [facility] Last Admin: 07/29/19 03:47 Dose: Not Given Documented by: Enoxaparin Sodium (Lovenox) 110 mg SUBCUT Q12H [facility] Stop: 07/30/19 07:01 Last Admin: 07/30/19 07:03 Dose: 110 mg Documented by: Furosemide (Lasix) 40 mg IVPUSH NOW ONE Stop: 07/28/19 13:46 Last Admin: 07/28/19 14:42 Dose: 40 mg Documented by: Furosemide (Lasix) 40 mg IVPUSH BIDDIURETIC [facility] Last Admin: 07/30/19 10:24 Dose: Not Given Documented by: Iopamidol (Isovue-370 (76%)) 100 ml IV . DIRECTED ONE Stop: 07/28/19 15:11 Last Admin: 07/28/19 15:30 Dose: 100 ml Documented by: Non-Formulary Medication (Magnesium Oxide [Magnesium]) 500 mg PO DAILY [facility] Paroxetine HCl (Paxil) 60 mg PO BEDTIME [facility] Last Admin: 07/29/19 03:47 Dose: Not Given Documented by: - Exam Quality Assessment: Supplemental Oxygen General: Alert, Oriented, Cooperative, No Acute Distress Lungs: Clear to Auscultation (BUL), Normal Respiratory Effort, Decreased Breath Sounds (BLL), Crackles (R>L), Wheezing (occasional) Cardiovascular: Regular Rate, Regular Rhythm GI/Abdominal Exam: Normal Bowel Sounds, Soft, Non-Tender, No Distention Extremities: Pedal Edema (2+ BLE) Sepsis Event Note - Evaluation Sepsis Screening Result: No Definite Risk - Focused Exam Vital Signs: Vital Signs Temp Pulse Resp BP Pulse Ox 07/30/19 12:40 98.2 F 71 22 H 106/57 L 94 L 07/30/19 07:35 98.2 F 75 20 140/76 96 Date Exam was Performed: 07/30/19 Time Exam was Performed: 16:51 - Problem List & Annotations (1) Acute exacerbation of CHF (congestive heart failure) SNOMED Code(s): 744070726, 88918453558702 Code(s): I50.9 - HEART FAILURE, UNSPECIFIED Status: Acute Current Visit: No Qualifiers: Heart failure type: diastolic Qualified Code(s): I50.33 - Acute on chronic diastolic (congestive) heart failure (2) Pulmonary embolus, right SNOMED Code(s): 83113151 Code(s): I26.99 - OTHER PULMONARY EMBOLISM WITHOUT ACUTE COR PULMONALE Status: Acute Current Visit: Yes (3) COPD (chronic obstructive pulmonary disease) SNOMED Code(s): 33162096 Code(s): J44.9 - CHRONIC OBSTRUCTIVE PULMONARY DISEASE, UNSPECIFIED Status: Chronic Current Visit: No (4) CHF NYHA class II (symptoms with moderately strenuous activities) SNOMED Code(s): 662537832, 924503361 Code(s): I50.9 - HEART FAILURE, UNSPECIFIED Status: Chronic Current Visit: No Qualifiers: Congestive heart failure type: systolic (5) Chronic back pain SNOMED Code(s): 387495390 Code(s): M54.9 - DORSALGIA, UNSPECIFIED; G89.29 - OTHER CHRONIC PAIN Status: Chronic Current Visit: No Qualifiers: Back pain location: low back pain Back pain laterality: midline Sciatica presence: without sciatica Qualified Code(s): M54.5 - Low back pain; G89.29 - Other chronic pain; G89.29 - Other chronic pain (6) Depression SNOMED Code(s): 24311496 Code(s): F32.9 - MAJOR DEPRESSIVE DISORDER, SINGLE EPISODE, UNSPECIFIED Status: Chronic Priority: High Current Visit: No Qualifiers: Depression Type: major depressive disorder Active/Remission status: currently active Major depression episode severity: mild (7) Incontinence of urine in female SNOMED Code(s): 242662574, 160328617 Code(s): R32 - UNSPECIFIED URINARY INCONTINENCE Status: Chronic Current Visit: No (8) Insomnia disorder SNOMED Code(s): 606332421 Code(s): G47.00 - INSOMNIA, UNSPECIFIED Status: Chronic Current Visit: No Qualifiers: Insomnia type: unspecified Qualified Code(s): G47.00 - Insomnia, unspecified (9) Morbid obesity with BMI of 40.0-44.9, adult SNOMED Code(s): 174611807, 92113659875290 Code(s): E66.01 - MORBID (SEVERE) OBESITY DUE TO EXCESS CALORIES; Z68.41 - BODY MASS INDEX (BMI) 40.0-44.9, ADULT Status: Chronic Current Visit: No (10) Palliative care status SNOMED Code(s): 501179053 Code(s): Z51.5 - ENCOUNTER FOR PALLIATIVE CARE Status: Chronic Current Visit: No (11) Polypharmacy SNOMED Code(s): 866978524 Code(s): Z79.899 - OTHER INTERNATIONAL OPERATIONS MANAGER (CURRENT) DRUG THERAPY Status: Chronic Priority: High Current Visit: No (12) Restless legs syndrome (RLS) SNOMED Code(s): 71052018 Code(s): G25.81 - RESTLESS LEGS SYNDROME Status: Chronic Current Visit: No (13) Tobacco dependence due to cigarettes SNOMED Code(s): 10603707806197467 Code(s): F17.210 - NICOTINE DEPENDENCE, CIGARETTES, UNCOMPLICATED Status: Chronic Current Visit: No (14) Right shoulder pain SNOMED Code(s): 12978656, 03312990 Code(s): M25.511 - PAIN IN RIGHT SHOULDER Status: Acute Current Visit: Yes - Problem List Review Problem List Initiated/Reviewed/Updated: Yes - My Orders Last 24 Hours: My Active Orders 07/29/19 21:00 PARoxetine [Paxil] 60 mg PO BEDTIME 07/29/19 23:00 Ibuprofen [Motrin] 200 mg PO Q6H 07/30/19 09:00 Torsemide [Demadex] 20 mg PO DAILY 07/30/19 Lunch Regular Diet [DIET] 07/30/19 10:45 Triamcinolone Acetonide [Triamcinolone Acetonide 0.1% Crm] 0 gm TOP BID 07/30/19 11:00 Acetaminophen [Tylenol Extra Strength] 500 mg PO Q6H 07/30/19 19:00 Apixaban [Eliquis] 10 mg PO BID 06/25/20 05:00 BASIC METABOLIC PANEL,BMP [CHEM] Routine - Plan Plan:: 1. Lovenox 110 mg q12 x 4 doses last dose this morning then start Eliquis 10 mg bid tonight x 7 days then 5 mg bid, LLE ultrasound negative for DVT. 2. Lasix discontinued, changed to Torsemide 20 mg daily, I&Os, daily weight. Repeat labs tomorrow. 3. Oxygen to keep sats between 88-92%, currently at 2L. 4. Regular diet. 5. Right shoulder x-ray showed osteoarthritis: ibuprofen 200 mg q6h, tylenol 500 mg q6h.
[2019-07-30] MEDS: rOPINIRole 1 MG Tab PO SCH (18:51)
[2019-07-30] MEDS: Apixaban 5 MG Tab PO SCH (18:52)
[2019-07-30] MEDS: Magnesium Oxide 400 MG Tab PO SCH (21:21)
[2019-07-30] MEDS: Montelukast 10 MG Tab PO SCH (21:23)
[2019-07-30] MEDS: Mirtazapine 15 MG Tab PO SCH (21:24)
[2019-07-30] MEDS: PARoxetine 20 MG Tab PO SCH (21:25)
[2019-07-30] MEDS: ALPRAZolam 0.25 MG Tab PO PRN (21:32)
[2019-07-31] MEDS: Ibuprofen 200 MG Tab PO SCH ×2 (04:26→11:02)
[2019-07-31] MEDS: Acetaminophen 500 MG Tab PO SCH ×2 (04:27→11:02)
[2019-07-31 08:23] VITALS: BP 150/70; PULSE 69
[2019-07-31] MEDS: Gabapentin 600 MG Tab PO SCH ×2 (08:32→14:10)
[2019-07-31] MEDS: Tiotropium Bromide 4 GM Inhalation Spray (2.5mcg/1 dose; 10 doses) INH SCH (08:33)
[2019-07-31] MEDS: Pantoprazole 40 MG Tab.CR PO SCH (08:33)
[2019-07-31] MEDS: Furosemide 40 MG Tab PO SCH ×2 (08:33→11:02)
[2019-07-31] MEDS: Apixaban 5 MG Tab PO SCH (08:35)
[2019-07-31] MEDS: Allopurinol 100 MG Tab PO SCH (08:35)
[2019-07-31] MEDS: Triamcinolone Acetonide 0.1% Crm 15 GM Tube TOP SCH (08:36)
--- NOTE | 2019-07-31 17:22 | PCM.DCSUM1 ---
Discharge Summary - Hospital Course HPI Initial Comments: Presents with SOB and BLE swelling x 3 days. She increased her oxygen at home from 2L to 4L due to increased SOB. She has orthopnea and cough. She has had 20 lb weight gain in 2 weeks. Left leg swollen. PMHx is significant for 02 dep COPD (2L 02), CHF, and COPD. Patient denies chest pain, palpitations, sore throat. Continues to smoke cigarettes. She had a virtual visit today with her PCP who advised her to come to the ED to be admitted to the hospital. She denies any nausea, vomiting, constipation or diarrhea. No rashes. No dysuria, frequency or hematuria. Diagnosis: Stroke: No - Discharge Data Discharge Date: 07/31/19 ([facility]) Discharge Disposition: Home, W Home Health Agency Condition: Stable - Referral to Home Health Date of Face to Face Encounter: 07/31/19 Reason for Homebound Status: doesn't drive Primary Care Physician: Tisha Workman NP Skilled Need: Nursing - Discharge Diagnosis/Problem(s) (1) Acute exacerbation of CHF (congestive heart failure) SNOMED Code(s): 201684065, 07229180100636 ICD Code: I50.9 - HEART FAILURE, UNSPECIFIED Status: Resolved Qualifiers: Heart failure type: diastolic Qualified Code(s): I50.33 - Acute on chronic diastolic (congestive) heart failure (2) Pulmonary embolus, right SNOMED Code(s): 46950087 ICD Code: I26.99 - OTHER PULMONARY EMBOLISM WITHOUT ACUTE COR PULMONALE Status: Acute (3) COPD (chronic obstructive pulmonary disease) SNOMED Code(s): 25921194 ICD Code: J44.9 - CHRONIC OBSTRUCTIVE PULMONARY DISEASE, UNSPECIFIED Status: Chronic (4) CHF NYHA class II (symptoms with moderately strenuous activities) SNOMED Code(s): 356277474, 177585287 ICD Code: I50.9 - HEART FAILURE, UNSPECIFIED Status: Chronic Qualifiers: Congestive heart failure type: systolic (5) Chronic back pain SNOMED Code(s): 378884026 ICD Code: M54.9 - DORSALGIA, UNSPECIFIED; G89.29 - OTHER CHRONIC PAIN Status: Chronic Qualifiers: Back pain location: low back pain Back pain laterality: midline Sciatica presence: without sciatica Qualified Code(s): M54.5 - Low back pain; G89.29 - Other chronic pain; G89.29 - Other chronic pain (6) Depression SNOMED Code(s): 28840001 ICD Code: F32.9 - MAJOR DEPRESSIVE DISORDER, SINGLE EPISODE, UNSPECIFIED Status: Chronic Priority: High Qualifiers: Depression Type: major depressive disorder Active/Remission status: currently active Major depression episode severity: mild (7) Incontinence of urine in female SNOMED Code(s): 197665180, 538028191 ICD Code: R32 - UNSPECIFIED URINARY INCONTINENCE Status: Chronic (8) Insomnia disorder SNOMED Code(s): 152078050 ICD Code: G47.00 - INSOMNIA, UNSPECIFIED Status: Chronic Qualifiers: Insomnia type: unspecified Qualified Code(s): G47.00 - Insomnia, unspe cified (9) Morbid obesity with BMI of 40.0-44.9, adult SNOMED Code(s): 523732174, 32089414761451 ICD Code: E66.01 - MORBID (SEVERE) OBESITY DUE TO EXCESS CALORIES; Z68.41 - BODY MASS INDEX (BMI) 40.0-44.9, ADULT Status: Chronic (10) Palliative care status SNOMED Code(s): 171335685 ICD Code: Z51.5 - ENCOUNTER FOR PALLIATIVE CARE Status: Chronic (11) Polypharmacy SNOMED Code(s): 891149125 ICD Code: Z79.899 - OTHER SNF (CURRENT) DRUG THERAPY Status: Chronic Priority: High (12) Restless legs syndrome (RLS) SNOMED Code(s): 02079339 ICD Code: G25.81 - RESTLESS LEGS SYNDROME Status: Chronic (13) Tobacco dependence due to cigarettes SNOMED Code(s): 48993278455049598 ICD Code: F17.210 - NICOTINE DEPENDENCE, CIGARETTES, UNCOMPLICATED Status: Chronic (14) Right shoulder pain SNOMED Code(s): 55677771, 05473659 ICD Code: M25.511 - PAIN IN RIGHT SHOULDER Status: Acute - Patient Summary/Data Hospital Course: Belinda received Lasix 40 mg IV on admission and bid, had moderate output, switched to Torsemide but didn't have much response. Weight down to 247. She was down to 2L which is her baseline, switched to her home medications had good output today with those. She was complaining of right shoulder pain so x-ray was done, showed some laxity of joint capsule with some arthritis. Schedule Tylenol 500 mg and Ibuprofen 200 mg every 6 hours which controlled pain, will do as needed at home. Also had some eczema on bilateral palms so started Triamcinolone cream 0.1% bid for 7 days. Complained of neck pain with tension-type headache today, declined Icy Hot and warm packs here but wants to do at home. - Patient Instructions Diet: Regular Diet as Tolerated Activity: As Tolerated Driving: Do Not Drive Showering/Bathing: May Shower Notify Provider of: Fever, Increased Pain (shortness of breath or weight gain) Other/Special Instructions: Follow up with Tisha Workman or Krysta Mitchell in 1 week. - Discharge Plan *PRESCRIPTION DRUG MONITORING PROGRAM REVIEWED*: Not Applicable *COPY OF PRESCRIPTION DRUG MONITORING REPORT IN PATIENT THUY: Not Applicable Prescriptions/Med Rec: Apixaban [Eliquis] 10 mg PO BID 6 Days #12 tablet Apixaban [Eliquis] 5 mg PO BID 30 Days #60 tablet Home Medications: Home Meds Montelukast [Singulair] 10 mg PO BEDTIME 02/07/16 [History] Albuterol Sulfate [Proair Hfa] 2 puff INH Q4H PRN 07/29/18 [History] Furosemide 40 mg PO BID@,12 07/29/18 [History] ALPRAZolam [Alprazolam] 0.25 - 0.5 mg PO BEDTIME PRN 09/17/18 [History] Cyanocobalamin (Vitamin B-12) [Vitamin B-12] 5,000 mcg PO DAILY 09/17/18 [History] Gabapentin [Neurontin] 600 mg PO TID 09/17/18 [History] Mirtazapine 22.5 mg PO BEDTIME 09/17/18 [History] PARoxetine [Paxil] 60 mg PO BEDTIME 09/17/18 [History] allopurinoL [Zyloprim] 200 mg PO DAILY 09/17/18 [History] Cholecalciferol (Vitamin D3) [Vitamin D3] 2,000 unit PO BID 11/19/18 [History] metOLazone [Metolazone] 2.5 mg PO Q72H PRN 11/19/18 [History] Fluconazole 150 mg PO ONETIME PRN 07/28/19 [History] Magnesium Oxide [Magnesium] 500 mg PO DAILY 07/28/19 [History] Pantoprazole [ProTONIX] 40 mg PO BID 07/28/19 [History] Tiotropium [place] [Spiriva Respimat] 2 puff INH DAILY 07/28/19 [History] rOPINIRole [Requip] 3 mg PO DAILY@1930 07/28/19 [History] Acetaminophen [Tylenol Extra Strength] 500 mg PO Q6H PRN tablet 07/31/19 [Rx] Apixaban [Eliquis] 5 mg PO BID 30 Days #60 tablet 07/31/19 [Rx] Apixaban [Eliquis] 10 mg PO BID 6 Days #12 tablet 07/31/19 [Rx] Ibuprofen [Motrin] 200 mg PO Q6H PRN tablet 07/31/19 [Rx] Triamcinolone Acetonide [Triamcinolone Acetonide 0.1% Crm] 0 gm TOP BID tube 07/31/19 [Rx] Oxygen Therapy Mode: Nasal Cannula Oxygen Flow Rate (L/min): 2 Maintain SPO2% less than: 92 Maintain SpO2% greater than: 88 Patient Handouts: Steps to Quit Smoking, [id number], Heart Failure, Self Care, [id number], Chronic Obstructive Pulmonary Disease, Xhot-dx-[id number], Pulmonary Embolism Forms: ED Department Discharge Referrals: Tisha Workman, [employer] [Primary Care Provider] - - Discharge Summary/Plan Comment DC Time >30 min.: No - General Info Date of Service: 07/31/19 Admission Dx/Problem (Free Text: Belinda is down to 2L of oxygen which is her baseline. has some shortness of breath but feels better. Complain of neck pain with headache, discussed Icy Hot is heating pad and stated she wanted to do at home. No nausea or vomiting. Shoulder and leg pain are controlled. Functional Status: Reports: Pain Controlled, Tolerating Diet, Ambulating, Urinating - Patient Data Vitals - Most Recent: Last Vital Signs Temp 97.0 F 07/31/19 07:35 Pulse 69 07/31/19 07:35 Resp 22 H 07/31/19 07:35 BP 150/70 H 07/31/19 07:35 Pulse Ox 90 L 07/31/19 07:35 Weight - Most Recent: 247 lb 4.8 oz I&O - Last 24 hours: Intake & Output 07/31/19 07/31/19 07/31/19 06:59 14:59 22:59 Intake Total 1000 Output Total 600 2000 Balance -600 -1000 Lab Results - Last 24 hrs: Laboratory Results - last 24 hr 07/31/19 Range/Units 05:55 Sodium 140 (135-145) mmol/L Potassium 3.8 (3.5-5.3) mmol/L Chloride 99 L (100-110) mmol/L Carbon Dioxide 37 H (21-32) mmol/L BUN 35 H (7-18) mg/dL Creatinine 1.1 H (0.55-1.02) mg/dL Est Cr Clr Drug Dosing 34.37 mL/min Estimated GFR (MDRD) 49 L (>60) BUN/Creatinine Ratio 31.8 H (9-20) Glucose 110 (80-116) mg/dL Calcium 8.6 (8.6-10.2) mg/dL Med Orders - Current: Current Medications Discontinued Medications Acetaminophen (Tylenol) 650 mg PO Q4H PRN PRN Reason: Pain Last Admin: 07/29/19 14:54 Dose: 650 mg Documented by: Acetaminophen (Tylenol) 500 mg PO Q6H [facility] Last Admin: 07/30/19 04:12 Dose: 500 mg Documented by: Acetaminophen (Tylenol Extra Strength) 500 mg PO Q6H [facility] Last Admin: 07/31/19 11:02 Dose: 500 mg Documented by: Albuterol (Ventolin Hfa) 0 gm INH Q4H PRN PRN Reason: Shortness of Breath Allopurinol (Zyloprim) 200 mg PO DAILY [facility] Last Admin: 07/31/19 08:35 Dose: 200 mg Documented by: Alprazolam (Xanax) 0.25 mg PO BEDTIME PRN PRN Reason: Anxiety Last Admin: 07/30/19 21:32 Dose: 0.25 mg Documented by: Apixaban (Eliquis) 10 mg PO BID [facility] Last Admin: 07/31/19 08:35 Dose: 10 mg Documented by: Enoxaparin Sodium (Lovenox) 110 mg SUBCUT ONETIME ONE Stop: 07/28/19 15:52 Last Admin: 07/29/19 03:47 Dose: Not Given Documented by: Enoxaparin Sodium (Lovenox) 110 mg SUBCUT Q12H [facility] Enoxaparin Sodium (Lovenox) 110 mg SUBCUT Q12H [facility] Last Admin: 07/29/19 03:47 Dose: Not Given Documented by: Enoxaparin Sodium (Lovenox) 110 mg SUBCUT Q12H [facility] Stop: 07/30/19 07:01 Last Admin: 07/30/19 07:03 Dose: 110 mg Documented by: Furosemide (Lasix) 40 mg IVPUSH NOW ONE Stop: 07/28/19 13:46 Last Admin: 07/28/19 14:42 Dose: 40 mg Documented by: Furosemide (Lasix) 40 mg IVPUSH BIDDIURETIC [facility] Last Admin: 07/30/19 10:24 Dose: Not Given Documented by: Furosemide (Lasix) 40 mg PO BID@08,12 [facility] Last Admin: 07/31/19 11:02 Dose: 40 mg Documented by: Gabapentin (Neurontin) 600 mg PO TID [facility] Last Admin: 07/31/19 14:10 Dose: 600 mg Documented by: Ibuprofen (Motrin) 200 mg PO Q6H [facility] Last Admin: 07/31/19 11:02 Dose: 200 mg Documented by: Iopamidol (Isovue-370 (76%)) 100 ml IV . DIRECTED ONE Stop: 07/28/19 15:11 Last Admin: 07/28/19 15:30 Dose: 100 ml Documented by: Magnesium Oxide (Magnesium Oxide) 400 mg PO BEDTIME [facility] Last Admin: 07/30/19 21:21 Dose: 400 mg Documented by: Metolazone (Zaroxolyn) 2.5 mg PO Q72H PRN PRN Reason: WEIGHT GAIN > 5LBS Last Admin: 07/31/19 10:56 Dose: 2.5 mg Documented by: Mirtazapine (Remeron) 22.5 mg PO BEDTIME [facility] Last Admin: 07/30/19 21:24 Dose: 22.5 mg Documented by: Montelukast Sodium (Singulair) 10 mg PO BEDTIME [facility] Last Admin: 07/30/19 21:23 Dose: 10 mg Documented by: Non-Formulary Medication (Magnesium Oxide [Magnesium]) 500 mg PO DAILY [facility] Pantoprazole Sodium (Protonix) 40 mg PO BID [facility] Last Admin: 07/31/19 08:33 Dose: 40 mg Documented by: Paroxetine HCl (Paxil) 60 mg PO BEDTIME [facility] Last Admin: 07/29/19 03:47 Dose: Not Given Documented by: Paroxetine HCl (Paxil) 60 mg PO BEDTIME [facility] Last Admin: 07/30/19 21:25 Dose: 60 mg Documented by: Ropinirole HCl (Requip) 3 mg PO DAILY@1930 [facility] Last Admin: 07/30/19 18:51 Dose: 3 mg Documented by: Sodium Chloride (Saline Flush) 10 ml FLUSH ASDIRECTED PRN PRN Reason: Keep Vein Open Last Admin: 07/29/19 14:57 Dose: 10 ml Documented by: Tiotropium [place] (Spiriva Respimat) 0 gm INH DAILY [facility] Last Admin: 07/31/19 08:33 Dose: 4 gm Documented by: Torsemide (Demadex) 20 mg PO DAILY [facility] Last Admin: 07/30/19 08:50 Dose: 20 mg Documented by: Triamcinolone Acetonide (Triamcinolone Acetonide 0.1% Crm) 0 gm TOP BID [facility] Stop: 08/06/19 10:46 Last Admin: 07/31/19 08:36 Dose: 1 applicful Documented by: - Exam General: Reports: Alert, Oriented, Cooperative, No Acute Distress HEENT: Reports: Pupils Equal, EOMI, Other (TM clear, bilateral) Lungs: Reports: Clear to Auscultation (BUL), Normal Respiratory Effort, Decreased Breath Sounds (BLL), Crackles (Right base) Cardiovascular: Reports: Regular Rate, Regular Rhythm GI/Abdominal Exam: Normal Bowel Sounds, Soft, Non-Tender, No Distention Extremities: Pedal Edema (stable) *Q Meaningful Use (DIS) - VTE *Q VTE Mechanical Contraindications *Q: DT, Suspected
== END 2019-07-31 15:25 | disposition home health service (06) | DRG 175 ==
LOC: FB.ED 13:17 → FB.MS 15:56
PROVIDERS: ADMIT Emergency Medicine; ATTEND Family Medicine
DX: I26.93 Single subsegmental thrombotic pulmonary embolism without acute cor pulmonale (principal); I50.9 Heart failure, unspecified; I50.33 Acute on chronic diastolic (congestive) heart failure; H54.7 Unspecified visual loss; J30.9 Allergic rhinitis, unspecified; Z68.42 Body mass index [BMI] 45.0-49.9, adult; J44.9 Chronic obstructive pulmonary disease, unspecified; Z87.01 Personal history of pneumonia (recurrent); Z20.828 Contact with and (suspected) exposure to other viral communicable diseases; I11.0 Hypertensive heart disease with heart failure; M54.9 Dorsalgia, unspecified; M06.9 Rheumatoid arthritis, unspecified; Z51.5 Encounter for palliative care; Z66 Do not resuscitate; G20 Parkinson's disease; M54.5 Low back pain; G89.29 Other chronic pain; F32.9 Major depressive disorder, single episode, unspecified; Z98.49 Cataract extraction status, unspecified eye; Z90.710 Acquired absence of both cervix and uterus; Z96.652 Presence of left artificial knee joint; R32 Unspecified urinary incontinence; G47.00 Insomnia, unspecified; E66.01 Morbid (severe) obesity due to excess calories; Z91.048 Other nonmedicinal substance allergy status; Z99.81 Dependence on supplemental oxygen; G25.81 Restless legs syndrome; F17.210 Nicotine dependence, cigarettes, uncomplicated; M54.2 Cervicalgia; G44.209 Tension-type headache, unspecified, not intractable; Z91.09 Other allergy status, other than to drugs and biological substances; K21.9 Gastro-esophageal reflux disease without esophagitis; F41.9 Anxiety disorder, unspecified; M10.9 Gout, unspecified; Z96.659 Presence of unspecified artificial knee joint; M19.011 Primary osteoarthritis, right shoulder; Z88.8 Allergy status to other drugs, medicaments and biological substances; Z91.018 Allergy to other foods; Z79.899 Other long term (current) drug therapy; E66.9 Obesity, unspecified
CPT/HCPCS: 36415; 71046; 71275; 80053; 80307; 82272; 82803; 83735; 83880; 84484; 85025; 85379; 85610; 85730; 93005; 93010; 96374; 99285 ×2; J1940; Q9967; 73030-RT; 80048; 93971-LT; A9270-GY; J1650; U0002

== ENCOUNTER 2020-10-03 13:45 | Emergency (ER) | payer MEDICARE ==
--- NOTE | 2020-10-03 13:59 | EDM.PDOC ---
ED HPI GENERAL MEDICAL PROBLEM - General Stated Complaint: VOMITING/DIARRHEA Time Seen by Provider: 10/03/20 13:56 Source of Information: Reports: Patient History Limitations: Reports: No Limitations - History of Present Illness INITIAL COMMENTS - FREE TEXT/NARRATIVE: 75-year-old who presents to the emergency department reporting vomiting and diarrhea. She tells me that she has diarrhea pretty much every day and she takes Imodium for that and usually if she takes one Imodium her diarrhea seems to stay away and today she had diarrhea 2 and she took an Imodium after the first stool and it did not seem to work as it normally does and then she had nausea with vomiting 1. She denies any abdominal pain or chest pain or back pain. She denies any shortness of breath. She does report that she has pain in her shoulders and her hips but this is chronic pains that she has on a daily basis and she tells me that it is "not too bad". She rates her pain as a 7/10. It is aching. But again, it is chronic. Ears no weakness or dizziness. She has been drinking liquids well and has had liquids since she had the episode of emesis. She tells me she actually feels improved from earlier today but she is very c oncerned that she has come open and that is the main reason that she came in for evaluation. There are no other associated signs or symptoms. There are no other modifying factors. - Related Data Allergies Allergy/AdvReac Type Severity Reaction Status Date / Time adhesive tape Allergy Other Verified 03/06/19 14:27 baclofen Allergy Other Verified 03/06/19 14:27 eletriptan [From Relpax] Allergy Other Verified 03/06/19 14:27 erythromycin base Allergy Itching Verified 03/06/19 14:27 Home Meds: Home Meds Montelukast [Singulair] 10 mg PO BEDTIME 02/07/16 [History] Albuterol Sulfate [Proair Hfa] 2 puff INH Q4H PRN 07/29/18 [History] Furosemide 40 mg PO BID@,07/29/18 [History] ALPRAZolam [Alprazolam] 0.25 - 0.5 mg PO BEDTIME PRN 09/17/18 [History] Cyanocobalamin (Vitamin B-12) [Vitamin B-12] 5,000 mcg PO DAILY 09/17/18 [History] Gabapentin [Neurontin] 600 mg PO TID 09/17/18 [History] Mirtazapine 22.5 mg PO BEDTIME 09/17/18 [History] PARoxetine [Paxil] 60 mg PO BEDTIME 09/17/18 [History] allopurinoL [Zyloprim] 200 mg PO DAILY 09/17/18 [History] Cholecalciferol (Vitamin D3) [Vitamin D3] 2,000 unit PO BID 11/19/18 [History] metOLazone [Metolazone] 2.5 mg PO Q72H PRN 11/19/18 [History] Fluconazole 150 mg PO ONETIME PRN 07/28/19 [History] Magnesium Oxide [Magnesium] 500 mg PO DAILY 07/28/19 [History] Pantoprazole [ProTONIX] 40 mg PO BID 07/28/19 [History] Tiotropium [place] [Spiriva Respimat] 2 puff INH DAILY 07/28/19 [History] rOPINIRole [Requip] 3 mg PO DAILY@1930 07/28/19 [History] Acetaminophen [Tylenol Extra Strength] 500 mg PO Q6H PRN tablet 07/31/19 [Rx] Apixaban [Eliquis] 5 mg PO BID 30 Days #60 tablet 07/31/19 [Rx] Apixaban [Eliquis] 10 mg PO BID 6 Days #12 tablet 07/31/19 [Rx] Ibuprofen [Motrin] 200 mg PO Q6H PRN tablet 07/31/19 [Rx] Triamcinolone Acetonide [Triamcinolone Acetonide 0.1% Crm] 0 gm TOP BID tube 07/31/19 [Rx] Past Medical History HEENT History: Reports: Allergic Rhinitis, Cataract, Impaired Vision Other HEENT History: MYOFASCIAL PAIN DYSFUNCTION SYNDROME Cardiovascular History: Reports: Heart Failure, Hypertension Respiratory History: Reports: COPD, Pneumonia, Recurrent Other Respiratory History: Wears O2 @ hs. Gastrointestinal History: Reports: Cholelithiasis, GERD CHAIR MAKER History: Reports: Other (See Below) Other CHAIR MAKER History: 3 Musculoskeletal History: Reports: Back Pain, Chronic, Gout, RA, Other (See Below) Other Musculoskeletal History: restless legs Neurological History: Reports: Parkinson's Psychiatric History: Reports: Anxiety, Depression Endocrine/Metabolic History: Reports: Obesity/BMI 30+ Hematologic History: Reports: Anticoagulation Therapy (On Eliquis) - Past Surgical History HEENT Surgical History: Reports: Cataract Surgery GI Surgical History: Reports: Hernia Repair/Other Other GI Surgeries/Procedures: Abdominal surgery Female Surgical History: Reports: Hysterectomy Neurological Surgical History: Reports: C-Spine Musculoskeletal Surgical History: Reports: Knee Replacement Other Musculoskeletal Surgeries/Procedures:: L knee Social & Family History - Tobacco Use Tobacco Use Status *Q: Current Every Day Tobacco User - Caffeine Use Caffeine Use: Reports: Coffee, Energy Drinks, Soda Other Caffeine Use: diet pop Caffeine Use Comment: two cups of coffee a day, and energy drink a day, and diet coke - Alcohol Use Alcohol Use History: No - Living Situation & Occupation Living situation: Reports: Occupation: Retired ED ROS GENERAL - Review of Systems Review Of Systems: See Below Constitutional: Denies: Fever, Chills, Malaise, Weakness HEENT: Denies: Throat Pain, Throat Swelling Respiratory: Denies: Shortness of Breath, Cough Cardiovascular: Denies: Chest Pain, Palpitations GI/Abdominal: Reports: Diarrhea, Nausea, Vomiting. Denies: Abdominal Pain : Denies: Dysuria, Frequency, Hematuria Musculoskeletal: Reports: Shoulder Pain (Chronic) Skin: Denies: Diaphoresis, Rash Neurological: Denies: Dizziness, Headache Psychiatric: Denies: Anxiety Hematologic/Lymphatic: Reports: Easy Bleeding, Easy Bruising, Other (On Eliquis) Immunologic: Reports: Other (She is not vaccinated against covid) ED EXAM, GENERAL - Physical Exam Exam: See Below Exam Limited By: No Limitations General Appearance: Alert, No Apparent Distress, Obese Eye Exam: Bilateral Eye: EOMI, Normal Inspection (Sclera are anicteric), PERRL Ears: Normal External Exam, Hearing Grossly Normal Ear Exam: Bilateral Ear: Auricle Normal Nose: Normal Inspection, Normal Mucosa, No Blood Throat/Mouth: Normal Inspection, Normal Oropharynx, Normal Voice, No Airway Compromise Head: Atraumatic, Normocephalic Neck: Normal Inspection, Supple, Non-Tender, Full Range of Motion Respiratory/Chest: No Respiratory Distress, No Accessory Muscle Use, Chest Non- Tender, Rhonchi (Scattered), Other (Poor air movement throughout. No increased work of breathing.) Cardiovascular: Normal Peripheral Pulses, Regular Rate, Rhythm, No Murmur Peripheral Pulses: 2+: Radial (L), Radial (R) GI/Abdominal: Normal Bowel Sounds, Soft, Non-Tender, No Mass, Other (Ventral hernia present) Back Exam: Normal Inspection, Full Range of Motion Extremities: Normal Inspection, Normal Range of Motion, Non-Tender, No Pedal Edema, Normal Capillary Refill Neurological: Alert, Oriented, CN II-XII Intact, Normal Cognition, No Motor/Sensory Deficits Psychiatric: Normal Affect Skin Exam: Warm, Dry, Intact, Normal Color, No Rash #1 Interpretation EKG Date: 10/03/20 Time: 14:59 Rhythm: NSR Rate (Beats/Min): 74 [place]: Normal P-Wave: Present QRS: Other (There is poor R-wave progression) ST-T: Normal QT: Normal Comparison: No Change (There is no change in this EKG from EKG that was performed on 07/28/2019.) Course - Vital Signs Last Recorded V/S: Last Vital Signs Temp 36.8 C 10/03/20 14:29 Pulse 82 10/03/20 14:29 Resp 20 10/03/20 14:29 BP 147/63 H 10/03/20 14:29 Pulse Ox 93 L 10/03/20 14:29 - Orders/Labs/Meds Orders: Active Orders 24 hr Category Date Time Status Chest 2V [CR] Stat Exams 10/03/20 14:15 Taken UA W/MICROSCOPIC [URIN] Stat Lab 10/03/20 14:11 Ordered EKG 12 Lead [EK] Routine Ther 10/03/20 14:16 Ordered Labs: Laboratory Tests 10/03/20 10/03/20 10/03/20 Range/Units 14:30 14:30 14:30 WBC 10.8 H (3.0-10.3) x10-3/uL RBC 4.70 (3.60-5.20) x10(6)uL Hgb 13.5 (11.4-15.5) g/dL Hct 41.7 (34.2-48.2) % MCV 88.6 (76.7-100.5) fL MCH 28.7 (23.9-33.9) pg MCHC 32.3 (31.9-34.8) g/dL RDW 20.1 H (12.3-16.5) % Plt Count 320 (151-488) x10(3)uL MPV 7.7 (7.1-12.4) fL Neut % (Auto) 66.2 (30.8-76.2) % Lymph % (Auto) 26.2 (18.4-52.1) % Jackson % (Auto) 6.2 (4.4-15.7) % Eos % (Auto) 0.7 (0.6-8.1) % Baso % (Auto) 0.7 (0.2-1.5) % Neut # (Auto) 7.2 H (1.5-6.3) x10-3/uL Lymph # (Auto) 2.8 (1.0-4.4) x10-3/uL Jackson # (Auto) 0.7 (0.3-1.0) x10-3/uL Eos # (Auto) 0.1 (0.0-0.8) x10-3/uL Baso # (Auto) 0.1 (0.0-0.1) x10-3/uL POC VBG pH (7.32-7.43) pH Units POC VBG pCO2 (41-51) mmHg POC VBG HCO3 (22-29) mmol/L VBG Base Excess (-2 - 3+) mmol/L O2 Delivery Device Sodium 145 (135-145) mmol/L Potassium 4.3 (3.5-5.3) mmol/L Chloride 107 D (100-110) mmol/L Carbon Dioxide 28 (21-32) mmol/L BUN 23 H D (7-18) mg/dL Creatinine 1.1 H (0.55-1.02) mg/dL Est Cr Clr Drug Dosing TNP Estimated GFR (MDRD) 48 L (>60) BUN/Creatinine Ratio 20.9 H (9-20) Glucose 114 (80-116) mg/dL Calcium 9.0 (8.6-10.2) mg/dL Magnesium 1.8 (1.8-2.5) mg/dL Total Bilirubin 0.7 (0.1-1.3) mg/dL AST 15 D (5-25) IU/L ALT 24 (12-36) U/L Alkaline Phosphatase 123 H (56-112) IU/L Troponin I 11.6 (4.0-60.3) pg/mL Total Protein 7.2 (6.0-8.0) g/dL Albumin 3.9 (3.2-4.6) g/dL Globulin 3.3 g/dL Albumin/Globulin Ratio 1.2 SARS-CoV-2 RNA (YESY) (NEGATIVE) 10/03/20 10/03/20 Range/Units 14:30 14:48 WBC (3.0-10.3) x10-3/uL RBC (3.60-5.20) x10(6)uL Hgb (11.4-15.5) g/dL Hct (34.2-48.2) % MCV (76.7-100.5) fL MCH (23.9-33.9) pg MCHC (31.9-34.8) g/dL RDW (12.3-16.5) % Plt Count (151-488) x10(3)uL MPV (7.1-12.4) fL Neut % (Auto) (30.8-76.2) % Lymph % (Auto) (18.4-52.1) % Jackson % (Auto) (4.4-15.7) % Eos % (Auto) (0.6-8.1) % Baso % (Auto) (0.2-1.5) % Neut # (Auto) (1.5-6.3) x10-3/uL Lymph # (Auto) (1.0-4.4) x10-3/uL Jackson # (Auto) (0.3-1.0) x10-3/uL Eos # (Auto) (0.0-0.8) x10-3/uL Baso # (Auto) (0.0-0.1) x10-3/uL POC VBG pH 7.35 (7.32-7.43) pH Units POC VBG pCO2 47 (41-51) mmHg POC VBG HCO3 26 (22-29) mmol/L VBG Base Excess -1 (-2 - 3+) mmol/L O2 Delivery Device Room air Sodium (135-145) mmol/L Potassium (3.5-5.3) mmol/L Chloride (100-110) mmol/L Carbon Dioxide (21-32) mmol/L BUN (7-18) mg/dL Creatinine (0.55-1.02) mg/dL Est Cr Clr Drug Dosing Estimated GFR (MDRD) (>60) BUN/Creatinine Ratio (9-20) Glucose (80-116) mg/dL Calcium (8.6-10.2) mg/dL Magnesium (1.8-2.5) mg/dL Total Bilirubin (0.1-1.3) mg/dL AST (5-25) IU/L ALT (12-36) U/L Alkaline Phosphatase (56-112) IU/L Troponin I (4.0-60.3) pg/mL Total Protein (6.0-8.0) g/dL Albumin (3.2-4.6) g/dL Globulin g/dL Albumin/Globulin Ratio SARS-CoV-2 RNA (YESY) Negative (NEGATIVE) Meds: Medications Discontinued Medications Generic Name Dose Route Start Last Admin Trade Name Freq PRN Reason Stop Dose Admin Ondansetron HCl 4 mg 10/03/20 14:15 10/03/20 14:48 Ondansetron 4 Mg Tab.Dis PO 10/03/20 14:16 4 mg ONETIME ONE Administration - Re-Assessments/Exams Free Text/Narrative Re-Assessment/Exam: 10/03/20 14:35: White blood cell count is 10.8. Hemoglobin is 13.5. Platelet count is normal. A venous blood gas showed a pH of 7.35 and a PCO2 of 47. The serum electrolyte profile was normal. The BUN is 23 and creatinine 1.1. Glucose is 114. LFTs are normal. Troponin was negative. A chest x-ray did not show any acute abnormality per my read. The patient remains hemodynamically stable. She is dropping her O2 saturations into the mid to upper 80s. She seems to be asymptomatic with this. 10/03/20 15:55: The patient was sleeping when I came into the room. She states she feels better. The Covid test was negative. The patient has had O2 sats that dropped into the 80s and she was placed on supplemental oxygen while here. She is on oxygen at home and tells me that she is actually supposed to be on it all the time but she usually only uses it at night. She has no more nausea and she has had no more vomiting. I am unsure of the cause of this nausea and vomiting today but is not appear to be anything of a serious nature at this point. I did offer to give her some antinausea medications in a prescription but she refused this. I have urged her to follow-up with her primary provider this next week. I have recommended SKYLER Harris and I will put heather in her discharge instructions. I have also strongly recommended that she get the Covid 19 vaccine. Departure - Departure Time of Disposition: 16:05 Disposition: Home, Self-Care 01 Condition: Good (Stable.) Clinical Impression: Nausea and vomiting Qualifiers: Vomiting type: unspecified Vomiting Intractability: non-intractable Qualified Code(s): R11.2 - Nausea with vomiting, unspecified - Discharge Information Instructions: Nausea and Vomiting, Adult, [id number] Referrals: Moy Camp PA [Physician Furniture Maker] - Forms: ED Department Discharge Additional Instructions: All of your blood tests were reassuring. Your Covid test was negative. I am unsure why he had the nausea and vomiting today. It does not appear to be do to anything of a serious nature. Your oxygen was running low while you were in the emergency department. You may need to be wearing the oxygen all the time now. I advise that you follow-up with your primary doctor next week. I have recommended SKYLER Harris and I have put his information in your discharge instructions. You should call on Sunday to arrange an appointment. I also strongly recommend he get the Covid 19 vaccine. You should be able to get it at one of the [facility] pharmacies. You should call them and inquire about that on Sunday as well. Back to the emergency department for unrelenting vomiting, fever, trouble breathing or any other concerning signs or symptoms. Sepsis Event Note (ED) - Focused Exam Vital Signs: Vital Signs Temp Pulse Resp BP Pulse Ox 10/03/20 14:29 36.8 C 82 20 147/63 H 93 L - My Orders Last 24 Hours: My Active Orders 10/03/20 14:11 UA W/MICROSCOPIC [URIN] Stat 10/03/20 14:15 Chest 2V [CR] Stat 10/03/20 14:16 EKG 12 Lead [EK] Routine - Assessment/Plan Last 24 Hours: My Active Orders 10/03/20 14:11 UA W/MICROSCOPIC [URIN] Stat 10/03/20 14:15 Chest 2V [CR] Stat 10/03/20 14:16 EKG 12 Lead [EK] Routine
[2020-10-03] MEDS ORDERED: Ondansetron 4 MG Tab.DIS PO ONE (14:15)
[2020-10-03 15:45] LABS: BASE EXCESS VENOUS,POC -1 mmol/L (-2 - 3+); PCO2 VENOUS,POC 47 mmHg (41-51); PH VENOUS,POC 7.35 pH Units (7.32-7.43)
[2020-10-03 16:12] VITALS: BP 147/63; PULSE 82
--- NOTE | 2020-10-04 11:44 | CR ---
CHEST TWO VIEWS INDICATION: Low oxygen sats. PA and lateral views of the chest 10/03/2020 were compared with 07/28/2019 and 03/06/2019. The heart is enlarged in general. The aorta is tortuous with calcification in the arch. Somewhat demineralized appearance suggests osteoporosis but should be correlated clinically. Hypertrophic degenerative changes and disc disease are noted in the mid to lower thoracic spine and upper lumbar spine. Slightly flattened diaphragm leaves, prominent AP diameter and hyperaeration suggest COPD. Pulmonary markings appear similar to the previous study, likely on the basis of fibrosis, but make it difficult to exclude areas of patchy bronchial pneumonia in the right mid to lower lung field and both lung bases - to a lesser extent on the left. No gross consolidating pneumonia or effusion was identified, however. Pulmonary vasculature is minimally prominent, raising question of minimal early CHF. Postsurgical lower cervical fusion site again noted. IMPRESSION: 1. ASHD with cardiomegaly and possible minimal early CHF. Minimal interstitial lung edema cannot be excluded. 2. Heavy markings compatible with pulmonary fibrosis again noted but make it difficult to entirely exclude areas of minimal patchy bronchial pneumonia. 3. Probable COPD. 4. 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 MTDD
== END 2020-10-03 16:21 | disposition home or self-care (01) ==
LOC: FB.ED 13:45
DX: R11.2 Nausea with vomiting, unspecified (principal); I11.0 Hypertensive heart disease with heart failure; I50.9 Heart failure, unspecified; J44.9 Chronic obstructive pulmonary disease, unspecified; K21.9 Gastro-esophageal reflux disease without esophagitis; M10.9 Gout, unspecified; E66.9 Obesity, unspecified; Z68.42 Body mass index [BMI] 45.0-49.9, adult; Z79.01 Long term (current) use of anticoagulants; Z91.048 Other nonmedicinal substance allergy status; Z88.1 Allergy status to other antibiotic agents; Z88.8 Allergy status to other drugs, medicaments and biological substances; Z79.899 Other long term (current) drug therapy; Z20.822 Contact with and (suspected) exposure to COVID-19
CPT/HCPCS: 36415; 71046; 80053; 83735; 84484; 85025; 93005; 99284; A9270; U0002

== ENCOUNTER 2021-03-26 23:22 | Emergency (ER) | payer MEDICARE, MEDICAID ==
[2021-03-26] MEDS ORDERED: Labetalol 20 MG/4 ML Syringe IVPUSH ONE (23:42)
[2021-03-26] MEDS ORDERED: Acetaminophen 500 MG Tab PO ONE (23:43)
[2021-03-27] MEDS ORDERED: Ondansetron 4 MG/2 ML SDV IVPUSH ONE (00:28)
[2021-03-27] MEDS ORDERED: cefTRIAXone 1 GM Vial IVPUSH SCH (00:30)
[2021-03-27] MEDS ORDERED: Azithromycin 500 MG in Sodium Chloride 0.9% 250 ML IV ONE (00:38)
[2021-03-27] MEDS ORDERED: Enoxaparin 100 MG/1 ML Syringe SUBCUT ONE (02:50)
[2021-03-27 03:28] VITALS: BP 111/56; PULSE 85
== END 2021-03-27 03:53 ==
LOC: FB.ED 23:22
DX: U07.1 COVID-19 (principal); J12.82 Pneumonia due to coronavirus disease 2019; I16.0 Hypertensive urgency; I11.0 Hypertensive heart disease with heart failure; I50.9 Heart failure, unspecified; K21.9 Gastro-esophageal reflux disease without esophagitis; E66.01 Morbid (severe) obesity due to excess calories; J44.9 Chronic obstructive pulmonary disease, unspecified; Z88.1 Allergy status to other antibiotic agents; Z91.048 Other nonmedicinal substance allergy status; Z88.8 Allergy status to other drugs, medicaments and biological substances; Z79.899 Other long term (current) drug therapy; Z99.81 Dependence on supplemental oxygen; Z68.41 Body mass index [BMI] 40.0-44.9, adult
CPT/HCPCS: 36415; 71045; 80053; 81001; 83880; 84484; 85025; 86140; 93005; 93010; 96365; 96372; 96375; 99283; 99285; A9270; J0456; J0696; J1650; J2405; J3490; J7050; U0002

== ENCOUNTER 2022-03-04 21:06 | Emergency (ER) | payer MEDICARE, MEDICAID ==
[2022-03-04] MEDS ORDERED: Albuterol/Ipratropium 3.0-0.5 MG/3 ML Neb Soln NEB ONE (21:16)
[2022-03-04] MEDS ORDERED: methylPREDNISolone Sodium Succinate 125 MG/2 ML SDV IM ONE (21:16)
[2022-03-04 21:29] LABS: BASE EXCESS VENOUS,POC 5 mmol/L (-2 - 3+); PCO2 VENOUS,POC 51 mmHg (41-51); PH VENOUS,POC 7.39 pH Units (7.32-7.43)
[2022-03-04 21:29] LABS: ESTIMATED GFR 31 mL/min (>60)
[2022-03-04 22:59] LABS: CORONAVIRUS COVID-19 NAA NEGATIVE (NEGATIVE)
[2022-03-04] MEDS ORDERED: Amoxicillin/Clavulanate K 875-125 MG Tab PO ONE (23:36)
[2022-03-05 05:47] VITALS: BP 128/65; PULSE 68
== END 2022-03-05 00:10 | disposition home or self-care (01) ==
LOC: FB.ED 21:06
DX: I11.0 Hypertensive heart disease with heart failure (principal); I50.9 Heart failure, unspecified; J44.1 Chronic obstructive pulmonary disease with (acute) exacerbation; K21.9 Gastro-esophageal reflux disease without esophagitis; E66.9 Obesity, unspecified; Z88.1 Allergy status to other antibiotic agents; Z88.8 Allergy status to other drugs, medicaments and biological substances; Z91.09 Other allergy status, other than to drugs and biological substances; Z20.822 Contact with and (suspected) exposure to COVID-19
CPT/HCPCS: 0241U; 36415; 71045; 80053; 81001; 83880; 84484; 85025; 93005; 93010; 94640; 96372; 99284; 99285; A9270-GY; J2930; J7620

== ENCOUNTER 2022-05-05 16:27 | Inpatient (IN) | payer MEDICARE, MEDICAID ==
[2022-05-05] MEDS ORDERED: Albuterol/Ipratropium 3.0-0.5 MG/3 ML Neb Soln NEB ONE (17:19)
[2022-05-05] MEDS ORDERED: Metolazone 2.5 MG Tab PO ONE (17:19)
[2022-05-05] MEDS ORDERED: methylPREDNISolone Sodium Succinate 125 MG/2 ML SDV IVPUSH ONE (17:19)
[2022-05-05] MEDS ORDERED: Furosemide 40 MG/4 ML VIAL IVPUSH ONE (17:19)
[2022-05-05 17:21] LABS: BASE EXCESS VENOUS,POC 13 mmol/L (-2 - 3+); PCO2 VENOUS,POC 49 mmHg (41-51); PH VENOUS,POC 7.51 pH Units (7.32-7.43)
[2022-05-05 17:26] LABS: ESTIMATED GFR 52 mL/min (>60)
[2022-05-05 18:00] LABS: CORONAVIRUS COVID-19 NAA NEGATIVE (NEGATIVE)
[2022-05-05] MEDS ORDERED: Ondansetron 4 MG/2 ML SDV IV PRN (18:34)
[2022-05-05] MEDS ORDERED: Albuterol 0.5% 5 MG/ML Neb Soln 20 ML Bottle NEB PRN (18:34)
[2022-05-05] MEDS ORDERED: methylPREDNISolone Sodium Succinate 125 MG/2 ML SDV IVPUSH SCH (18:45)
[2022-05-05] MEDS ORDERED: Enoxaparin 40 MG/0.4 ML Syringe SUBCUT SCH (18:45)
[2022-05-05] MEDS ORDERED: Iopamidol 755 Mg/ML 100 ML Bottle IV ONE (18:54)
[2022-05-05] MEDS: Albuterol/Ipratropium 3.0-0.5 MG/3 ML Neb Soln NEB SCH (18:54)
[2022-05-05] MEDS ORDERED: cefTRIAXone 1 GM Vial IVPUSH SCH (19:00)
[2022-05-05] MEDS: Sodium Chloride 0.9% 1,000 ML IV SCH (19:15)
[2022-05-05] MEDS ORDERED: Azithromycin 500 MG in Sodium Chloride 0.9% 250 ML IV SCH (20:00)
[2022-05-05] MEDS ORDERED: tiZANidine 4 MG Tab PO PRN (20:41)
[2022-05-05] MEDS ORDERED: Acetaminophen 325 MG Tab PO PRN (20:41)
[2022-05-05] MEDS ORDERED: Naloxone 4 MG Nasal Spray NAS SCH (20:45)
[2022-05-05] MEDS: Mirtazapine 15 MG Tab PO SCH (21:47)
[2022-05-05] MEDS: Montelukast 10 MG Tab PO SCH (21:47)
[2022-05-05] MEDS: ALPRAZolam 0.25 MG Tab PO PRN (21:47)
[2022-05-05] MEDS: Gabapentin 600 MG Tab PO SCH (21:47)
[2022-05-05] MEDS: Apixaban 5 MG Tab PO SCH (21:47)
[2022-05-06] MEDS: Albuterol/Ipratropium 3.0-0.5 MG/3 ML Neb Soln NEB SCH ×4 (01:00→18:07)
[2022-05-06] MEDS: methylPREDNISolone Sodium Succinate 125 MG/2 ML SDV IVPUSH SCH ×3 (01:22→18:07)
[2022-05-06] MEDS: Sodium Chloride 0.9% 1,000 ML IV SCH (06:15)
[2022-05-06] MEDS: Pantoprazole 40 MG Tab.CR PO SCH (06:30)
[2022-05-06 06:45] LABS: ESTIMATED GFR 47 mL/min (>60)
[2022-05-06] MEDS: Losartan 50 MG Tab PO SCH (08:17)
[2022-05-06] MEDS: Apixaban 5 MG Tab PO SCH ×2 (08:18→21:11)
[2022-05-06] MEDS: Gabapentin 600 MG Tab PO SCH ×2 (08:19→21:14)
[2022-05-06] MEDS: Allopurinol 100 MG Tab PO SCH (08:22)
[2022-05-06] MEDS: Cholecalciferol (Vitamin D3) 25 MCG Tab PO SCH (08:22)
[2022-05-06] MEDS: Cyanocobalamin (Vitamin B12) 1,000 MCG Tab PO SCH (08:39)
[2022-05-06] MEDS ORDERED: Non-Formulary Medication 1 Each (Omeprazole [Omeprazole] 20 MG Capsule.Dr) PO SCH (09:00)
[2022-05-06] MEDS ORDERED: Furosemide 40 MG Tab PO SCH (09:00)
[2022-05-06] MEDS: Morphine 4 MG/ML VIAL IVPUSH PRN ×2 (10:31→18:06)
[2022-05-06] MEDS ORDERED: Ibuprofen 400 MG Tab PO PRN (20:19)
[2022-05-06] MEDS: ALPRAZolam 0.25 MG Tab PO PRN (21:12)
[2022-05-06] MEDS: Mirtazapine 15 MG Tab PO SCH (21:12)
[2022-05-06] MEDS: Montelukast 10 MG Tab PO SCH (21:13)
[2022-05-07] MEDS: Albuterol/Ipratropium 3.0-0.5 MG/3 ML Neb Soln NEB SCH ×4 (01:00→18:21)
[2022-05-07] MEDS: methylPREDNISolone Sodium Succinate 125 MG/2 ML SDV IVPUSH SCH ×3 (02:00→18:09)
[2022-05-07] MEDS: Pantoprazole 40 MG Tab.CR PO SCH (06:33)
[2022-05-07 06:47] LABS: ESTIMATED GFR 36 mL/min (>60)
[2022-05-07] MEDS: Losartan 50 MG Tab PO SCH (09:17)
[2022-05-07] MEDS: Gabapentin 600 MG Tab PO SCH ×2 (09:17→20:31)
[2022-05-07] MEDS: Apixaban 5 MG Tab PO SCH ×2 (09:17→20:30)
[2022-05-07] MEDS: Cyanocobalamin (Vitamin B12) 1,000 MCG Tab PO SCH (09:18)
[2022-05-07] MEDS: Cholecalciferol (Vitamin D3) 25 MCG Tab PO SCH (09:19)
[2022-05-07] MEDS: Allopurinol 100 MG Tab PO SCH (09:19)
[2022-05-07] MEDS: Furosemide 40 MG/4 ML VIAL IVPUSH SCH (09:29)
[2022-05-07] MEDS: Sodium Chloride 0.9% 10 ML Syringe FLUSH PRN (18:08)
[2022-05-07] MEDS: Montelukast 10 MG Tab PO SCH (20:30)
[2022-05-07] MEDS: Mirtazapine 15 MG Tab PO SCH (20:31)
[2022-05-07] MEDS: Acetaminophen 325 MG Tab PO PRN (20:31)
[2022-05-07] MEDS: ALPRAZolam 0.25 MG Tab PO PRN (20:40)
[2022-05-08] MEDS: Albuterol/Ipratropium 3.0-0.5 MG/3 ML Neb Soln NEB SCH ×4 (01:29→18:14)
[2022-05-08] MEDS: methylPREDNISolone Sodium Succinate 125 MG/2 ML SDV IVPUSH SCH ×3 (01:46→17:21)
[2022-05-08] MEDS: Sodium Chloride 0.9% 10 ML Syringe FLUSH PRN ×2 (01:47→09:57)
[2022-05-08] MEDS: Pantoprazole 40 MG Tab.CR PO SCH (06:42)
[2022-05-08 06:43] LABS: ESTIMATED GFR 43 mL/min (>60)
[2022-05-08] MEDS: Cyanocobalamin (Vitamin B12) 1,000 MCG Tab PO SCH (09:18)
[2022-05-08] MEDS: Apixaban 5 MG Tab PO SCH ×2 (09:19→20:04)
[2022-05-08] MEDS: Losartan 50 MG Tab PO SCH (09:19)
[2022-05-08] MEDS: Cholecalciferol (Vitamin D3) 25 MCG Tab PO SCH (09:19)
[2022-05-08] MEDS: Allopurinol 100 MG Tab PO SCH (09:19)
[2022-05-08] MEDS: Furosemide 40 MG/4 ML VIAL IVPUSH SCH ×3 (09:20→09:53)
[2022-05-08] MEDS: Gabapentin 600 MG Tab PO SCH ×2 (09:38→20:03)
[2022-05-08] MEDS ORDERED: Meclizine 12.5 MG Tab PO PRN (13:43)
[2022-05-08] MEDS: Acetaminophen 325 MG Tab PO PRN ×2 (14:47→22:59)
[2022-05-08] MEDS: ALPRAZolam 0.25 MG Tab PO PRN (20:03)
[2022-05-08] MEDS: Montelukast 10 MG Tab PO SCH (20:06)
[2022-05-08] MEDS: Mirtazapine 15 MG Tab PO SCH (20:06)
[2022-05-09] MEDS: Albuterol/Ipratropium 3.0-0.5 MG/3 ML Neb Soln NEB SCH ×2 (00:04→05:56)
[2022-05-09] MEDS: methylPREDNISolone Sodium Succinate 125 MG/2 ML SDV IVPUSH SCH ×2 (01:57→10:59)
[2022-05-09] MEDS: Sodium Chloride 0.9% 10 ML Syringe FLUSH PRN (02:01)
[2022-05-09] MEDS: Acetaminophen 325 MG Tab PO PRN (05:04)
[2022-05-09 06:30] LABS: ESTIMATED GFR 39 mL/min (>60)
[2022-05-09] MEDS: Pantoprazole 40 MG Tab.CR PO SCH (06:33)
[2022-05-09] MEDS: Cholecalciferol (Vitamin D3) 25 MCG Tab PO SCH (08:57)
[2022-05-09] MEDS: Apixaban 5 MG Tab PO SCH (08:57)
[2022-05-09] MEDS: Losartan 50 MG Tab PO SCH (08:57)
[2022-05-09] MEDS: Allopurinol 100 MG Tab PO SCH (08:57)
[2022-05-09] MEDS: Cyanocobalamin (Vitamin B12) 1,000 MCG Tab PO SCH (08:58)
[2022-05-09] MEDS: Furosemide 40 MG/4 ML VIAL IVPUSH SCH (08:59)
[2022-05-09] MEDS: Gabapentin 600 MG Tab PO SCH (09:12)
[2022-05-09 10:03] VITALS: BP 178/82; PULSE 80
== END 2022-05-09 11:30 | disposition home health service (06) | DRG 175 ==
LOC: FB.ED 16:27 → FB.MS 18:34
PROVIDERS: ADMIT Family Medicine; ATTEND Family Medicine
DX: I26.99 Other pulmonary embolism without acute cor pulmonale (principal); I50.33 Acute on chronic diastolic (congestive) heart failure; J44.1 Chronic obstructive pulmonary disease with (acute) exacerbation; Z68.41 Body mass index [BMI] 40.0-44.9, adult; I11.0 Hypertensive heart disease with heart failure; G43.909 Migraine, unspecified, not intractable, without status migrainosus; G47.00 Insomnia, unspecified; K59.09 Other constipation; F10.10 Alcohol abuse, uncomplicated; K21.9 Gastro-esophageal reflux disease without esophagitis; G89.29 Other chronic pain; M54.9 Dorsalgia, unspecified; M10.9 Gout, unspecified; M19.90 Unspecified osteoarthritis, unspecified site; M06.9 Rheumatoid arthritis, unspecified; E11.9 Type 2 diabetes mellitus without complications; F41.9 Anxiety disorder, unspecified; F32.A Depression, unspecified; Z96.652 Presence of left artificial knee joint; Z96.611 Presence of right artificial shoulder joint; F17.210 Nicotine dependence, cigarettes, uncomplicated; Z20.822 Contact with and (suspected) exposure to COVID-19; Z90.49 Acquired absence of other specified parts of digestive tract; Z79.01 Long term (current) use of anticoagulants; Z79.899 Other long term (current) drug therapy; Z86.16 Personal history of COVID-19; Z88.0 Allergy status to penicillin; Z88.8 Allergy status to other drugs, medicaments and biological substances; Z98.49 Cataract extraction status, unspecified eye; Z90.710 Acquired absence of both cervix and uterus; Z99.81 Dependence on supplemental oxygen
CPT/HCPCS: 0241U; 36415; 71045; 71046; 71275; 80048; 80053; 81001; 83605; 83880; 84484; 85025; 85379; 85610; 85730; 87040; 93005; 93010; 94640; 94762; 96374; 97161-GP; 99285; 99285-25; A9270-GY; J0456; J0696; J1940; J2270; J2405; J2930; J3490; J7030; J7050; J7620; Q9967

== ENCOUNTER 2022-05-26 11:13 | Observation (INO) | payer MEDICARE, MEDICAID ==
[2022-05-26 12:23] LABS: ESTIMATED GFR 52 mL/min (>60)
[2022-05-26] MEDS ORDERED: Ondansetron 4 MG Tab.DIS PO PRN (16:21)
[2022-05-26] MEDS ORDERED: Acetaminophen 325 MG Tab PO PRN (16:21)
[2022-05-26] MEDS ORDERED: Albuterol 0.083% 2.5 MG/3 ML Neb Soln NEB PRN (16:48)
[2022-05-26] MEDS ORDERED: ALPRAZolam 0.5 MG Tab PO PRN (20:44)
[2022-05-26] MEDS ORDERED: Budesonide 0.5 MG/2 ML Neb Susp NEB SCH (21:00)
[2022-05-26] MEDS ORDERED: Mirtazapine 15 MG Tab PO ONE (21:00)
[2022-05-26] MEDS ORDERED: Apixaban 5 MG Tab PO ONE (21:00)
[2022-05-26] MEDS ORDERED: MIRTAZAPINE 45 MG PO SCH (21:00)
[2022-05-26] MEDS ORDERED: Apixaban 5 MG Tab PO SCH (21:00)
[2022-05-26] MEDS ORDERED: Budesonide 0.5 MG/2 ML Neb Susp NEB ONE (21:00)
[2022-05-27] MEDS ORDERED: Losartan 50 MG Tab PO SCH (09:00)
[2022-05-27] MEDS ORDERED: Furosemide 40 MG Tab PO SCH (09:00)
[2022-05-27 12:14] LABS: ESTIMATED GFR 58 mL/min (>60)
[2022-05-27 18:41] VITALS: BP 148/42; PULSE 84
== END 2022-05-27 14:15 | disposition home or self-care (01) ==
LOC: FB.ED 11:13 → FB.MS 15:45
PROVIDERS: ADMIT Family Medicine; ATTEND Family Medicine
DX: I21.4 Non-ST elevation (NSTEMI) myocardial infarction (principal); I13.0 Hypertensive heart and chronic kidney disease with heart failure and stage 1 through stage 4 chronic kidney disease, or unspecified chronic kidney disease; N18.30 Chronic kidney disease, stage 3 unspecified; I50.33 Acute on chronic diastolic (congestive) heart failure; J44.9 Chronic obstructive pulmonary disease, unspecified; I26.99 Other pulmonary embolism without acute cor pulmonale; K21.9 Gastro-esophageal reflux disease without esophagitis; F41.0 Panic disorder [episodic paroxysmal anxiety]; E11.69 Type 2 diabetes mellitus with other specified complication; E87.5 Hyperkalemia; F17.200 Nicotine dependence, unspecified, uncomplicated; E66.01 Morbid (severe) obesity due to excess calories; F17.210 Nicotine dependence, cigarettes, uncomplicated; F33.0 Major depressive disorder, recurrent, mild; E66.9 Obesity, unspecified; Z99.81 Dependence on supplemental oxygen; Z79.899 Other long term (current) drug therapy; Z88.1 Allergy status to other antibiotic agents; Z88.8 Allergy status to other drugs, medicaments and biological substances; Z88.6 Allergy status to analgesic agent
CPT/HCPCS: 36415; 70450; 71045; 80048; 80053; 83880; 84484; 85025; 85379; 93005; 93010; 99223; 99238; 99285; A9270; G0378

== ENCOUNTER 2023-09-06 15:35 | Inpatient (IN) | payer MEDICARE, MEDICAID ==
[2023-09-06 16:02] LABS: BASOPHILS PERCENT AUTO 0.4 % (0.2-1.5); EOSINOPHILS ABSOLUTE AUTO 0.3 x10-3/uL (0.0-0.8); EOSINOPHILS PERCENT AUTO 3.3 % (0.6-8.1); HEMATOCRIT 32.2 % (34.2-48.2); HEMOGLOBIN 10.3 g/dL (11.4-15.5); LYMPHOCYTES ABSOLUTE AUTO 3.3 x10-3/uL (1.0-4.4); LYMPHOCYTES PERCENT AUTO 36.4 % (18.4-52.1); MEAN CORPUSCULAR HEMOGLOBIN 29.6 pg (23.9-33.9); MEAN CORPUSCULAR HGB CONC 31.9 g/dL (31.9-34.8); MEAN CORPUSCULAR VOLUME 92.9 fL (76.7-100.5); MEAN PLATELET VOLUME 7.6 fL (7.1-12.4); MONOCYTES ABSOLUTE AUTO 0.6 x10-3/uL (0.3-1.0); MONOCYTES PERCENT AUTO 6.8 % (4.4-15.7); NEUTROPHILS ABSOLUTE AUTO 4.9 x10-3/uL (1.5-6.3); NEUTROPHILS PERCENT AUTO 53.1 % (30.8-76.2); PLATELET COUNT,PLT 325 x10(3)uL (151-488); RED BLOOD CELL COUNT 3.47 x10(6)uL (3.60-5.20); RED CELL DISTRIBUTION WIDTH 17.5 % (12.3-16.5); WHITE BLOOD CELL COUNT,WBC 9.2 x10-3/uL (3.0-10.3)
[2023-09-06 16:05] LABS: BLOOD UREA NITROGEN,BUN 22 mg/dL (7-18); BUN/CREATININE RATIO 15.7 (9-20); CARBON DIOXIDE,CO2 36 mmol/L (21-32); CHLORIDE,CL 99 mmol/L (100-110); CREATININE 1.4 mg/dL (0.55-1.02); ESTIMATED GFR 39 mL/min (>60); GLUCOSE RANDOM 132 mg/dL (80-116); POTASSIUM,K 3.8 mmol/L (3.5-5.3); SODIUM,NA 139 mmol/L (135-145)
[2023-09-06 16:06] LABS: INR 2.16 (1.00-1.24); PROTHROMBIN TIME 21.1 sec (9.0-11.1)
[2023-09-06 16:18] LABS: A/G RATIO 0.6; ALANINE AMINOTRANSFERASE,ALT 25 U/L (12-36); ALBUMIN 2.8 g/dL (3.2-4.6); ALKALINE PHOSPHATASE 140 IU/L (56-112); ASPARTATE AMNIOTRANSFERASE,AST 29 IU/L (5-25); BILIRUBIN TOTAL 0.9 mg/dL (0.1-1.3); PROTEIN TOTAL,TP 7.2 g/dL (6.0-8.0)
[2023-09-06 16:23] LABS: EST CRCL DRUG DOSING (CG) 24.17 mL/min
[2023-09-06 16:35] LABS: C-REACTIVE PROTEIN 17.29 mg/dL (<0.50)
[2023-09-06] MEDS: Iopamidol 755 Mg/ML 100 ML Bottle IV SCH (16:59)
[2023-09-06] MEDS: Sodium Chloride 0.9% 10 ML Syringe FLUSH PRN (17:36)
[2023-09-06] MEDS: Sodium Chloride 0.9% 1,000 ML IV ONE (17:36)
[2023-09-06] MEDS: cefTRIAXone 1 GM Vial IM ONE (21:13)
[2023-09-06] MEDS ORDERED: cefTRIAXone 1 GM Vial IVPUSH SCH (21:15)
[2023-09-06] MEDS: cefTRIAXone 1 GM Vial IVPUSH ONE (21:57)
[2023-09-06] MEDS: Acetaminophen 325 MG Tab PO PRN (21:59)
[2023-09-07] MEDS: hydrOXYzine HCl 25 MG Tab PO PRN (01:40)
[2023-09-07 08:30] LABS: LACTIC ACID 0.7 mmol/L (0.4-2.0)
[2023-09-07 10:21] LABS: BASOPHILS ABSOLUTE AUTO 0.1 x10-3/uL (0.0-0.1); BASOPHILS PERCENT AUTO 0.7 % (0.2-1.5); EOSINOPHILS ABSOLUTE AUTO 0.2 x10-3/uL (0.0-0.8); EOSINOPHILS PERCENT AUTO 2.5 % (0.6-8.1); HEMATOCRIT 30.1 % (34.2-48.2); HEMOGLOBIN 9.6 g/dL (11.4-15.5); LYMPHOCYTES ABSOLUTE AUTO 1.9 x10-3/uL (1.0-4.4); LYMPHOCYTES PERCENT AUTO 20.8 % (18.4-52.1); MEAN CORPUSCULAR HEMOGLOBIN 29.7 pg (23.9-33.9); MEAN CORPUSCULAR HGB CONC 32.1 g/dL (31.9-34.8); MEAN CORPUSCULAR VOLUME 92.6 fL (76.7-100.5); MEAN PLATELET VOLUME 7.2 fL (7.1-12.4); MONOCYTES ABSOLUTE AUTO 0.7 x10-3/uL (0.3-1.0); MONOCYTES PERCENT AUTO 7.8 % (4.4-15.7); NEUTROPHILS ABSOLUTE AUTO 6.3 x10-3/uL (1.5-6.3); NEUTROPHILS PERCENT AUTO 68.2 % (30.8-76.2); PLATELET COUNT,PLT 304 x10(3)uL (151-488); RED BLOOD CELL COUNT 3.25 x10(6)uL (3.60-5.20); RED CELL DISTRIBUTION WIDTH 17.2 % (12.3-16.5); WHITE BLOOD CELL COUNT,WBC 9.3 x10-3/uL (3.0-10.3)
[2023-09-07 10:31] LABS: BLOOD UREA NITROGEN,BUN 16 mg/dL (7-18); CALCIUM 8.4 mg/dL (8.6-10.2); CARBON DIOXIDE,CO2 39 mmol/L (21-32); EST CRCL DRUG DOSING (CG) 33.84 mL/min; ESTIMATED GFR 58 mL/min (>60); GLUCOSE RANDOM 136 mg/dL (80-116)
[2023-09-07 10:38] LABS: CHLORIDE,CL 102 mmol/L (100-110); POTASSIUM,K 4.2 mmol/L (3.5-5.3); SODIUM,NA 143 mmol/L (135-145)
[2023-09-07] MEDS: Bacitracin/Neomycin/Polymyxin B Oint 28.4 GM Tube TOP SCH (11:03)
[2023-09-07] MEDS ORDERED: ALPRAZolam 0.25 MG Tab PO PRN (11:15)
[2023-09-07] MEDS ORDERED: Naloxone 4 MG Nasal Spray NAS PRN (11:15)
[2023-09-07] MEDS ORDERED: Albuterol/Ipratropium 3.0-0.5 MG/3 ML Neb Soln INH PRN (11:15)
[2023-09-07] MEDS ORDERED: Albuterol 6.7 GM Inhaler INH PRN (11:15)
[2023-09-07] MEDS ORDERED: Loperamide 2 MG Cap PO PRN (11:15)
[2023-09-07] MEDS: Furosemide 40 MG/4 ML VIAL IVPUSH SCH (11:50)
[2023-09-07] MEDS: Cholecalciferol (Vitamin D3) 25 MCG Tab PO SCH (11:50)
[2023-09-07] MEDS: Acetaminophen/HYDROcodone 325-10 MG Tab PO PRN (11:51)
[2023-09-07] MEDS: Cyanocobalamin (Vitamin B12) 1,000 MCG Tab PO SCH (11:51)
[2023-09-07] MEDS: Pantoprazole 40 MG Tab.CR PO SCH (11:51)
[2023-09-07] MEDS: Allopurinol 100 MG Tab PO SCH (11:51)
[2023-09-07] MEDS: Azithromycin 500 MG in Sodium Chloride 0.9% 250 ML IV SCH (11:52)
[2023-09-07] MEDS ORDERED: cefTRIAXone 1 GM in Sodium Chloride 0.9% 50 ML IV SCH (20:00)
[2023-09-07] MEDS: CALCIUM CARB PO SCH (20:10)
[2023-09-07] MEDS: ZINC SULF PO SCH (20:10)
[2023-09-07] MEDS: MAG OX PO SCH (20:10)
[2023-09-07] MEDS: cefTRIAXone 1 GM Vial IVPUSH SCH (20:10)
[2023-09-07] MEDS: Losartan 50 MG Tab PO SCH (20:11)
[2023-09-07] MEDS: Gabapentin 400 MG Cap PO SCH (20:15)
[2023-09-07] MEDS: DULoxetine 60 MG Cap PO SCH (20:15)
[2023-09-07] MEDS: atorvaSTATin 40 MG Tab PO SCH (20:15)
[2023-09-07] MEDS: Mirtazapine 15 MG Tab PO SCH (20:16)
[2023-09-07] MEDS: Acetaminophen 325 MG Tab PO SCH (20:17)
[2023-09-07] MEDS: tiZANidine 4 MG Tab PO SCH (20:18)
[2023-09-07] MEDS: ALPRAZolam 0.25 MG Tab PO SCH (20:18)
[2023-09-07] MEDS: Prochlorperazine 10 MG/2 ML SDV IVPUSH ONE (21:52)
[2023-09-08 06:45] LABS: BASOPHILS ABSOLUTE AUTO 0.1 x10-3/uL (0.0-0.1); EOSINOPHILS ABSOLUTE AUTO 0.2 x10-3/uL (0.0-0.8); EOSINOPHILS PERCENT AUTO 2.1 % (0.6-8.1); HEMATOCRIT 32.6 % (34.2-48.2); HEMOGLOBIN 10.4 g/dL (11.4-15.5); LYMPHOCYTES ABSOLUTE AUTO 3.1 x10-3/uL (1.0-4.4); LYMPHOCYTES PERCENT AUTO 30.8 % (18.4-52.1); MEAN CORPUSCULAR HEMOGLOBIN 29.4 pg (23.9-33.9); MEAN PLATELET VOLUME 7.5 fL (7.1-12.4); MONOCYTES ABSOLUTE AUTO 0.8 x10-3/uL (0.3-1.0); MONOCYTES PERCENT AUTO 8.2 % (4.4-15.7); NEUTROPHILS ABSOLUTE AUTO 5.8 x10-3/uL (1.5-6.3); NEUTROPHILS PERCENT AUTO 57.9 % (30.8-76.2); PLATELET COUNT,PLT 336 x10(3)uL (151-488); RED CELL DISTRIBUTION WIDTH 17.6 % (12.3-16.5); WHITE BLOOD CELL COUNT,WBC 10.1 x10-3/uL (3.0-10.3)
[2023-09-08 06:53] LABS: RED BLOOD CELL COUNT 3.55 x10(6)uL (3.60-5.20)
[2023-09-08 06:54] LABS: A/G RATIO 0.6; ALANINE AMINOTRANSFERASE,ALT 15 U/L (12-36); ALBUMIN 2.7 g/dL (3.2-4.6); ALKALINE PHOSPHATASE 130 IU/L (56-112); ASPARTATE AMNIOTRANSFERASE,AST 13 IU/L (5-25); BILIRUBIN TOTAL 0.5 mg/dL (0.1-1.3); BLOOD UREA NITROGEN,BUN 13 mg/dL (7-18); BUN/CREATININE RATIO 11.8 (9-20); CHLORIDE,CL 100 mmol/L (100-110); CREATININE 1.1 mg/dL (0.55-1.02); EST CRCL DRUG DOSING (CG) 30.76 mL/min; ESTIMATED GFR 52 mL/min (>60); GLUCOSE RANDOM 115 mg/dL (80-116); POTASSIUM,K 3.5 mmol/L (3.5-5.3); SODIUM,NA 144 mmol/L (135-145)
[2023-09-08 06:57] LABS: CARBON DIOXIDE,CO2 40 mmol/L (21-32)
[2023-09-08] MEDS: Montelukast 10 MG Tab PO SCH (08:12)
[2023-09-08] MEDS: Acetaminophen/HYDROcodone 325-10 MG Tab PO PRN (11:28)
[2023-09-09 00:47] LABS: STREPTOCOCCUS PNEUMONIAE AG,UR Negative (Negative)
[2023-09-09 00:52] LABS: LEGIONELLA PNEUMOPHILA AG,URN Negative (Negative)
[2023-09-09 06:47] LABS: BASOPHILS ABSOLUTE AUTO 0.1 x10-3/uL (0.0-0.1); BASOPHILS PERCENT AUTO 0.8 % (0.2-1.5); EOSINOPHILS ABSOLUTE AUTO 0.3 x10-3/uL (0.0-0.8); EOSINOPHILS PERCENT AUTO 3.7 % (0.6-8.1); HEMATOCRIT 30.1 % (34.2-48.2); HEMOGLOBIN 9.7 g/dL (11.4-15.5); LYMPHOCYTES ABSOLUTE AUTO 3.1 x10-3/uL (1.0-4.4); LYMPHOCYTES PERCENT AUTO 32.9 % (18.4-52.1); MEAN CORPUSCULAR HEMOGLOBIN 29.8 pg (23.9-33.9); MEAN CORPUSCULAR HGB CONC 32.1 g/dL (31.9-34.8); MEAN CORPUSCULAR VOLUME 92.8 fL (76.7-100.5); MEAN PLATELET VOLUME 7.4 fL (7.1-12.4); MONOCYTES ABSOLUTE AUTO 0.8 x10-3/uL (0.3-1.0); NEUTROPHILS ABSOLUTE AUTO 5.1 x10-3/uL (1.5-6.3); NEUTROPHILS PERCENT AUTO 53.6 % (30.8-76.2); PLATELET COUNT,PLT 330 x10(3)uL (151-488); RED BLOOD CELL COUNT 3.24 x10(6)uL (3.60-5.20); RED CELL DISTRIBUTION WIDTH 17.5 % (12.3-16.5); WHITE BLOOD CELL COUNT,WBC 9.4 x10-3/uL (3.0-10.3)
[2023-09-09] MEDS ORDERED: Benzonatate 100 MG Cap PO PRN (09:08)
[2023-09-10 06:36] LABS: BASOPHILS PERCENT AUTO 0.6 % (0.2-1.5); EOSINOPHILS ABSOLUTE AUTO 0.4 x10-3/uL (0.0-0.8); EOSINOPHILS PERCENT AUTO 4.7 % (0.6-8.1); HEMATOCRIT 30.8 % (34.2-48.2); HEMOGLOBIN 9.9 g/dL (11.4-15.5); LYMPHOCYTES ABSOLUTE AUTO 3.3 x10-3/uL (1.0-4.4); LYMPHOCYTES PERCENT AUTO 40.7 % (18.4-52.1); MEAN CORPUSCULAR HEMOGLOBIN 29.9 pg (23.9-33.9); MEAN CORPUSCULAR HGB CONC 32.2 g/dL (31.9-34.8); MEAN PLATELET VOLUME 7.3 fL (7.1-12.4); MONOCYTES ABSOLUTE AUTO 0.6 x10-3/uL (0.3-1.0); MONOCYTES PERCENT AUTO 7.2 % (4.4-15.7); NEUTROPHILS ABSOLUTE AUTO 3.8 x10-3/uL (1.5-6.3); NEUTROPHILS PERCENT AUTO 46.8 % (30.8-76.2); PLATELET COUNT,PLT 381 x10(3)uL (151-488); RED BLOOD CELL COUNT 3.31 x10(6)uL (3.60-5.20); RED CELL DISTRIBUTION WIDTH 17.8 % (12.3-16.5); WHITE BLOOD CELL COUNT,WBC 8.1 x10-3/uL (3.0-10.3)
[2023-09-10 06:42] LABS: BLOOD UREA NITROGEN,BUN 14 mg/dL (7-18); BUN/CREATININE RATIO 11.7 (9-20); CALCIUM 8.8 mg/dL (8.6-10.2); CHLORIDE,CL 103 mmol/L (100-110); CREATININE 1.2 mg/dL (0.55-1.02); ESTIMATED GFR 47 mL/min (>60); GLUCOSE RANDOM 104 mg/dL (80-116); POTASSIUM,K 4.2 mmol/L (3.5-5.3); SODIUM,NA 144 mmol/L (135-145)
[2023-09-10 07:06] LABS: CARBON DIOXIDE,CO2 41 mmol/L (21-32)
[2023-09-10] MEDS ORDERED: Furosemide 40 MG Tab PO PRN (09:37)
[2023-09-10] MEDS: VANCOmycin 1.5 GM/300 ML 1.5 GM in Premix Bag 1 BAG IV ONE (10:14)
[2023-09-10] MEDS: Furosemide 40 MG Tab PO SCH (10:14)
[2023-09-10] MEDS: Acetaminophen 325 MG Tab PO SCH (20:27)
[2023-09-11 06:27] LABS: BASOPHILS PERCENT AUTO 0.6 % (0.2-1.5); EOSINOPHILS ABSOLUTE AUTO 0.5 x10-3/uL (0.0-0.8); EOSINOPHILS PERCENT AUTO 5.3 % (0.6-8.1); HEMATOCRIT 32.1 % (34.2-48.2); HEMOGLOBIN 10.2 g/dL (11.4-15.5); LYMPHOCYTES ABSOLUTE AUTO 2.8 x10-3/uL (1.0-4.4); LYMPHOCYTES PERCENT AUTO 31.8 % (18.4-52.1); MEAN CORPUSCULAR HEMOGLOBIN 29.6 pg (23.9-33.9); MEAN CORPUSCULAR HGB CONC 31.7 g/dL (31.9-34.8); MEAN CORPUSCULAR VOLUME 93.4 fL (76.7-100.5); MEAN PLATELET VOLUME 7.3 fL (7.1-12.4); MONOCYTES ABSOLUTE AUTO 0.6 x10-3/uL (0.3-1.0); MONOCYTES PERCENT AUTO 6.6 % (4.4-15.7); NEUTROPHILS ABSOLUTE AUTO 4.9 x10-3/uL (1.5-6.3); NEUTROPHILS PERCENT AUTO 55.7 % (30.8-76.2); PLATELET COUNT,PLT 431 x10(3)uL (151-488); RED BLOOD CELL COUNT 3.44 x10(6)uL (3.60-5.20); RED CELL DISTRIBUTION WIDTH 17.5 % (12.3-16.5); WHITE BLOOD CELL COUNT,WBC 8.9 x10-3/uL (3.0-10.3)
[2023-09-11] MEDS: VANCOmycin 1 GM/200 ML 1 GM in Premix Bag 1 BAG IV SCH (09:27)
[2023-09-11] MEDS: diphenhydrAMINE 25 MG Cap PO ONE (10:18)
[2023-09-11 13:20] VITALS: BP 161/74; PULSE 99
== END 2023-09-11 13:03 | disposition home or self-care (01) | DRG 178 ==
LOC: FB.ED 15:35 → FB.MS 20:16
PROVIDERS: ADMIT Internal Medicine; ATTEND Internal Medicine
DX: J18.9 Pneumonia, unspecified organism (principal); J15.211 Pneumonia due to Methicillin susceptible Staphylococcus aureus; I50.9 Heart failure, unspecified; J44.9 Chronic obstructive pulmonary disease, unspecified; I50.32 Chronic diastolic (congestive) heart failure; E11.9 Type 2 diabetes mellitus without complications; J44.0 Chronic obstructive pulmonary disease with (acute) lower respiratory infection; N17.9 Acute kidney failure, unspecified; Z91.048 Other nonmedicinal substance allergy status; Z68.43 Body mass index [BMI] 50.0-59.9, adult; R04.2 Hemoptysis; J96.11 Chronic respiratory failure with hypoxia; Z79.51 Long term (current) use of inhaled steroids; I11.0 Hypertensive heart disease with heart failure; K21.9 Gastro-esophageal reflux disease without esophagitis; K59.09 Other constipation; M19.90 Unspecified osteoarthritis, unspecified site; E66.9 Obesity, unspecified; F41.0 Panic disorder [episodic paroxysmal anxiety]; M10.9 Gout, unspecified; G89.29 Other chronic pain; M54.9 Dorsalgia, unspecified; E11.42 Type 2 diabetes mellitus with diabetic polyneuropathy; G20.A1 Parkinson's disease without dyskinesia, without mention of fluctuations; G47.33 Obstructive sleep apnea (adult) (pediatric); G25.81 Restless legs syndrome; F32.9 Major depressive disorder, single episode, unspecified; I05.0 Rheumatic mitral stenosis; I35.0 Nonrheumatic aortic (valve) stenosis; F17.210 Nicotine dependence, cigarettes, uncomplicated; Z88.1 Allergy status to other antibiotic agents; Z88.8 Allergy status to other drugs, medicaments and biological substances; Z79.01 Long term (current) use of anticoagulants; Z79.899 Other long term (current) drug therapy; Z98.49 Cataract extraction status, unspecified eye; Z90.49 Acquired absence of other specified parts of digestive tract; Z90.710 Acquired absence of both cervix and uterus; Z96.659 Presence of unspecified artificial knee joint; Z98.890 Other specified postprocedural states; Z86.16 Personal history of COVID-19; Z86.711 Personal history of pulmonary embolism
CPT/HCPCS: 36415; 70450; 71275; 80048; 80053; 83605; 83735; 83880; 85025; 85610; 86140; 87040; 87070; 87077; 87186; 87205; 87449; 87486; 87581; 87633; 87798; 87899; 93306; 97161-GP; 97530-GP; 99222; 99232; 99238; 99285; A9270-GY; J0456; J0696; J0780; J1940; J3372; J3490; J7030; J7050; Q9967; U0002

== ENCOUNTER 2024-04-14 22:10 | Emergency (ER) | payer MEDICARE ==
[2024-04-14] MEDS: Sodium Chloride 0.9% 10 ML Syringe FLUSH PRN (22:35)
[2024-04-14] MEDS: Sodium Chloride 0.9% 1,000 ML IV SCH (22:44)
[2024-04-14] MEDS: Acetaminophen 325 MG Tab PO ONE (22:44)
[2024-04-14 22:51] LABS: BASOPHILS ABSOLUTE AUTO 0.1 x10-3/uL (0.0-0.1); EOSINOPHILS ABSOLUTE AUTO 0.1 x10-3/uL (0.0-0.8); EOSINOPHILS PERCENT AUTO 0.7 % (0.6-8.1); RED BLOOD CELL COUNT 3.62 x10(6)uL (3.60-5.20)
[2024-04-14 22:54] LABS: BLOOD UREA NITROGEN,BUN 13 mg/dL (7-18); BUN/CREATININE RATIO 10.8 (9-20); CALCIUM 8.4 mg/dL (8.6-10.2); CARBON DIOXIDE,CO2 32 mmol/L (21-32); CHLORIDE,CL 101 mmol/L (100-110); CREATININE 1.2 mg/dL (0.55-1.02); EST CRCL DRUG DOSING (CG) 29.16 mL/min; ESTIMATED GFR 46 mL/min (>60); GLUCOSE RANDOM 101 mg/dL (80-116); POTASSIUM,K 5.2 mmol/L (3.5-5.3); SODIUM,NA 139 mmol/L (135-145)
[2024-04-14 22:59] LABS: BASOPHILS PERCENT AUTO 0.7 % (0.2-1.5); HEMATOCRIT 33.8 % (34.2-48.2); HEMOGLOBIN 11.3 g/dL (11.4-15.5); LYMPHOCYTES PERCENT AUTO 29.4 % (18.4-52.1); MEAN CORPUSCULAR HEMOGLOBIN 31.2 pg (23.9-33.9); MEAN CORPUSCULAR HGB CONC 33.5 g/dL (31.9-34.8); MEAN CORPUSCULAR VOLUME 93.4 fL (76.7-100.5); MEAN PLATELET VOLUME 8.4 fL (7.1-12.4); MONOCYTES ABSOLUTE AUTO 0.7 x10-3/uL (0.3-1.0); MONOCYTES PERCENT AUTO 7.2 % (4.4-15.7); NEUTROPHILS ABSOLUTE AUTO 6.3 x10-3/uL (1.5-6.3); PLATELET COUNT,PLT 344 x10(3)uL (151-488); WHITE BLOOD CELL COUNT,WBC 10.2 x10-3/uL (3.0-10.3)
[2024-04-14 23:00] LABS: A/G RATIO 0.7; ALANINE AMINOTRANSFERASE,ALT 28 U/L (12-36); ALBUMIN 2.6 g/dL (3.2-4.6); ALKALINE PHOSPHATASE 153 IU/L (56-112); ASPARTATE AMNIOTRANSFERASE,AST 55 IU/L (5-25); BILIRUBIN TOTAL 0.4 mg/dL (0.1-1.3); PROTEIN TOTAL,TP 6.4 g/dL (6.0-8.0)
[2024-04-14 23:13] LABS: RED CELL DISTRIBUTION WIDTH 17.4 % (12.3-16.5)
[2024-04-14] MEDS ORDERED: Sodium Chloride 0.9% 1,000 ML IV SCH (23:15)
[2024-04-14 23:39] LABS: INFLUENZA A NAA NEGATIVE (NEGATIVE); INFLUENZA B NAA NEGATIVE (NEGATIVE); RESPIRATORY SYNCYTIAL VIR NAA NEGATIVE (NEGATIVE)
[2024-04-14 23:41] LABS: CORONAVIRUS COVID-19 NAA NEGATIVE (NEGATIVE)
[2024-04-15] MEDS: Albuterol/Ipratropium 3.0-0.5 MG/3 ML Neb Soln NEB ONE (00:57)
[2024-04-15] MEDS: Furosemide 40 MG/4 ML VIAL IVPUSH ONE (01:00)
[2024-04-15 05:58] VITALS: BP 128/57; PULSE 91
[2024-04-15] MEDS: cefTRIAXone 2 GM Vial IVPUSH ONE (06:26)
[2024-04-16 16:16] LABS: PROCALCITONIN 0.04 ng/mL
== END 2024-04-15 10:09 | disposition home or self-care (01) ==
LOC: FB.ED 22:10
DX: J18.9 Pneumonia, unspecified organism (principal); I11.0 Hypertensive heart disease with heart failure; I50.9 Heart failure, unspecified; K21.9 Gastro-esophageal reflux disease without esophagitis; E11.9 Type 2 diabetes mellitus without complications; E66.9 Obesity, unspecified; Z68.41 Body mass index [BMI] 40.0-44.9, adult; Z86.16 Personal history of COVID-19; Z90.49 Acquired absence of other specified parts of digestive tract; Z90.710 Acquired absence of both cervix and uterus; Z88.1 Allergy status to other antibiotic agents; Z88.8 Allergy status to other drugs, medicaments and biological substances; Z91.048 Other nonmedicinal substance allergy status; Z79.51 Long term (current) use of inhaled steroids; Z79.01 Long term (current) use of anticoagulants; Z79.899 Other long term (current) drug therapy
CPT/HCPCS: 0241U; 36415; 71046; 80053; 83605; 83880; 84145; 85025; 86140; 93005; 94640; 96361; 96374; 99284; 99285-25; A9270-GY; J0696; J7030